=== PATIENT | male | born 1935 | race Caucasian/White ===

== ENCOUNTER 2018-03-29 21:03 | Inpatient (IN) | payer MEDICARE ==
[~2018-03-29] VITALS: Ht 175.3 cm; Wt 122.9 kg
[2018-03-29 21:28] LABS: BASO # 0.1 x10^3/uL (0.0-0.2); BASO % 0 % (0-3); EOS % 0 % (0-3); HEMATOCRIT 51.1 % (39.0-53.0); HEMOGLOBIN 16.8 g/dL (13.0-17.5); LYMPH # 0.8 x10^3/uL (1.0-4.8); LYMPH % 6 % (24-48); MEAN CORPUSCULAR HEMOGLOBIN 30 pg (25-35); MEAN CORPUSCULAR HGB CONC 33 g/dL (31-37); MEAN CORPUSCULAR VOLUME 90 fL (79-100); MONO # 0.9 x10^3/uL (0.0-1.1); MONO % 6 % (0-9); NEUT # 12.9 x10^3uL (1.8-7.7); NEUT % 88 % (31-73); PLATELET COUNT 151 x10^3/uL (140-400); RED BLOOD COUNT 5.69 x10^6/uL (4.30-5.70); RED CELL DISTRIBUTION WIDTH 13.6 % (11.5-14.5); WHITE BLOOD COUNT 14.7 x10^3/uL (4.0-11.0)
[2018-03-29 21:37] LABS: PROTHROMBIN TIME PATIENT 16.2 SEC (11.7-14.0)
--- NOTE | 2018-03-29 21:44 | PHYS DOC ---
Past Medical History Past Medical History: A-Fib, Diabetes-Type II, Hypotension Past Surgical History: Other Additional Past Surgical Histo: PACEMAKER Alcohol Use: None Drug Use: None Adult General Chief Complaint Chief Complaint: HYPERGLYCEMIA HPI HPI Patient is a 82 year old male with a history of diabetes and a-fib presents to the ED by EMS stating that he has not been taking his insulin for the past week because he does not use it. Patient's son called EMS. Patient is a poor historian and offers little history. Denies chest pain, shortness of breath, dizziness, fever, weakness, nausea/vomiting, abdominal pain, diarrhea, blood in stool or syncope. Review of Systems Review of Systems Constitutional: Denies fever or chills [] Eyes: Denies change in visual acuity, redness, or eye pain [] HENT: Denies nasal congestion or sore throat [] Respiratory: Denies cough or shortness of breath [] Cardiovascular: No additional information not addressed in HPI [] GI: Denies abdominal pain, nausea, vomiting, bloody stools or diarrhea [] : Denies dysuria or hematuria [] Musculoskeletal: Denies back pain or joint pain [] Integument: Denies rash or skin lesions [] Neurologic: Denies headache, focal weakness or sensory changes [] All other systems were reviewed and found to be within normal limits, except as documented in this note. Current Medications Current Medications Current Medications Medications (Trade) Dose Ordered Sig/Lizzette Start Time Stop Time Status Last Admin Dose Admin Azithromycin 500 mg/Sodium Chloride 250 ml @ 250 mls/hr 1X ONCE 03/29/18 23:00 03/29/18 23:59 DC 03/29/18 23:42 250 MLS/HR Ceftriaxone Sodium 50 ml @ 100 mls/hr 1X ONCE 03/29/18 23:15 03/29/18 23:44 DC 03/29/18 23:15 100 MLS/HR Insulin Human Regular (HumuLIN R VIAL) 10 unit 1X ONCE 03/29/18 22:15 03/29/18 22:16 DC 03/29/18 22:42 10 UNIT Insulin Human Regular 150 unit/ Sodium Chloride 151.5 ml @ 0 mls/hr CONT PRN 03/29/18 22:30 03/29/18 22:58 DC Sodium Chloride 1,000 ml @ 1,000 mls/hr 1X ONCE 03/29/18 22:15 8/8/18 23:14 DC 03/29/18 22:43 1,000 MLS/HR Allergies Allergies Allergies Coded Allergies Type Severity Reaction Last Updated Verified No Known Drug Allergies 03/29/18 No Physical Exam Physical Exam Constitutional: No acute distress, non-toxic appearance. [] HENT: Normocephalic, atraumatic, bilateral external ears normal, oropharynx moist, no oral exudates, nose normal. [] Eyes: PERRLA, EOMI, conjunctiva normal, no discharge. [] Neck: Normal range of motion, no tenderness, supple, no stridor. [] Cardiovascular:Heart rate regular rhythm, no murmur [] Lungs & Thorax: Bilateral breath sounds clear to auscultation. dry cough. [] Abdomen: Bowel sounds normal, soft, no tenderness, no masses, no pulsatile masses. [] Skin: Warm, dry, no erythema, no rash. [] Back: No tenderness, no CVA tenderness. [] Extremities: erythema to left lower leg. No bony tenderness, no cyanosis, no clubbing, ROM intact, no edema. [] Neurologic: Alert and oriented X 3, normal motor function, normal sensory function, no focal deficits noted. [] Psychologic: Affect normal, judgement normal, mood normal. [] Current Patient Data Vital Signs Vital Signs Date Time Temp Pulse Resp B/P (MAP) Pulse Ox O2 Delivery O2 Flow Rate FiO2 03/29/18 21:03 98.7 60 16 173/70 (104) 97 Room Air 98.7 Lab Values Laboratory Tests Test 03/29/18 21:10 03/29/18 21:49 03/29/18 21:55 White Blood Count 14.7 x10^3/uL (4.0-11.0) H Red Blood Count 5.69 x10^6/uL (4.30-5.70) Hemoglobin 16.8 g/dL (13.0-17.5) Hematocrit 51.1 % (39.0-53.0) Mean Corpuscular Volume 90 fL (79-100) Mean Corpuscular Hemoglobin 30 pg (25-35) Mean Corpuscular Hemoglobin Concent 33 g/dL (31-37) Red Cell Distribution Width 13.6 % (11.5-14.5) Platelet Count 151 x10^3/uL (140-400) Neutrophils (%) (Auto) 88 % (31-73) H Lymphocytes (%) (Auto) 6 % (24-48) L Monocytes (%) (Auto) 6 % (0-9) Eosinophils (%) (Auto) 0 % (0-3) Basophils (%) (Auto) 0 % (0-3) Neutrophils # (Auto) 12.9 x10^3uL (1.8-7.7) H Lymphocytes # (Auto) 0.8 x10^3/uL (1.0-4.8) L Monocytes # (Auto) 0.9 x10^3/uL (0.0-1.1) Eosinophils # (Auto) 0.0 x10^3/uL (0.0-0.7) Basophils # (Auto) 0.1 x10^3/uL (0.0-0.2) Segmented Neutrophils % 79 % (35-66) H Band Neutrophils % 13 % (0-9) H Lymphocytes % 4 % (24-48) L Monocytes % 3 % (0-10) Basophils % 1 % (0-3) Toxic Granulation Slight Platelet Estimate Adequate (ADEQUATE) Prothrombin Time 16.2 SEC (11.7-14.0) H Prothrombin Time INR 1.4 (0.8-1.1) H Sodium Level 137 mmol/L (136-145) Potassium Level 4.2 mmol/L (3.5-5.1) Chloride Level 101 mmol/L (98-107) Carbon Dioxide Level 23 mmol/L (21-32) Anion Gap 13 (6-14) Blood Urea Nitrogen 27 mg/dL (8-26) H Creatinine 1.9 mg/dL (0.7-1.3) H Estimated GFR (Cockcroft-Gault) 34.2 BUN/Creatinine Ratio 14 (6-20) Glucose Level 555 mg/dL (70-99) *H Glucose (Fingerstick) 458 mg/dL (70-99) H Lactic Acid Level 6.3 mmol/L (0.4-2.0) *H Calcium Level 9.4 mg/dL (8.5-10.1) Magnesium Level 1.8 mg/dL (1.8-2.4) Total Bilirubin 1.2 mg/dL (0.2-1.0) H Aspartate Amino Transferase (AST) 17 U/L (15-37) Alanine Aminotransferase (ALT) 20 U/L (16-63) Alkaline Phosphatase 103 U/L (46-116) Creatine Kinase 30 U/L (39-308) L Troponin I Quantitative < 0.017 ng/mL (0.000-0.055) UO-Fjt-N-Type Natriuretic Peptide 1807 pg/mL (0-449) H Total Protein 7.4 g/dL (6.4-8.2) Albumin 3.1 g/dL (3.4-5.0) L Albumin/Globulin Ratio 0.7 (1.0-1.7) L Lipase 172 U/L (73-393) Thyroid Stimulating Hormone (TSH) 3.599 uIU/mL (0.358-3.74) POC Troponin I 0.02 ng/ml (<0.08) Urine Collection Type Unknown Urine Color Yellow Urine Clarity Clear Urine pH 5.5 Urine Specific [place] >=1.030 Urine Protein 100 mg/dL (NEG-TRACE) Urine Glucose (UA) >=1000 mg/dL (NEG) Urine Ketones (Stick) Negative mg/dL (NEG) Urine Blood Small (NEG) Urine Nitrite Negative (NEG) Urine Bilirubin Negative (NEG) Urine Urobilinogen Dipstick 1.0 mg/dL (0.2 mg/dL) Urine Leukocyte Esterase Negative (NEG) Urine RBC Rare /HPF (0-2) Urine WBC Rare /HPF (0-4) Urine Squamous Epithelial Cells Occ /LPF Urine Bacteria 0 /HPF (0-FEW) Urine Hyaline Casts Few /HPF Urine Mucus Mod /LPF Laboratory Tests 03/29/18 21:10 Laboratory Tests 03/29/18 21:10 Microbiology 03/29/18 Blood Culture - Preliminary, Resulted NO GROWTH AFTER 1 DAY EKG EKG EKG shows a-flutter with LBBB. no obvious signs of ischemia in accordance with the sgarbossa criteria. No prior EKG for comparison.[] Radiology/Procedures Radiology/Procedures [] Course & Med Decision Making Course & Med Decision Making Pertinent Labs and Imaging studies reviewed. (See chart for details) []2 liters of fluids and insulin given in the ED. Patient is noncompliant and a poor historian. No complaints, waiting for son to come. Patient has a fever. Tylenol given. Antibiotics started. Unsure if pulmonary source or cellulitis. Discussed case with hospitalist, Dr. Perez. Agrees to admission and further management of patient. Patient stable admission. Dragon Disclaimer Dragon Disclaimer This electronic medical record was generated, in whole or in part, using a voice recognition dictation system. Departure Departure Impression: Primary Impression: Hyperglycemia Additional Impressions: Leukocytosis BRAD (acute kidney injury) Disposition: 09 ADMITTED INPATIENT Admitting Physician: Lisa Perez Condition: STABLE Referrals: UNKNOWN PCP NAME (PCP) Problem Qualifiers MJ RICARDO Mar 29, 2018 21:44
[2018-03-29 21:49] LABS: ALBUMIN 3.1 g/dL (3.4-5.0); ALBUMIN/GLOBULIN RATIO 0.7 (1.0-1.7); CALCIUM 9.4 mg/dL (8.5-10.1); CREATININE 1.9 mg/dL (0.7-1.3); GFR 34.2; MAGNESIUM 1.8 mg/dL (1.8-2.4); POTASSIUM 4.2 mmol/L (3.5-5.1); TOTAL BILIRUBIN 1.2 mg/dL (0.2-1.0); TOTAL PROTEIN 7.4 g/dL (6.4-8.2)
[2018-03-29 21:50] LABS: % BANDS 13 % (0-9); % BASOS 1 % (0-3); % LYMPHS 4 % (24-48); % MONOS 3 % (0-10); % SEGS 79 % (35-66)
[2018-03-29 21:51] LABS: PLT ESTIMATE ADEQUATE (ADEQUATE); TOXIC GRANULATION SLIGHT
[2018-03-29] MEDS ORDERED: IV NORMAL SALINE 1000ML BAG 1,000 ML IV ONE ×2 (22:00→22:15)
[2018-03-29 22:08] LABS: BILIRUBIN,URINE NEGATIVE (NEG); CLARITY,URINE CLEAR; COLOR,URINE YELLOW; NITRITE,URINE NEGATIVE (NEG); PH,URINE 5.5; PROTEIN,URINE 100 mg/dL (NEG-TRACE)
[2018-03-29] MEDS ORDERED: INSULIN REGULAR 100 UNIT/ML 3ML VIAL. IV ONE (22:15)
[2018-03-29 22:16] LABS: BACTERIA,URINE 0 /HPF (0-FEW); HYALINE CASTS, URINE FEW /HPF; RBC,URINE RARE /HPF (0-2); SQUAMOUS EPITHELIAL CELL,UR OCC /LPF; WBC,URINE RARE /HPF (0-4)
[2018-03-29] MEDS ORDERED: INSULIN REGULAR VIAL 150 UNIT in 0.9 % SODIUM CHLORIDE 150ML 150 ML IV PRN (22:30)
[2018-03-29] MEDS ORDERED: AZITHROMYCIN 500 MG in IV NORMAL SALINE 250ML 250 ML IV ONE (23:00)
--- NOTE | 2018-03-29 23:13 | RAD ---
AP portable chest radiograph 03/29/2018 Clinical History: History of hyperglycemia. History of heart disease.. An AP erect portable digital radiograph of the chest was obtained. No previous studies are available for comparison. A pacemaker overlies the left anterior chest. Leads extend to overlie the right atrium and right ventricle of the heart. The patient is post median sternotomy. The cardiac silhouette is mildly enlarged. Atherosclerotic calcification of the thoracic aorta is seen. The thoracic aorta is mildly tortuous. No acute pulmonary infiltrate is noted. No pneumothorax or pleural effusion is seen. There is diffuse osteopenia of the visualized bony structures. Degenerative changes are seen involving the thoracic spine and both shoulders. IMPRESSION: No acute abnormality is seen. Electronically signed by: Syed Gomez MD (03/29/2018 11:09 PM) [facility]
[2018-03-29] MEDS ORDERED: ACETAMINOPHEN 500 MG TABLET PO ONE (23:45)
[2018-03-29] MEDS ORDERED: fentaNYL PF VIAL 100 MCG/2 ML VIAL IV PRN (23:45)
[2018-03-29] MEDS ORDERED: ACETAMINOPHEN 325 MG TABLET. PO PRN (23:45)
[2018-03-29] MEDS ORDERED: ONDANSETRON PF 4 MG/2 ML VIAL. IV PRN (23:55)
[2018-03-30] VITALS (7 sets, daily range): BP systolic 107–139; BP diastolic 36–65
[2018-03-30] MEDS ORDERED: IV NORMAL SALINE 1000ML BAG 1,000 ML IV ONE (01:45)
[2018-03-30 06:01] LABS: BASO % 0 % (0-3); EOS % 0 % (0-3); HEMATOCRIT 47.2 % (39.0-53.0); HEMOGLOBIN 15.6 g/dL (13.0-17.5); LYMPH # 1.5 x10^3/uL (1.0-4.8); LYMPH % 13 % (24-48); MEAN CORPUSCULAR HEMOGLOBIN 30 pg (25-35); MEAN CORPUSCULAR HGB CONC 33 g/dL (31-37); MEAN CORPUSCULAR VOLUME 90 fL (79-100); MONO # 0.9 x10^3/uL (0.0-1.1); MONO % 8 % (0-9); NEUT # 9.3 x10^3uL (1.8-7.7); NEUT % 79 % (31-73); PLATELET COUNT 136 x10^3/uL (140-400); RED BLOOD COUNT 5.24 x10^6/uL (4.30-5.70); RED CELL DISTRIBUTION WIDTH 13.6 % (11.5-14.5); WHITE BLOOD COUNT 11.8 x10^3/uL (4.0-11.0)
[2018-03-30 06:21] LABS: ALBUMIN 2.5 g/dL (3.4-5.0); ALBUMIN/GLOBULIN RATIO 0.6 (1.0-1.7); CALCIUM 8.7 mg/dL (8.5-10.1); CREATININE 1.7 mg/dL (0.7-1.3); GFR 38.9; POTASSIUM 4.1 mmol/L (3.5-5.1); TOTAL BILIRUBIN 0.9 mg/dL (0.2-1.0); TOTAL PROTEIN 6.4 g/dL (6.4-8.2)
--- NOTE | 2018-03-30 07:33 | EKG ---
[facility] [address] [place] [address] Test Date: 2018-03-29 Test Time: 21:14:33 Pat Name: RICHARD OVIEDO Department: Room: Gender: M Capacity Planner: LIA : [id number] Requested By: MJ RICARDO Order Number: [id number] Reading MD: Measurements Intervals Unity Rate: 80 P: NC: QRS: 55 QRSD: 156 T: 160 QT: 430 QTc: 500 Interpretive Statements REGULAR RHYTHM, NO P WAVE FOUND LOW LIMB LEAD VOLTAGE NON SPECIFIC INTRAVENTRICULAR BLOCK QRS(T) CONTOUR ABNORMALITY CONSISTENT WITH ANTERIOR INFARCT PROBABLY OLD CONSIDER INFERIOR MYOCARDIAL DAMAGE ABNORMAL ECG RI6.01 No previous ECG available for comparison
[2018-03-30] MEDS ORDERED: DEXTROSE 50% 25 GM / 50ML DISP.SYRIN. IV PRN (07:45)
[2018-03-30] MEDS ORDERED: INSULIN GLARGINE 300 UNITS/3 ML INSULN.PEN. SQ SCH ×2 (08:00→21:00)
[2018-03-30] MEDS: INSULIN LISPRO 300 UNITS/3 ML INSULN.PEN. SQ SCH ×6 (08:25→17:00)
[2018-03-30] MEDS ORDERED: ASPI325T8 PO (09:19)
[2018-03-30] MEDS ORDERED: NYST15OI TP (09:19)
[2018-03-30] MEDS ORDERED: FURO-68 PO (09:19)
[2018-03-30] MEDS ORDERED: GLIP5TAB10 PO (09:19)
[2018-03-30] MEDS ORDERED: RIVA15TA PO (09:19)
[2018-03-30] MEDS ORDERED: TAMS0.4C97 PO (09:19)
[2018-03-30] MEDS ORDERED: TRAM50TA PO (09:19)
[2018-03-30] MEDS ORDERED: MUPI22OI2 TP (09:19)
[2018-03-30] MEDS ORDERED: MICO130A9 TP (09:19)
[2018-03-30] MEDS ORDERED: ATEN50TA PO (09:19)
[2018-03-30] MEDS ORDERED: LEVO25TA4 PO (09:19)
[2018-03-30] MEDS ORDERED: TRIA15OI TP (09:19)
[2018-03-30] MEDS ORDERED: INSU100V13 SQ (09:19)
[2018-03-30] MEDS ORDERED: traMADol 50 MG TABLET PO PRN (10:15)
--- NOTE | 2018-03-30 10:20 | PDOC1 ---
History and Physical Date of Admission Date of Admission DATE: 03/30/18 TIME: 10:13 Identification/Chief Complaint Chief Complaint foot numbness, right Source Source: Chart review, Patient History of Present Illness History of Present Illness Mr. Mathew, is a 82 year old male with a history of diabetes and a-fib presents to the ED by EMS stating that he has not been taking his insulin for the past week because he does not use it. Patient's son called EMS. Patient is a poor historian and offers little history. Denies chest pain, shortness of breath, dizziness, fever, weakness, nausea/vomiting, abdominal pain, diarrhea, blood in stool or syncope. Family History Family History: No Significant Social History Smoke: No ALCOHOL: none Drugs: Other Current Problem List Problem List Problems Medical Problems: (1) Hyperglycemia Status: Acute (2) Pneumonia Status: Acute Current Medications Current Medications Current Medications Sodium Chloride 1,000 ml @ 1,000 mls/hr 1X ONCE IV Last administered on at 22:05; Start 03/29/18 at 22:00; Stop 03/29/18 at 22:59; Status DC Sodium Chloride 1,000 ml @ 1,000 mls/hr 1X ONCE IV Last administered on at 22:43; Start 03/29/18 at 22:15; Stop 03/29/18 at 23:14; Status DC Insulin Human Regular 150 unit/ Sodium Chloride 151.5 ml @ 0 mls/hr CONT PRN IV SEE I/O RECORD; Start 03/29/18 at 22:30; Stop 03/29/18 at 22:58; Status DC Insulin Human Regular (HumuLIN R VIAL) 10 unit 1X ONCE IV Last administered on 03/29/18at 22:42; Start 03/29/18 at 22:15; Stop 03/29/18 at 22:16; Status DC Ceftriaxone Sodium 50 ml @ 100 mls/hr 1X ONCE IV Last administered on at 23:15; Start 03/29/18 at 23:15; Stop 03/29/18 at 23:44; Status DC Azithromycin 500 mg/Sodium Chloride 250 ml @ 250 mls/hr 1X ONCE IV Last administered on 03/29/18at 23:42; Start 03/29/18 at 23:00; Stop 03/29/18 at 23:59; Status DC Ondansetron HCl (Zofran) 4 mg PRN Q8HRS PRN IV NAUSEA/VOMITING; Start 03/29/18 at 23:55; Stop 03/30/18 at 23:54 Fentanyl Citrate (Fentanyl 2ml Vial) 50 mcg PRN Q1HR PRN IV PAIN; Start at 23:45; Stop 03/30/18 at 23:44 Acetaminophen (Tylenol) 650 mg PRN Q4HRS PRN PO FEVER; Start 03/29/18 at 23:45; Stop 03/30/18 at 23:44 Acetaminophen (Tylenol) 1,000 mg 1X ONCE PO Last administered on 03/29/18at 23: 58; Start 03/29/18 at 23:45; Stop 03/30/18 at 00:01; Status DC Sodium Chloride 1,000 ml @ 100 mls/hr 1X ONCE IV Last administered on at 01:45; Start 03/30/18 at 01:45; Stop 03/30/18 at 11:44 Insulin Human Lispro (HumaLOG) 0-9 UNITS TIDWMEALS SQ Last administered on at 08:26; Start 03/30/18 at 08:00 Dextrose (Dextrose 50%-Water Syringe) 12.5 gm PRN Q15MIN PRN IV SEE COMMENTS; Start 03/30/18 at 07:45 Insulin Glargine (Lantus) 14 units DAILY SQ Last administered on 03/30/18at 08:25 ; Start 03/30/18 at 08:00; Stop 03/30/18 at 10:12; Status DC Insulin Human Lispro (HumaLOG) 10 units TIDWMEALS SQ Last administered on at 08:25; Start 03/30/18 at 08:00 Aspirin (Dorothy Aspirin) 325 mg DAILY PO ; Start 03/31/18 at 09:00; Status UNV Atenolol (Tenormin) 75 mg DAILY PO ; Start 03/30/18 at 11:00 Furosemide (Lasix) 40 mg DAILY PO ; Start 03/30/18 at 11:00 Glipizide (Glucotrol) 5 mg DAILY PO ; Start 03/30/18 at 11:00 Rivaroxaban (Xarelto) 15 mg DAILY PO ; Start 03/30/18 at 11:00 Tamsulosin HCl (Flomax) 0.4 mg DAILY PO ; Start 03/30/18 at 11:00 Tramadol HCl (Ultram) 50 mg TID PRN PRN PO MILD PAIN; Start 03/30/18 at 10:15 Triamcinolone Acetonide (Kenalog) 1 maria isabel DAILY TP ; Start 03/30/18 at 11:00 Insulin Glargine (Lantus) 20 units QHS SQ ; Start 03/30/18 at 21:00 Levothyroxine Sodium (Synthroid) 25 mcg DAILY07 PO ; Start 03/30/18 at 11:00 Miconazole Nitrate (Desenex) 1 maria isabel PRN BID PRN TP YEAST; Start 03/30/18 at 21:00 Active Scripts Active Reported Aspirin 325 Mg Tablet 1 Tab PO DAILY Triamcinolone Acetonide 0.1% Oint (Triamcinolone Acetonide) 15 Gm Oint...g. 1 Maria Isabel TP PRN MIX WITH EUCERIN DIRECTED BY PHYSICIAN Tramadol Hcl 50 Mg Tablet 50 Mg PO TID PRN Flomax (Tamsulosin Hcl) 0.4 Mg Cap.er.24h 1 Cap PO DAILY Xarelto (Rivaroxaban) 15 Mg Tablet 15 Mg PO DAILY Nystatin 15 Gm Oint...g. 1 Maria Isabel TP PRN Mupirocin Ointment (Mupirocin) 22 Gm Oint...g. 1 Maria Isabel TP PRN Miconazole Nitrate 130 Gm Aero.powd 130 Gm TP PRN Levothyroxine Sodium 25 Mcg Tablet 1 Tab PO DAILY Levemir (Insulin Detemir) 100 Unit/1 Ml Vial 20 Unit SQ HS Glipizide 5 Mg Tablet 1 Tab PO DAILY Lasix (Furosemide) 40 Mg Tablet 40 Mg PO DAILY Atenolol 50 Mg Tablet 75 Mg PO DAILY Allergies Allergies: Coded Allergies: No Known Drug Allergies (Unverified , 03/29/18) ROS General: YES: Chills; No: Night Sweats, Fatigue, Malaise, Appetite, Other PSYCHOLOGICAL ROS: No: Anxiety, Behavioral Disorder, Concentration difficultie , Decreased libido, Depression, Disorientation, Hallucinations, Hostility, Irritablity, Memory difficulties, Mood Swings, Obsessive thoughts, Physical abuse, Sexual abuse, Sleep disturbances, Suicidal ideation, Other Eyes: No Blurry vision, No Decreased vision, No Double vision, No Dry eyes, No Excessive tearing, No Eye Pain, No Itchy Eyes, No Loss of vision, No Photophobia , No Scotomata, No Uses contacts, No Uses glasses, No Other HEENT: No: Heacaches, Visual Changes, Hearing change, Nasal congestion, Nasal discharge, Oral lesions, Sinus pain, Sore Throat, Epistaxis, Sneezing, Snoring, Tinnitus, Vertigo, Vocal changes, Other Respiratory: No: Cough, Hemoptysis, Orthopnea, Pleuritic Pain, Shortness of breath, SOB with excertion, Sputum Changes, Stridor, Tachypnea, Wheezing, Other Cardiovascular: No Chest Pain, No Palpitations, No Orthopnea, No Paroxysmal Noc. Dyspnea, No Edema, No Lt Headedness, No Other Gastrointestinal: Yes Nausea, Yes Vomiting; No Abdominal Pain, No Diarrhea, No Constipation, No Melena, No Hematochezia, No Other Genitourinary: No Dysuria, No Frequency, No Incontinence, No Hematuria, No Retention, No Discharge, No Urgency, No Pain, No Flank Pain, No Other, No , No , No , No , No , No , No Musculoskeletal: Yes Joint Pain, Yes Joint Stiffness Neurological: Yes Numbness/Tingling (foot); No Behavorial Changes, No Bowel/Bladder ControlChng, No Confusion, No Dizziness, No Gait Disturbance, No Headaches, No Impaired Coord/balance, No Memory Loss, No Seizures, No Speech Problems, No Tremors, No Visual Changes, No Weakness, No Other Skin: Yes Dry Skin Physical Exam General: Alert, Cooperative, mild distress, Other (not very oriented, but answered 3/3) HEENT: Atraumatic, EOMI Lungs: Clear to auscultation Heart: irregularly irregular, other Abdomen: Normal bowel sounds, Soft (very obese) Extremities: No cyanosis, Other (chronic LE edema, L>R, with some rubor over left, ) Skin: No rashes Neuro: Normal speech, Sensation intact Psych/Mental Status: Mood NL, Other (odd affect, some confusion) Vitals Vitals Vital Signs Date Time Temp Pulse Resp B/P (MAP) Pulse Ox O2 Delivery O2 Flow Rate FiO2 03/30/18 07:47 Room Air 03/30/18 07:00 97.9 80 20 116/65 (82) 98 97.9 Labs Labs Laboratory Tests Test 03/29/18 21:10 03/29/18 21:49 03/29/18 21:55 03/29/18 23:22 White Blood Count 14.7 x10^3/uL (4.0-11.0) Red Blood Count 5.69 x10^6/uL (4.30-5.70) Hemoglobin 16.8 g/dL (13.0-17.5) Hematocrit 51.1 % (39.0-53.0) Mean Corpuscular Volume 90 fL (79-100) Mean Corpuscular Hemoglobin 30 pg (25-35) Mean Corpuscular Hemoglobin Concent 33 g/dL (31-37) Red Cell Distribution Width 13.6 % (11.5-14.5) Platelet Count 151 x10^3/uL (140-400) Neutrophils (%) (Auto) 88 % (31-73) Lymphocytes (%) (Auto) 6 % (24-48) Monocytes (%) (Auto) 6 % (0-9) Eosinophils (%) (Auto) 0 % (0-3) Basophils (%) (Auto) 0 % (0-3) Neutrophils # (Auto) 12.9 x10^3uL (1.8-7.7) Lymphocytes # (Auto) 0.8 x10^3/uL (1.0-4.8) Monocytes # (Auto) 0.9 x10^3/uL (0.0-1.1) Eosinophils # (Auto) 0.0 x10^3/uL (0.0-0.7) Basophils # (Auto) 0.1 x10^3/uL (0.0-0.2) Segmented Neutrophils % 79 % (35-66) Band Neutrophils % 13 % (0-9) Lymphocytes % 4 % (24-48) Monocytes % 3 % (0-10) Basophils % 1 % (0-3) Toxic Granulation Slight Platelet Estimate Adequate (ADEQUATE) Prothrombin Time 16.2 SEC (11.7-14.0) Prothromb Time International Ratio 1.4 (0.8-1.1) Sodium Level 137 mmol/L (136-145) Potassium Level 4.2 mmol/L (3.5-5.1) Chloride Level 101 mmol/L (98-107) Carbon Dioxide Level 23 mmol/L (21-32) Anion Gap 13 (6-14) Blood Urea Nitrogen 27 mg/dL (8-26) Creatinine 1.9 mg/dL (0.7-1.3) Estimated GFR (Cockcroft-Gault) 34.2 BUN/Creatinine Ratio 14 (6-20) Glucose Level 555 mg/dL (70-99) Glucose (Fingerstick) 458 mg/dL (70-99) 432 mg/dL (70-99) Lactic Acid Level 6.3 mmol/L (0.4-2.0) Calcium Level 9.4 mg/dL (8.5-10.1) Magnesium Level 1.8 mg/dL (1.8-2.4) Total Bilirubin 1.2 mg/dL (0.2-1.0) Aspartate Amino Transf (AST/SGOT) 17 U/L (15-37) Alanine Aminotransferase (ALT/SGPT) 20 U/L (16-63) Alkaline Phosphatase 103 U/L (46-116) Creatine Kinase 30 U/L (39-308) Troponin I Quantitative < 0.017 ng/mL (0.000-0.055) QK-Cgn-X-Type Natriuretic Peptide 1807 pg/mL (0-449) Total Protein 7.4 g/dL (6.4-8.2) Albumin 3.1 g/dL (3.4-5.0) Albumin/Globulin Ratio 0.7 (1.0-1.7) Lipase 172 U/L (73-393) Thyroid Stimulating Hormone (TSH) 3.599 uIU/mL (0.358-3.74) Bedside Troponin I 0.02 ng/ml (<0.08) Urine Collection Type Unknown Urine Color Yellow Urine Clarity Clear Urine pH 5.5 Urine Specific [place] >=1.030 Urine Protein 100 mg/dL (NEG-TRACE) Urine Glucose (UA) >=1000 mg/dL (NEG) Urine Ketones (Stick) Negative mg/dL (NEG) Urine Blood Small (NEG) Urine Nitrite Negative (NEG) Urine Bilirubin Negative (NEG) Urine Urobilinogen Dipstick 1.0 mg/dL (0.2 mg/dL) Urine Leukocyte Esterase Negative (NEG) Urine RBC Rare /HPF (0-2) Urine WBC Rare /HPF (0-4) Urine Squamous Epithelial Cells Occ /LPF Urine Bacteria 0 /HPF (0-FEW) Urine Hyaline Casts Few /HPF Urine Mucus Mod /LPF Test 03/30/18 00:30 03/30/18 05:43 03/30/18 07:01 Glucose (Fingerstick) 426 mg/dL (70-99) 419 mg/dL (70-99) White Blood Count 11.8 x10^3/uL (4.0-11.0) Red Blood Count 5.24 x10^6/uL (4.30-5.70) Hemoglobin 15.6 g/dL (13.0-17.5) Hematocrit 47.2 % (39.0-53.0) Mean Corpuscular Volume 90 fL (79-100) Mean Corpuscular Hemoglobin 30 pg (25-35) Mean Corpuscular Hemoglobin Concent 33 g/dL (31-37) Red Cell Distribution Width 13.6 % (11.5-14.5) Platelet Count 136 x10^3/uL (140-400) Neutrophils (%) (Auto) 79 % (31-73) Lymphocytes (%) (Auto) 13 % (24-48) Monocytes (%) (Auto) 8 % (0-9) Eosinophils (%) (Auto) 0 % (0-3) Basophils (%) (Auto) 0 % (0-3) Neutrophils # (Auto) 9.3 x10^3uL (1.8-7.7) Lymphocytes # (Auto) 1.5 x10^3/uL (1.0-4.8) Monocytes # (Auto) 0.9 x10^3/uL (0.0-1.1) Eosinophils # (Auto) 0.0 x10^3/uL (0.0-0.7) Basophils # (Auto) 0.0 x10^3/uL (0.0-0.2) Sodium Level 138 mmol/L (136-145) Potassium Level 4.1 mmol/L (3.5-5.1) Chloride Level 104 mmol/L (98-107) Carbon Dioxide Level 28 mmol/L (21-32) Anion Gap 6 (6-14) Blood Urea Nitrogen 26 mg/dL (8-26) Creatinine 1.7 mg/dL (0.7-1.3) Estimated GFR (Cockcroft-Gault) 38.9 BUN/Creatinine Ratio 15 (6-20) Glucose Level 482 mg/dL (70-99) Lactic Acid Level 1.9 mmol/L (0.4-2.0) Calcium Level 8.7 mg/dL (8.5-10.1) Total Bilirubin 0.9 mg/dL (0.2-1.0) Aspartate Amino Transf (AST/SGOT) 16 U/L (15-37) Alanine Aminotransferase (ALT/SGPT) 18 U/L (16-63) Alkaline Phosphatase 85 U/L (46-116) Troponin I Quantitative 0.018 ng/mL (0.000-0.055) Total Protein 6.4 g/dL (6.4-8.2) Albumin 2.5 g/dL (3.4-5.0) Albumin/Globulin Ratio 0.6 (1.0-1.7) Laboratory Tests Test 03/29/18 21:10 03/29/18 21:49 03/29/18 21:55 03/29/18 23:22 White Blood Count 14.7 x10^3/uL (4.0-11.0) Red Blood Count 5.69 x10^6/uL (4.30-5.70) Hemoglobin 16.8 g/dL (13.0-17.5) Hematocrit 51.1 % (39.0-53.0) Mean Corpuscular Volume 90 fL (79-100) Mean Corpuscular Hemoglobin 30 pg (25-35) Mean Corpuscular Hemoglobin Concent 33 g/dL (31-37) Red Cell Distribution Width 13.6 % (11.5-14.5) Platelet Count 151 x10^3/uL (140-400) Neutrophils (%) (Auto) 88 % (31-73) Lymphocytes (%) (Auto) 6 % (24-48) Monocytes (%) (Auto) 6 % (0-9) Eosinophils (%) (Auto) 0 % (0-3) Basophils (%) (Auto) 0 % (0-3) Neutrophils # (Auto) 12.9 x10^3uL (1.8-7.7) Lymphocytes # (Auto) 0.8 x10^3/uL (1.0-4.8) Monocytes # (Auto) 0.9 x10^3/uL (0.0-1.1) Eosinophils # (Auto) 0.0 x10^3/uL (0.0-0.7) Basophils # (Auto) 0.1 x10^3/uL (0.0-0.2) Segmented Neutrophils % 79 % (35-66) Band Neutrophils % 13 % (0-9) Lymphocytes % 4 % (24-48) Monocytes % 3 % (0-10) Basophils % 1 % (0-3) Toxic Granulation Slight Platelet Estimate Adequate (ADEQUATE) Prothrombin Time 16.2 SEC (11.7-14.0) Prothromb Time International Ratio 1.4 (0.8-1.1) Sodium Level 137 mmol/L (136-145) Potassium Level 4.2 mmol/L (3.5-5.1) Chloride Level 101 mmol/L (98-107) Carbon Dioxide Level 23 mmol/L (21-32) Anion Gap 13 (6-14) Blood Urea Nitrogen 27 mg/dL (8-26) Creatinine 1.9 mg/dL (0.7-1.3) Estimated GFR (Cockcroft-Gault) 34.2 BUN/Creatinine Ratio 14 (6-20) Glucose Level 555 mg/dL (70-99) Glucose (Fingerstick) 458 mg/dL (70-99) 432 mg/dL (70-99) Lactic Acid Level 6.3 mmol/L (0.4-2.0) Calcium Level 9.4 mg/dL (8.5-10.1) Magnesium Level 1.8 mg/dL (1.8-2.4) Total Bilirubin 1.2 mg/dL (0.2-1.0) Aspartate Amino Transf (AST/SGOT) 17 U/L (15-37) Alanine Aminotransferase (ALT/SGPT) 20 U/L (16-63) Alkaline Phosphatase 103 U/L (46-116) Creatine Kinase 30 U/L (39-308) Troponin I Quantitative < 0.017 ng/mL (0.000-0.055) YD-Iod-G-Type Natriuretic Peptide 1807 pg/mL (0-449) Total Protein 7.4 g/dL (6.4-8.2) Albumin 3.1 g/dL (3.4-5.0) Albumin/Globulin Ratio 0.7 (1.0-1.7) Lipase 172 U/L (73-393) Thyroid Stimulating Hormone (TSH) 3.599 uIU/mL (0.358-3.74) Bedside Troponin I 0.02 ng/ml (<0.08) Urine Collection Type Unknown Urine Color Yellow Urine Clarity Clear Urine pH 5.5 Urine Specific [place] >=1.030 Urine Protein 100 mg/dL (NEG-TRACE) Urine Glucose (UA) >=1000 mg/dL (NEG) Urine Ketones (Stick) Negative mg/dL (NEG) Urine Blood Small (NEG) Urine Nitrite Negative (NEG) Urine Bilirubin Negative (NEG) Urine Urobilinogen Dipstick 1.0 mg/dL (0.2 mg/dL) Urine Leukocyte Esterase Negative (NEG) Urine RBC Rare /HPF (0-2) Urine WBC Rare /HPF (0-4) Urine Squamous Epithelial Cells Occ /LPF Urine Bacteria 0 /HPF (0-FEW) Urine Hyaline Casts Few /HPF Urine Mucus Mod /LPF Test 03/30/18 00:30 03/30/18 05:43 03/30/18 07:01 Glucose (Fingerstick) 426 mg/dL (70-99) 419 mg/dL (70-99) White Blood Count 11.8 x10^3/uL (4.0-11.0) Red Blood Count 5.24 x10^6/uL (4.30-5.70) Hemoglobin 15.6 g/dL (13.0-17.5) Hematocrit 47.2 % (39.0-53.0) Mean Corpuscular Volume 90 fL (79-100) Mean Corpuscular Hemoglobin 30 pg (25-35) Mean Corpuscular Hemoglobin Concent 33 g/dL (31-37) Red Cell Distribution Width 13.6 % (11.5-14.5) Platelet Count 136 x10^3/uL (140-400) Neutrophils (%) (Auto) 79 % (31-73) Lymphocytes (%) (Auto) 13 % (24-48) Monocytes (%) (Auto) 8 % (0-9) Eosinophils (%) (Auto) 0 % (0-3) Basophils (%) (Auto) 0 % (0-3) Neutrophils # (Auto) 9.3 x10^3uL (1.8-7.7) Lymphocytes # (Auto) 1.5 x10^3/uL (1.0-4.8) Monocytes # (Auto) 0.9 x10^3/uL (0.0-1.1) Eosinophils # (Auto) 0.0 x10^3/uL (0.0-0.7) Basophils # (Auto) 0.0 x10^3/uL (0.0-0.2) Sodium Level 138 mmol/L (136-145) Potassium Level 4.1 mmol/L (3.5-5.1) Chloride Level 104 mmol/L (98-107) Carbon Dioxide Level 28 mmol/L (21-32) Anion Gap 6 (6-14) Blood Urea Nitrogen 26 mg/dL (8-26) Creatinine 1.7 mg/dL (0.7-1.3) Estimated GFR (Cockcroft-Gault) 38.9 BUN/Creatinine Ratio 15 (6-20) Glucose Level 482 mg/dL (70-99) Lactic Acid Level 1.9 mmol/L (0.4-2.0) Calcium Level 8.7 mg/dL (8.5-10.1) Total Bilirubin 0.9 mg/dL (0.2-1.0) Aspartate Amino Transf (AST/SGOT) 16 U/L (15-37) Alanine Aminotransferase (ALT/SGPT) 18 U/L (16-63) Alkaline Phosphatase 85 U/L (46-116) Troponin I Quantitative 0.018 ng/mL (0.000-0.055) Total Protein 6.4 g/dL (6.4-8.2) Albumin 2.5 g/dL (3.4-5.0) Albumin/Globulin Ratio 0.6 (1.0-1.7) VTE Prophylaxis Ordered VTE Prophylaxis Devices: No VTE Pharmacological Prophylaxi: Yes Assessment/Plan Assessment/Plan Left foot weakenss and numbness, sensation intact, consutl physiatry, may need MRI spine Dm2, poor control, noncompliance past 3 months "I dont know how to use it" nausea and vomiting, possible gastroparesis Morbid obesity, BMI 40 chronic sacral ulcer, stage 2, discussed with wound care team, appears to be old and healing weakness and debility FRAN HERNANDEZ MD Mar 30, 2018 10:20
[2018-03-30] MEDS: TAMSULOSIN 0.4 MG CAP.ER.24H. PO SCH (10:27)
[2018-03-30] MEDS: glipiZIDE 5 MG TABLET PO SCH (10:27)
[2018-03-30] MEDS: LEVOTHYROXINE 25 MCG TABLET. PO SCH (10:27)
[2018-03-30] MEDS: ASPIRIN 325 MG TABLET PO SCH (10:27)
[2018-03-30] MEDS: FUROSEMIDE 40 MG TABLET. PO SCH (10:27)
[2018-03-30] MEDS: RIVAROXABAN 15 MG TABLET. PO SCH (10:27)
[2018-03-30] MEDS: ATENOLOL 50 MG TABLET. PO SCH (10:29)
[2018-03-30] MEDS: TRIAMCINOLONE ACETONIDE 0.1% TOPICAL OINTMENT 15GM TUBE. TP SCH (10:30)
--- NOTE | 2018-03-30 11:52 | PDOC2 ---
GI CONSULT Reason For Consult: N/v, poor DM control HPI: HPI: Pleasant 82 y/o male, poor historian. Says son brought him to the ER and will be here later. Tells me started feeling badly this morning and vomited. Also has some mild upper abdominal discomfort. Denies precipitating events. Denies reflux/heartburn, dysphagia, diarrhea, constipation, hematemesis, hematochezia, melena, change in appetite or weight. Typically no issues w/ abd pain, nausea, or vomiting. No previous EGD or colonoscopy. No GB, liver, or pancreas history. No NSAIDs. On ASA and Xarelto, but hasn't been to the drug store in [place]. H/o DM, non- compliant w/ insulin. Glucose 555 in ER, now in 400s w/ pending A1c. D/w Dr. Chris GILBERT ordered for tomorrow. His is in a facility after having a stroke and he and his son aren't very good cooks. They eat a lot of fried chicken, mac 'n cheese, hot dogs, and chili. PMH: PMH: A Fib, DM, hypothyroidism, BPH, pacemaker, appendectomy FH: Family History: No pertinent hx (denies GI cancers) Social History: Smoke: Quit ALCOHOL: none Drugs: Other ROS: GEN: Denies fevers, chills, sweats HEENT: Denies blurred vision, sore throat CV: Denies chest pain RESP: Denies shortness of air, cough GI: Per HPI : Denies hematuria, dysuria ENDO: Denies weight changes NEURO: +left foot numbness MSK: Denies weakness, joint pain/swelling SKIN: +sacral wound Vitals: Vitals: Vital Signs Date Time Temp Pulse Resp B/P (MAP) Pulse Ox O2 Delivery O2 Flow Rate FiO2 03/30/18 11:00 98.0 81 20 113/57 (75) 96 Room Air 98.0 Labs: Labs: Laboratory Tests Test 03/29/18 21:10 03/29/18 21:49 03/29/18 21:55 03/29/18 23:22 White Blood Count 14.7 x10^3/uL (4.0-11.0) Red Blood Count 5.69 x10^6/uL (4.30-5.70) Hemoglobin 16.8 g/dL (13.0-17.5) Hematocrit 51.1 % (39.0-53.0) Mean Corpuscular Volume 90 fL (79-100) Mean Corpuscular Hemoglobin 30 pg (25-35) Mean Corpuscular Hemoglobin Concent 33 g/dL (31-37) Red Cell Distribution Width 13.6 % (11.5-14.5) Platelet Count 151 x10^3/uL (140-400) Neutrophils (%) (Auto) 88 % (31-73) Lymphocytes (%) (Auto) 6 % (24-48) Monocytes (%) (Auto) 6 % (0-9) Eosinophils (%) (Auto) 0 % (0-3) Basophils (%) (Auto) 0 % (0-3) Neutrophils # (Auto) 12.9 x10^3uL (1.8-7.7) Lymphocytes # (Auto) 0.8 x10^3/uL (1.0-4.8) Monocytes # (Auto) 0.9 x10^3/uL (0.0-1.1) Eosinophils # (Auto) 0.0 x10^3/uL (0.0-0.7) Basophils # (Auto) 0.1 x10^3/uL (0.0-0.2) Segmented Neutrophils % 79 % (35-66) Band Neutrophils % 13 % (0-9) Lymphocytes % 4 % (24-48) Monocytes % 3 % (0-10) Basophils % 1 % (0-3) Toxic Granulation Slight Platelet Estimate Adequate (ADEQUATE) Prothrombin Time 16.2 SEC (11.7-14.0) Prothromb Time International Ratio 1.4 (0.8-1.1) Sodium Level 137 mmol/L (136-145) Potassium Level 4.2 mmol/L (3.5-5.1) Chloride Level 101 mmol/L (98-107) Carbon Dioxide Level 23 mmol/L (21-32) Anion Gap 13 (6-14) Blood Urea Nitrogen 27 mg/dL (8-26) Creatinine 1.9 mg/dL (0.7-1.3) Estimated GFR (Cockcroft-Gault) 34.2 BUN/Creatinine Ratio 14 (6-20) Glucose Level 555 mg/dL (70-99) Glucose (Fingerstick) 458 mg/dL (70-99) 432 mg/dL (70-99) Lactic Acid Level 6.3 mmol/L (0.4-2.0) Calcium Level 9.4 mg/dL (8.5-10.1) Magnesium Level 1.8 mg/dL (1.8-2.4) Total Bilirubin 1.2 mg/dL (0.2-1.0) Aspartate Amino Transf (AST/SGOT) 17 U/L (15-37) Alanine Aminotransferase (ALT/SGPT) 20 U/L (16-63) Alkaline Phosphatase 103 U/L (46-116) Creatine Kinase 30 U/L (39-308) Troponin I Quantitative < 0.017 ng/mL (0.000-0.055) MM-[id number]-[id number]-Type Natriuretic Peptide 1807 pg/mL (0-449) Total Protein 7.4 g/dL (6.4-8.2) Albumin 3.1 g/dL (3.4-5.0) Albumin/Globulin Ratio 0.7 (1.0-1.7) Lipase 172 U/L (73-393) Thyroid Stimulating Hormone (TSH) 3.599 uIU/mL (0.358-3.74) Bedside Troponin I 0.02 ng/ml (<0.08) Urine Collection Type Unknown Urine Color Yellow Urine Clarity Clear Urine pH 5.5 Urine Specific [place] >=1.030 Urine Protein 100 mg/dL (NEG-TRACE) Urine Glucose (UA) >=1000 mg/dL (NEG) Urine Ketones (Stick) Negative mg/dL (NEG) Urine Blood Small (NEG) Urine Nitrite Negative (NEG) Urine Bilirubin Negative (NEG) Urine Urobilinogen Dipstick 1.0 mg/dL (0.2 mg/dL) Urine Leukocyte Esterase Negative (NEG) Urine RBC Rare /HPF (0-2) Urine WBC Rare /HPF (0-4) Urine Squamous Epithelial Cells Occ /LPF Urine Bacteria 0 /HPF (0-FEW) Urine Hyaline Casts Few /HPF Urine Mucus Mod /LPF Test 03/30/18 00:30 03/30/18 05:43 03/30/18 07:01 Glucose (Fingerstick) 426 mg/dL (70-99) 419 mg/dL (70-99) White Blood Count 11.8 x10^3/uL (4.0-11.0) Red Blood Count 5.24 x10^6/uL (4.30-5.70) Hemoglobin 15.6 g/dL (13.0-17.5) Hematocrit 47.2 % (39.0-53.0) Mean Corpuscular Volume 90 fL (79-100) Mean Corpuscular Hemoglobin 30 pg (25-35) Mean Corpuscular Hemoglobin Concent 33 g/dL (31-37) Red Cell Distribution Width 13.6 % (11.5-14.5) Platelet Count 136 x10^3/uL (140-400) Neutrophils (%) (Auto) 79 % (31-73) Lymphocytes (%) (Auto) 13 % (24-48) Monocytes (%) (Auto) 8 % (0-9) Eosinophils (%) (Auto) 0 % (0-3) Basophils (%) (Auto) 0 % (0-3) Neutrophils # (Auto) 9.3 x10^3uL (1.8-7.7) Lymphocytes # (Auto) 1.5 x10^3/uL (1.0-4.8) Monocytes # (Auto) 0.9 x10^3/uL (0.0-1.1) Eosinophils # (Auto) 0.0 x10^3/uL (0.0-0.7) Basophils # (Auto) 0.0 x10^3/uL (0.0-0.2) Sodium Level 138 mmol/L (136-145) Potassium Level 4.1 mmol/L (3.5-5.1) Chloride Level 104 mmol/L (98-107) Carbon Dioxide Level 28 mmol/L (21-32) Anion Gap 6 (6-14) Blood Urea Nitrogen 26 mg/dL (8-26) Creatinine 1.7 mg/dL (0.7-1.3) Estimated GFR (Cockcroft-Gault) 38.9 BUN/Creatinine Ratio 15 (6-20) Glucose Level 482 mg/dL (70-99) Lactic Acid Level 1.9 mmol/L (0.4-2.0) Calcium Level 8.7 mg/dL (8.5-10.1) Total Bilirubin 0.9 mg/dL (0.2-1.0) Aspartate Amino Transf (AST/SGOT) 16 U/L (15-37) Alanine Aminotransferase (ALT/SGPT) 18 U/L (16-63) Alkaline Phosphatase 85 U/L (46-116) Troponin I Quantitative 0.018 ng/mL (0.000-0.055) Total Protein 6.4 g/dL (6.4-8.2) Albumin 2.5 g/dL (3.4-5.0) Albumin/Globulin Ratio 0.6 (1.0-1.7) Allergies: Coded Allergies: No Known Drug Allergies (Unverified , 03/29/18) Medications: Current Medications Medications (Trade) Dose Ordered Sig/Lizzette Route PRN Reason Start Time Stop Time Status Last Admin Dose Admin Sodium Chloride 1,000 ml @ 1,000 mls/hr 1X ONCE IV 03/29/18 22:00 03/29/18 22:59 DC 03/29/18 22:05 Sodium Chloride 1,000 ml @ 1,000 mls/hr 1X ONCE IV 03/29/18 22:15 03/29/18 23:14 DC 03/29/18 22:43 Insulin Human Regular (HumuLIN R VIAL) 10 unit 1X ONCE IV 03/29/18 22:15 03/29/18 22:16 DC 03/29/18 22:42 Ceftriaxone Sodium 50 ml @ 100 mls/hr 1X ONCE IV 03/29/18 23:15 03/29/18 23:44 DC 03/29/18 23:15 Azithromycin 500 mg/Sodium Chloride 250 ml @ 250 mls/hr 1X ONCE IV 03/29/18 23:00 03/29/18 23:59 DC 03/29/18 23:42 Acetaminophen (Tylenol) 1,000 mg 1X ONCE PO 03/29/18 23:45 03/30/18 00:01 DC 03/29/18 23:58 Sodium Chloride 1,000 ml @ 100 mls/hr 1X ONCE IV 03/30/18 01:45 03/30/18 11:44 03/30/18 01:45 Insulin Human Lispro (HumaLOG) 0-9 UNITS TIDWMEALS SQ 03/30/18 08:00 03/30/18 08:26 Insulin Glargine (Lantus) 14 units DAILY SQ 03/30/18 08:00 03/30/18 10:12 DC 03/30/18 08:25 Insulin Human Lispro (HumaLOG) 10 units TIDWMEALS SQ 03/30/18 08:00 03/30/18 08:25 Aspirin (Dorothy Aspirin) 325 mg DAILY PO 03/30/18 11:00 03/30/18 10:27 Atenolol (Tenormin) 75 mg DAILY PO 03/30/18 11:00 03/30/18 10:29 Furosemide (Lasix) 40 mg DAILY PO 03/30/18 11:00 03/30/18 10:27 Glipizide (Glucotrol) 5 mg DAILY PO 03/30/18 11:00 03/30/18 10:27 Rivaroxaban (Xarelto) 15 mg DAILY PO 03/30/18 11:00 03/30/18 10:27 Tamsulosin HCl (Flomax) 0.4 mg DAILY PO 03/30/18 11:00 03/30/18 10:27 Levothyroxine Sodium (Synthroid) 25 mcg DAILY07 PO 03/30/18 11:00 03/30/18 10:27 Imaging: Imaging: CXR IMPRESSION: No acute abnormality is seen. PE: GEN: NAD HEENT: Atraumatic, PERRL LUNGS: clear anteriorly HEART: RR - distant ABD: round, perhaps mild epigastric/LUQ discomfort EXTREMITY: trace BLE edema SKIN: No jaundice NEURO/PSYCH: A & O 3 - poor historian A/P: A/P: N/v, upper abd discomfort - acute onset DM and ?A Fib - non-compliant BRAD (?CKD), left foot numbness, sacral wound CRC screen - none -- Encouraged compliance w/ meds. Would benefit from diabetic education. Await GES. Empiric PPI. Consider outpt screening colonoscopy though increased risk w/ advanced age. MICHAEL BERKOWITZ Mar 30, 2018 11:52
[2018-03-30] MEDS ORDERED: LIDO:MAALOX 1:1 20 ML SINGLE DOSE. PO PRN (12:00)
[2018-03-30] MEDS ORDERED: INSULIN LISPRO 300 UNITS/3 ML INSULN.PEN. SQ ONE ×2 (12:15→14:30)
[2018-03-30] MEDS: PANTOPRAZOLE 40 MG TABLET.DR. PO SCH (12:24)
--- NOTE | 2018-03-30 12:59 | PDOC ---
Infectious Disease Note Vital Sign Vital Signs Vital Signs Date Time Temp Pulse Resp B/P (MAP) Pulse Ox O2 Delivery O2 Flow Rate FiO2 03/30/18 11:00 98.0 81 20 113/57 (75) 96 Room Air 98.0 Labs Lab Laboratory Tests Test 03/29/18 21:10 03/29/18 21:49 03/29/18 21:55 03/29/18 23:22 White Blood Count 14.7 x10^3/uL (4.0-11.0) Red Blood Count 5.69 x10^6/uL (4.30-5.70) Hemoglobin 16.8 g/dL (13.0-17.5) Hematocrit 51.1 % (39.0-53.0) Mean Corpuscular Volume 90 fL (79-100) Mean Corpuscular Hemoglobin 30 pg (25-35) Mean Corpuscular Hemoglobin Concent 33 g/dL (31-37) Red Cell Distribution Width 13.6 % (11.5-14.5) Platelet Count 151 x10^3/uL (140-400) Neutrophils (%) (Auto) 88 % (31-73) Lymphocytes (%) (Auto) 6 % (24-48) Monocytes (%) (Auto) 6 % (0-9) Eosinophils (%) (Auto) 0 % (0-3) Basophils (%) (Auto) 0 % (0-3) Neutrophils # (Auto) 12.9 x10^3uL (1.8-7.7) Lymphocytes # (Auto) 0.8 x10^3/uL (1.0-4.8) Monocytes # (Auto) 0.9 x10^3/uL (0.0-1.1) Eosinophils # (Auto) 0.0 x10^3/uL (0.0-0.7) Basophils # (Auto) 0.1 x10^3/uL (0.0-0.2) Segmented Neutrophils % 79 % (35-66) Band Neutrophils % 13 % (0-9) Lymphocytes % 4 % (24-48) Monocytes % 3 % (0-10) Basophils % 1 % (0-3) Toxic Granulation Slight Platelet Estimate Adequate (ADEQUATE) Prothrombin Time 16.2 SEC (11.7-14.0) Prothromb Time International Ratio 1.4 (0.8-1.1) Sodium Level 137 mmol/L (136-145) Potassium Level 4.2 mmol/L (3.5-5.1) Chloride Level 101 mmol/L (98-107) Carbon Dioxide Level 23 mmol/L (21-32) Anion Gap 13 (6-14) Blood Urea Nitrogen 27 mg/dL (8-26) Creatinine 1.9 mg/dL (0.7-1.3) Estimated GFR (Cockcroft-Gault) 34.2 BUN/Creatinine Ratio 14 (6-20) Glucose Level 555 mg/dL (70-99) Glucose (Fingerstick) 458 mg/dL (70-99) 432 mg/dL (70-99) Lactic Acid Level 6.3 mmol/L (0.4-2.0) Calcium Level 9.4 mg/dL (8.5-10.1) Magnesium Level 1.8 mg/dL (1.8-2.4) Total Bilirubin 1.2 mg/dL (0.2-1.0) Aspartate Amino Transf (AST/SGOT) 17 U/L (15-37) Alanine Aminotransferase (ALT/SGPT) 20 U/L (16-63) Alkaline Phosphatase 103 U/L (46-116) Creatine Kinase 30 U/L (39-308) Troponin I Quantitative < 0.017 ng/mL (0.000-0.055) FP-Rfv-[id number]-Type Natriuretic Peptide 1807 pg/mL (0-449) Total Protein 7.4 g/dL (6.4-8.2) Albumin 3.1 g/dL (3.4-5.0) Albumin/Globulin Ratio 0.7 (1.0-1.7) Lipase 172 U/L (73-393) Thyroid Stimulating Hormone (TSH) 3.599 uIU/mL (0.358-3.74) Bedside Troponin I 0.02 ng/ml (<0.08) Urine Collection Type Unknown Urine Color Yellow Urine Clarity Clear Urine pH 5.5 Urine Specific [place] >=1.030 Urine Protein 100 mg/dL (NEG-TRACE) Urine Glucose (UA) >=1000 mg/dL (NEG) Urine Ketones (Stick) Negative mg/dL (NEG) Urine Blood Small (NEG) Urine Nitrite Negative (NEG) Urine Bilirubin Negative (NEG) Urine Urobilinogen Dipstick 1.0 mg/dL (0.2 mg/dL) Urine Leukocyte Esterase Negative (NEG) Urine RBC Rare /HPF (0-2) Urine WBC Rare /HPF (0-4) Urine Squamous Epithelial Cells Occ /LPF Urine Bacteria 0 /HPF (0-FEW) Urine Hyaline Casts Few /HPF Urine Mucus Mod /LPF Test 03/30/18 00:30 03/30/18 05:43 03/30/18 07:01 03/30/18 11:59 Glucose (Fingerstick) 426 mg/dL (70-99) 419 mg/dL (70-99) 422 mg/dL (70-99) White Blood Count 11.8 x10^3/uL (4.0-11.0) Red Blood Count 5.24 x10^6/uL (4.30-5.70) Hemoglobin 15.6 g/dL (13.0-17.5) Hematocrit 47.2 % (39.0-53.0) Mean Corpuscular Volume 90 fL (79-100) Mean Corpuscular Hemoglobin 30 pg (25-35) Mean Corpuscular Hemoglobin Concent 33 g/dL (31-37) Red Cell Distribution Width 13.6 % (11.5-14.5) Platelet Count 136 x10^3/uL (140-400) Neutrophils (%) (Auto) 79 % (31-73) Lymphocytes (%) (Auto) 13 % (24-48) Monocytes (%) (Auto) 8 % (0-9) Eosinophils (%) (Auto) 0 % (0-3) Basophils (%) (Auto) 0 % (0-3) Neutrophils # (Auto) 9.3 x10^3uL (1.8-7.7) Lymphocytes # (Auto) 1.5 x10^3/uL (1.0-4.8) Monocytes # (Auto) 0.9 x10^3/uL (0.0-1.1) Eosinophils # (Auto) 0.0 x10^3/uL (0.0-0.7) Basophils # (Auto) 0.0 x10^3/uL (0.0-0.2) Sodium Level 138 mmol/L (136-145) Potassium Level 4.1 mmol/L (3.5-5.1) Chloride Level 104 mmol/L (98-107) Carbon Dioxide Level 28 mmol/L (21-32) Anion Gap 6 (6-14) Blood Urea Nitrogen 26 mg/dL (8-26) Creatinine 1.7 mg/dL (0.7-1.3) Estimated GFR (Cockcroft-Gault) 38.9 BUN/Creatinine Ratio 15 (6-20) Glucose Level 482 mg/dL (70-99) Lactic Acid Level 1.9 mmol/L (0.4-2.0) Calcium Level 8.7 mg/dL (8.5-10.1) Total Bilirubin 0.9 mg/dL (0.2-1.0) Aspartate Amino Transf (AST/SGOT) 16 U/L (15-37) Alanine Aminotransferase (ALT/SGPT) 18 U/L (16-63) Alkaline Phosphatase 85 U/L (46-116) Troponin I Quantitative 0.018 ng/mL (0.000-0.055) Total Protein 6.4 g/dL (6.4-8.2) Albumin 2.5 g/dL (3.4-5.0) Albumin/Globulin Ratio 0.6 (1.0-1.7) Objective Assessment Fever Bandemia ? LLE cellulitis Tinea lactic acidosis BRAD DM N/V Plan Plan of Care Dose Zosyn Add micafungin - has pacemaker F/u labs and cults D/w Dr. Perez and Dr. Bryant Thank you # [phone] KVNG MERRILL MD Mar 30, 2018 12:59
[2018-03-30] MEDS: PIPERACILLIN/TAZOBACTAM 3.375 GM in IV NORMAL SALINE 50ML 50 ML IV SCH ×2 (13:00→17:02)
[2018-03-30] MEDS: GABAPENTIN 100 MG CAPSULE. PO SCH ×2 (14:24→21:18)
[2018-03-30] MEDS: MICAFUNGIN 100 MG in IV DEXTROSE 5% 100ML 100 ML IV SCH (16:08)
--- NOTE | 2018-03-30 17:09 | CONS ---
DATE OF CONSULTATION: ATTENDING PHYSICIAN: Dr. Perez. HISTORY OF PRESENT ILLNESS: The patient is an 82-year-old obese male with a BMI of 40. He smoked for 40 years before quitting. He is not on home oxygen. He has mild occasional exertional dyspnea. He said he was brought in the hospital as he was feeling dizziness. He denies any fever, denies any chills. No chest pain, no headaches, no nausea or vomiting or diarrhea. He has mild lower extremity edema. His chest x-ray was reviewed by me. There is no definite consolidation seen. He had a fever of 101 on admission. PAST MEDICAL HISTORY: Significant for history of COPD, but clinically compensated. History of atrial fibrillation, history of pacemaker, history of chronic anticoagulation with Xarelto. No history of deep vein thrombosis or pulmonary embolism. PAST SURGICAL HISTORY: No recent surgery. ALLERGIES: None. MEDICATIONS: All reviewed as listed in the MRAD including antibiotics per ID and Xarelto. REVIEW OF SYSTEMS: Twelve-point system obtained. Pertinent positives discussed in my history of present illness, otherwise noncontributory. All systems that were negative were reviewed as well. PHYSICAL EXAMINATION: GENERAL: He is awake, following commands, in no obvious respiratory distress. VITAL SIGNS: Room air pulse ox 95%. NECK: Supple. LUNGS: Clear. CARDIOVASCULAR: Regular rate and rhythm. ABDOMEN: Soft. EXTREMITIES: With some nonpitting edema. LABORATORY DATA: Reviewed. White cell count was 14.7, now down to 11.8; hemoglobin 15.6 and platelets are 136. Chest x-ray revealed no acute infiltrates. IMPRESSION: 1. Fever, unlikely pulmonary source. Infectious Disease has been following. 2. 40 years of tobacco use, suspect underlying chronic obstructive pulmonary disease, clinically compensated. 3. Possible lower extremity cellulitis. RECOMMENDATIONS: From a pulmonary standpoint, he is stable. I do not see a need for any further pulmonary workup. The source of fever unlikely related to lungs. Fever is, however, resolved. I will follow infectious disease recommendations and please call us for any further recommendations. We will sign off for now. TRINIDAD SHAH MD DR: JIN/don JOB#: [id number] / [id number]
--- NOTE | 2018-03-30 18:26 | PDOC2 ---
CONSULT Date of Consult Date of Consult DATE: 03/30/18 TIME: 18:22 Reason for Consult Reason for Consult: dystrophic nails Referring Physician Referring Physician: Chris Identification/Chief Complaint Chief Complaint Symptomatic nails Source Source: Patient History of Present Illness Reason for Visit: 82 year old male admitted to [facility] for hyperglycemia also complains of long thick symptomatic nails. he [facility] however he has not been in several months. He relates to calf claudication but states always has cramping in his calf. Patient also relates to numbness/tingling in his feet. Past Medical History Cardiovascular: AFIB, CAD, HTN Endocrine: Diabetes Dermatology: Other (sacral decubitus ulceration) Past Surgical History Past Surgical History: CABG, Total knee replacement Family History Family History: No Significant Social History Quit ALCOHOL: none Drugs: Other Current Problem List Problem List Problems Medical Problems: (1) Hyperglycemia Status: Acute (2) Pneumonia Status: Acute Current Medications Current Medications Current Medications Sodium Chloride 1,000 ml @ 1,000 mls/hr 1X ONCE IV Last administered on at 22:05; Start 03/29/18 at 22:00; Stop 03/29/18 at 22:59; Status DC Sodium Chloride 1,000 ml @ 1,000 mls/hr 1X ONCE IV Last administered on at 22:43; Start 03/29/18 at 22:15; Stop 03/29/18 at 23:14; Status DC Insulin Human Regular 150 unit/ Sodium Chloride 151.5 ml @ 0 mls/hr CONT PRN IV SEE I/O RECORD; Start 03/29/18 at 22:30; Stop 03/29/18 at 22:58; Status DC Insulin Human Regular (HumuLIN R VIAL) 10 unit 1X ONCE IV Last administered on 03/29/18at 22:42; Start 03/29/18 at 22:15; Stop 03/29/18 at 22:16; Status DC Ceftriaxone Sodium 50 ml @ 100 mls/hr 1X ONCE IV Last administered on at 23:15; Start 03/29/18 at 23:15; Stop 03/29/18 at 23:44; Status DC Azithromycin 500 mg/Sodium Chloride 250 ml @ 250 mls/hr 1X ONCE IV Last administered on 03/29/18at 23:42; Start 03/29/18 at 23:00; Stop 03/29/18 at 23:59; Status DC Ondansetron HCl (Zofran) 4 mg PRN Q8HRS PRN IV NAUSEA/VOMITING; Start 03/29/18 at 23:55; Stop 03/30/18 at 23:54 Fentanyl Citrate (Fentanyl 2ml Vial) 50 mcg PRN Q1HR PRN IV PAIN; Start at 23:45; Stop 03/30/18 at 23:44 Acetaminophen (Tylenol) 650 mg PRN Q4HRS PRN PO FEVER; Start 03/29/18 at 23:45; Stop 03/30/18 at 23:44 Acetaminophen (Tylenol) 1,000 mg 1X ONCE PO Last administered on 03/29/18at 23: 58; Start 03/29/18 at 23:45; Stop 03/30/18 at 00:01; Status DC Sodium Chloride 1,000 ml @ 100 mls/hr 1X ONCE IV Last administered on at 01:45; Start 03/30/18 at 01:45; Stop 03/30/18 at 11:44; Status DC Insulin Human Lispro (HumaLOG) 0-9 UNITS TIDWMEALS SQ Last administered on at 08:26; Start 03/30/18 at 08:00 Dextrose (Dextrose 50%-Water Syringe) 12.5 gm PRN Q15MIN PRN IV SEE COMMENTS; Start 03/30/18 at 07:45 Insulin Glargine (Lantus) 14 units DAILY SQ Last administered on 03/30/18at 08:25 ; Start 03/30/18 at 08:00; Stop 03/30/18 at 10:12; Status DC Insulin Human Lispro (HumaLOG) 10 units TIDWMEALS SQ Last administered on at 08:25; Start 03/30/18 at 08:00; Stop 03/30/18 at 12:04; Status DC Aspirin (Dorothy Aspirin) 325 mg DAILY PO Last administered on 03/30/18at 10:27; Start 03/30/18 at 11:00 Atenolol (Tenormin) 75 mg DAILY PO Last administered on 03/30/18at 10:29; Start 03/30/18 at 11:00 Furosemide (Lasix) 40 mg DAILY PO Last administered on 03/30/18 10:27; Start at 11:00 Glipizide (Glucotrol) 5 mg DAILY PO Last administered on 03/30/18 10:27; Start 03/30/18 at 11:00 Rivaroxaban (Xarelto) 15 mg DAILY PO Last administered on 03/30/18 10:27; Start 03/30/18 at 11:00 Tamsulosin HCl (Flomax) 0.4 mg DAILY PO Last administered on 03/30/18 10:27; Start 03/30/18 at 11:00 Tramadol HCl (Ultram) 50 mg TID PRN PRN PO MILD PAIN; Start 03/30/18 at 10:15 Triamcinolone Acetonide (Kenalog) 1 maria isabel DAILY TP ; Start 03/30/18 at 11:00 Insulin Glargine (Lantus) 20 units QHS SQ ; Start 03/30/18 at 21:00 Levothyroxine Sodium (Synthroid) 25 mcg DAILY07 PO Last administered on 10:27; Start 03/30/18 at 11:00 Miconazole Nitrate (Desenex) 1 maria isabel PRN BID PRN TP YEAST; Start 03/30/18 at 21:00 Pantoprazole Sodium (Protonix) 40 mg DAILYAC PO Last administered on 03/30/18 12:24; Start 03/30/18 at 12:00 Multi-Ingredient Mouthwash/Gargle (Gi Cocktail) 20 ml PRN QID PRN PO abd pain Last administered on 03/30/18at 14:24; Start 03/30/18 at 12:00 Insulin Human Lispro (HumaLOG) 14 units TIDWMEALS SQ ; Start 03/30/18 at 17:00 Insulin Human Lispro (HumaLOG) 26 units 1X ONCE SQ Last administered on at 12:26; Start 03/30/18 at 12:15; Stop 03/30/18 at 12:16; Status DC Micafungin Sodium 100 mg/Dextrose 100 ml @ 100 mls/hr Q24H IV Last administered on 03/30/18at 16:08; Start 03/30/18 at 13:00 Piperacillin Sod/ Tazobactam Sod 3.375 gm/Sodium Chloride 50 ml @ 100 mls/hr Q6HRS IV Last administered on 03/30/18at 17:02; Start 03/30/18 at 13:00 Gabapentin (Neurontin) 100 mg TID PO Last administered on 03/30/18at 14:24; Start 03/30/18 at 14:00 Insulin Human Lispro (HumaLOG) 26 units 1X ONCE SQ Last administered on at 14:27; Start 03/30/18 at 14:30; Stop 03/30/18 at 14:31; Status DC Lactobacillus Rhamnosus (Culturelle) 1 cap BID PO ; Start 03/30/18 at 21:00 Active Scripts Active Reported Aspirin 325 Mg Tablet 1 Tab PO DAILY Triamcinolone Acetonide 0.1% Oint (Triamcinolone Acetonide) 15 Gm Oint...g. 1 Maria Isabel TP PRN MIX WITH EUCERIN DIRECTED BY PHYSICIAN Tramadol Hcl 50 Mg Tablet 50 Mg PO TID PRN Flomax (Tamsulosin Hcl) 0.4 Mg Cap.er.24h 1 Cap PO DAILY Xarelto (Rivaroxaban) 15 Mg Tablet 15 Mg PO DAILY Nystatin 15 Gm Oint...g. 1 Maria Isabel TP PRN Mupirocin Ointment (Mupirocin) 22 Gm Oint...g. 1 Maria Isabel TP PRN Miconazole Nitrate 130 Gm Aero.powd 130 Gm TP PRN Levothyroxine Sodium 25 Mcg Tablet 1 Tab PO DAILY Levemir (Insulin Detemir) 100 Unit/1 Ml Vial 20 Unit SQ HS Glipizide 5 Mg Tablet 1 Tab PO DAILY Lasix (Furosemide) 40 Mg Tablet 40 Mg PO DAILY Atenolol 50 Mg Tablet 75 Mg PO DAILY Allergies Allergies: Coded Allergies: No Known Drug Allergies (Unverified , 03/29/18) ROS General: YES: Fatigue Cardiovascular: yes Edema; No Chest Pain, No Palpitations, No Orthopnea, No Paroxysmal Noc. Dyspnea, No Lt Headedness, No Other Gastrointestinal: No Nausea, No Vomiting, No Abdominal Pain, No Diarrhea, No Constipation, No Melena, No Hematochezia, No Other Musculoskeletal: No Gait Disturbance, No Joint Pain, No Joint Stiffness, No Joint Swelling, No Muscle Pain, No Muscular Weakness, No Pain In:, No Swelling In:, No Other Skin: Yes Nail Changes; No Dry Skin, No Eczema, No Hair Changes, No Lumps, No Mole Changes, No Mottling, No Pruritus, No Rash, No Skin Lesion Changes, No Other, No Acne Physical Exam Physical Exam Lower extremity: Skin is warm, xerotic, atrophic. decreased turgor. hair is absent to feet. nails are long with thickening 4mm and yellow discoloration and subungal debris x 10. no discontiuity of skin to lower extremity. no maceration. no cellulitis. no fluctuance. DP 1/4. PT 0/4. +2 pitting edema to bilateral lower extremity. +varicosities. +hemosiderin deposits. Sensation diminished to sharp dull and light touch. dorsally contracted 5th digits bilateral. muscle strength is 4/5. General: Alert, Oriented X3, No acute distress Vitals VITALS Vital Signs Date Time Temp Pulse Resp B/P (MAP) Pulse Ox O2 Delivery O2 Flow Rate FiO2 03/30/18 15:00 98.3 80 20 107/48 (67) 96 Room Air 98.3 Labs Labs Laboratory Tests Test 03/29/18 21:10 03/29/18 21:49 03/29/18 21:55 03/29/18 23:22 White Blood Count 14.7 x10^3/uL (4.0-11.0) Red Blood Count 5.69 x10^6/uL (4.30-5.70) Hemoglobin 16.8 g/dL (13.0-17.5) Hematocrit 51.1 % (39.0-53.0) Mean Corpuscular Volume 90 fL (79-100) Mean Corpuscular Hemoglobin 30 pg (25-35) Mean Corpuscular Hemoglobin Concent 33 g/dL (31-37) Red Cell Distribution Width 13.6 % (11.5-14.5) Platelet Count 151 x10^3/uL (140-400) Neutrophils (%) (Auto) 88 % (31-73) Lymphocytes (%) (Auto) 6 % (24-48) Monocytes (%) (Auto) 6 % (0-9) Eosinophils (%) (Auto) 0 % (0-3) Basophils (%) (Auto) 0 % (0-3) Neutrophils # (Auto) 12.9 x10^3uL (1.8-7.7) Lymphocytes # (Auto) 0.8 x10^3/uL (1.0-4.8) Monocytes # (Auto) 0.9 x10^3/uL (0.0-1.1) Eosinophils # (Auto) 0.0 x10^3/uL (0.0-0.7) Basophils # (Auto) 0.1 x10^3/uL (0.0-0.2) Segmented Neutrophils % 79 % (35-66) Band Neutrophils % 13 % (0-9) Lymphocytes % 4 % (24-48) Monocytes % 3 % (0-10) Basophils % 1 % (0-3) Toxic Granulation Slight Platelet Estimate Adequate (ADEQUATE) Prothrombin Time 16.2 SEC (11.7-14.0) Prothromb Time International Ratio 1.4 (0.8-1.1) Sodium Level 137 mmol/L (136-145) Potassium Level 4.2 mmol/L (3.5-5.1) Chloride Level 101 mmol/L (98-107) Carbon Dioxide Level 23 mmol/L (21-32) Anion Gap 13 (6-14) Blood Urea Nitrogen 27 mg/dL (8-26) Creatinine 1.9 mg/dL (0.7-1.3) Estimated GFR (Cockcroft-Gault) 34.2 BUN/Creatinine Ratio 14 (6-20) Glucose Level 555 mg/dL (70-99) Glucose (Fingerstick) 458 mg/dL (70-99) 432 mg/dL (70-99) Lactic Acid Level 6.3 mmol/L (0.4-2.0) Calcium Level 9.4 mg/dL (8.5-10.1) Magnesium Level 1.8 mg/dL (1.8-2.4) Total Bilirubin 1.2 mg/dL (0.2-1.0) Aspartate Amino Transf (AST/SGOT) 17 U/L (15-37) Alanine Aminotransferase (ALT/SGPT) 20 U/L (16-63) Alkaline Phosphatase 103 U/L (46-116) Creatine Kinase 30 U/L (39-308) Troponin I Quantitative < 0.017 ng/mL (0.000-0.055) SR-Chq-H-Type Natriuretic Peptide 1807 pg/mL (0-449) Total Protein 7.4 g/dL (6.4-8.2) Albumin 3.1 g/dL (3.4-5.0) Albumin/Globulin Ratio 0.7 (1.0-1.7) Lipase 172 U/L (73-393) Thyroid Stimulating Hormone (TSH) 3.599 uIU/mL (0.358-3.74) Bedside Troponin I 0.02 ng/ml (<0.08) Urine Collection Type Unknown Urine Color Yellow Urine Clarity Clear Urine pH 5.5 Urine Specific [place] >=1.030 Urine Protein 100 mg/dL (NEG-TRACE) Urine Glucose (UA) >=1000 mg/dL (NEG) Urine Ketones (Stick) Negative mg/dL (NEG) Urine Blood Small (NEG) Urine Nitrite Negative (NEG) Urine Bilirubin Negative (NEG) Urine Urobilinogen Dipstick 1.0 mg/dL (0.2 mg/dL) Urine Leukocyte Esterase Negative (NEG) Urine RBC Rare /HPF (0-2) Urine WBC Rare /HPF (0-4) Urine Squamous Epithelial Cells Occ /LPF Urine Bacteria 0 /HPF (0-FEW) Urine Hyaline Casts Few /HPF Urine Mucus Mod /LPF Test 03/30/18 00:30 03/30/18 05:43 03/30/18 07:01 03/30/18 11:59 Glucose (Fingerstick) 426 mg/dL (70-99) 419 mg/dL (70-99) 422 mg/dL (70-99) White Blood Count 11.8 x10^3/uL (4.0-11.0) Red Blood Count 5.24 x10^6/uL (4.30-5.70) Hemoglobin 15.6 g/dL (13.0-17.5) Hematocrit 47.2 % (39.0-53.0) Mean Corpuscular Volume 90 fL (79-100) Mean Corpuscular Hemoglobin 30 pg (25-35) Mean Corpuscular Hemoglobin Concent 33 g/dL (31-37) Red Cell Distribution Width 13.6 % (11.5-14.5) Platelet Count 136 x10^3/uL (140-400) Neutrophils (%) (Auto) 79 % (31-73) Lymphocytes (%) (Auto) 13 % (24-48) Monocytes (%) (Auto) 8 % (0-9) Eosinophils (%) (Auto) 0 % (0-3) Basophils (%) (Auto) 0 % (0-3) Neutrophils # (Auto) 9.3 x10^3uL (1.8-7.7) Lymphocytes # (Auto) 1.5 x10^3/uL (1.0-4.8) Monocytes # (Auto) 0.9 x10^3/uL (0.0-1.1) Eosinophils # (Auto) 0.0 x10^3/uL (0.0-0.7) Basophils # (Auto) 0.0 x10^3/uL (0.0-0.2) Sodium Level 138 mmol/L (136-145) Potassium Level 4.1 mmol/L (3.5-5.1) Chloride Level 104 mmol/L (98-107) Carbon Dioxide Level 28 mmol/L (21-32) Anion Gap 6 (6-14) Blood Urea Nitrogen 26 mg/dL (8-26) Creatinine 1.7 mg/dL (0.7-1.3) Estimated GFR (Cockcroft-Gault) 38.9 BUN/Creatinine Ratio 15 (6-20) Glucose Level 482 mg/dL (70-99) Lactic Acid Level 1.9 mmol/L (0.4-2.0) Calcium Level 8.7 mg/dL (8.5-10.1) Total Bilirubin 0.9 mg/dL (0.2-1.0) Aspartate Amino Transf (AST/SGOT) 16 U/L (15-37) Alanine Aminotransferase (ALT/SGPT) 18 U/L (16-63) Alkaline Phosphatase 85 U/L (46-116) Troponin I Quantitative 0.018 ng/mL (0.000-0.055) Total Protein 6.4 g/dL (6.4-8.2) Albumin 2.5 g/dL (3.4-5.0) Albumin/Globulin Ratio 0.6 (1.0-1.7) Test 03/30/18 14:16 03/30/18 16:59 Glucose (Fingerstick) 417 mg/dL (70-99) 89 mg/dL (70-99) Laboratory Tests Test 03/29/18 21:10 03/29/18 21:49 8/8/18 21:55 03/29/18 23:22 White Blood Count 14.7 x10^3/uL (4.0-11.0) Red Blood Count 5.69 x10^6/uL (4.30-5.70) Hemoglobin 16.8 g/dL (13.0-17.5) Hematocrit 51.1 % (39.0-53.0) Mean Corpuscular Volume 90 fL (79-100) Mean Corpuscular Hemoglobin 30 pg (25-35) Mean Corpuscular Hemoglobin Concent 33 g/dL (31-37) Red Cell Distribution Width 13.6 % (11.5-14.5) Platelet Count 151 x10^3/uL (140-400) Neutrophils (%) (Auto) 88 % (31-73) Lymphocytes (%) (Auto) 6 % (24-48) Monocytes (%) (Auto) 6 % (0-9) Eosinophils (%) (Auto) 0 % (0-3) Basophils (%) (Auto) 0 % (0-3) Neutrophils # (Auto) 12.9 x10^3uL (1.8-7.7) Lymphocytes # (Auto) 0.8 x10^3/uL (1.0-4.8) Monocytes # (Auto) 0.9 x10^3/uL (0.0-1.1) Eosinophils # (Auto) 0.0 x10^3/uL (0.0-0.7) Basophils # (Auto) 0.1 x10^3/uL (0.0-0.2) Segmented Neutrophils % 79 % (35-66) Band Neutrophils % 13 % (0-9) Lymphocytes % 4 % (24-48) Monocytes % 3 % (0-10) Basophils % 1 % (0-3) Toxic Granulation Slight Platelet Estimate Adequate (ADEQUATE) Prothrombin Time 16.2 SEC (11.7-14.0) Prothromb Time International Ratio 1.4 (0.8-1.1) Sodium Level 137 mmol/L (136-145) Potassium Level 4.2 mmol/L (3.5-5.1) Chloride Level 101 mmol/L (98-107) Carbon Dioxide Level 23 mmol/L (21-32) Anion Gap 13 (6-14) Blood Urea Nitrogen 27 mg/dL (8-26) Creatinine 1.9 mg/dL (0.7-1.3) Estimated GFR (Cockcroft-Gault) 34.2 BUN/Creatinine Ratio 14 (6-20) Glucose Level 555 mg/dL (70-99) Glucose (Fingerstick) 458 mg/dL (70-99) 432 mg/dL (70-99) Lactic Acid Level 6.3 mmol/L (0.4-2.0) Calcium Level 9.4 mg/dL (8.5-10.1) Magnesium Level 1.8 mg/dL (1.8-2.4) Total Bilirubin 1.2 mg/dL (0.2-1.0) Aspartate Amino Transf (AST/SGOT) 17 U/L (15-37) Alanine Aminotransferase (ALT/SGPT) 20 U/L (16-63) Alkaline Phosphatase 103 U/L (46-116) Creatine Kinase 30 U/L (39-308) Troponin I Quantitative < 0.017 ng/mL (0.000-0.055) MR-Ezg-E-Type Natriuretic Peptide 1807 pg/mL (0-449) Total Protein 7.4 g/dL (6.4-8.2) Albumin 3.1 g/dL (3.4-5.0) Albumin/Globulin Ratio 0.7 (1.0-1.7) Lipase 172 U/L (73-393) Thyroid Stimulating Hormone (TSH) 3.599 uIU/mL (0.358-3.74) Bedside Troponin I 0.02 ng/ml (<0.08) Urine Collection Type Unknown Urine Color Yellow Urine Clarity Clear Urine pH 5.5 Urine Specific [place] >=1.030 Urine Protein 100 mg/dL (NEG-TRACE) Urine Glucose (UA) >=1000 mg/dL (NEG) Urine Ketones (Stick) Negative mg/dL (NEG) Urine Blood Small (NEG) Urine Nitrite Negative (NEG) Urine Bilirubin Negative (NEG) Urine Urobilinogen Dipstick 1.0 mg/dL (0.2 mg/dL) Urine Leukocyte Esterase Negative (NEG) Urine RBC Rare /HPF (0-2) Urine WBC Rare /HPF (0-4) Urine Squamous Epithelial Cells Occ /LPF Urine Bacteria 0 /HPF (0-FEW) Urine Hyaline Casts Few /HPF Urine Mucus Mod /LPF Test 03/30/18 00:30 03/30/18 05:43 03/30/18 07:01 03/30/18 11:59 Glucose (Fingerstick) 426 mg/dL (70-99) 419 mg/dL (70-99) 422 mg/dL (70-99) White Blood Count 11.8 x10^3/uL (4.0-11.0) Red Blood Count 5.24 x10^6/uL (4.30-5.70) Hemoglobin 15.6 g/dL (13.0-17.5) Hematocrit 47.2 % (39.0-53.0) Mean Corpuscular Volume 90 fL (79-100) Mean Corpuscular Hemoglobin 30 pg (25-35) Mean Corpuscular Hemoglobin Concent 33 g/dL (31-37) Red Cell Distribution Width 13.6 % (11.5-14.5) Platelet Count 136 x10^3/uL (140-400) Neutrophils (%) (Auto) 79 % (31-73) Lymphocytes (%) (Auto) 13 % (24-48) Monocytes (%) (Auto) 8 % (0-9) Eosinophils (%) (Auto) 0 % (0-3) Basophils (%) (Auto) 0 % (0-3) Neutrophils # (Auto) 9.3 x10^3uL (1.8-7.7) Lymphocytes # (Auto) 1.5 x10^3/uL (1.0-4.8) Monocytes # (Auto) 0.9 x10^3/uL (0.0-1.1) Eosinophils # (Auto) 0.0 x10^3/uL (0.0-0.7) Basophils # (Auto) 0.0 x10^3/uL (0.0-0.2) Sodium Level 138 mmol/L (136-145) Potassium Level 4.1 mmol/L (3.5-5.1) Chloride Level 104 mmol/L (98-107) Carbon Dioxide Level 28 mmol/L (21-32) Anion Gap 6 (6-14) Blood Urea Nitrogen 26 mg/dL (8-26) Creatinine 1.7 mg/dL (0.7-1.3) Estimated GFR (Cockcroft-Gault) 38.9 BUN/Creatinine Ratio 15 (6-20) Glucose Level 482 mg/dL (70-99) Lactic Acid Level 1.9 mmol/L (0.4-2.0) Calcium Level 8.7 mg/dL (8.5-10.1) Total Bilirubin 0.9 mg/dL (0.2-1.0) Aspartate Amino Transf (AST/SGOT) 16 U/L (15-37) Alanine Aminotransferase (ALT/SGPT) 18 U/L (16-63) Alkaline Phosphatase 85 U/L (46-116) Troponin I Quantitative 0.018 ng/mL (0.000-0.055) Total Protein 6.4 g/dL (6.4-8.2) Albumin 2.5 g/dL (3.4-5.0) Albumin/Globulin Ratio 0.6 (1.0-1.7) Test 03/30/18 14:16 03/30/18 16:59 Glucose (Fingerstick) 417 mg/dL (70-99) 89 mg/dL (70-99) Assessment/Plan Assessment/Plan 82 year old male with DM, peripheral neuropathy, diffuse peripheral vascular disease, lymphedema, clinical onychomycosis, onychauxis. -Nails debrided x 10 without incident. -Discussed proper DM foot care. -Elevate bilateral lower extremity. Recommend knee high compression socks 20- 30mmHg for lymphedema -He is an excellent candidate for RX Inlay depth shoegear with accomodative insoles -Follow up in 3 months for reevaluation. URMILA SÁNCHEZ DPM Mar 30, 2018 18:26
[2018-03-30] MEDS ORDERED: MICONAZOLE NITRATE 2% TOPICAL POWDER 85GM JAR. TP PRN (21:00)
[2018-03-30] MEDS: LACTOBACILLUS RHAMNOSUS GG 1 CAPSULE. PO SCH (21:18)
[2018-03-31] MEDS: PIPERACILLIN/TAZOBACTAM 3.375 GM in IV NORMAL SALINE 50ML 50 ML IV SCH ×4 (00:31→17:26)
--- NOTE | 2018-03-31 01:52 | CONS ---
DATE OF CONSULTATION: 03/30/2018 LOCATION: The patient is in room 675. REQUESTING PHYSICIAN: Dr. Perez. REASON FOR CONSULTATION: Antibiotic management. HISTORY OF PRESENT ILLNESS: The patient is a pleasant 82-year-old gentleman, somewhat of a poor historian. He states he has had diabetes for approximately 5 years, but has not been taking his medications recently. Of note, his recently had a stroke and is in the facility and he and his son eat together. He states he went to bed and was feeling fine, but awakened on the floor. He has significant weakness, also has some nausea and vomiting. His son has not been sick. He was brought to [facility] Emergency Room on the evening of 03/29/2018. On arrival, he had a white count 14.7 with 13% bands. Additionally, he had a temperature of 101.1 rectally. Urinalysis was not consistent with urinary tract infection. Chest x-ray was obtained. No acute abnormality was seen. He was dosed with Rocephin and azithromycin and admitted to the hospital. Currently, he states he is feeling somewhat better, although he is not particularly hungry. He denies any headaches. No sore throat. No cough, but he continued to have some low-grade nausea at times. He had not had any constipation or diarrhea. Denies any dysuria, frequency or urgency. No incontinence. He does have some neuropathy in his feet. PAST MEDICAL HISTORY: Positive for atrial fibrillation, diabetes, hypothyroidism, obesity, chronic venous stasis and BPH. PAST SURGICAL HISTORY: Positive for pacemaker placement as well as appendectomy. REVIEW OF SYSTEMS: Otherwise negative, except for mentioned above. ALLERGIES: No known drug allergies. SOCIAL HISTORY: He quit smoking 40 years ago. He has dogs at home. No alcohol. FAMILY HISTORY: Noncontributory. CURRENT MEDICATIONS: Azithromycin, Rocephin x 1, Tylenol, aspirin, Tenormin, glipizide, insulin, levothyroxine, Protonix and Flomax. Other meds are available and have been reviewed in the chart. PHYSICAL EXAMINATION: VITAL SIGNS: T-max was 101.1 rectally approximately at the time of admission, currently 98; pulse 81; respirations 20; blood pressure 113/57 and satting 96% on room air. CONSTITUTIONAL: He is alert, cooperative. He is in no acute distress. He is obese. HEENT: Pupils equal and reactive. Normal conjunctivae. Oral cavity, pharynx is clear. He has some chronic lip changes. NECK: Supple. No JVD. LUNGS: Clear to auscultation. HEART: S1, S2. 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 ABDOMEN: Obese, soft and nontender. No guarding. No rebound. EXTREMITIES: Without clubbing or cyanosis. He has bilateral lower extremity non-pitting edema, left greater than right, approximately 1-2+. He also has severe tenia, both feet. Both lower legs have some chronic venous stasis changes, but his left lower extremity has some erythema, some warmth and some tracking up the medial thigh. NEUROLOGIC: He is nonfocal, moves all extremities. PSYCHIATRIC: Affect is pleasant. LABORATORY DATA: White count 11.8, hemoglobin 15.6, platelets of 136,000, segs are 79 and lymphs are 13. Creatinine today of 1.7 and glucose 42. Normal liver function study tests. Urine and radiology reviewed in the history of present illness. IMPRESSION: 1. Fever. 2. Bandemia. 3. Questionable left lower extremity cellulitis. 4. Tinea. 5. Lactic acidosis with lactate of 6.3, but then corrected to 1.9. 6. Acute kidney injury. 7. Diabetes. 8. Nausea and vomiting. RECOMMENDATIONS: For now, we will dose Zosyn. We will add micafungin. He has severe tenia and with his pacemaker, we will avoid Azopt. We will follow up labs and cultures. This was discussed with Dr. Perez and Dr. Bryant. Thank you for allowing me to participate in the patient's care. If you have any questions, please do not hesitate to contact me. KVNG MERRILL MD DR: MACIE/don JOB#: [id number] / [id number]
--- NOTE | 2018-03-31 01:54 | CONS ---
DATE OF CONSULTATION: 03/30/2018 ATTENDING PHYSICIAN: Dr. Perez. The patient was seen at the request of Dr. Perez for rehab evaluation. HISTORY OF PRESENT ILLNESS: This is an 82-year-old right-handed male with a known diabetes mellitus and atrial fibrillation admitted through the Emergency Room after he fell out of the bed. The patient apparently is not taking his insulin for the past week. He was noted with blood sugar in the 600 range. The patient admits numbness in his right foot, which is not present before the fall. The patient also is being treated for pneumonia and possible cellulitis of the left leg. The patient had chest x-ray done last evening, which was negative for any pneumonia. White cell count is still elevated last night is 14,700 and this morning is 11,800. Blood sugars this afternoon 422, creatinine 1.7 and albumin 2.5. The patient usually gets up and walks without any assistive devices and sometimes he takes a cane with him. He usually does not do that much physical activity, but gets up and goes to see his who is in a shelter after she had a stroke at least 3 times a week. His son who is in his 50s with some disability from back surgeries stays with him. He has a flight of stairs with railing to enter the house +2 from the back, railing in place. The patient had a walker and cane at home, but does not use them regularly. The patient denies any significant lower back pain. He denies any numbness in his left leg. The patient is status post left total knee arthroplasty in the past. He admits some pain in his right knee. PHYSICAL EXAMINATION: Today revealed an elderly male. He is alert, oriented to time, place, person and circumstance and follows commands appropriately, moves all 4 extremities voluntarily where he had 4+/5 grade muscle strength and deep tendon reflexes are absent at both knees and ankles and he had decreased touch and pinprick sensation over the dorsal aspect of right foot when compared to left side. He had negative Tinel sign over right peroneal nerve at fibular neck area. No significant tenderness to palpation over lumbar spine area. Straight leg raising test is negative bilaterally. He had a crepitus on range of motion of right knee joint with mild knee joint effusion and he had pain free range of motion of both hip joints. He had tenderness to palpation over the plantar aspect of right heel. He had clinical evidence of chronic venous insufficiency with edema and discoloration of distal parts of both lower extremities with questionable cellulitis of left leg. No significant pain on range of motion of his ankle joints. He is independent rolling from side to side. I have not tested his transfers or ambulation skills at this time. ASSESSMENT: An elderly male with diabetes mellitus, under poor control with peripheral neuropathy, rule out associated right peroneal nerve compression at fibular neck area as he had new onset right foot numbness mainly over peroneal nerve distribution, also degenerative joint disease of right knee with some pain, obesity, chronic venous insufficiency and probable associated cellulitis, left leg. RECOMMENDATIONS: To get him up as tolerated, to try gabapentin to see that might help ease some of the numbness in his right foot. Dr. Perez, I appreciate asking me to participate in the care of this interesting patient. I will be glad to follow him with you as needed for the rehabilitation. YONAS BONDS MD DR: ZION/don JOB#: [id number] / [id number]
[2018-03-31] MEDS: LEVOTHYROXINE 25 MCG TABLET. PO SCH (01:58)
[2018-03-31 02:18] LABS: HEMOGLOBIN A1C 12.7 % (4.8-5.6)
[2018-03-31 03:00] VITALS: BP 113/70
[2018-03-31 07:00] VITALS: BP 123/62
[2018-03-31 07:26] LABS: BASO # 0.1 x10^3/uL (0.0-0.2); BASO % 1 % (0-3); EOS # 0.1 x10^3/uL (0.0-0.7); EOS % 1 % (0-3); HEMATOCRIT 47.3 % (39.0-53.0); HEMOGLOBIN 15.8 g/dL (13.0-17.5); LYMPH % 25 % (24-48); MEAN CORPUSCULAR HEMOGLOBIN 30 pg (25-35); MEAN CORPUSCULAR HGB CONC 33 g/dL (31-37); MEAN CORPUSCULAR VOLUME 90 fL (79-100); MONO # 0.8 x10^3/uL (0.0-1.1); MONO % 10 % (0-9); NEUT # 5.2 x10^3uL (1.8-7.7); NEUT % 63 % (31-73); PLATELET COUNT 134 x10^3/uL (140-400); RED BLOOD COUNT 5.24 x10^6/uL (4.30-5.70); WHITE BLOOD COUNT 8.2 x10^3/uL (4.0-11.0)
[2018-03-31] MEDS: PANTOPRAZOLE 40 MG TABLET.DR. PO SCH (07:30)
[2018-03-31 07:46] LABS: ALBUMIN 2.5 g/dL (3.4-5.0); ALBUMIN/GLOBULIN RATIO 0.6 (1.0-1.7); CALCIUM 8.9 mg/dL (8.5-10.1); CREATININE 1.6 mg/dL (0.7-1.3); GFR 41.7; POTASSIUM 3.9 mmol/L (3.5-5.1); TOTAL BILIRUBIN 0.6 mg/dL (0.2-1.0); TOTAL PROTEIN 6.6 g/dL (6.4-8.2)
[2018-03-31] MEDS: INSULIN LISPRO 300 UNITS/3 ML INSULN.PEN. SQ SCH ×6 (08:00→17:32)
[2018-03-31] MEDS: LACTOBACILLUS RHAMNOSUS GG 1 CAPSULE. PO SCH ×2 (08:02→21:21)
[2018-03-31] MEDS: FUROSEMIDE 40 MG TABLET. PO SCH (08:02)
[2018-03-31] MEDS: ASPIRIN 325 MG TABLET PO SCH (08:02)
[2018-03-31] MEDS: ATENOLOL 50 MG TABLET. PO SCH (08:02)
[2018-03-31] MEDS: glipiZIDE 5 MG TABLET PO SCH (08:02)
[2018-03-31] MEDS: TAMSULOSIN 0.4 MG CAP.ER.24H. PO SCH (08:02)
[2018-03-31] MEDS: GABAPENTIN 100 MG CAPSULE. PO SCH ×3 (08:02→21:21)
[2018-03-31] MEDS: RIVAROXABAN 15 MG TABLET. PO SCH (08:03)
[2018-03-31] MEDS: TRIAMCINOLONE ACETONIDE 0.1% TOPICAL OINTMENT 15GM TUBE. TP SCH (08:03)
--- NOTE | 2018-03-31 09:14 | PDOC ---
Objective: Objective: Out of room. Vital Signs: Vital Signs Date Time Temp Pulse Resp B/P (MAP) Pulse Ox O2 Delivery O2 Flow Rate FiO2 03/31/18 07:19 Room Air 03/31/18 07:00 98.3 79 20 123/62 (82) 96 98.3 Labs: Laboratory Tests Test 03/30/18 11:59 03/30/18 14:16 03/30/18 16:59 03/30/18 21:20 Glucose (Fingerstick) 422 mg/dL 417 mg/dL 89 mg/dL 76 mg/dL Test 03/31/18 06:40 03/31/18 07:26 White Blood Count 8.2 x10^3/uL Red Blood Count 5.24 x10^6/uL Hemoglobin 15.8 g/dL Hematocrit 47.3 % Mean Corpuscular Volume 90 fL Mean Corpuscular Hemoglobin 30 pg Mean Corpuscular Hemoglobin Concent 33 g/dL Red Cell Distribution Width 14.0 % Platelet Count 134 x10^3/uL Neutrophils (%) (Auto) 63 % Lymphocytes (%) (Auto) 25 % Monocytes (%) (Auto) 10 % Eosinophils (%) (Auto) 1 % Basophils (%) (Auto) 1 % Neutrophils # (Auto) 5.2 x10^3uL Lymphocytes # (Auto) 2.0 x10^3/uL Monocytes # (Auto) 0.8 x10^3/uL Eosinophils # (Auto) 0.1 x10^3/uL Basophils # (Auto) 0.1 x10^3/uL Sodium Level 143 mmol/L Potassium Level 3.9 mmol/L Chloride Level 107 mmol/L Carbon Dioxide Level 29 mmol/L Anion Gap 7 Blood Urea Nitrogen 25 mg/dL Creatinine 1.6 mg/dL Estimated GFR (Cockcroft-Gault) 41.7 BUN/Creatinine Ratio 16 Glucose Level 203 mg/dL Calcium Level 8.9 mg/dL Total Bilirubin 0.6 mg/dL Aspartate Amino Transf (AST/SGOT) 26 U/L Alanine Aminotransferase (ALT/SGPT) 12 U/L Alkaline Phosphatase 79 U/L Total Protein 6.6 g/dL Albumin 2.5 g/dL Albumin/Globulin Ratio 0.6 Glucose (Fingerstick) 210 mg/dL PE: no exam A/P: N/v, upper abd discomfort Uncontrolled DM - A1C 12 -- Will follow-up re: GES results. MICHAEL BERKOWITZ Mar 31, 2018 09:14
--- NOTE | 2018-03-31 09:18 | PDOC ---
Infectious Disease Note Subjective Subjective Better today. No F/C/S/weakness/SOA/N/V/D/Rash Legs feel better. Didn't realize were bothering him as much until they began to feel better Annoyed by wound on buttock ROS ROS o/w neg Vital Sign Vital Signs Vital Signs Date Time Temp Pulse Resp B/P (MAP) Pulse Ox O2 Delivery O2 Flow Rate FiO2 03/31/18 07:19 Room Air 03/31/18 07:00 98.3 79 20 123/62 (82) 96 98.3 Physical Exam PHYSICAL EXAM CONSTITUTIONAL: He is alert, cooperative. He is in no acute distress. He is obese. slightly lying on right sied HEENT: Pupils equal and reactive. Normal conjunctivae. Oral cavity, pharynx is clear. He has some chronic lip changes. dentures NECK: Supple. No JVD. LUNGS: Clear to auscultation. HEART: S1, S2. 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 ABDOMEN: Obese, soft and nontender. No guarding. No rebound. EXTREMITIES: Without clubbing or cyanosis. He has bilateral lower extremity non-pitting edema, left greater than right, approximately 1-2+ better today. He also has severe tenia, both feet. Both lower legs have some chronic venous stasis changes, but his left lower extremity has improved erythema, Still some warmth but better and some tracking up the medial thigh that has improved NEUROLOGIC: He is nonfocal, moves all extremities. PSYCHIATRIC: Affect is pleasant. SKIN: no Rash. Buttock wound stage 1 Labs Lab Laboratory Tests Test 03/30/18 11:59 03/30/18 14:16 03/30/18 16:59 03/30/18 21:20 Glucose (Fingerstick) 422 mg/dL (70-99) 417 mg/dL (70-99) 89 mg/dL (70-99) 76 mg/dL (70-99) Test 03/31/18 06:40 03/31/18 07:26 White Blood Count 8.2 x10^3/uL (4.0-11.0) Red Blood Count 5.24 x10^6/uL (4.30-5.70) Hemoglobin 15.8 g/dL (13.0-17.5) Hematocrit 47.3 % (39.0-53.0) Mean Corpuscular Volume 90 fL (79-100) Mean Corpuscular Hemoglobin 30 pg (25-35) Mean Corpuscular Hemoglobin Concent 33 g/dL (31-37) Red Cell Distribution Width 14.0 % (11.5-14.5) Platelet Count 134 x10^3/uL (140-400) Neutrophils (%) (Auto) 63 % (31-73) Lymphocytes (%) (Auto) 25 % (24-48) Monocytes (%) (Auto) 10 % (0-9) Eosinophils (%) (Auto) 1 % (0-3) Basophils (%) (Auto) 1 % (0-3) Neutrophils # (Auto) 5.2 x10^3uL (1.8-7.7) Lymphocytes # (Auto) 2.0 x10^3/uL (1.0-4.8) Monocytes # (Auto) 0.8 x10^3/uL (0.0-1.1) Eosinophils # (Auto) 0.1 x10^3/uL (0.0-0.7) Basophils # (Auto) 0.1 x10^3/uL (0.0-0.2) Sodium Level 143 mmol/L (136-145) Potassium Level 3.9 mmol/L (3.5-5.1) Chloride Level 107 mmol/L (98-107) Carbon Dioxide Level 29 mmol/L (21-32) Anion Gap 7 (6-14) Blood Urea Nitrogen 25 mg/dL (8-26) Creatinine 1.6 mg/dL (0.7-1.3) Estimated GFR (Cockcroft-Gault) 41.7 BUN/Creatinine Ratio 16 (6-20) Glucose Level 203 mg/dL (70-99) Calcium Level 8.9 mg/dL (8.5-10.1) Total Bilirubin 0.6 mg/dL (0.2-1.0) Aspartate Amino Transf (AST/SGOT) 26 U/L (15-37) Alanine Aminotransferase (ALT/SGPT) 12 U/L (16-63) Alkaline Phosphatase 79 U/L (46-116) Total Protein 6.6 g/dL (6.4-8.2) Albumin 2.5 g/dL (3.4-5.0) Albumin/Globulin Ratio 0.6 (1.0-1.7) Glucose (Fingerstick) 210 mg/dL (70-99) Micro Microbiology 03/29/18 Blood Culture - Preliminary, Resulted NO GROWTH AFTER 1 DAY Objective Assessment Fever - better Bandemia LLE cellulitis - better Tinea lactic acidosis - resolved BRAD - stable DM N/V - better Stage 1 Plan Plan of Care Cont Zosyn/micafungin - has pacemaker F/u labs and cults Encouraged off loading KVNG MERRILL MD Mar 31, 2018 09:18
[2018-03-31 11:00] VITALS: BP 123/54
--- NOTE | 2018-03-31 11:30 | PDOC2 ---
CARDIAC CONSULT DATE OF CONSULT Date of Consult DATE: 03/31/18 TIME: 11:19 REASON FOR CONSULT Reason for Consult: hx of atrial flutter, pacemaker, SB REFERRING PHYSICIAN Referring Physician: Chris SOURCE Source: Chart review, Patient HISTORY OF PRESENT ILLNESS HISTORY OF PRESENT ILLNESS This is a pleasant 82 yo male admitted for complains of confusion and high blood glucose. Reports that prior to coming to the hospital, he has been urinating more, his son told him that he has been having confused episodes particularly 2 days prior to admission. Reports of nausea, vomiting and abdominal pain. He has noticed that his legs have been getting more swollen but no reported fever or chills. 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 He is positive for CAD with CABG in the past and atrial fib with xarelto use. Reports PPM was placed about 4-5 yrs ago due to symptomatic bradycardia with syncope HR in the 30s. denies any dizziness or passing out PAST MEDICAL HISTORY Cardiovascular: AFIB (atrial flutter), CAD, HTN, Hyperlipidemia, Other ( Symptomatic SB. ) Pulmonary: No pertinent hx CENTRAL NERVOUS SYSTEM: Other (No pertinent history) GI: GERD Heme/Onc: No pertinent hx Hepatobiliary: No pertinent hx Psych: Anxiety Musculoskeletal: Osteoarthritis Rheumatologic: No pertinent hx Infectious disease: No pertinent hx ENT: No pertinent hx Renal/: Benign prostatic enlarg. Endocrine: Diabetes, Hypothyroidism PAST SURGICAL HISTORY Past Surgical History: Pacemaker ([facility]), Appendectomy, CABG (remote), Other (Last [facility] about 5 yrs ago) FAMILY HISTORY Family History: Coronary Artery Disease (father), Diabetes (brother) SOCIAL HISTORY Smoke: Quit (remotely) ALCOHOL: none Drugs: None Lives: with Family (son) CURRENT MEDICATIONS CURRENT MEDICATIONS Current Medications Medications (Trade) Dose Ordered Sig/Lizzette Route PRN Reason Start Time Stop Time Status Last Admin Dose Admin Pantoprazole Sodium (Protonix) 40 mg DAILYAC PO 03/30/18 12:00 03/30/18 12:24 Multi-Ingredient Mouthwash/Gargle (Gi Cocktail) 20 ml PRN QID PRN PO abd pain 03/30/18 12:00 03/30/18 14:24 Insulin Human Lispro (HumaLOG) 26 units 1X ONCE SQ 03/30/18 12:15 03/30/18 12:16 DC 03/30/18 12:26 Micafungin Sodium 100 mg/Dextrose 100 ml @ 100 mls/hr Q24H IV 03/30/18 13:00 03/30/18 16:08 Piperacillin Sod/ Tazobactam Sod 3.375 gm/Sodium Chloride 50 ml @ 100 mls/hr Q6HRS IV 03/30/18 13:00 03/31/18 05:18 Gabapentin (Neurontin) 100 mg TID PO 03/30/18 14:00 03/30/18 21:18 Insulin Human Lispro (HumaLOG) 26 units 1X ONCE SQ 03/30/18 14:30 03/30/18 14:31 DC 03/30/18 14:27 Lactobacillus Rhamnosus (Culturelle) 1 cap BID PO 03/30/18 21:00 03/30/18 21:18 ALLERGIES ALLERGIES: Coded Allergies: No Known Drug Allergies (Unverified , 03/29/18) ROS Review of System 14 point ROS evaluated with pertinent positives noted per HPI PHYSICAL EXAM General: Alert, Oriented X3, Cooperative, No acute distress HEENT: Atraumatic, Mucous membr. moist/pink Lungs: Clear to auscultation, Normal air movement Heart: Regular rate (atrial flutter V paced), Other (3/6 systolic murmur MIRNA border) Abdomen: Soft, No tenderness, Other (obese) Extremities: No cyanosis, Other (2-3+ bilateral LE pitting edema; LLE cellulitis) Skin: No breakdown Neuro: Normal speech, Sensation intact Psych/Mental Status: Mental status NL, Mood NL MUSCULOSKELETAL: Osteoarthritic changes both hands VITALS VITALS Vital Signs Date Time Temp Pulse Resp B/P (MAP) Pulse Ox O2 Delivery O2 Flow Rate FiO2 03/31/18 07:19 Room Air 03/31/18 07:00 98.3 79 20 123/62 (82) 96 98.3 LABS Lab: Laboratory Tests Test 03/30/18 11:59 03/30/18 14:16 03/30/18 16:59 03/30/18 21:20 Glucose (Fingerstick) 422 mg/dL (70-99) 417 mg/dL (70-99) 89 mg/dL (70-99) 76 mg/dL (70-99) Test 03/31/18 06:40 03/31/18 07:26 White Blood Count 8.2 x10^3/uL (4.0-11.0) Red Blood Count 5.24 x10^6/uL (4.30-5.70) Hemoglobin 15.8 g/dL (13.0-17.5) Hematocrit 47.3 % (39.0-53.0) Mean Corpuscular Volume 90 fL (79-100) Mean Corpuscular Hemoglobin 30 pg (25-35) Mean Corpuscular Hemoglobin Concent 33 g/dL (31-37) Red Cell Distribution Width 14.0 % (11.5-14.5) Platelet Count 134 x10^3/uL (140-400) Neutrophils (%) (Auto) 63 % (31-73) Lymphocytes (%) (Auto) 25 % (24-48) Monocytes (%) (Auto) 10 % (0-9) Eosinophils (%) (Auto) 1 % (0-3) Basophils (%) (Auto) 1 % (0-3) Neutrophils # (Auto) 5.2 x10^3uL (1.8-7.7) Lymphocytes # (Auto) 2.0 x10^3/uL (1.0-4.8) Monocytes # (Auto) 0.8 x10^3/uL (0.0-1.1) Eosinophils # (Auto) 0.1 x10^3/uL (0.0-0.7) Basophils # (Auto) 0.1 x10^3/uL (0.0-0.2) Sodium Level 143 mmol/L (136-145) Potassium Level 3.9 mmol/L (3.5-5.1) Chloride Level 107 mmol/L (98-107) Carbon Dioxide Level 29 mmol/L (21-32) Anion Gap 7 (6-14) Blood Urea Nitrogen 25 mg/dL (8-26) Creatinine 1.6 mg/dL (0.7-1.3) Estimated GFR (Cockcroft-Gault) 41.7 BUN/Creatinine Ratio 16 (6-20) Glucose Level 203 mg/dL (70-99) Calcium Level 8.9 mg/dL (8.5-10.1) Total Bilirubin 0.6 mg/dL (0.2-1.0) Aspartate Amino Transf (AST/SGOT) 26 U/L (15-37) Alanine Aminotransferase (ALT/SGPT) 12 U/L (16-63) Alkaline Phosphatase 79 U/L (46-116) Total Protein 6.6 g/dL (6.4-8.2) Albumin 2.5 g/dL (3.4-5.0) Albumin/Globulin Ratio 0.6 (1.0-1.7) Glucose (Fingerstick) 210 mg/dL (70-99) ASSESSMENT/PLAN ASSESSMENT/PLAN 1. CAD: past remote CABG. last LHC about 5 yrs ago 2. Chronic diastolic CHF: compensated 3. 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 SOLE 1 yr. Atrial flutter since 10/2017, V paced 95% per interrogation 4. Chronic Aflutter: on home xarelto and atenolol. Rate controlled 5. Hypothyroidism 6. HTN: controlled 7. Abd pain/n/v: GI following 8. Uncontrolled DM2: A1C at 12. Has not been taking his insulin 9. Fever/LLE cellulitis: ID following 10. Metabolic encephalopathy 11. BRAD: better. Recommendations 1. Continue xarelto and ASA. May decrease ASA to 81 mg. 2. Continue with secondary prevention and home lasix. 3. TTE today and obtain baseline readings. Lipid baseline 4. [facility]. AISHA GAMBLE APRN Mar 31, 2018 11:30
[2018-03-31 11:52] LABS: CHOLESTEROL/HDL RATIO 4.9
[2018-03-31] MEDS: MICAFUNGIN 100 MG in IV DEXTROSE 5% 100ML 100 ML IV SCH (12:43)
--- NOTE | 2018-03-31 12:59 | PDOC ---
PROGRESS NOTES Subjective Subjective He denies any low back or knee pain. Objective Objective Vital Signs Date Time Temp Pulse Resp B/P (MAP) Pulse Ox O2 Delivery O2 Flow Rate FiO2 03/31/18 11:00 98.2 80 20 123/54 (77) 95 Room Air 98.2 Intake and Output 03/31/18 07:00 Intake Total 1000 ml Output Total 450 ml Balance 550 ml Intake Oral 1000 ml Output Urine Total 450 ml # Voids 1 Physical Exam Physical Exam He is alert,sitting at edge of bed and eating lunch and he likes [employer] boots. Assessment Assessment Problems Medical Problems: (1) BRAD (acute kidney injury) Status: Acute (2) Hyperglycemia Status: Acute (3) Leukocytosis Status: Acute (4) Pneumonia Status: Acute Plan Plan of Care To get him up as tolerated. Comment Review of Relevant I have reviewed the following items do (where applicable) has been applied. Labs Laboratory Tests Test 03/29/18 21:10 03/29/18 21:49 03/29/18 21:55 03/29/18 23:22 White Blood Count 14.7 x10^3/uL (4.0-11.0) Red Blood Count 5.69 x10^6/uL (4.30-5.70) Hemoglobin 16.8 g/dL (13.0-17.5) Hematocrit 51.1 % (39.0-53.0) Mean Corpuscular Volume 90 fL (79-100) Mean Corpuscular Hemoglobin 30 pg (25-35) Mean Corpuscular Hemoglobin Concent 33 g/dL (31-37) Red Cell Distribution Width 13.6 % (11.5-14.5) Platelet Count 151 x10^3/uL (140-400) Neutrophils (%) (Auto) 88 % (31-73) Lymphocytes (%) (Auto) 6 % (24-48) Monocytes (%) (Auto) 6 % (0-9) Eosinophils (%) (Auto) 0 % (0-3) Basophils (%) (Auto) 0 % (0-3) Neutrophils # (Auto) 12.9 x10^3uL (1.8-7.7) Lymphocytes # (Auto) 0.8 x10^3/uL (1.0-4.8) Monocytes # (Auto) 0.9 x10^3/uL (0.0-1.1) Eosinophils # (Auto) 0.0 x10^3/uL (0.0-0.7) Basophils # (Auto) 0.1 x10^3/uL (0.0-0.2) Segmented Neutrophils % 79 % (35-66) Band Neutrophils % 13 % (0-9) Lymphocytes % 4 % (24-48) Monocytes % 3 % (0-10) Basophils % 1 % (0-3) Toxic Granulation Slight Platelet Estimate Adequate (ADEQUATE) Prothrombin Time 16.2 SEC (11.7-14.0) Prothromb Time International Ratio 1.4 (0.8-1.1) Sodium Level 137 mmol/L (136-145) Potassium Level 4.2 mmol/L (3.5-5.1) Chloride Level 101 mmol/L (98-107) Carbon Dioxide Level 23 mmol/L (21-32) Anion Gap 13 (6-14) Blood Urea Nitrogen 27 mg/dL (8-26) Creatinine 1.9 mg/dL (0.7-1.3) Estimated GFR (Cockcroft-Gault) 34.2 BUN/Creatinine Ratio 14 (6-20) Glucose Level 555 mg/dL (70-99) Glucose (Fingerstick) 458 mg/dL (70-99) 432 mg/dL (70-99) Lactic Acid Level 6.3 mmol/L (0.4-2.0) Calcium Level 9.4 mg/dL (8.5-10.1) Magnesium Level 1.8 mg/dL (1.8-2.4) Total Bilirubin 1.2 mg/dL (0.2-1.0) Aspartate Amino Transf (AST/SGOT) 17 U/L (15-37) Alanine Aminotransferase (ALT/SGPT) 20 U/L (16-63) Alkaline Phosphatase 103 U/L (46-116) Creatine Kinase 30 U/L (39-308) Troponin I Quantitative < 0.017 ng/mL (0.000-0.055) JU-Tqp-J-Type Natriuretic Peptide 1807 pg/mL (0-449) Total Protein 7.4 g/dL (6.4-8.2) Albumin 3.1 g/dL (3.4-5.0) Albumin/Globulin Ratio 0.7 (1.0-1.7) Lipase 172 U/L (73-393) Thyroid Stimulating Hormone (TSH) 3.599 uIU/mL (0.358-3.74) Bedside Troponin I 0.02 ng/ml (<0.08) Urine Collection Type Unknown Urine Color Yellow Urine Clarity Clear Urine pH 5.5 Urine Specific Grubbs >=1.030 Urine Protein 100 mg/dL (NEG-TRACE) Urine Glucose (UA) >=1000 mg/dL (NEG) Urine Ketones (Stick) Negative mg/dL (NEG) Urine Blood Small (NEG) Urine Nitrite Negative (NEG) Urine Bilirubin Negative (NEG) Urine Urobilinogen Dipstick 1.0 mg/dL (0.2 mg/dL) Urine Leukocyte Esterase Negative (NEG) Urine RBC Rare /HPF (0-2) Urine WBC Rare /HPF (0-4) Urine Squamous Epithelial Cells Occ /LPF Urine Bacteria 0 /HPF (0-FEW) Urine Hyaline Casts Few /HPF Urine Mucus Mod /LPF Test 03/30/18 00:30 03/30/18 05:43 03/30/18 07:01 03/30/18 11:59 Glucose (Fingerstick) 426 mg/dL (70-99) 419 mg/dL (70-99) 422 mg/dL (70-99) White Blood Count 11.8 x10^3/uL (4.0-11.0) Red Blood Count 5.24 x10^6/uL (4.30-5.70) Hemoglobin 15.6 g/dL (13.0-17.5) Hematocrit 47.2 % (39.0-53.0) Mean Corpuscular Volume 90 fL (79-100) Mean Corpuscular Hemoglobin 30 pg (25-35) Mean Corpuscular Hemoglobin Concent 33 g/dL (31-37) Red Cell Distribution Width 13.6 % (11.5-14.5) Platelet Count 136 x10^3/uL (140-400) Neutrophils (%) (Auto) 79 % (31-73) Lymphocytes (%) (Auto) 13 % (24-48) Monocytes (%) (Auto) 8 % (0-9) Eosinophils (%) (Auto) 0 % (0-3) Basophils (%) (Auto) 0 % (0-3) Neutrophils # (Auto) 9.3 x10^3uL (1.8-7.7) Lymphocytes # (Auto) 1.5 x10^3/uL (1.0-4.8) Monocytes # (Auto) 0.9 x10^3/uL (0.0-1.1) Eosinophils # (Auto) 0.0 x10^3/uL (0.0-0.7) Basophils # (Auto) 0.0 x10^3/uL (0.0-0.2) Sodium Level 138 mmol/L (136-145) Potassium Level 4.1 mmol/L (3.5-5.1) Chloride Level 104 mmol/L (98-107) Carbon Dioxide Level 28 mmol/L (21-32) Anion Gap 6 (6-14) Blood Urea Nitrogen 26 mg/dL (8-26) Creatinine 1.7 mg/dL (0.7-1.3) Estimated GFR (Cockcroft-Gault) 38.9 BUN/Creatinine Ratio 15 (6-20) Glucose Level 482 mg/dL (70-99) Hemoglobin A1c 12.7 % (4.8-5.6) Lactic Acid Level 1.9 mmol/L (0.4-2.0) Calcium Level 8.7 mg/dL (8.5-10.1) Total Bilirubin 0.9 mg/dL (0.2-1.0) Aspartate Amino Transf (AST/SGOT) 16 U/L (15-37) Alanine Aminotransferase (ALT/SGPT) 18 U/L (16-63) Alkaline Phosphatase 85 U/L (46-116) Troponin I Quantitative 0.018 ng/mL (0.000-0.055) Total Protein 6.4 g/dL (6.4-8.2) Albumin 2.5 g/dL (3.4-5.0) Albumin/Globulin Ratio 0.6 (1.0-1.7) Test 03/30/18 14:16 03/30/18 16:59 03/30/18 21:20 03/31/18 06:40 Glucose (Fingerstick) 417 mg/dL (70-99) 89 mg/dL (70-99) 76 mg/dL (70-99) White Blood Count 8.2 x10^3/uL (4.0-11.0) Red Blood Count 5.24 x10^6/uL (4.30-5.70) Hemoglobin 15.8 g/dL (13.0-17.5) Hematocrit 47.3 % (39.0-53.0) Mean Corpuscular Volume 90 fL (79-100) Mean Corpuscular Hemoglobin 30 pg (25-35) Mean Corpuscular Hemoglobin Concent 33 g/dL (31-37) Red Cell Distribution Width 14.0 % (11.5-14.5) Platelet Count 134 x10^3/uL (140-400) Neutrophils (%) (Auto) 63 % (31-73) Lymphocytes (%) (Auto) 25 % (24-48) Monocytes (%) (Auto) 10 % (0-9) Eosinophils (%) (Auto) 1 % (0-3) Basophils (%) (Auto) 1 % (0-3) Neutrophils # (Auto) 5.2 x10^3uL (1.8-7.7) Lymphocytes # (Auto) 2.0 x10^3/uL (1.0-4.8) Monocytes # (Auto) 0.8 x10^3/uL (0.0-1.1) Eosinophils # (Auto) 0.1 x10^3/uL (0.0-0.7) Basophils # (Auto) 0.1 x10^3/uL (0.0-0.2) Sodium Level 143 mmol/L (136-145) Potassium Level 3.9 mmol/L (3.5-5.1) Chloride Level 107 mmol/L (98-107) Carbon Dioxide Level 29 mmol/L (21-32) Anion Gap 7 (6-14) Blood Urea Nitrogen 25 mg/dL (8-26) Creatinine 1.6 mg/dL (0.7-1.3) Estimated GFR (Cockcroft-Gault) 41.7 BUN/Creatinine Ratio 16 (6-20) Glucose Level 203 mg/dL (70-99) Calcium Level 8.9 mg/dL (8.5-10.1) Total Bilirubin 0.6 mg/dL (0.2-1.0) Aspartate Amino Transf (AST/SGOT) 26 U/L (15-37) Alanine Aminotransferase (ALT/SGPT) 12 U/L (16-63) Alkaline Phosphatase 79 U/L (46-116) Total Protein 6.6 g/dL (6.4-8.2) Albumin 2.5 g/dL (3.4-5.0) Albumin/Globulin Ratio 0.6 (1.0-1.7) Triglycerides Level 156 mg/dL (0-150) Cholesterol Level 170 mg/dL (0-200) LDL Cholesterol, Calculated 104 mg/dL (0-100) VLDL Cholesterol, Calculated 31 mg/dL (0-40) Non-HDL Cholesterol Calculated 135 mg/dL (0-129) HDL Cholesterol 35 mg/dL (40-60) Cholesterol/HDL Ratio 4.9 Test 03/31/18 07:26 03/31/18 12:01 Glucose (Fingerstick) 210 mg/dL (70-99) 333 mg/dL (70-99) Laboratory Tests Test 03/30/18 14:16 03/30/18 16:59 03/30/18 21:20 03/31/18 06:40 Glucose (Fingerstick) 417 mg/dL (70-99) 89 mg/dL (70-99) 76 mg/dL (70-99) White Blood Count 8.2 x10^3/uL (4.0-11.0) Red Blood Count 5.24 x10^6/uL (4.30-5.70) Hemoglobin 15.8 g/dL (13.0-17.5) Hematocrit 47.3 % (39.0-53.0) Mean Corpuscular Volume 90 fL (79-100) Mean Corpuscular Hemoglobin 30 pg (25-35) Mean Corpuscular Hemoglobin Concent 33 g/dL (31-37) Red Cell Distribution Width 14.0 % (11.5-14.5) Platelet Count 134 x10^3/uL (140-400) Neutrophils (%) (Auto) 63 % (31-73) Lymphocytes (%) (Auto) 25 % (24-48) Monocytes (%) (Auto) 10 % (0-9) Eosinophils (%) (Auto) 1 % (0-3) Basophils (%) (Auto) 1 % (0-3) Neutrophils # (Auto) 5.2 x10^3uL (1.8-7.7) Lymphocytes # (Auto) 2.0 x10^3/uL (1.0-4.8) Monocytes # (Auto) 0.8 x10^3/uL (0.0-1.1) Eosinophils # (Auto) 0.1 x10^3/uL (0.0-0.7) Basophils # (Auto) 0.1 x10^3/uL (0.0-0.2) Sodium Level 143 mmol/L (136-145) Potassium Level 3.9 mmol/L (3.5-5.1) Chloride Level 107 mmol/L (98-107) Carbon Dioxide Level 29 mmol/L (21-32) Anion Gap 7 (6-14) Blood Urea Nitrogen 25 mg/dL (8-26) Creatinine 1.6 mg/dL (0.7-1.3) Estimated GFR (Cockcroft-Gault) 41.7 BUN/Creatinine Ratio 16 (6-20) Glucose Level 203 mg/dL (70-99) Calcium Level 8.9 mg/dL (8.5-10.1) Total Bilirubin 0.6 mg/dL (0.2-1.0) Aspartate Amino Transf (AST/SGOT) 26 U/L (15-37) Alanine Aminotransferase (ALT/SGPT) 12 U/L (16-63) Alkaline Phosphatase 79 U/L (46-116) Total Protein 6.6 g/dL (6.4-8.2) Albumin 2.5 g/dL (3.4-5.0) Albumin/Globulin Ratio 0.6 (1.0-1.7) Triglycerides Level 156 mg/dL (0-150) Cholesterol Level 170 mg/dL (0-200) LDL Cholesterol, Calculated 104 mg/dL (0-100) VLDL Cholesterol, Calculated 31 mg/dL (0-40) Non-HDL Cholesterol Calculated 135 mg/dL (0-129) HDL Cholesterol 35 mg/dL (40-60) Cholesterol/HDL Ratio 4.9 Test 03/31/18 07:26 03/31/18 12:01 Glucose (Fingerstick) 210 mg/dL (70-99) 333 mg/dL (70-99) Microbiology 03/29/18 Blood Culture - Preliminary, Resulted NO GROWTH AFTER 1 DAY Medications Current Medications Sodium Chloride 1,000 ml @ 1,000 mls/hr 1X ONCE IV Last administered on at 22:05; Start 03/29/18 at 22:00; Stop 03/29/18 at 22:59; Status DC Sodium Chloride 1,000 ml @ 1,000 mls/hr 1X ONCE IV Last administered on at 22:43; Start 03/29/18 at 22:15; Stop 03/29/18 at 23:14; Status DC Insulin Human Regular 150 unit/ Sodium Chloride 151.5 ml @ 0 mls/hr CONT PRN IV SEE I/O RECORD; Start 03/29/18 at 22:30; Stop 03/29/18 at 22:58; Status DC Insulin Human Regular (HumuLIN R VIAL) 10 unit 1X ONCE IV Last administered on 03/29/18at 22:42; Start 03/29/18 at 22:15; Stop 03/29/18 at 22:16; Status DC Ceftriaxone Sodium 50 ml @ 100 mls/hr 1X ONCE IV Last administered on at 23:15; Start 03/29/18 at 23:15; Stop 03/29/18 at 23:44; Status DC Azithromycin 500 mg/Sodium Chloride 250 ml @ 250 mls/hr 1X ONCE IV Last administered on 03/29/18at 23:42; Start 03/29/18 at 23:00; Stop 03/29/18 at 23:59; Status DC Ondansetron HCl (Zofran) 4 mg PRN Q8HRS PRN IV NAUSEA/VOMITING; Start 03/29/18 at 23:55; Stop 03/30/18 at 23:54; Status DC Fentanyl Citrate (Fentanyl 2ml Vial) 50 mcg PRN Q1HR PRN IV PAIN; Start at 23:45; Stop 03/30/18 at 23:44; Status DC Acetaminophen (Tylenol) 650 mg PRN Q4HRS PRN PO FEVER; Start 03/29/18 at 23:45; Stop 03/30/18 at 23:44; Status DC Acetaminophen (Tylenol) 1,000 mg 1X ONCE PO Last administered on 03/29/18at 23: 58; Start 03/29/18 at 23:45; Stop 03/30/18 at 00:01; Status DC Sodium Chloride 1,000 ml @ 100 mls/hr 1X ONCE IV Last administered on at 01:45; Start 03/30/18 at 01:45; Stop 03/30/18 at 11:44; Status DC Insulin Human Lispro (HumaLOG) 0-9 UNITS TIDWMEALS SQ Last administered on 03/31at 12:24; Start 03/30/18 at 08:00 Dextrose (Dextrose 50%-Water Syringe) 12.5 gm PRN Q15MIN PRN IV SEE COMMENTS; Start 03/30/18 at 07:45 Insulin Glargine (Lantus) 14 units DAILY SQ Last administered on 03/30/18at 08:25 ; Start 03/30/18 at 08:00; Stop 03/30/18 at 10:12; Status DC Insulin Human Lispro (HumaLOG) 10 units TIDWMEALS SQ Last administered on at 08:25; Start 03/30/18 at 08:00; Stop 03/30/18 at 12:04; Status DC Aspirin (Dorothy Aspirin) 325 mg DAILY PO Last administered on 03/30/18at 10:27; Start 03/30/18 at 11:00; Stop 03/31/18 at 12:42; Status DC Atenolol (Tenormin) 75 mg DAILY PO Last administered on 03/30/18at 10:29; Start 03/30/18 at 11:00 Furosemide (Lasix) 40 mg DAILY PO Last administered on 03/30/18at 10:27; Start at 11:00 Glipizide (Glucotrol) 5 mg DAILY PO Last administered on 03/30/18at 10:27; Start 03/30/18 at 11:00 Rivaroxaban (Xarelto) 15 mg DAILY PO Last administered on 03/30/18at 10:27; Start 03/30/18 at 11:00 Tamsulosin HCl (Flomax) 0.4 mg DAILY PO Last administered on 03/30/18at 10:27; Start 03/30/18 at 11:00 Tramadol HCl (Ultram) 50 mg TID PRN PRN PO MILD PAIN; Start 03/30/18 at 10:15 Triamcinolone Acetonide (Kenalog) 1 maria isabel DAILY TP ; Start 03/30/18 at 11:00 Insulin Glargine (Lantus) 20 units QHS SQ ; Start 03/30/18 at 21:00 Levothyroxine Sodium (Synthroid) 25 mcg DAILY07 PO Last administered on at 10:27; Start 03/30/18 at 11:00 Miconazole Nitrate (Desenex) 1 maria isabel PRN BID PRN TP YEAST; Start 03/30/18 at 21:00 Pantoprazole Sodium (Protonix) 40 mg DAILYAC PO Last administered on 03/30/18at 12:24; Start 03/30/18 at 12:00 Multi-Ingredient Mouthwash/Gargle (Gi Cocktail) 20 ml PRN QID PRN PO abd pain Last administered on 03/30/18 14:24; Start 03/30/18 at 12:00 Insulin Human Lispro (HumaLOG) 14 units TIDWMEALS SQ Last administered on 12:24; Start 03/30/18 at 17:00 Insulin Human Lispro (HumaLOG) 26 units 1X ONCE SQ Last administered on at 12:26; Start 03/30/18 at 12:15; Stop 03/30/18 at 12:16; Status DC Micafungin Sodium 100 mg/Dextrose 100 ml @ 100 mls/hr Q24H IV Last administered on 03/31/18at 12:43; Start 03/30/18 at 13:00 Piperacillin Sod/ Tazobactam Sod 3.375 gm/Sodium Chloride 50 ml @ 100 mls/hr Q6HRS IV Last administered on 03/31/18at 12:20; Start 03/30/18 at 13:00 Gabapentin (Neurontin) 100 mg TID PO Last administered on 03/31/18at 12:42; Start 03/30/18 at 14:00 Insulin Human Lispro (HumaLOG) 26 units 1X ONCE SQ Last administered on at 14:27; Start 03/30/18 at 14:30; Stop 03/30/18 at 14:31; Status DC Lactobacillus Rhamnosus (Culturelle) 1 cap BID PO Last administered on at 21:18; Start 03/30/18 at 21:00 Atorvastatin Calcium (Lipitor) 20 mg QHS PO ; Start 03/31/18 at 21:00 Aspirin (Ecotrin) 81 mg DAILYWBKFT PO ; Start 04/01/18 at 08:00 Info (Anti-Coagulation Monitoring By Pharmacy) 1 each PRN DAILY PRN MC SEE COMMENTS; Start 03/31/18 at 13:00 Active Scripts Active Reported Aspirin 325 Mg Tablet 1 Tab PO DAILY Triamcinolone Acetonide 0.1% Oint (Triamcinolone Acetonide) 15 Gm Oint...g. 1 Maria Isabel TP PRN MIX WITH EUCERIN DIRECTED BY PHYSICIAN Tramadol Hcl 50 Mg Tablet 50 Mg PO TID PRN Flomax (Tamsulosin Hcl) 0.4 Mg Cap.er.24h 1 Cap PO DAILY Xarelto (Rivaroxaban) 15 Mg Tablet 15 Mg PO DAILY Nystatin 15 Gm Oint...g. 1 Maria Isabel TP PRN Mupirocin Ointment (Mupirocin) 22 Gm Oint...g. 1 Maria Isabel TP PRN Miconazole Nitrate 130 Gm Aero.powd 130 Gm TP PRN Levothyroxine Sodium 25 Mcg Tablet 1 Tab PO DAILY Levemir (Insulin Detemir) 100 Unit/1 Ml Vial 20 Unit SQ HS Glipizide 5 Mg Tablet 1 Tab PO DAILY Lasix (Furosemide) 40 Mg Tablet 40 Mg PO DAILY Atenolol 50 Mg Tablet 75 Mg PO DAILY Vitals/I & O Vital Sign - Last 24 Hours 03/30/18 03/30/18 03/30/18 03/30/18 15:00 19:00 20:00 23:00 Temp 98.3 99.1 97.7 98.3 99.1 97.7 Pulse 80 80 79 Resp 20 20 20 B/P (MAP) 107/48 (67) 131/62 (85) 139/58 (85) Pulse Ox 96 96 97 O2 Delivery Room Air Room Air Room Air Room Air 03/31/18 03/31/18 03/31/18 03/31/18 03:00 07:00 07:19 11:00 Temp 98.0 98.3 98.2 98.0 98.3 98.2 Pulse 78 79 80 Resp 20 20 20 B/P (MAP) 113/70 (84) 123/62 (82) 123/54 (77) Pulse Ox 96 96 95 O2 Delivery Room Air Room Air Room Air Room Air Intake and Output 03/30/18 03/30/18 03/31/18 15:00 23:00 07:00 Intake Total 600 ml 400 ml Output Total 350 ml 100 ml Balance -350 ml 500 ml 400 ml YONAS BONDS MD Mar 31, 2018 12:59
[2018-03-31] MEDS: ANTI-COAG MONITOR BY PHARMACY. MC PRN (13:00)
--- NOTE | 2018-03-31 13:21 | RAD ---
Radionuclide gastric emptying study, 03/31/2018: HISTORY: Nausea The study was performed utilizing a solid test meal radiolabeled with 2.1 mCi of technetium 99m sulfur colloid. The following gastric retention values were obtained: 1 hour-51 percent 2 hours-46 percent 3 hours-32 percent 4 hours-6 percent. These values are considered to be within normal limits. A T1/2 of 67 minutes was also calculated which is within normal limits. IMPRESSION: Normal radionuclide gastric emptying study. Electronically signed by: Manoj Davis MD (03/31/2018 1:17 PM) [facility]
--- NOTE | 2018-03-31 16:13 | PDOC ---
PROGRESS NOTES Chief Complaint Chief Complaint nausea and vomiting, possible gastroparesis Left foot weakenss and numbness, sensation intact, consutl physiatry, may need MRI spine Dm2, poor control, noncompliance past 3 months "I dont know how to use it" Morbid obesity, BMI 40 chronic sacral ulcer, stage 2, weakness and debility History of Present Illness History of Present Illness GES this AM woudn care following he looks imrprovd str imrproved Vitals Vitals Vital Signs Date Time Temp Pulse Resp B/P (MAP) Pulse Ox O2 Delivery O2 Flow Rate FiO2 03/31/18 11:00 98.2 80 20 123/54 (77) 95 Room Air 98.2 Physical Exam Physical Exam CONSTITUTIONAL: He is alert, cooperative. He is in no acute distress. He is obese. slightly lying on right sied HEENT: Pupils equal and reactive. Normal conjunctivae. Oral cavity, pharynx is clear. He has some chronic lip changes. dentures NECK: Supple. No JVD. LUNGS: Clear to auscultation. HEART: S1, S2. 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 ABDOMEN: Obese, soft and nontender. No guarding. No rebound. EXTREMITIES: Without clubbing or cyanosis. He has bilateral lower extremity non-pitting edema, left greater than right, approximately 1-2+ better today. He also has severe tenia, both feet. Both lower legs have some chronic venous stasis changes, but his left lower extremity has improved erythema, Still some warmth but better and some tracking up the medial thigh that has improved NEUROLOGIC: He is nonfocal, moves all extremities. PSYCHIATRIC: Affect is pleasant. SKIN: no Rash. Buttock wound stage 1 General: Alert, Oriented X3, Cooperative, No acute distress Heart: Regular rate (atrial flutter V paced), Other (3/6 systolic murmur MIRNA border) Abdomen: Soft, No tenderness, Other (obese) Extremities: No cyanosis, Other (2-3+ bilateral LE pitting edema; LLE cellulitis) Skin: No breakdown Labs LABS Laboratory Tests Test 03/30/18 16:59 03/30/18 21:20 03/31/18 06:40 03/31/18 07:26 Glucose (Fingerstick) 89 mg/dL (70-99) 76 mg/dL (70-99) 210 mg/dL (70-99) White Blood Count 8.2 x10^3/uL (4.0-11.0) Red Blood Count 5.24 x10^6/uL (4.30-5.70) Hemoglobin 15.8 g/dL (13.0-17.5) Hematocrit 47.3 % (39.0-53.0) Mean Corpuscular Volume 90 fL (79-100) Mean Corpuscular Hemoglobin 30 pg (25-35) Mean Corpuscular Hemoglobin Concent 33 g/dL (31-37) Red Cell Distribution Width 14.0 % (11.5-14.5) Platelet Count 134 x10^3/uL (140-400) Neutrophils (%) (Auto) 63 % (31-73) Lymphocytes (%) (Auto) 25 % (24-48) Monocytes (%) (Auto) 10 % (0-9) Eosinophils (%) (Auto) 1 % (0-3) Basophils (%) (Auto) 1 % (0-3) Neutrophils # (Auto) 5.2 x10^3uL (1.8-7.7) Lymphocytes # (Auto) 2.0 x10^3/uL (1.0-4.8) Monocytes # (Auto) 0.8 x10^3/uL (0.0-1.1) Eosinophils # (Auto) 0.1 x10^3/uL (0.0-0.7) Basophils # (Auto) 0.1 x10^3/uL (0.0-0.2) Sodium Level 143 mmol/L (136-145) Potassium Level 3.9 mmol/L (3.5-5.1) Chloride Level 107 mmol/L (98-107) Carbon Dioxide Level 29 mmol/L (21-32) Anion Gap 7 (6-14) Blood Urea Nitrogen 25 mg/dL (8-26) Creatinine 1.6 mg/dL (0.7-1.3) Estimated GFR (Cockcroft-Gault) 41.7 BUN/Creatinine Ratio 16 (6-20) Glucose Level 203 mg/dL (70-99) Calcium Level 8.9 mg/dL (8.5-10.1) Total Bilirubin 0.6 mg/dL (0.2-1.0) Aspartate Amino Transf (AST/SGOT) 26 U/L (15-37) Alanine Aminotransferase (ALT/SGPT) 12 U/L (16-63) Alkaline Phosphatase 79 U/L (46-116) Total Protein 6.6 g/dL (6.4-8.2) Albumin 2.5 g/dL (3.4-5.0) Albumin/Globulin Ratio 0.6 (1.0-1.7) Triglycerides Level 156 mg/dL (0-150) Cholesterol Level 170 mg/dL (0-200) LDL Cholesterol, Calculated 104 mg/dL (0-100) VLDL Cholesterol, Calculated 31 mg/dL (0-40) Non-HDL Cholesterol Calculated 135 mg/dL (0-129) HDL Cholesterol 35 mg/dL (40-60) Cholesterol/HDL Ratio 4.9 Test 03/31/18 12:01 Glucose (Fingerstick) 333 mg/dL (70-99) Assessment and Plan Assessmemt and Plan Problems Medical Problems: (1) BRAD (acute kidney injury) Status: Acute (2) Hyperglycemia Status: Acute (3) Leukocytosis Status: Acute (4) Pneumonia Status: Acute Comment Review of Relevant I have reviewed the following items do (where applicable) has been applied. Labs Laboratory Tests Test 03/29/18 21:10 03/29/18 21:49 03/29/18 21:55 03/29/18 23:22 White Blood Count 14.7 x10^3/uL (4.0-11.0) Red Blood Count 5.69 x10^6/uL (4.30-5.70) Hemoglobin 16.8 g/dL (13.0-17.5) Hematocrit 51.1 % (39.0-53.0) Mean Corpuscular Volume 90 fL (79-100) Mean Corpuscular Hemoglobin 30 pg (25-35) Mean Corpuscular Hemoglobin Concent 33 g/dL (31-37) Red Cell Distribution Width 13.6 % (11.5-14.5) Platelet Count 151 x10^3/uL (140-400) Neutrophils (%) (Auto) 88 % (31-73) Lymphocytes (%) (Auto) 6 % (24-48) Monocytes (%) (Auto) 6 % (0-9) Eosinophils (%) (Auto) 0 % (0-3) Basophils (%) (Auto) 0 % (0-3) Neutrophils # (Auto) 12.9 x10^3uL (1.8-7.7) Lymphocytes # (Auto) 0.8 x10^3/uL (1.0-4.8) Monocytes # (Auto) 0.9 x10^3/uL (0.0-1.1) Eosinophils # (Auto) 0.0 x10^3/uL (0.0-0.7) Basophils # (Auto) 0.1 x10^3/uL (0.0-0.2) Segmented Neutrophils % 79 % (35-66) Band Neutrophils % 13 % (0-9) Lymphocytes % 4 % (24-48) Monocytes % 3 % (0-10) Basophils % 1 % (0-3) Toxic Granulation Slight Platelet Estimate Adequate (ADEQUATE) Prothrombin Time 16.2 SEC (11.7-14.0) Prothromb Time International Ratio 1.4 (0.8-1.1) Sodium Level 137 mmol/L (136-145) Potassium Level 4.2 mmol/L (3.5-5.1) Chloride Level 101 mmol/L (98-107) Carbon Dioxide Level 23 mmol/L (21-32) Anion Gap 13 (6-14) Blood Urea Nitrogen 27 mg/dL (8-26) Creatinine 1.9 mg/dL (0.7-1.3) Estimated GFR (Cockcroft-Gault) 34.2 BUN/Creatinine Ratio 14 (6-20) Glucose Level 555 mg/dL (70-99) Glucose (Fingerstick) 458 mg/dL (70-99) 432 mg/dL (70-99) Lactic Acid Level 6.3 mmol/L (0.4-2.0) Calcium Level 9.4 mg/dL (8.5-10.1) Magnesium Level 1.8 mg/dL (1.8-2.4) Total Bilirubin 1.2 mg/dL (0.2-1.0) Aspartate Amino Transf (AST/SGOT) 17 U/L (15-37) Alanine Aminotransferase (ALT/SGPT) 20 U/L (16-63) Alkaline Phosphatase 103 U/L (46-116) Creatine Kinase 30 U/L (39-308) Troponin I Quantitative < 0.017 ng/mL (0.000-0.055) NE-Tqu-G-Type Natriuretic Peptide 1807 pg/mL (0-449) Total Protein 7.4 g/dL (6.4-8.2) Albumin 3.1 g/dL (3.4-5.0) Albumin/Globulin Ratio 0.7 (1.0-1.7) Lipase 172 U/L (73-393) Thyroid Stimulating Hormone (TSH) 3.599 uIU/mL (0.358-3.74) Bedside Troponin I 0.02 ng/ml (<0.08) Urine Collection Type Unknown Urine Color Yellow Urine Clarity Clear Urine pH 5.5 Urine Specific [place] >=1.030 Urine Protein 100 mg/dL (NEG-TRACE) Urine Glucose (UA) >=1000 mg/dL (NEG) Urine Ketones (Stick) Negative mg/dL (NEG) Urine Blood Small (NEG) Urine Nitrite Negative (NEG) Urine Bilirubin Negative (NEG) Urine Urobilinogen Dipstick 1.0 mg/dL (0.2 mg/dL) Urine Leukocyte Esterase Negative (NEG) Urine RBC Rare /HPF (0-2) Urine WBC Rare /HPF (0-4) Urine Squamous Epithelial Cells Occ /LPF Urine Bacteria 0 /HPF (0-FEW) Urine Hyaline Casts Few /HPF Urine Mucus Mod /LPF Test 03/30/18 00:30 03/30/18 05:43 03/30/18 07:01 03/30/18 11:59 Glucose (Fingerstick) 426 mg/dL (70-99) 419 mg/dL (70-99) 422 mg/dL (70-99) White Blood Count 11.8 x10^3/uL (4.0-11.0) Red Blood Count 5.24 x10^6/uL (4.30-5.70) Hemoglobin 15.6 g/dL (13.0-17.5) Hematocrit 47.2 % (39.0-53.0) Mean Corpuscular Volume 90 fL (79-100) Mean Corpuscular Hemoglobin 30 pg (25-35) Mean Corpuscular Hemoglobin Concent 33 g/dL (31-37) Red Cell Distribution Width 13.6 % (11.5-14.5) Platelet Count 136 x10^3/uL (140-400) Neutrophils (%) (Auto) 79 % (31-73) Lymphocytes (%) (Auto) 13 % (24-48) Monocytes (%) (Auto) 8 % (0-9) Eosinophils (%) (Auto) 0 % (0-3) Basophils (%) (Auto) 0 % (0-3) Neutrophils # (Auto) 9.3 x10^3uL (1.8-7.7) Lymphocytes # (Auto) 1.5 x10^3/uL (1.0-4.8) Monocytes # (Auto) 0.9 x10^3/uL (0.0-1.1) Eosinophils # (Auto) 0.0 x10^3/uL (0.0-0.7) Basophils # (Auto) 0.0 x10^3/uL (0.0-0.2) Sodium Level 138 mmol/L (136-145) Potassium Level 4.1 mmol/L (3.5-5.1) Chloride Level 104 mmol/L (98-107) Carbon Dioxide Level 28 mmol/L (21-32) Anion Gap 6 (6-14) Blood Urea Nitrogen 26 mg/dL (8-26) Creatinine 1.7 mg/dL (0.7-1.3) Estimated GFR (Cockcroft-Gault) 38.9 BUN/Creatinine Ratio 15 (6-20) Glucose Level 482 mg/dL (70-99) Hemoglobin A1c 12.7 % (4.8-5.6) Lactic Acid Level 1.9 mmol/L (0.4-2.0) Calcium Level 8.7 mg/dL (8.5-10.1) Total Bilirubin 0.9 mg/dL (0.2-1.0) Aspartate Amino Transf (AST/SGOT) 16 U/L (15-37) Alanine Aminotransferase (ALT/SGPT) 18 U/L (16-63) Alkaline Phosphatase 85 U/L (46-116) Troponin I Quantitative 0.018 ng/mL (0.000-0.055) Total Protein 6.4 g/dL (6.4-8.2) Albumin 2.5 g/dL (3.4-5.0) Albumin/Globulin Ratio 0.6 (1.0-1.7) Test 03/30/18 14:16 8/9/18 16:59 03/30/18 21:20 03/31/18 06:40 Glucose (Fingerstick) 417 mg/dL (70-99) 89 mg/dL (70-99) 76 mg/dL (70-99) White Blood Count 8.2 x10^3/uL (4.0-11.0) Red Blood Count 5.24 x10^6/uL (4.30-5.70) Hemoglobin 15.8 g/dL (13.0-17.5) Hematocrit 47.3 % (39.0-53.0) Mean Corpuscular Volume 90 fL (79-100) Mean Corpuscular Hemoglobin 30 pg (25-35) Mean Corpuscular Hemoglobin Concent 33 g/dL (31-37) Red Cell Distribution Width 14.0 % (11.5-14.5) Platelet Count 134 x10^3/uL (140-400) Neutrophils (%) (Auto) 63 % (31-73) Lymphocytes (%) (Auto) 25 % (24-48) Monocytes (%) (Auto) 10 % (0-9) Eosinophils (%) (Auto) 1 % (0-3) Basophils (%) (Auto) 1 % (0-3) Neutrophils # (Auto) 5.2 x10^3uL (1.8-7.7) Lymphocytes # (Auto) 2.0 x10^3/uL (1.0-4.8) Monocytes # (Auto) 0.8 x10^3/uL (0.0-1.1) Eosinophils # (Auto) 0.1 x10^3/uL (0.0-0.7) Basophils # (Auto) 0.1 x10^3/uL (0.0-0.2) Sodium Level 143 mmol/L (136-145) Potassium Level 3.9 mmol/L (3.5-5.1) Chloride Level 107 mmol/L (98-107) Carbon Dioxide Level 29 mmol/L (21-32) Anion Gap 7 (6-14) Blood Urea Nitrogen 25 mg/dL (8-26) Creatinine 1.6 mg/dL (0.7-1.3) Estimated GFR (Cockcroft-Gault) 41.7 BUN/Creatinine Ratio 16 (6-20) Glucose Level 203 mg/dL (70-99) Calcium Level 8.9 mg/dL (8.5-10.1) Total Bilirubin 0.6 mg/dL (0.2-1.0) Aspartate Amino Transf (AST/SGOT) 26 U/L (15-37) Alanine Aminotransferase (ALT/SGPT) 12 U/L (16-63) Alkaline Phosphatase 79 U/L (46-116) Total Protein 6.6 g/dL (6.4-8.2) Albumin 2.5 g/dL (3.4-5.0) Albumin/Globulin Ratio 0.6 (1.0-1.7) Triglycerides Level 156 mg/dL (0-150) Cholesterol Level 170 mg/dL (0-200) LDL Cholesterol, Calculated 104 mg/dL (0-100) VLDL Cholesterol, Calculated 31 mg/dL (0-40) Non-HDL Cholesterol Calculated 135 mg/dL (0-129) HDL Cholesterol 35 mg/dL (40-60) Cholesterol/HDL Ratio 4.9 Test 03/31/18 07:26 03/31/18 12:01 Glucose (Fingerstick) 210 mg/dL (70-99) 333 mg/dL (70-99) Laboratory Tests Test 03/30/18 16:59 03/30/18 21:20 03/31/18 06:40 03/31/18 07:26 Glucose (Fingerstick) 89 mg/dL (70-99) 76 mg/dL (70-99) 210 mg/dL (70-99) White Blood Count 8.2 x10^3/uL (4.0-11.0) Red Blood Count 5.24 x10^6/uL (4.30-5.70) Hemoglobin 15.8 g/dL (13.0-17.5) Hematocrit 47.3 % (39.0-53.0) Mean Corpuscular Volume 90 fL (79-100) Mean Corpuscular Hemoglobin 30 pg (25-35) Mean Corpuscular Hemoglobin Concent 33 g/dL (31-37) Red Cell Distribution Width 14.0 % (11.5-14.5) Platelet Count 134 x10^3/uL (140-400) Neutrophils (%) (Auto) 63 % (31-73) Lymphocytes (%) (Auto) 25 % (24-48) Monocytes (%) (Auto) 10 % (0-9) Eosinophils (%) (Auto) 1 % (0-3) Basophils (%) (Auto) 1 % (0-3) Neutrophils # (Auto) 5.2 x10^3uL (1.8-7.7) Lymphocytes # (Auto) 2.0 x10^3/uL (1.0-4.8) Monocytes # (Auto) 0.8 x10^3/uL (0.0-1.1) Eosinophils # (Auto) 0.1 x10^3/uL (0.0-0.7) Basophils # (Auto) 0.1 x10^3/uL (0.0-0.2) Sodium Level 143 mmol/L (136-145) Potassium Level 3.9 mmol/L (3.5-5.1) Chloride Level 107 mmol/L (98-107) Carbon Dioxide Level 29 mmol/L (21-32) Anion Gap 7 (6-14) Blood Urea Nitrogen 25 mg/dL (8-26) Creatinine 1.6 mg/dL (0.7-1.3) Estimated GFR (Cockcroft-Gault) 41.7 BUN/Creatinine Ratio 16 (6-20) Glucose Level 203 mg/dL (70-99) Calcium Level 8.9 mg/dL (8.5-10.1) Total Bilirubin 0.6 mg/dL (0.2-1.0) Aspartate Amino Transf (AST/SGOT) 26 U/L (15-37) Alanine Aminotransferase (ALT/SGPT) 12 U/L (16-63) Alkaline Phosphatase 79 U/L (46-116) Total Protein 6.6 g/dL (6.4-8.2) Albumin 2.5 g/dL (3.4-5.0) Albumin/Globulin Ratio 0.6 (1.0-1.7) Triglycerides Level 156 mg/dL (0-150) Cholesterol Level 170 mg/dL (0-200) LDL Cholesterol, Calculated 104 mg/dL (0-100) VLDL Cholesterol, Calculated 31 mg/dL (0-40) Non-HDL Cholesterol Calculated 135 mg/dL (0-129) HDL Cholesterol 35 mg/dL (40-60) Cholesterol/HDL Ratio 4.9 Test 03/31/18 12:01 Glucose (Fingerstick) 333 mg/dL (70-99) Microbiology 8/8/18 Blood Culture - Preliminary, Resulted NO GROWTH AFTER 1 DAY Medications Current Medications Sodium Chloride 1,000 ml @ 1,000 mls/hr 1X ONCE IV Last administered on at 22:05; Start 03/29/18 at 22:00; Stop 03/29/18 at 22:59; Status DC Sodium Chloride 1,000 ml @ 1,000 mls/hr 1X ONCE IV Last administered on at 22:43; Start 03/29/18 at 22:15; Stop 03/29/18 at 23:14; Status DC Insulin Human Regular 150 unit/ Sodium Chloride 151.5 ml @ 0 mls/hr CONT PRN IV SEE I/O RECORD; Start 03/29/18 at 22:30; Stop 03/29/18 at 22:58; Status DC Insulin Human Regular (HumuLIN R VIAL) 10 unit 1X ONCE IV Last administered on 03/29/18at 22:42; Start 03/29/18 at 22:15; Stop 03/29/18 at 22:16; Status DC Ceftriaxone Sodium 50 ml @ 100 mls/hr 1X ONCE IV Last administered on at 23:15; Start 03/29/18 at 23:15; Stop 03/29/18 at 23:44; Status DC Azithromycin 500 mg/Sodium Chloride 250 ml @ 250 mls/hr 1X ONCE IV Last administered on 03/29/18at 23:42; Start 03/29/18 at 23:00; Stop 03/29/18 at 23:59; Status DC Ondansetron HCl (Zofran) 4 mg PRN Q8HRS PRN IV NAUSEA/VOMITING; Start 03/29/18 at 23:55; Stop 03/30/18 at 23:54; Status DC Fentanyl Citrate (Fentanyl 2ml Vial) 50 mcg PRN Q1HR PRN IV PAIN; Start at 23:45; Stop 03/30/18 at 23:44; Status DC Acetaminophen (Tylenol) 650 mg PRN Q4HRS PRN PO FEVER; Start 03/29/18 at 23:45; Stop 03/30/18 at 23:44; Status DC Acetaminophen (Tylenol) 1,000 mg 1X ONCE PO Last administered on 03/29/18at 23: 58; Start 03/29/18 at 23:45; Stop 03/30/18 at 00:01; Status DC Sodium Chloride 1,000 ml @ 100 mls/hr 1X ONCE IV Last administered on at 01:45; Start 03/30/18 at 01:45; Stop 03/30/18 at 11:44; Status DC Insulin Human Lispro (HumaLOG) 0-9 UNITS TIDWMEALS SQ Last administered on 03/31at 12:24; Start 03/30/18 at 08:00 Dextrose (Dextrose 50%-Water Syringe) 12.5 gm PRN Q15MIN PRN IV SEE COMMENTS; Start 03/30/18 at 07:45 Insulin Glargine (Lantus) 14 units DAILY SQ Last administered on 03/30/18at 08:25 ; Start 03/30/18 at 08:00; Stop 03/30/18 at 10:12; Status DC Insulin Human Lispro (HumaLOG) 10 units TIDWMEALS SQ Last administered on at 08:25; Start 03/30/18 at 08:00; Stop 03/30/18 at 12:04; Status DC Aspirin (Dorothy Aspirin) 325 mg DAILY PO Last administered on 03/30/18at 10:27; Start 03/30/18 at 11:00; Stop 03/31/18 at 12:42; Status DC Atenolol (Tenormin) 75 mg DAILY PO Last administered on 03/30/18at 10:29; Start 03/30/18 at 11:00 Furosemide (Lasix) 40 mg DAILY PO Last administered on 03/30/18at 10:27; Start at 11:00 Glipizide (Glucotrol) 5 mg DAILY PO Last administered on 03/30/18at 10:27; Start 03/30/18 at 11:00 Rivaroxaban (Xarelto) 15 mg DAILY PO Last administered on 03/30/18at 10:27; Start 03/30/18 at 11:00 Tamsulosin HCl (Flomax) 0.4 mg DAILY PO Last administered on 03/30/18at 10:27; Start 03/30/18 at 11:00 Tramadol HCl (Ultram) 50 mg TID PRN PRN PO MILD PAIN; Start 03/30/18 at 10:15 Triamcinolone Acetonide (Kenalog) 1 maria isabel DAILY TP ; Start 03/30/18 at 11:00 Insulin Glargine (Lantus) 20 units QHS SQ ; Start 03/30/18 at 21:00 Levothyroxine Sodium (Synthroid) 25 mcg DAILY07 PO Last administered on at 10:27; Start 03/30/18 at 11:00 Miconazole Nitrate (Desenex) 1 maria isabel PRN BID PRN TP YEAST; Start 03/30/18 at 21:00 Pantoprazole Sodium (Protonix) 40 mg DAILYAC PO Last administered on 03/30/18at 12:24; Start 03/30/18 at 12:00 Multi-Ingredient Mouthwash/Gargle (Gi Cocktail) 20 ml PRN QID PRN PO abd pain Last administered on 03/30/18 14:24; Start 03/30/18 at 12:00 Insulin Human Lispro (HumaLOG) 14 units TIDWMEALS SQ Last administered on at 12:24; Start 03/30/18 at 17:00 Insulin Human Lispro (HumaLOG) 26 units 1X ONCE SQ Last administered on at 12:26; Start 03/30/18 at 12:15; Stop 03/30/18 at 12:16; Status DC Micafungin Sodium 100 mg/Dextrose 100 ml @ 100 mls/hr Q24H IV Last administered on 03/31/18at 12:43; Start 03/30/18 at 13:00 Piperacillin Sod/ Tazobactam Sod 3.375 gm/Sodium Chloride 50 ml @ 100 mls/hr Q6HRS IV Last administered on 03/31/18at 12:20; Start 03/30/18 at 13:00 Gabapentin (Neurontin) 100 mg TID PO Last administered on 03/31/18 12:42; Start 03/30/18 at 14:00 Insulin Human Lispro (HumaLOG) 26 units 1X ONCE SQ Last administered on at 14:27; Start 03/30/18 at 14:30; Stop 03/30/18 at 14:31; Status DC Lactobacillus Rhamnosus (Culturelle) 1 cap BID PO Last administered on at 21:18; Start 03/30/18 at 21:00 Atorvastatin Calcium (Lipitor) 20 mg QHS PO ; Start 03/31/18 at 21:00 Aspirin (Ecotrin) 81 mg DAILYWBKFT PO ; Start 04/01/18 at 08:00 Info (Anti-Coagulation Monitoring By Pharmacy) 1 each PRN DAILY PRN MC SEE COMMENTS Last administered on 03/31/18at 13:00; Start 03/31/18 at 13:00 Active Scripts Active Reported Aspirin 325 Mg Tablet 1 Tab PO DAILY Triamcinolone Acetonide 0.1% Oint (Triamcinolone Acetonide) 15 Gm Oint...g. 1 Maria Isabel TP PRN MIX WITH EUCERIN DIRECTED BY PHYSICIAN Tramadol Hcl 50 Mg Tablet 50 Mg PO TID PRN Flomax (Tamsulosin Hcl) 0.4 Mg Cap.er.24h 1 Cap PO DAILY Xarelto (Rivaroxaban) 15 Mg Tablet 15 Mg PO DAILY Nystatin 15 Gm Oint...g. 1 Maria Isabel TP PRN Mupirocin Ointment (Mupirocin) 22 Gm Oint...g. 1 Maria Isabel TP PRN Miconazole Nitrate 130 Gm Aero.powd 130 Gm TP PRN Levothyroxine Sodium 25 Mcg Tablet 1 Tab PO DAILY Levemir (Insulin Detemir) 100 Unit/1 Ml Vial 20 Unit SQ HS Glipizide 5 Mg Tablet 1 Tab PO DAILY Lasix (Furosemide) 40 Mg Tablet 40 Mg PO DAILY Atenolol 50 Mg Tablet 75 Mg PO DAILY Vitals/I & O Vital Sign - Last 24 Hours 03/30/18 03/30/18 03/30/18 03/31/18 19:00 20:00 23:00 03:00 Temp 99.1 97.7 98.0 99.1 97.7 98.0 Pulse 80 79 78 Resp 20 20 20 B/P (MAP) 131/62 (85) 139/58 (85) 113/70 (84) Pulse Ox 96 97 96 O2 Delivery Room Air Room Air Room Air Room Air 03/31/18 03/31/18 03/31/18 07:00 07:19 11:00 Temp 98.3 98.2 98.3 98.2 Pulse 79 80 Resp 20 20 B/P (MAP) 123/62 (82) 123/54 (77) Pulse Ox 96 95 O2 Delivery Room Air Room Air Room Air Intake and Output 03/30/18 03/30/18 03/31/18 15:00 23:00 07:00 Intake Total 600 ml 400 ml Output Total 350 ml 100 ml Balance -350 ml 500 ml 400 ml FRAN HERNANDEZ MD Mar 31, 2018 16:13
--- NOTE | 2018-03-31 18:11 | CARD ---
MR#: [id number] Date of Study: 03/31/2018 Ordering Physician: AISHA GAMBLE, Referring Physician: FRAN HERNANDEZ, Tech: Anjali Sales APPROVED REPORT EXAM: Two-dimensional and M-mode echocardiogram with Doppler and color Doppler. Other Information Quality : AverageHR: 68bpm INDICATION Atrial Fibrillation Syncope Surgery/Intervention CABD DIMENSIONS Left Atrium(2D)5.2 (1.6-4.0cm)IVSd1.3 (0.7-1.1cm) Aortic Root(2D)3.2 (2.0-3.7cm)LVDd6.4 (3.9-5.9cm) LVOT Diameter2.2 (1.8-2.4cm)PWd1.2 (0.7-1.1cm) LA Hattyi57 (18-58mL)LVDs5.3 (2.5-4.0cm) FS (%) 18.5 %SV79.3 ml Aortic Valve AoV Peak Magno.321.0cm/sAoV VTI72.1cm AO Peak GR.41.2mmHgLVOT Peak Magno.97.8cm/s AO Mean GR.28mmHgAVA (VMAX)1.20cm2 AI P 1/2 [id number] Mitral Valve MV E Kiotioes307.0cm/sMV DECEL [id number] MV A Qkqmdqqq16.7cm/sE/A Ratio1.7 Tricuspid Valve TR P. [id number] [id number] TR Peak Gr.[id number] LEFT VENTRICLE Technically difficult study. The Left Ventricle is mildly dilated. There is borderline concentric lef t ventricular hypertrophy. The systolic function is moderately impaired. The Ejection Fraction is 35- 40%. There is global hypokinesis of the left ventricle. Transmitral Doppler flow pattern is restricti ve diastolic dysfunction. RIGHT VENTRICLE The right ventricle is normal size. There is normal right ventricular wall thickness. The right ventr icular systolic function is normal. ATRIA The left atrium size is normal. The right atrium is dilated. The interatrial septum is intact with no evidence for an atrial septal defect or patent foramen ovale as noted on 2-D or Doppler imaging. AORTIC VALVE The aortic valve is calcified but opens well. Doppler and Color Flow revealed mild aortic regurgitati on. Calculated aortic valve area is 1.0 cm2 with maximum pressure gradient of 41 mmHg and mean pressu re gradient of 28 mmHg. Doppler and color-flow analysis revealed moderate aortic stenosis. MITRAL VALVE The mitral valve is thickened but opens well. There is no evidence of mitral valve prolapse. There is no mitral valve stenosis. Doppler and Color-flow revealed mild mitral regurgitation. TRICUSPID VALVE The tricuspid valve is normal in structure and function. Doppler and Color Flow revealed mild tricusp id regurgitation. The PA pressure was estimated at 38 mmHg. There is mild pulmonary hypertension. PULMONIC VALVE The pulmonary valve is normal in structure and function. Doppler and Color Flow revealed no pulmonic valvular regurgitation. There is no pulmonic valvular stenosis. GREAT VESSELS The aortic root is normal in size. The ascending aorta is normal in size. The IVC is dilated and samm apses >50% with inspiration. PERICARDIAL EFFUSION There is no evidence of significant pericardial effusion. Critical Notification Critical Value: No <Conclusion> Technically difficult study. The Left Ventricle is mildly dilated. The systolic function is moderately impaired. The Ejection Fraction is 35-40%. There is global hypokinesis of the left ventricle. There is borderline concentric left ventricular hypertrophy. Calculated aortic valve area is 1.0 cm2 with maximum pressure gradient of 41 mmHg and mean pressure g radient of 28 mmHg. Doppler and color-flow analysis revealed moderate aortic stenosis. Doppler and Color Flow revealed mild aortic regurgitation. Doppler and Color-flow revealed mild mitral regurgitation. Doppler and Color Flow revealed mild tricuspid regurgitation. The PA pressure was estimated at 38 mmHg. There is mild pulmonary hypertension. Signed by : Albin Aguayo MD Electronically Approved : 03/31/2018 18:10:33
[2018-03-31 19:35] VITALS: BP 141/74
[2018-03-31] MEDS ORDERED: INSULIN GLARGINE 300 UNITS/3 ML INSULN.PEN. SQ SCH (21:00)
[2018-03-31] MEDS: ATORVASTATIN CALCIUM 20 MG TABLET PO SCH (21:21)
[2018-03-31 23:20] VITALS: BP 140/62
[2018-04-01] MEDS: PIPERACILLIN/TAZOBACTAM 3.375 GM in IV NORMAL SALINE 50ML 50 ML IV SCH ×4 (00:45→17:51)
[2018-04-01 02:57] VITALS: BP 143/51
[2018-04-01] MEDS: LEVOTHYROXINE 25 MCG TABLET. PO SCH (06:22)
[2018-04-01 07:00] VITALS: BP 135/64
--- NOTE | 2018-04-01 07:01 | PDOC ---
Infectious Disease Note Subjective Subjective Doing ok but not sleeping. Has pain with buttock wound. occ loose stool but no bloating or cramps No F/C/S/weakness/SOA/N/V/D/Rash Legs feel better. Like the rooke boots ROS ROS o/w neg Vital Sign Vital Signs Vital Signs Date Time Temp Pulse Resp B/P (MAP) Pulse Ox O2 Delivery O2 Flow Rate FiO2 04/01/18 02:57 97.5 80 16 143/51 (81) 96 Room Air 97.5 Physical Exam PHYSICAL EXAM CONSTITUTIONAL: He is alert, cooperative. He is in no acute distress. He is obese. in chair HEENT: Pupils equal and reactive. Normal conjunctivae. Oral cavity, pharynx is clear. He has some chronic lip changes. dentures NECK: Supple. No JVD. LUNGS: Clear to auscultation. HEART: S1, S2. 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 ABDOMEN: Obese, soft and nontender. No guarding. No rebound. EXTREMITIES: Without clubbing or cyanosis. He has bilateral lower extremity non-pitting edema, still 2 plus. He also has severe tenia, both feet. Both lower legs have some chronic venous stasis changes, but his left lower extremity has improved erythema, Still some warmth but better and some tracking up the medial thigh that has improved. Rooke boots NEUROLOGIC: He is nonfocal, moves all extremities. PSYCHIATRIC: Affect is pleasant. SKIN: no Rash. Buttock wound stage 1 Labs Lab Laboratory Tests Test 03/31/18 07:26 03/31/18 12:01 03/31/18 17:26 03/31/18 20:12 Glucose (Fingerstick) 210 mg/dL (70-99) 333 mg/dL (70-99) 353 mg/dL (70-99) 135 mg/dL (70-99) Micro Microbiology 03/29/18 Blood Culture - Preliminary, Resulted NO GROWTH AFTER 1 DAY Objective Assessment Fever - better Bandemia LLE cellulitis - better Tinea lactic acidosis - resolved BRAD - stable DM N/V - better Stage 1 CHF - EF 35 - 40 % Plan Plan of Care Needs diuresis Cont Zosyn/micafungin - has pacemaker -to po soon F/u labs and cults Encouraged off loading KVNG MERRILL MD Apr 01, 2018 07:01
[2018-04-01] MEDS: ASPIRIN ENTERIC COATED 81 MG TABLET.DR. PO SCH (08:44)
[2018-04-01] MEDS: LACTOBACILLUS RHAMNOSUS GG 1 CAPSULE. PO SCH ×2 (08:44→20:37)
[2018-04-01] MEDS: PANTOPRAZOLE 40 MG TABLET.DR. PO SCH (08:44)
[2018-04-01] MEDS: RIVAROXABAN 15 MG TABLET. PO SCH (08:44)
[2018-04-01] MEDS: GABAPENTIN 100 MG CAPSULE. PO SCH ×3 (08:45→20:37)
[2018-04-01] MEDS: TAMSULOSIN 0.4 MG CAP.ER.24H. PO SCH (08:45)
[2018-04-01] MEDS: FUROSEMIDE 40 MG TABLET. PO SCH (08:45)
[2018-04-01] MEDS: ATENOLOL 50 MG TABLET. PO SCH (08:45)
[2018-04-01] MEDS: glipiZIDE 5 MG TABLET PO SCH (08:45)
[2018-04-01] MEDS: INSULIN LISPRO 300 UNITS/3 ML INSULN.PEN. SQ SCH ×6 (08:50→17:00)
[2018-04-01] MEDS: TRIAMCINOLONE ACETONIDE 0.1% TOPICAL OINTMENT 15GM TUBE. TP SCH (08:53)
--- NOTE | 2018-04-01 10:36 | PDOC ---
PROGRESS NOTES Subjective Subjective He c/o soreness from his buttock skin lesion. Objective Objective Vital Signs Date Time Temp Pulse Resp B/P (MAP) Pulse Ox O2 Delivery O2 Flow Rate FiO2 04/01/18 08:45 78 135/64 04/01/18 07:00 97.7 20 95 Room Air 97.7 Intake and Output 04/01/18 07:00 Intake Total 1800 ml Output Total 900 ml Balance 900 ml Intake Oral 1800 ml Output Urine Total 900 ml # Voids 1 # Bowel Movements 3 Physical Exam Physical Exam He is alert and walking with roller walker and he had dressing to perianal area skin over left buttock. Assessment Assessment Problems Medical Problems: (1) BRAD (acute kidney injury) Status: Acute (2) Hyperglycemia Status: Acute (3) Leukocytosis Status: Acute (4) Pneumonia Status: Acute [facility] when medically stable with home health follow up. Comment Review of Relevant I have reviewed the following items do (where applicable) has been applied. Labs Laboratory Tests Test 03/30/18 11:59 03/30/18 14:16 03/30/18 16:59 03/30/18 21:20 Glucose (Fingerstick) 422 mg/dL (70-99) 417 mg/dL (70-99) 89 mg/dL (70-99) 76 mg/dL (70-99) Test 03/31/18 06:40 03/31/18 07:26 03/31/18 12:01 03/31/18 17:26 White Blood Count 8.2 x10^3/uL (4.0-11.0) Red Blood Count 5.24 x10^6/uL (4.30-5.70) Hemoglobin 15.8 g/dL (13.0-17.5) Hematocrit 47.3 % (39.0-53.0) Mean Corpuscular Volume 90 fL (79-100) Mean Corpuscular Hemoglobin 30 pg (25-35) Mean Corpuscular Hemoglobin Concent 33 g/dL (31-37) Red Cell Distribution Width 14.0 % (11.5-14.5) Platelet Count 134 x10^3/uL (140-400) Neutrophils (%) (Auto) 63 % (31-73) Lymphocytes (%) (Auto) 25 % (24-48) Monocytes (%) (Auto) 10 % (0-9) Eosinophils (%) (Auto) 1 % (0-3) Basophils (%) (Auto) 1 % (0-3) Neutrophils # (Auto) 5.2 x10^3uL (1.8-7.7) Lymphocytes # (Auto) 2.0 x10^3/uL (1.0-4.8) Monocytes # (Auto) 0.8 x10^3/uL (0.0-1.1) Eosinophils # (Auto) 0.1 x10^3/uL (0.0-0.7) Basophils # (Auto) 0.1 x10^3/uL (0.0-0.2) Sodium Level 143 mmol/L (136-145) Potassium Level 3.9 mmol/L (3.5-5.1) Chloride Level 107 mmol/L (98-107) Carbon Dioxide Level 29 mmol/L (21-32) Anion Gap 7 (6-14) Blood Urea Nitrogen 25 mg/dL (8-26) Creatinine 1.6 mg/dL (0.7-1.3) Estimated GFR (Cockcroft-Gault) 41.7 BUN/Creatinine Ratio 16 (6-20) Glucose Level 203 mg/dL (70-99) Calcium Level 8.9 mg/dL (8.5-10.1) Total Bilirubin 0.6 mg/dL (0.2-1.0) Aspartate Amino Transf (AST/SGOT) 26 U/L (15-37) Alanine Aminotransferase (ALT/SGPT) 12 U/L (16-63) Alkaline Phosphatase 79 U/L (46-116) Total Protein 6.6 g/dL (6.4-8.2) Albumin 2.5 g/dL (3.4-5.0) Albumin/Globulin Ratio 0.6 (1.0-1.7) Triglycerides Level 156 mg/dL (0-150) Cholesterol Level 170 mg/dL (0-200) LDL Cholesterol, Calculated 104 mg/dL (0-100) VLDL Cholesterol, Calculated 31 mg/dL (0-40) Non-HDL Cholesterol Calculated 135 mg/dL (0-129) HDL Cholesterol 35 mg/dL (40-60) Cholesterol/HDL Ratio 4.9 Glucose (Fingerstick) 210 mg/dL (70-99) 333 mg/dL (70-99) 353 mg/dL (70-99) Test 03/31/18 20:12 04/01/18 07:30 Glucose (Fingerstick) 135 mg/dL (70-99) 189 mg/dL (70-99) Laboratory Tests Test 03/31/18 12:01 03/31/18 17:26 03/31/18 20:12 04/01/18 07:30 Glucose (Fingerstick) 333 mg/dL (70-99) 353 mg/dL (70-99) 135 mg/dL (70-99) 189 mg/dL (70-99) Microbiology 03/29/18 Blood Culture - Preliminary, Resulted NO GROWTH AFTER 2 DAYS Medications Current Medications Sodium Chloride 1,000 ml @ 1,000 mls/hr 1X ONCE IV Last administered on at 22:05; Start 03/29/18 at 22:00; Stop 03/29/18 at 22:59; Status DC Sodium Chloride 1,000 ml @ 1,000 mls/hr 1X ONCE IV Last administered on at 22:43; Start 03/29/18 at 22:15; Stop 03/29/18 at 23:14; Status DC Insulin Human Regular 150 unit/ Sodium Chloride 151.5 ml @ 0 mls/hr CONT PRN IV SEE I/O RECORD; Start 03/29/18 at 22:30; Stop 03/29/18 at 22:58; Status DC Insulin Human Regular (HumuLIN R VIAL) 10 unit 1X ONCE IV Last administered on 03/29/18at 22:42; Start 03/29/18 at 22:15; Stop 03/29/18 at 22:16; Status DC Ceftriaxone Sodium 50 ml @ 100 mls/hr 1X ONCE IV Last administered on at 23:15; Start 03/29/18 at 23:15; Stop 03/29/18 at 23:44; Status DC Azithromycin 500 mg/Sodium Chloride 250 ml @ 250 mls/hr 1X ONCE IV Last administered on 03/29/18at 23:42; Start 03/29/18 at 23:00; Stop 03/29/18 at 23:59; Status DC Ondansetron HCl (Zofran) 4 mg PRN Q8HRS PRN IV NAUSEA/VOMITING; Start 03/29/18 at 23:55; Stop 03/30/18 at 23:54; Status DC Fentanyl Citrate (Fentanyl 2ml Vial) 50 mcg PRN Q1HR PRN IV PAIN; Start at 23:45; Stop 03/30/18 at 23:44; Status DC Acetaminophen (Tylenol) 650 mg PRN Q4HRS PRN PO FEVER; Start 03/29/18 at 23:45; Stop 03/30/18 at 23:44; Status DC Acetaminophen (Tylenol) 1,000 mg 1X ONCE PO Last administered on 03/29/18at 23: 58; Start 03/29/18 at 23:45; Stop 03/30/18 at 00:01; Status DC Sodium Chloride 1,000 ml @ 100 mls/hr 1X ONCE IV Last administered on at 01:45; Start 03/30/18 at 01:45; Stop 03/30/18 at 11:44; Status DC Insulin Human Lispro (HumaLOG) 0-9 UNITS TIDWMEALS SQ Last administered on 04/01at 08:50; Start 03/30/18 at 08:00 Dextrose (Dextrose 50%-Water Syringe) 12.5 gm PRN Q15MIN PRN IV SEE COMMENTS; Start 03/30/18 at 07:45 Insulin Glargine (Lantus) 14 units DAILY SQ Last administered on 03/30/18at 08:25 ; Start 03/30/18 at 08:00; Stop 03/30/18 at 10:12; Status DC Insulin Human Lispro (HumaLOG) 10 units TIDWMEALS SQ Last administered on at 08:25; Start 03/30/18 at 08:00; Stop 03/30/18 at 12:04; Status DC Aspirin (Dorothy Aspirin) 325 mg DAILY PO Last administered on 03/30/18at 10:27; Start 03/30/18 at 11:00; Stop 03/31/18 at 12:42; Status DC Atenolol (Tenormin) 75 mg DAILY PO Last administered on 04/01/18at 08:45; Start 03/30/18 at 11:00 Furosemide (Lasix) 40 mg DAILY PO Last administered on 04/01/18at 08:45; Start 03/30/18 at 11:00 Glipizide (Glucotrol) 5 mg DAILY PO Last administered on 04/01/18 08:45; Start 03/30/18 at 11:00 Rivaroxaban (Xarelto) 15 mg DAILY PO Last administered on 04/01/18 08:44; Start 03/30/18 at 11:00 Tamsulosin HCl (Flomax) 0.4 mg DAILY PO Last administered on 04/01/18 08:45; Start 03/30/18 at 11:00 Tramadol HCl (Ultram) 50 mg TID PRN PRN PO MILD PAIN; Start 03/30/18 at 10:15 Triamcinolone Acetonide (Kenalog) 1 maria isabel DAILY TP Last administered on 08:53; Start 03/30/18 at 11:00 Insulin Glargine (Lantus) 20 units QHS SQ ; Start 03/30/18 at 21:00; Stop at 16:15; Status DC Levothyroxine Sodium (Synthroid) 25 mcg DAILY07 PO Last administered on at 06:22; Start 03/30/18 at 11:00 Miconazole Nitrate (Desenex) 1 maria isabel PRN BID PRN TP YEAST; Start 03/30/18 at 21:00 Pantoprazole Sodium (Protonix) 40 mg DAILYAC PO Last administered on 04/01/18 08:44; Start 03/30/18 at 12:00 Multi-Ingredient Mouthwash/Gargle (Gi Cocktail) 20 ml PRN QID PRN PO abd pain Last administered on 03/30/18 14:24; Start 03/30/18 at 12:00 Insulin Human Lispro (HumaLOG) 14 units TIDWMEALS SQ Last administered on 12:24; Start 03/30/18 at 17:00; Stop 03/31/18 at 16:15; Status DC Insulin Human Lispro (HumaLOG) 26 units 1X ONCE SQ Last administered on at 12:26; Start 03/30/18 at 12:15; Stop 03/30/18 at 12:16; Status DC Micafungin Sodium 100 mg/Dextrose 100 ml @ 100 mls/hr Q24H IV Last administered on 03/31/18at 12:43; Start 03/30/18 at 13:00 Piperacillin Sod/ Tazobactam Sod 3.375 gm/Sodium Chloride 50 ml @ 100 mls/hr Q6HRS IV Last administered on 04/01/18 06:22; Start 03/30/18 at 13:00 Gabapentin (Neurontin) 100 mg TID PO Last administered on 04/01/18 08:45; Start 03/30/18 at 14:00 Insulin Human Lispro (HumaLOG) 26 units 1X ONCE SQ Last administered on at 14:27; Start 03/30/18 at 14:30; Stop 03/30/18 at 14:31; Status DC Lactobacillus Rhamnosus (Culturelle) 1 cap BID PO Last administered on at 08:44; Start 03/30/18 at 21:00 Atorvastatin Calcium (Lipitor) 20 mg QHS PO Last administered on 03/31/18 21: 21; Start 03/31/18 at 21:00 Aspirin (Ecotrin) 81 mg DAILYWBKFT PO Last administered on 04/01/18at 08:44; Start 04/01/18 at 08:00 Info (Anti-Coagulation Monitoring By Pharmacy) 1 each PRN DAILY PRN MC SEE COMMENTS Last administered on 03/31/18 13:00; Start 03/31/18 at 13:00 Insulin Glargine (Lantus) 25 units QHS SQ Last administered on 03/31/18at 21:33 ; Start 03/31/18 at 21:00 Insulin Human Lispro (HumaLOG) 18 units TIDWMEALS SQ Last administered on at 08:52; Start 03/31/18 at 17:00 Active Scripts Active Reported Aspirin 325 Mg Tablet 1 Tab PO DAILY Triamcinolone Acetonide 0.1% Oint (Triamcinolone Acetonide) 15 Gm Oint...g. 1 Maria Isabel TP PRN MIX WITH EUCERIN DIRECTED BY PHYSICIAN Tramadol Hcl 50 Mg Tablet 50 Mg PO TID PRN Flomax (Tamsulosin Hcl) 0.4 Mg Cap.er.24h 1 Cap PO DAILY Xarelto (Rivaroxaban) 15 Mg Tablet 15 Mg PO DAILY Nystatin 15 Gm Oint...g. 1 Maria Isabel TP PRN Mupirocin Ointment (Mupirocin) 22 Gm Oint...g. 1 Maria Isabel TP PRN Miconazole Nitrate 130 Gm Aero.powd 130 Gm TP PRN Levothyroxine Sodium 25 Mcg Tablet 1 Tab PO DAILY Levemir (Insulin Detemir) 100 Unit/1 Ml Vial 20 Unit SQ HS Glipizide 5 Mg Tablet 1 Tab PO DAILY Lasix (Furosemide) 40 Mg Tablet 40 Mg PO DAILY Atenolol 50 Mg Tablet 75 Mg PO DAILY Vitals/I & O Vital Sign - Last 24 Hours 03/31/18 03/31/18 03/31/18 03/31/18 11:00 19:35 20:00 23:20 Temp 98.2 97.4 97.8 98.2 97.4 97.8 Pulse 80 81 80 Resp 20 16 16 B/P (MAP) 123/54 (77) 141/74 (96) 140/62 (88) Pulse Ox 95 97 95 O2 Delivery Room Air Room Air Room Air Room Air 04/01/18 04/01/18 04/01/18 02:57 07:00 08:45 Temp 97.5 97.7 97.5 97.7 Pulse 80 78 78 Resp 16 20 B/P (MAP) 143/51 (81) 135/64 (87) 135/64 Pulse Ox 96 95 O2 Delivery Room Air Room Air Intake and Output 03/31/18 03/31/18 04/01/18 15:00 23:00 07:00 Intake Total 1200 ml 600 ml Output Total 400 ml 500 ml Balance 800 ml 100 ml YONAS BONDS MD Apr 01, 2018 10:36
[2018-04-01 11:00] VITALS: BP 145/69
[2018-04-01] MEDS: ANTI-COAG MONITOR BY PHARMACY. MC PRN (13:38)
[2018-04-01] MEDS: MICAFUNGIN 100 MG in IV DEXTROSE 5% 100ML 100 ML IV SCH (14:05)
--- NOTE | 2018-04-01 14:49 | PDOC ---
PROGRESS NOTES Subjective Subjective Patient seen and examined He reports feeling better today. Objective Objective Vital Signs Date Time Temp Pulse Resp B/P (MAP) Pulse Ox O2 Delivery O2 Flow Rate FiO2 04/01/18 11:00 98.3 80 20 145/69 (94) 94 Room Air 98.3 Intake and Output 04/01/18 07:00 Intake Total 1800 ml Output Total 900 ml Balance 900 ml Intake Oral 1800 ml Output Urine Total 900 ml # Voids 1 # Bowel Movements 3 Physical Exam Abdomen: Normal bowel sounds Heart: Regular rate General: mild distress Lungs: Other (mildly decreased breath sounds) Assessment Assessment Problems Medical Problems: (1) BRAD (acute kidney injury) Status: Acute (2) Hyperglycemia Status: Acute (3) Leukocytosis Status: Acute (4) Pneumonia Status: Acute History of previous bypass surgery. No chest pain. Last heart catheter approximately 5 years ago. Continuing present treatment. Compensated diastolic heart failure. 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 SOLE one year. Underlying atrial flutter. Paced 95% on interrogation. Continuing anticoagulation and rate control. Hypothyroidism. Continue present treatments. Controlled hypertension. Diabetes mellitus. Noncompliance. As per the primary service. Cellulitis. Antibiotics as per ID. Chronic renal disease. Renal function improving. Followed by the renal service. Comment Review of Relevant I have reviewed the following items do (where applicable) has been applied. Labs Laboratory Tests Test 03/30/18 16:59 03/30/18 21:20 03/31/18 06:40 03/31/18 07:26 Glucose (Fingerstick) 89 mg/dL (70-99) 76 mg/dL (70-99) 210 mg/dL (70-99) White Blood Count 8.2 x10^3/uL (4.0-11.0) Red Blood Count 5.24 x10^6/uL (4.30-5.70) Hemoglobin 15.8 g/dL (13.0-17.5) Hematocrit 47.3 % (39.0-53.0) Mean Corpuscular Volume 90 fL (79-100) Mean Corpuscular Hemoglobin 30 pg (25-35) Mean Corpuscular Hemoglobin Concent 33 g/dL (31-37) Red Cell Distribution Width 14.0 % (11.5-14.5) Platelet Count 134 x10^3/uL (140-400) Neutrophils (%) (Auto) 63 % (31-73) Lymphocytes (%) (Auto) 25 % (24-48) Monocytes (%) (Auto) 10 % (0-9) Eosinophils (%) (Auto) 1 % (0-3) Basophils (%) (Auto) 1 % (0-3) Neutrophils # (Auto) 5.2 x10^3uL (1.8-7.7) Lymphocytes # (Auto) 2.0 x10^3/uL (1.0-4.8) Monocytes # (Auto) 0.8 x10^3/uL (0.0-1.1) Eosinophils # (Auto) 0.1 x10^3/uL (0.0-0.7) Basophils # (Auto) 0.1 x10^3/uL (0.0-0.2) Sodium Level 143 mmol/L (136-145) Potassium Level 3.9 mmol/L (3.5-5.1) Chloride Level 107 mmol/L (98-107) Carbon Dioxide Level 29 mmol/L (21-32) Anion Gap 7 (6-14) Blood Urea Nitrogen 25 mg/dL (8-26) Creatinine 1.6 mg/dL (0.7-1.3) Estimated GFR (Cockcroft-Gault) 41.7 BUN/Creatinine Ratio 16 (6-20) Glucose Level 203 mg/dL (70-99) Calcium Level 8.9 mg/dL (8.5-10.1) Total Bilirubin 0.6 mg/dL (0.2-1.0) Aspartate Amino Transf (AST/SGOT) 26 U/L (15-37) Alanine Aminotransferase (ALT/SGPT) 12 U/L (16-63) Alkaline Phosphatase 79 U/L (46-116) Total Protein 6.6 g/dL (6.4-8.2) Albumin 2.5 g/dL (3.4-5.0) Albumin/Globulin Ratio 0.6 (1.0-1.7) Triglycerides Level 156 mg/dL (0-150) Cholesterol Level 170 mg/dL (0-200) LDL Cholesterol, Calculated 104 mg/dL (0-100) VLDL Cholesterol, Calculated 31 mg/dL (0-40) Non-HDL Cholesterol Calculated 135 mg/dL (0-129) HDL Cholesterol 35 mg/dL (40-60) Cholesterol/HDL Ratio 4.9 Test 03/31/18 12:01 03/31/18 17:26 03/31/18 20:12 04/01/18 07:30 Glucose (Fingerstick) 333 mg/dL (70-99) 353 mg/dL (70-99) 135 mg/dL (70-99) 189 mg/dL (70-99) Test 04/01/18 11:19 Glucose (Fingerstick) 238 mg/dL (70-99) Laboratory Tests Test 03/31/18 17:26 03/31/18 20:12 04/01/18 07:30 04/01/18 11:19 Glucose (Fingerstick) 353 mg/dL (70-99) 135 mg/dL (70-99) 189 mg/dL (70-99) 238 mg/dL (70-99) Microbiology 03/29/18 Blood Culture - Preliminary, Resulted NO GROWTH AFTER 2 DAYS Medications Current Medications Sodium Chloride 1,000 ml @ 1,000 mls/hr 1X ONCE IV Last administered on at 22:05; Start 03/29/18 at 22:00; Stop 03/29/18 at 22:59; Status DC Sodium Chloride 1,000 ml @ 1,000 mls/hr 1X ONCE IV Last administered on at 22:43; Start 03/29/18 at 22:15; Stop 03/29/18 at 23:14; Status DC Insulin Human Regular 150 unit/ Sodium Chloride 151.5 ml @ 0 mls/hr CONT PRN IV SEE I/O RECORD; Start 03/29/18 at 22:30; Stop 03/29/18 at 22:58; Status DC Insulin Human Regular (HumuLIN R VIAL) 10 unit 1X ONCE IV Last administered on 03/29/18at 22:42; Start 03/29/18 at 22:15; Stop 03/29/18 at 22:16; Status DC Ceftriaxone Sodium 50 ml @ 100 mls/hr 1X ONCE IV Last administered on at 23:15; Start 03/29/18 at 23:15; Stop 03/29/18 at 23:44; Status DC Azithromycin 500 mg/Sodium Chloride 250 ml @ 250 mls/hr 1X ONCE IV Last administered on 03/29/18at 23:42; Start 03/29/18 at 23:00; Stop 03/29/18 at 23:59; Status DC Ondansetron HCl (Zofran) 4 mg PRN Q8HRS PRN IV NAUSEA/VOMITING; Start 03/29/18 at 23:55; Stop 03/30/18 at 23:54; Status DC Fentanyl Citrate (Fentanyl 2ml Vial) 50 mcg PRN Q1HR PRN IV PAIN; Start at 23:45; Stop 03/30/18 at 23:44; Status DC Acetaminophen (Tylenol) 650 mg PRN Q4HRS PRN PO FEVER; Start 03/29/18 at 23:45; Stop 03/30/18 at 23:44; Status DC Acetaminophen (Tylenol) 1,000 mg 1X ONCE PO Last administered on 03/29/18at 23: 58; Start 03/29/18 at 23:45; Stop 03/30/18 at 00:01; Status DC Sodium Chloride 1,000 ml @ 100 mls/hr 1X ONCE IV Last administered on at 01:45; Start 03/30/18 at 01:45; Stop 03/30/18 at 11:44; Status DC Insulin Human Lispro (HumaLOG) 0-9 UNITS TIDWMEALS SQ Last administered on 04/01at 13:07; Start 03/30/18 at 08:00 Dextrose (Dextrose 50%-Water Syringe) 12.5 gm PRN Q15MIN PRN IV SEE COMMENTS; Start 03/30/18 at 07:45 Insulin Glargine (Lantus) 14 units DAILY SQ Last administered on 03/30/18at 08:25 ; Start 03/30/18 at 08:00; Stop 03/30/18 at 10:12; Status DC Insulin Human Lispro (HumaLOG) 10 units TIDWMEALS SQ Last administered on at 08:25; Start 03/30/18 at 08:00; Stop 03/30/18 at 12:04; Status DC Aspirin (Dorothy Aspirin) 325 mg DAILY PO Last administered on 03/30/18at 10:27; Start 03/30/18 at 11:00; Stop 03/31/18 at 12:42; Status DC Atenolol (Tenormin) 75 mg DAILY PO Last administered on 04/01/18 08:45; Start 03/30/18 at 11:00 Furosemide (Lasix) 40 mg DAILY PO Last administered on 04/01/18 08:45; Start 03/30/18 at 11:00 Glipizide (Glucotrol) 5 mg DAILY PO Last administered on 04/01/18 08:45; Start 03/30/18 at 11:00 Rivaroxaban (Xarelto) 15 mg DAILY PO Last administered on 04/01/18 08:44; Start 03/30/18 at 11:00 Tamsulosin HCl (Flomax) 0.4 mg DAILY PO Last administered on 04/01/18 08:45; Start 03/30/18 at 11:00 Tramadol HCl (Ultram) 50 mg TID PRN PRN PO MILD PAIN; Start 03/30/18 at 10:15 Triamcinolone Acetonide (Kenalog) 1 maria isabel DAILY TP Last administered on 08:53; Start 03/30/18 at 11:00 Insulin Glargine (Lantus) 20 units QHS SQ ; Start 03/30/18 at 21:00; Stop at 16:15; Status DC Levothyroxine Sodium (Synthroid) 25 mcg DAILY07 PO Last administered on 06:22; Start 03/30/18 at 11:00 Miconazole Nitrate (Desenex) 1 maria isabel PRN BID PRN TP YEAST; Start 03/30/18 at 21:00 Pantoprazole Sodium (Protonix) 40 mg DAILYAC PO Last administered on 04/01/18 08:44; Start 03/30/18 at 12:00 Multi-Ingredient Mouthwash/Gargle (Gi Cocktail) 20 ml PRN QID PRN PO abd pain Last administered on 03/30/18 14:24; Start 03/30/18 at 12:00 Insulin Human Lispro (HumaLOG) 14 units TIDWMEALS SQ Last administered on 12:24; Start 03/30/18 at 17:00; Stop 03/31/18 at 16:15; Status DC Insulin Human Lispro (HumaLOG) 26 units 1X ONCE SQ Last administered on 12:26; Start 03/30/18 at 12:15; Stop 03/30/18 at 12:16; Status DC Micafungin Sodium 100 mg/Dextrose 100 ml @ 100 mls/hr Q24H IV Last administered on 04/01/18at 14:05; Start 03/30/18 at 13:00 Piperacillin Sod/ Tazobactam Sod 3.375 gm/Sodium Chloride 50 ml @ 100 mls/hr Q6HRS IV Last administered on 04/01/18 12:59; Start 03/30/18 at 13:00 Gabapentin (Neurontin) 100 mg TID PO Last administered on 04/01/18 14:06; Start 03/30/18 at 14:00 Insulin Human Lispro (HumaLOG) 26 units 1X ONCE SQ Last administered on 14:27; Start 03/30/18 at 14:30; Stop 03/30/18 at 14:31; Status DC Lactobacillus Rhamnosus (Culturelle) 1 cap BID PO Last administered on at 08:44; Start 03/30/18 at 21:00 Atorvastatin Calcium (Lipitor) 20 mg QHS PO Last administered on 03/31/18at 21: 21; Start 03/31/18 at 21:00 Aspirin (Ecotrin) 81 mg DAILYWBKFT PO Last administered on 04/01/18 08:44; Start 04/01/18 at 08:00 Info (Anti-Coagulation Monitoring By Pharmacy) 1 each PRN DAILY PRN MC SEE COMMENTS Last administered on 04/01/18at 13:38; Start 03/31/18 at 13:00 Insulin Glargine (Lantus) 25 units QHS SQ Last administered on 03/31/18at 21:33 ; Start 03/31/18 at 21:00 Insulin Human Lispro (HumaLOG) 18 units TIDWMEALS SQ Last administered on at 12:00; Start 03/31/18 at 17:00 Active Scripts Active Reported Aspirin 325 Mg Tablet 1 Tab PO DAILY Triamcinolone Acetonide 0.1% Oint (Triamcinolone Acetonide) 15 Gm Oint...g. 1 Maria Isabel TP PRN MIX WITH EUCERIN DIRECTED BY PHYSICIAN Tramadol Hcl 50 Mg Tablet 50 Mg PO TID PRN Flomax (Tamsulosin Hcl) 0.4 Mg Cap.er.24h 1 Cap PO DAILY Xarelto (Rivaroxaban) 15 Mg Tablet 15 Mg PO DAILY Nystatin 15 Gm Oint...g. 1 Maria Isabel TP PRN Mupirocin Ointment (Mupirocin) 22 Gm Oint...g. 1 Maria Isabel TP PRN Miconazole Nitrate 130 Gm Aero.powd 130 Gm TP PRN Levothyroxine Sodium 25 Mcg Tablet 1 Tab PO DAILY Levemir (Insulin Detemir) 100 Unit/1 Ml Vial 20 Unit SQ HS Glipizide 5 Mg Tablet 1 Tab PO DAILY Lasix (Furosemide) 40 Mg Tablet 40 Mg PO DAILY Atenolol 50 Mg Tablet 75 Mg PO DAILY Vitals/I & O Vital Sign - Last 24 Hours 03/31/18 03/31/18 03/31/18 04/01/18 19:35 20:00 23:20 02:57 Temp 97.4 97.8 97.5 97.4 97.8 97.5 Pulse 81 80 80 Resp 16 16 16 B/P (MAP) 141/74 (96) 140/62 (88) 143/51 (81) Pulse Ox 97 95 96 O2 Delivery Room Air Room Air Room Air Room Air 04/01/18 04/01/18 04/01/18 04/01/18 07:00 08:00 08:00 08:45 Temp 97.7 97.7 Pulse 78 78 Resp 20 B/P (MAP) 135/64 (87) 135/64 Pulse Ox 95 O2 Delivery Room Air Room Air Room Air 04/01/18 11:00 Temp 98.3 98.3 Pulse 80 Resp 20 B/P (MAP) 145/69 (94) Pulse Ox 94 O2 Delivery Room Air Intake and Output 03/31/18 03/31/18 04/01/18 15:00 23:00 07:00 Intake Total 1200 ml 600 ml Output Total 400 ml 500 ml Balance 800 ml 100 ml ELLEN BENSON MD Apr 01, 2018 14:48
[2018-04-01 15:00] VITALS: BP 145/49
--- NOTE | 2018-04-01 16:48 | PDOC ---
PROGRESS NOTES Chief Complaint Chief Complaint nausea and vomiting, abd pain, better, eating well cellulitis of LLE Left foot weakenss and numbness, sensation intact, consutl physiatry, may need MRI spine Dm2, poor control, noncompliance past 3 months "I dont know how to use it" Morbid obesity, BMI 40 chronic sacral ulcer, stage 2, try to unload weakness and debility History of Present Illness History of Present Illness GES neg he looks and feels better he looks imrprovd str imrproved, may be able to DC soon Vitals Vitals Vital Signs Date Time Temp Pulse Resp B/P (MAP) Pulse Ox O2 Delivery O2 Flow Rate FiO2 04/01/18 15:00 98.2 80 20 145/49 (81) 97 Room Air 98.2 Physical Exam Physical Exam CONSTITUTIONAL: He is alert, cooperative. He is in no acute distress. He is obese. in chair HEENT: Pupils equal and reactive. Normal conjunctivae. Oral cavity, pharynx is clear. He has some chronic lip changes. dentures NECK: Supple. No JVD. LUNGS: Clear to auscultation. HEART: S1, S2. 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 ABDOMEN: Obese, soft and nontender. No guarding. No rebound. EXTREMITIES: Without clubbing or cyanosis. He has bilateral lower extremity non-pitting edema, still 2 plus. He also has severe tenia, both feet. Both lower legs have some chronic venous stasis changes, but his left lower extremity has improved erythema, Still some warmth but better and some tracking up the medial thigh that has improved. Rooke boots NEUROLOGIC: He is nonfocal, moves all extremities. PSYCHIATRIC: Affect is pleasant. SKIN: no Rash. Buttock wound stage 1 General: mild distress Heart: Regular rate Abdomen: Normal bowel sounds Extremities: No cyanosis, Other (2-3+ bilateral LE pitting edema; LLE cellulitis) Skin: No breakdown Labs LABS Laboratory Tests Test 03/31/18 17:26 03/31/18 20:12 04/01/18 07:30 04/01/18 11:19 Glucose (Fingerstick) 353 mg/dL (70-99) 135 mg/dL (70-99) 189 mg/dL (70-99) 238 mg/dL (70-99) Assessment and Plan Assessmemt and Plan Problems Medical Problems: (1) BRAD (acute kidney injury) Status: Acute (2) Hyperglycemia Status: Acute (3) Leukocytosis Status: Acute (4) Pneumonia Status: Acute Comment Review of Relevant I have reviewed the following items do (where applicable) has been applied. Labs Laboratory Tests Test 03/30/18 16:59 03/30/18 21:20 03/31/18 06:40 03/31/18 07:26 Glucose (Fingerstick) 89 mg/dL (70-99) 76 mg/dL (70-99) 210 mg/dL (70-99) White Blood Count 8.2 x10^3/uL (4.0-11.0) Red Blood Count 5.24 x10^6/uL (4.30-5.70) Hemoglobin 15.8 g/dL (13.0-17.5) Hematocrit 47.3 % (39.0-53.0) Mean Corpuscular Volume 90 fL (79-100) Mean Corpuscular Hemoglobin 30 pg (25-35) Mean Corpuscular Hemoglobin Concent 33 g/dL (31-37) Red Cell Distribution Width 14.0 % (11.5-14.5) Platelet Count 134 x10^3/uL (140-400) Neutrophils (%) (Auto) 63 % (31-73) Lymphocytes (%) (Auto) 25 % (24-48) Monocytes (%) (Auto) 10 % (0-9) Eosinophils (%) (Auto) 1 % (0-3) Basophils (%) (Auto) 1 % (0-3) Neutrophils # (Auto) 5.2 x10^3uL (1.8-7.7) Lymphocytes # (Auto) 2.0 x10^3/uL (1.0-4.8) Monocytes # (Auto) 0.8 x10^3/uL (0.0-1.1) Eosinophils # (Auto) 0.1 x10^3/uL (0.0-0.7) Basophils # (Auto) 0.1 x10^3/uL (0.0-0.2) Sodium Level 143 mmol/L (136-145) Potassium Level 3.9 mmol/L (3.5-5.1) Chloride Level 107 mmol/L (98-107) Carbon Dioxide Level 29 mmol/L (21-32) Anion Gap 7 (6-14) Blood Urea Nitrogen 25 mg/dL (8-26) Creatinine 1.6 mg/dL (0.7-1.3) Estimated GFR (Cockcroft-Gault) 41.7 BUN/Creatinine Ratio 16 (6-20) Glucose Level 203 mg/dL (70-99) Calcium Level 8.9 mg/dL (8.5-10.1) Total Bilirubin 0.6 mg/dL (0.2-1.0) Aspartate Amino Transf (AST/SGOT) 26 U/L (15-37) Alanine Aminotransferase (ALT/SGPT) 12 U/L (16-63) Alkaline Phosphatase 79 U/L (46-116) Total Protein 6.6 g/dL (6.4-8.2) Albumin 2.5 g/dL (3.4-5.0) Albumin/Globulin Ratio 0.6 (1.0-1.7) Triglycerides Level 156 mg/dL (0-150) Cholesterol Level 170 mg/dL (0-200) LDL Cholesterol, Calculated 104 mg/dL (0-100) VLDL Cholesterol, Calculated 31 mg/dL (0-40) Non-HDL Cholesterol Calculated 135 mg/dL (0-129) HDL Cholesterol 35 mg/dL (40-60) Cholesterol/HDL Ratio 4.9 Test 03/31/18 12:01 03/31/18 17:26 03/31/18 20:12 04/01/18 07:30 Glucose (Fingerstick) 333 mg/dL (70-99) 353 mg/dL (70-99) 135 mg/dL (70-99) 189 mg/dL (70-99) Test 04/01/18 11:19 Glucose (Fingerstick) 238 mg/dL (70-99) Laboratory Tests Test 03/31/18 17:26 03/31/18 20:12 04/01/18 07:30 04/01/18 11:19 Glucose (Fingerstick) 353 mg/dL (70-99) 135 mg/dL (70-99) 189 mg/dL (70-99) 238 mg/dL (70-99) Microbiology 03/29/18 Blood Culture - Preliminary, Resulted NO GROWTH AFTER 2 DAYS Medications Current Medications Sodium Chloride 1,000 ml @ 1,000 mls/hr 1X ONCE IV Last administered on at 22:05; Start 03/29/18 at 22:00; Stop 03/29/18 at 22:59; Status DC Sodium Chloride 1,000 ml @ 1,000 mls/hr 1X ONCE IV Last administered on at 22:43; Start 03/29/18 at 22:15; Stop 03/29/18 at 23:14; Status DC Insulin Human Regular 150 unit/ Sodium Chloride 151.5 ml @ 0 mls/hr CONT PRN IV SEE I/O RECORD; Start 03/29/18 at 22:30; Stop 03/29/18 at 22:58; Status DC Insulin Human Regular (HumuLIN R VIAL) 10 unit 1X ONCE IV Last administered on 03/29/18at 22:42; Start 03/29/18 at 22:15; Stop 03/29/18 at 22:16; Status DC Ceftriaxone Sodium 50 ml @ 100 mls/hr 1X ONCE IV Last administered on at 23:15; Start 03/29/18 at 23:15; Stop 03/29/18 at 23:44; Status DC Azithromycin 500 mg/Sodium Chloride 250 ml @ 250 mls/hr 1X ONCE IV Last administered on 03/29/18at 23:42; Start 03/29/18 at 23:00; Stop 03/29/18 at 23:59; Status DC Ondansetron HCl (Zofran) 4 mg PRN Q8HRS PRN IV NAUSEA/VOMITING; Start 03/29/18 at 23:55; Stop 03/30/18 at 23:54; Status DC Fentanyl Citrate (Fentanyl 2ml Vial) 50 mcg PRN Q1HR PRN IV PAIN; Start at 23:45; Stop 03/30/18 at 23:44; Status DC Acetaminophen (Tylenol) 650 mg PRN Q4HRS PRN PO FEVER; Start 03/29/18 at 23:45; Stop 03/30/18 at 23:44; Status DC Acetaminophen (Tylenol) 1,000 mg 1X ONCE PO Last administered on 03/29/18at 23: 58; Start 03/29/18 at 23:45; Stop 03/30/18 at 00:01; Status DC Sodium Chloride 1,000 ml @ 100 mls/hr 1X ONCE IV Last administered on at 01:45; Start 03/30/18 at 01:45; Stop 03/30/18 at 11:44; Status DC Insulin Human Lispro (HumaLOG) 0-9 UNITS TIDWMEALS SQ Last administered on 04/01at 13:07; Start 03/30/18 at 08:00 Dextrose (Dextrose 50%-Water Syringe) 12.5 gm PRN Q15MIN PRN IV SEE COMMENTS; Start 03/30/18 at 07:45 Insulin Glargine (Lantus) 14 units DAILY SQ Last administered on 03/30/18at 08:25 ; Start 03/30/18 at 08:00; Stop 03/30/18 at 10:12; Status DC Insulin Human Lispro (HumaLOG) 10 units TIDWMEALS SQ Last administered on at 08:25; Start 03/30/18 at 08:00; Stop 03/30/18 at 12:04; Status DC Aspirin (Dorothy Aspirin) 325 mg DAILY PO Last administered on 03/30/18at 10:27; Start 03/30/18 at 11:00; Stop 03/31/18 at 12:42; Status DC Atenolol (Tenormin) 75 mg DAILY PO Last administered on 04/01/18at 08:45; Start 03/30/18 at 11:00 Furosemide (Lasix) 40 mg DAILY PO Last administered on 04/01/18at 08:45; Start 03/30/18 at 11:00 Glipizide (Glucotrol) 5 mg DAILY PO Last administered on 04/01/18 08:45; Start 03/30/18 at 11:00 Rivaroxaban (Xarelto) 15 mg DAILY PO Last administered on 04/01/18 08:44; Start 03/30/18 at 11:00 Tamsulosin HCl (Flomax) 0.4 mg DAILY PO Last administered on 04/01/18 08:45; Start 03/30/18 at 11:00 Tramadol HCl (Ultram) 50 mg TID PRN PRN PO MILD PAIN; Start 03/30/18 at 10:15 Triamcinolone Acetonide (Kenalog) 1 maria isabel DAILY TP Last administered on at 08:53; Start 03/30/18 at 11:00 Insulin Glargine (Lantus) 20 units QHS SQ ; Start 03/30/18 at 21:00; Stop at 16:15; Status DC Levothyroxine Sodium (Synthroid) 25 mcg DAILY07 PO Last administered on at 06:22; Start 03/30/18 at 11:00 Miconazole Nitrate (Desenex) 1 maria isabel PRN BID PRN TP YEAST; Start 03/30/18 at 21:00 Pantoprazole Sodium (Protonix) 40 mg DAILYAC PO Last administered on 04/01/18at 08:44; Start 03/30/18 at 12:00 Multi-Ingredient Mouthwash/Gargle (Gi Cocktail) 20 ml PRN QID PRN PO abd pain Last administered on 03/30/18 14:24; Start 03/30/18 at 12:00 Insulin Human Lispro (HumaLOG) 14 units TIDWMEALS SQ Last administered on 12:24; Start 03/30/18 at 17:00; Stop 03/31/18 at 16:15; Status DC Insulin Human Lispro (HumaLOG) 26 units 1X ONCE SQ Last administered on at 12:26; Start 03/30/18 at 12:15; Stop 03/30/18 at 12:16; Status DC Micafungin Sodium 100 mg/Dextrose 100 ml @ 100 mls/hr Q24H IV Last administered on 04/01/18at 14:05; Start 03/30/18 at 13:00 Piperacillin Sod/ Tazobactam Sod 3.375 gm/Sodium Chloride 50 ml @ 100 mls/hr Q6HRS IV Last administered on 04/01/18at 12:59; Start 03/30/18 at 13:00 Gabapentin (Neurontin) 100 mg TID PO Last administered on 04/01/18 14:06; Start 03/30/18 at 14:00 Insulin Human Lispro (HumaLOG) 26 units 1X ONCE SQ Last administered on at 14:27; Start 03/30/18 at 14:30; Stop 03/30/18 at 14:31; Status DC Lactobacillus Rhamnosus (Culturelle) 1 cap BID PO Last administered on at 08:44; Start 03/30/18 at 21:00 Atorvastatin Calcium (Lipitor) 20 mg QHS PO Last administered on 03/31/18at 21: 21; Start 03/31/18 at 21:00 Aspirin (Ecotrin) 81 mg DAILYWBKFT PO Last administered on 04/01/18at 08:44; Start 04/01/18 at 08:00 Info (Anti-Coagulation Monitoring By Pharmacy) 1 each PRN DAILY PRN MC SEE COMMENTS Last administered on 04/01/18at 13:38; Start 03/31/18 at 13:00 Insulin Glargine (Lantus) 25 units QHS SQ Last administered on 03/31/18at 21:33 ; Start 03/31/18 at 21:00; Stop 04/01/18 at 15:03; Status DC Insulin Human Lispro (HumaLOG) 18 units TIDWMEALS SQ Last administered on at 12:00; Start 03/31/18 at 17:00 Insulin Glargine (Lantus) 30 units QHS SQ ; Start 04/01/18 at 21:00 Active Scripts Active Reported Aspirin 325 Mg Tablet 1 Tab PO DAILY Triamcinolone Acetonide 0.1% Oint (Triamcinolone Acetonide) 15 Gm Oint...g. 1 Maria Isabel TP PRN MIX WITH EUCERIN DIRECTED BY PHYSICIAN Tramadol Hcl 50 Mg Tablet 50 Mg PO TID PRN Flomax (Tamsulosin Hcl) 0.4 Mg Cap.er.24h 1 Cap PO DAILY Xarelto (Rivaroxaban) 15 Mg Tablet 15 Mg PO DAILY Nystatin 15 Gm Oint...g. 1 Maria Isabel TP PRN Mupirocin Ointment (Mupirocin) 22 Gm Oint...g. 1 Maria Isabel TP PRN Miconazole Nitrate 130 Gm Aero.powd 130 Gm TP PRN Levothyroxine Sodium 25 Mcg Tablet 1 Tab PO DAILY Levemir (Insulin Detemir) 100 Unit/1 Ml Vial 20 Unit SQ HS Glipizide 5 Mg Tablet 1 Tab PO DAILY Lasix (Furosemide) 40 Mg Tablet 40 Mg PO DAILY Atenolol 50 Mg Tablet 75 Mg PO DAILY Vitals/I & O Vital Sign - Last 24 Hours 03/31/18 03/31/18 03/31/18 04/01/18 19:35 20:00 23:20 02:57 Temp 97.4 97.8 97.5 97.4 97.8 97.5 Pulse 81 80 80 Resp 16 16 16 B/P (MAP) 141/74 (96) 140/62 (88) 143/51 (81) Pulse Ox 97 95 96 O2 Delivery Room Air Room Air Room Air Room Air 04/01/18 04/01/18 04/01/18 04/01/18 07:00 08:00 08:00 08:45 Temp 97.7 97.7 Pulse 78 78 Resp 20 B/P (MAP) 135/64 (87) 135/64 Pulse Ox 95 O2 Delivery Room Air Room Air Room Air 04/01/18 04/01/18 11:00 15:00 Temp 98.3 98.2 98.3 98.2 Pulse 80 80 Resp 20 20 B/P (MAP) 145/69 (94) 145/49 (81) Pulse Ox 94 97 O2 Delivery Room Air Room Air Intake and Output 03/31/18 03/31/18 04/01/18 15:00 23:00 07:00 Intake Total 1200 ml 600 ml Output Total 400 ml 500 ml Balance 800 ml 100 ml FRAN HERNANDEZ MD Apr 01, 2018 16:47
[2018-04-01 19:43] VITALS: BP 133/63
[2018-04-01] MEDS: ATORVASTATIN CALCIUM 20 MG TABLET PO SCH (20:37)
[2018-04-01] MEDS: INSULIN GLARGINE 300 UNITS/3 ML INSULN.PEN. SQ SCH (20:40)
[2018-04-01 23:13] VITALS: BP 143/64
[2018-04-02] VITALS (7 sets, daily range): BP systolic 133–166; BP diastolic 64–80
[2018-04-02] MEDS: PIPERACILLIN/TAZOBACTAM 3.375 GM in IV NORMAL SALINE 50ML 50 ML IV SCH ×2 (00:01→06:12)
[2018-04-02 06:24] LABS: BASO # 0.1 x10^3/uL (0.0-0.2); BASO % 1 % (0-3); EOS # 0.2 x10^3/uL (0.0-0.7); EOS % 4 % (0-3); HEMATOCRIT 44.3 % (39.0-53.0); HEMOGLOBIN 14.8 g/dL (13.0-17.5); LYMPH # 1.9 x10^3/uL (1.0-4.8); LYMPH % 31 % (24-48); MEAN CORPUSCULAR HEMOGLOBIN 30 pg (25-35); MEAN CORPUSCULAR HGB CONC 33 g/dL (31-37); MEAN CORPUSCULAR VOLUME 90 fL (79-100); MONO # 0.7 x10^3/uL (0.0-1.1); MONO % 11 % (0-9); NEUT # 3.3 x10^3uL (1.8-7.7); NEUT % 53 % (31-73); PLATELET COUNT 156 x10^3/uL (140-400); RED BLOOD COUNT 4.91 x10^6/uL (4.30-5.70); RED CELL DISTRIBUTION WIDTH 13.8 % (11.5-14.5); WHITE BLOOD COUNT 6.2 x10^3/uL (4.0-11.0)
[2018-04-02 06:41] LABS: ALBUMIN 2.4 g/dL (3.4-5.0); ALBUMIN/GLOBULIN RATIO 0.6 (1.0-1.7); CALCIUM 8.1 mg/dL (8.5-10.1); CREATININE 1.6 mg/dL (0.7-1.3); GFR 41.7; POTASSIUM 4.4 mmol/L (3.5-5.1); TOTAL BILIRUBIN 0.4 mg/dL (0.2-1.0); TOTAL PROTEIN 6.1 g/dL (6.4-8.2)
[2018-04-02] MEDS: LEVOTHYROXINE 25 MCG TABLET. PO SCH (07:33)
--- NOTE | 2018-04-02 09:04 | PDOC ---
Infectious Disease Note Subjective Subjective Doing ok but not sleeping. Has pain with buttock wound. occ loose stool but no bloating or cramps No F/C/S/weakness/SOA/N/V/D/Rash Legs ok. Like the rooke boots ROS ROS o/w neg Vital Sign Vital Signs Vital Signs Date Time Temp Pulse Resp B/P (MAP) Pulse Ox O2 Delivery O2 Flow Rate FiO2 04/02/18 08:02 97.7 82 20 166/80 (108) 97 Room Air 97.7 Physical Exam PHYSICAL EXAM CONSTITUTIONAL: He is alert, cooperative. He is in no acute distress. He is obese. in chair HEENT: Pupils equal and reactive. Normal conjunctivae. Oral cavity, pharynx is clear. He has some chronic lip changes. dentures NECK: Supple. No JVD. LUNGS: Clear to auscultation. HEART: S1, S2. 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 ABDOMEN: Obese, soft and nontender. No guarding. No rebound. EXTREMITIES: Without clubbing or cyanosis. He has bilateral lower extremity non-pitting edema, still 2 plus. He also has severe tenia, both feet. Both lower legs have some chronic venous stasis changes, but his left lower extremity has improved erythema, Still some warmth but better and some tracking up the medial thigh that has improved. Rooke boots NEUROLOGIC: He is nonfocal, moves all extremities. PSYCHIATRIC: Affect is pleasant. SKIN: no Rash. Buttock wound stage 1 Labs Lab Laboratory Tests Test 04/01/18 11:19 04/01/18 17:09 04/01/18 18:56 04/01/18 20:37 Glucose (Fingerstick) 238 mg/dL (70-99) 74 mg/dL (70-99) 148 mg/dL (70-99) 142 mg/dL (70-99) Test 04/02/18 05:50 04/02/18 05:55 04/02/18 08:13 White Blood Count 6.2 x10^3/uL (4.0-11.0) Red Blood Count 4.91 x10^6/uL (4.30-5.70) Hemoglobin 14.8 g/dL (13.0-17.5) Hematocrit 44.3 % (39.0-53.0) Mean Corpuscular Volume 90 fL (79-100) Mean Corpuscular Hemoglobin 30 pg (25-35) Mean Corpuscular Hemoglobin Concent 33 g/dL (31-37) Red Cell Distribution Width 13.8 % (11.5-14.5) Platelet Count 156 x10^3/uL (140-400) Neutrophils (%) (Auto) 53 % (31-73) Lymphocytes (%) (Auto) 31 % (24-48) Monocytes (%) (Auto) 11 % (0-9) Eosinophils (%) (Auto) 4 % (0-3) Basophils (%) (Auto) 1 % (0-3) Neutrophils # (Auto) 3.3 x10^3uL (1.8-7.7) Lymphocytes # (Auto) 1.9 x10^3/uL (1.0-4.8) Monocytes # (Auto) 0.7 x10^3/uL (0.0-1.1) Eosinophils # (Auto) 0.2 x10^3/uL (0.0-0.7) Basophils # (Auto) 0.1 x10^3/uL (0.0-0.2) Sodium Level 141 mmol/L (136-145) Potassium Level 4.4 mmol/L (3.5-5.1) Chloride Level 107 mmol/L (98-107) Carbon Dioxide Level 29 mmol/L (21-32) Anion Gap 5 (6-14) Blood Urea Nitrogen 26 mg/dL (8-26) Creatinine 1.6 mg/dL (0.7-1.3) Estimated GFR (Cockcroft-Gault) 41.7 BUN/Creatinine Ratio 16 (6-20) Glucose Level 336 mg/dL (70-99) Calcium Level 8.1 mg/dL (8.5-10.1) Total Bilirubin 0.4 mg/dL (0.2-1.0) Aspartate Amino Transf (AST/SGOT) 25 U/L (15-37) Alanine Aminotransferase (ALT/SGPT) 28 U/L (16-63) Alkaline Phosphatase 78 U/L (46-116) Total Protein 6.1 g/dL (6.4-8.2) Albumin 2.4 g/dL (3.4-5.0) Albumin/Globulin Ratio 0.6 (1.0-1.7) Glucose (Fingerstick) 287 mg/dL (70-99) Micro Microbiology 03/29/18 Blood Culture - Preliminary, Resulted NO GROWTH AFTER 1 DAY Objective Assessment Fever - better Bandemia LLE cellulitis - mild redness today - has been in bed he says for almost 4 hours Tinea lactic acidosis - resolved BRAD - stable DM N/V - better Stage 1 CHF - EF 35 - 40 % Plan Plan of Care Discont Zosyn - beign Augmentin. Add Zyvox with mild increased LLE redness Cont micafungin - has pacemaker -to po soon F/u labs and cults Encouraged off loading Needs compression but marcia check U/S first KVNG MERRILL MD Apr 02, 2018 09:04
[2018-04-02] MEDS: FUROSEMIDE 40 MG TABLET. PO SCH (09:39)
[2018-04-02] MEDS: LACTOBACILLUS RHAMNOSUS GG 1 CAPSULE. PO SCH ×2 (09:39→20:51)
[2018-04-02] MEDS: glipiZIDE 5 MG TABLET PO SCH (09:39)
[2018-04-02] MEDS: TAMSULOSIN 0.4 MG CAP.ER.24H. PO SCH (09:39)
[2018-04-02] MEDS: RIVAROXABAN 15 MG TABLET. PO SCH (09:40)
[2018-04-02] MEDS: GABAPENTIN 100 MG CAPSULE. PO SCH ×3 (09:40→20:51)
[2018-04-02] MEDS: ATENOLOL 50 MG TABLET. PO SCH (09:40)
[2018-04-02] MEDS: PANTOPRAZOLE 40 MG TABLET.DR. PO SCH (09:40)
[2018-04-02] MEDS: AMOXICILLIN/K CLAV 875/125MG TABLET. PO SCH ×2 (09:41→20:51)
[2018-04-02] MEDS: LINEZOLID 600 MG TABLET PO SCH ×2 (09:41→20:51)
[2018-04-02] MEDS: TRIAMCINOLONE ACETONIDE 0.1% TOPICAL OINTMENT 15GM TUBE. TP SCH (09:41)
[2018-04-02] MEDS: ASPIRIN ENTERIC COATED 81 MG TABLET.DR. PO SCH (09:41)
[2018-04-02] MEDS: INSULIN LISPRO 300 UNITS/3 ML INSULN.PEN. SQ SCH ×6 (09:46→17:00)
--- NOTE | 2018-04-02 13:03 | RAD ---
Bilateral lower extremity venous ultrasound, 04/02/2018: History: Lower extremity edema Duplex evaluation of the deep veins in the lower extremities was performed including grayscale, color-flow and spectral Doppler analysis. The femoral and popliteal veins demonstrate normal compressibility and normal responses to distal augmentation maneuvers. Color imaging of those vessels shows no evidence of intraluminal clot. The visualized deep veins in both calves are patent. IMPRESSION: There is no sonographic evidence of deep vein thrombosis in either lower extremity. Electronically signed by: Manoj Davis MD (04/02/2018 12:59 PM) [facility]
[2018-04-02] MEDS: ANTI-COAG MONITOR BY PHARMACY. MC PRN (14:20)
--- NOTE | 2018-04-02 14:49 | PDOC ---
PROGRESS NOTES Subjective Subjective Patient seen and examined Objective Objective Vital Signs Date Time Temp Pulse Resp B/P (MAP) Pulse Ox O2 Delivery O2 Flow Rate FiO2 04/02/18 11:05 97.5 80 20 138/78 (98) 97 Room Air 97.5 Intake and Output 04/02/18 07:00 Intake Total 1960 ml Output Total 600 ml Balance 1360 ml Intake Oral 1960 ml Output Urine Total 600 ml # Voids 3 Physical Exam Abdomen: Normal bowel sounds Heart: Regular rate General: mild distress Lungs: Clear to auscultation Assessment Assessment Problems Medical Problems: (1) BRAD (acute kidney injury) Status: Acute (2) Hyperglycemia Status: Acute (3) Leukocytosis Status: Acute (4) Pneumonia Status: Acute History of previous bypass surgery. No chest pain. Last heart catheter approximately 5 years ago. Continuing present treatment. Compensated diastolic heart failure. 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 SOLE one year. Underlying atrial flutter. Paced 95% on interrogation. Continuing anticoagulation and rate control. Hypothyroidism. Continue present treatments. Controlled hypertension. Diabetes mellitus. Noncompliance. As per the primary service. Cellulitis. Antibiotics as per ID. Chronic renal disease. Followed by the renal service. Comment Review of Relevant I have reviewed the following items do (where applicable) has been applied. Labs Laboratory Tests Test 03/31/18 17:26 03/31/18 20:12 04/01/18 07:30 04/01/18 11:19 Glucose (Fingerstick) 353 mg/dL (70-99) 135 mg/dL (70-99) 189 mg/dL (70-99) 238 mg/dL (70-99) Test 04/01/18 17:09 04/01/18 18:56 04/01/18 20:37 04/02/18 05:50 Glucose (Fingerstick) 74 mg/dL (70-99) 148 mg/dL (70-99) 142 mg/dL (70-99) White Blood Count 6.2 x10^3/uL (4.0-11.0) Red Blood Count 4.91 x10^6/uL (4.30-5.70) Hemoglobin 14.8 g/dL (13.0-17.5) Hematocrit 44.3 % (39.0-53.0) Mean Corpuscular Volume 90 fL (79-100) Mean Corpuscular Hemoglobin 30 pg (25-35) Mean Corpuscular Hemoglobin Concent 33 g/dL (31-37) Red Cell Distribution Width 13.8 % (11.5-14.5) Platelet Count 156 x10^3/uL (140-400) Neutrophils (%) (Auto) 53 % (31-73) Lymphocytes (%) (Auto) 31 % (24-48) Monocytes (%) (Auto) 11 % (0-9) Eosinophils (%) (Auto) 4 % (0-3) Basophils (%) (Auto) 1 % (0-3) Neutrophils # (Auto) 3.3 x10^3uL (1.8-7.7) Lymphocytes # (Auto) 1.9 x10^3/uL (1.0-4.8) Monocytes # (Auto) 0.7 x10^3/uL (0.0-1.1) Eosinophils # (Auto) 0.2 x10^3/uL (0.0-0.7) Basophils # (Auto) 0.1 x10^3/uL (0.0-0.2) Test 04/02/18 05:55 04/02/18 08:13 04/02/18 12:19 Sodium Level 141 mmol/L (136-145) Potassium Level 4.4 mmol/L (3.5-5.1) Chloride Level 107 mmol/L (98-107) Carbon Dioxide Level 29 mmol/L (21-32) Anion Gap 5 (6-14) Blood Urea Nitrogen 26 mg/dL (8-26) Creatinine 1.6 mg/dL (0.7-1.3) Estimated GFR (Cockcroft-Gault) 41.7 BUN/Creatinine Ratio 16 (6-20) Glucose Level 336 mg/dL (70-99) Calcium Level 8.1 mg/dL (8.5-10.1) Total Bilirubin 0.4 mg/dL (0.2-1.0) Aspartate Amino Transf (AST/SGOT) 25 U/L (15-37) Alanine Aminotransferase (ALT/SGPT) 28 U/L (16-63) Alkaline Phosphatase 78 U/L (46-116) Total Protein 6.1 g/dL (6.4-8.2) Albumin 2.4 g/dL (3.4-5.0) Albumin/Globulin Ratio 0.6 (1.0-1.7) Glucose (Fingerstick) 287 mg/dL (70-99) 292 mg/dL (70-99) Laboratory Tests Test 04/01/18 17:09 04/01/18 18:56 04/01/18 20:37 04/02/18 05:50 Glucose (Fingerstick) 74 mg/dL (70-99) 148 mg/dL (70-99) 142 mg/dL (70-99) White Blood Count 6.2 x10^3/uL (4.0-11.0) Red Blood Count 4.91 x10^6/uL (4.30-5.70) Hemoglobin 14.8 g/dL (13.0-17.5) Hematocrit 44.3 % (39.0-53.0) Mean Corpuscular Volume 90 fL (79-100) Mean Corpuscular Hemoglobin 30 pg (25-35) Mean Corpuscular Hemoglobin Concent 33 g/dL (31-37) Red Cell Distribution Width 13.8 % (11.5-14.5) Platelet Count 156 x10^3/uL (140-400) Neutrophils (%) (Auto) 53 % (31-73) Lymphocytes (%) (Auto) 31 % (24-48) Monocytes (%) (Auto) 11 % (0-9) Eosinophils (%) (Auto) 4 % (0-3) Basophils (%) (Auto) 1 % (0-3) Neutrophils # (Auto) 3.3 x10^3uL (1.8-7.7) Lymphocytes # (Auto) 1.9 x10^3/uL (1.0-4.8) Monocytes # (Auto) 0.7 x10^3/uL (0.0-1.1) Eosinophils # (Auto) 0.2 x10^3/uL (0.0-0.7) Basophils # (Auto) 0.1 x10^3/uL (0.0-0.2) Test 04/02/18 05:55 04/02/18 08:13 04/02/18 12:19 Sodium Level 141 mmol/L (136-145) Potassium Level 4.4 mmol/L (3.5-5.1) Chloride Level 107 mmol/L (98-107) Carbon Dioxide Level 29 mmol/L (21-32) Anion Gap 5 (6-14) Blood Urea Nitrogen 26 mg/dL (8-26) Creatinine 1.6 mg/dL (0.7-1.3) Estimated GFR (Cockcroft-Gault) 41.7 BUN/Creatinine Ratio 16 (6-20) Glucose Level 336 mg/dL (70-99) Calcium Level 8.1 mg/dL (8.5-10.1) Total Bilirubin 0.4 mg/dL (0.2-1.0) Aspartate Amino Transf (AST/SGOT) 25 U/L (15-37) Alanine Aminotransferase (ALT/SGPT) 28 U/L (16-63) Alkaline Phosphatase 78 U/L (46-116) Total Protein 6.1 g/dL (6.4-8.2) Albumin 2.4 g/dL (3.4-5.0) Albumin/Globulin Ratio 0.6 (1.0-1.7) Glucose (Fingerstick) 287 mg/dL (70-99) 292 mg/dL (70-99) Microbiology 03/29/18 Blood Culture - Preliminary, Resulted NO GROWTH AFTER 3 DAYS Medications Current Medications Sodium Chloride 1,000 ml @ 1,000 mls/hr 1X ONCE IV Last administered on at 22:05; Start 03/29/18 at 22:00; Stop 03/29/18 at 22:59; Status DC Sodium Chloride 1,000 ml @ 1,000 mls/hr 1X ONCE IV Last administered on at 22:43; Start 03/29/18 at 22:15; Stop 03/29/18 at 23:14; Status DC Insulin Human Regular 150 unit/ Sodium Chloride 151.5 ml @ 0 mls/hr CONT PRN IV SEE I/O RECORD; Start 03/29/18 at 22:30; Stop 03/29/18 at 22:58; Status DC Insulin Human Regular (HumuLIN R VIAL) 10 unit 1X ONCE IV Last administered on 03/29/18at 22:42; Start 03/29/18 at 22:15; Stop 03/29/18 at 22:16; Status DC Ceftriaxone Sodium 50 ml @ 100 mls/hr 1X ONCE IV Last administered on at 23:15; Start 03/29/18 at 23:15; Stop 03/29/18 at 23:44; Status DC Azithromycin 500 mg/Sodium Chloride 250 ml @ 250 mls/hr 1X ONCE IV Last administered on 03/29/18at 23:42; Start 03/29/18 at 23:00; Stop 03/29/18 at 23:59; Status DC Ondansetron HCl (Zofran) 4 mg PRN Q8HRS PRN IV NAUSEA/VOMITING; Start 03/29/18 at 23:55; Stop 03/30/18 at 23:54; Status DC Fentanyl Citrate (Fentanyl 2ml Vial) 50 mcg PRN Q1HR PRN IV PAIN; Start at 23:45; Stop 03/30/18 at 23:44; Status DC Acetaminophen (Tylenol) 650 mg PRN Q4HRS PRN PO FEVER; Start 03/29/18 at 23:45; Stop 03/30/18 at 23:44; Status DC Acetaminophen (Tylenol) 1,000 mg 1X ONCE PO Last administered on 03/29/18at 23: 58; Start 03/29/18 at 23:45; Stop 03/30/18 at 00:01; Status DC Sodium Chloride 1,000 ml @ 100 mls/hr 1X ONCE IV Last administered on at 01:45; Start 03/30/18 at 01:45; Stop 03/30/18 at 11:44; Status DC Insulin Human Lispro (HumaLOG) 0-9 UNITS TIDWMEALS SQ Last administered on 04/02at 12:59; Start 03/30/18 at 08:00 Dextrose (Dextrose 50%-Water Syringe) 12.5 gm PRN Q15MIN PRN IV SEE COMMENTS; Start 03/30/18 at 07:45 Insulin Glargine (Lantus) 14 units DAILY SQ Last administered on 03/30/18at 08:25 ; Start 03/30/18 at 08:00; Stop 03/30/18 at 10:12; Status DC Insulin Human Lispro (HumaLOG) 10 units TIDWMEALS SQ Last administered on at 08:25; Start 03/30/18 at 08:00; Stop 03/30/18 at 12:04; Status DC Aspirin (Dorothy Aspirin) 325 mg DAILY PO Last administered on 03/30/18 10:27; Start 03/30/18 at 11:00; Stop 03/31/18 at 12:42; Status DC Atenolol (Tenormin) 75 mg DAILY PO Last administered on 04/02/18 09:40; Start 03/30/18 at 11:00 Furosemide (Lasix) 40 mg DAILY PO Last administered on 04/02/18 09:39; Start 03/30/18 at 11:00 Glipizide (Glucotrol) 5 mg DAILY PO Last administered on 04/02/18 09:39; Start 03/30/18 at 11:00 Rivaroxaban (Xarelto) 15 mg DAILY PO Last administered on 04/02/18 09:40; Start 03/30/18 at 11:00 Tamsulosin HCl (Flomax) 0.4 mg DAILY PO Last administered on 04/02/18 09:39; Start 03/30/18 at 11:00 Tramadol HCl (Ultram) 50 mg TID PRN PRN PO MILD PAIN; Start 03/30/18 at 10:15 Triamcinolone Acetonide (Kenalog) 1 maria isabel DAILY TP Last administered on 09:41; Start 03/30/18 at 11:00 Insulin Glargine (Lantus) 20 units QHS SQ ; Start 03/30/18 at 21:00; Stop at 16:15; Status DC Levothyroxine Sodium (Synthroid) 25 mcg DAILY07 PO Last administered on 07:33; Start 03/30/18 at 11:00 Miconazole Nitrate (Desenex) 1 maria isabel PRN BID PRN TP YEAST; Start 03/30/18 at 21:00 Pantoprazole Sodium (Protonix) 40 mg DAILYAC PO Last administered on 04/02/18 09:40; Start 03/30/18 at 12:00 Multi-Ingredient Mouthwash/Gargle (Gi Cocktail) 20 ml PRN QID PRN PO abd pain Last administered on 03/30/18 14:24; Start 03/30/18 at 12:00 Insulin Human Lispro (HumaLOG) 14 units TIDWMEALS SQ Last administered on 12:24; Start 03/30/18 at 17:00; Stop 03/31/18 at 16:15; Status DC Insulin Human Lispro (HumaLOG) 26 units 1X ONCE SQ Last administered on at 12:26; Start 03/30/18 at 12:15; Stop 03/30/18 at 12:16; Status DC Micafungin Sodium 100 mg/Dextrose 100 ml @ 100 mls/hr Q24H IV Last administered on 04/01/18at 14:05; Start 03/30/18 at 13:00 Piperacillin Sod/ Tazobactam Sod 3.375 gm/Sodium Chloride 50 ml @ 100 mls/hr Q6HRS IV Last administered on 04/02/18at 06:12; Start 03/30/18 at 13:00; Stop 08/08 at 09:03; Status DC Gabapentin (Neurontin) 100 mg TID PO Last administered on 04/02/18at 09:40; Start 03/30/18 at 14:00 Insulin Human Lispro (HumaLOG) 26 units 1X ONCE SQ Last administered on at 14:27; Start 03/30/18 at 14:30; Stop 03/30/18 at 14:31; Status DC Lactobacillus Rhamnosus (Culturelle) 1 cap BID PO Last administered on at 09:39; Start 03/30/18 at 21:00 Atorvastatin Calcium (Lipitor) 20 mg QHS PO Last administered on 04/01/18at 20: 37; Start 03/31/18 at 21:00 Aspirin (Ecotrin) 81 mg DAILYWBKFT PO Last administered on 04/02/18at 09:41; Start 04/01/18 at 08:00 Info (Anti-Coagulation Monitoring By Pharmacy) 1 each PRN DAILY PRN MC SEE COMMENTS Last administered on 04/02/18at 14:20; Start 03/31/18 at 13:00 Insulin Glargine (Lantus) 25 units QHS SQ Last administered on 03/31/18at 21:33 ; Start 03/31/18 at 21:00; Stop 04/01/18 at 15:03; Status DC Insulin Human Lispro (HumaLOG) 18 units TIDWMEALS SQ Last administered on at 12:58; Start 03/31/18 at 17:00 Insulin Glargine (Lantus) 30 units QHS SQ Last administered on 04/01/18at 20:40 ; Start 04/01/18 at 21:00 Linezolid (Zyvox) 600 mg BID PO Last administered on 04/02/18at 09:41; Start 08/08 at 09:15 Amoxicillin/ Clavulanate Potassium (Augmentin 875/ 125mg) 1 tab BID PO Last administered on 04/02/18at 09:41; Start 04/02/18 at 09:30 Active Scripts Active Reported Aspirin 325 Mg Tablet 1 Tab PO DAILY Triamcinolone Acetonide 0.1% Oint (Triamcinolone Acetonide) 15 Gm Oint...g. 1 Maria Isabel TP PRN MIX WITH EUCERIN DIRECTED BY PHYSICIAN Tramadol Hcl 50 Mg Tablet 50 Mg PO TID PRN Flomax (Tamsulosin Hcl) 0.4 Mg Cap.er.24h 1 Cap PO DAILY Xarelto (Rivaroxaban) 15 Mg Tablet 15 Mg PO DAILY Nystatin 15 Gm Oint...g. 1 Maria Isabel TP PRN Mupirocin Ointment (Mupirocin) 22 Gm Oint...g. 1 Maria Isabel TP PRN Miconazole Nitrate 130 Gm Aero.powd 130 Gm TP PRN Levothyroxine Sodium 25 Mcg Tablet 1 Tab PO DAILY Levemir (Insulin Detemir) 100 Unit/1 Ml Vial 20 Unit SQ HS Glipizide 5 Mg Tablet 1 Tab PO DAILY Lasix (Furosemide) 40 Mg Tablet 40 Mg PO DAILY Atenolol 50 Mg Tablet 75 Mg PO DAILY Vitals/I & O Vital Sign - Last 24 Hours 04/01/18 04/01/18 04/01/18 04/01/18 15:00 19:43 20:00 23:13 Temp 98.2 96.4 97.9 98.2 96.4 97.9 Pulse 80 80 79 Resp 20 18 18 B/P (MAP) 145/49 (81) 133/63 (86) 143/64 (90) Pulse Ox 97 97 96 O2 Delivery Room Air Room Air Room Air Room Air 04/02/18 04/02/18 04/02/18 04/02/18 03:54 07:00 08:00 08:02 Temp 96.3 97.7 97.7 96.3 97.7 97.7 Pulse 78 82 82 Resp 20 20 20 B/P (MAP) 134/77 (96) 166/80 (108) 166/80 (108) Pulse Ox 98 97 97 O2 Delivery Room Air Room Air Room Air Room Air 04/02/18 04/02/18 09:40 11:05 Temp 97.5 97.5 Pulse 82 80 Resp 20 B/P (MAP) 166/80 138/78 (98) Pulse Ox 97 O2 Delivery Room Air Intake and Output 04/01/18 04/01/18 04/02/18 15:00 23:00 07:00 Intake Total 720 ml 480 ml 760 ml Output Total 600 ml Balance 720 ml 480 ml 160 ml LELEN BENSON MD Apr 02, 2018 14:49
--- NOTE | 2018-04-02 14:57 | PDOC ---
PROGRESS NOTES Chief Complaint Chief Complaint nausea and vomiting, abd pain, better, eating well cellulitis of LLE Left foot weakenss and numbness, sensation intact, Dm2, poor control, noncompliance past 3 months Morbid obesity, BMI 40 chronic sacral ulcer, stage 2, try to unload weakness and debility History of Present Illness History of Present Illness GES neg he looks and feels better str imrproved, but will need SNU he told me we wanted to go today right after he was seated on side of the bed and urinated all over the floor. Vitals Vitals Vital Signs Date Time Temp Pulse Resp B/P (MAP) Pulse Ox O2 Delivery O2 Flow Rate FiO2 04/02/18 11:05 97.5 80 20 138/78 (98) 97 Room Air 97.5 Physical Exam Physical Exam CONSTITUTIONAL: He is alert, cooperative. He is in no acute distress. He is obese. in chair HEENT: Pupils equal and reactive. Normal conjunctivae. Oral cavity, pharynx is clear. He has some chronic lip changes. dentures NECK: Supple. No JVD. LUNGS: Clear to auscultation. HEART: S1, S2. 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 ABDOMEN: Obese, soft and nontender. No guarding. No rebound. EXTREMITIES: Without clubbing or cyanosis. He has bilateral lower extremity non-pitting edema, still 2 plus. He also has severe tenia, both feet. Both lower legs have some chronic venous stasis changes, but his left lower extremity has improved erythema, Still some warmth but better and some tracking up the medial thigh that has improved. Rooke boots NEUROLOGIC: He is nonfocal, moves all extremities. PSYCHIATRIC: Affect is pleasant. SKIN: no Rash. Buttock wound stage 1 General: mild distress Heart: Regular rate Abdomen: Normal bowel sounds Extremities: No cyanosis, Other (2-3+ bilateral LE pitting edema; LLE cellulitis) Skin: No breakdown Labs LABS Laboratory Tests Test 04/01/18 17:09 04/01/18 18:56 04/01/18 20:37 04/02/18 05:50 Glucose (Fingerstick) 74 mg/dL (70-99) 148 mg/dL (70-99) 142 mg/dL (70-99) White Blood Count 6.2 x10^3/uL (4.0-11.0) Red Blood Count 4.91 x10^6/uL (4.30-5.70) Hemoglobin 14.8 g/dL (13.0-17.5) Hematocrit 44.3 % (39.0-53.0) Mean Corpuscular Volume 90 fL (79-100) Mean Corpuscular Hemoglobin 30 pg (25-35) Mean Corpuscular Hemoglobin Concent 33 g/dL (31-37) Red Cell Distribution Width 13.8 % (11.5-14.5) Platelet Count 156 x10^3/uL (140-400) Neutrophils (%) (Auto) 53 % (31-73) Lymphocytes (%) (Auto) 31 % (24-48) Monocytes (%) (Auto) 11 % (0-9) Eosinophils (%) (Auto) 4 % (0-3) Basophils (%) (Auto) 1 % (0-3) Neutrophils # (Auto) 3.3 x10^3uL (1.8-7.7) Lymphocytes # (Auto) 1.9 x10^3/uL (1.0-4.8) Monocytes # (Auto) 0.7 x10^3/uL (0.0-1.1) Eosinophils # (Auto) 0.2 x10^3/uL (0.0-0.7) Basophils # (Auto) 0.1 x10^3/uL (0.0-0.2) Test 04/02/18 05:55 04/02/18 08:13 04/02/18 12:19 Sodium Level 141 mmol/L (136-145) Potassium Level 4.4 mmol/L (3.5-5.1) Chloride Level 107 mmol/L (98-107) Carbon Dioxide Level 29 mmol/L (21-32) Anion Gap 5 (6-14) Blood Urea Nitrogen 26 mg/dL (8-26) Creatinine 1.6 mg/dL (0.7-1.3) Estimated GFR (Cockcroft-Gault) 41.7 BUN/Creatinine Ratio 16 (6-20) Glucose Level 336 mg/dL (70-99) Calcium Level 8.1 mg/dL (8.5-10.1) Total Bilirubin 0.4 mg/dL (0.2-1.0) Aspartate Amino Transf (AST/SGOT) 25 U/L (15-37) Alanine Aminotransferase (ALT/SGPT) 28 U/L (16-63) Alkaline Phosphatase 78 U/L (46-116) Total Protein 6.1 g/dL (6.4-8.2) Albumin 2.4 g/dL (3.4-5.0) Albumin/Globulin Ratio 0.6 (1.0-1.7) Glucose (Fingerstick) 287 mg/dL (70-99) 292 mg/dL (70-99) Assessment and Plan Assessmemt and Plan Problems Medical Problems: (1) BRAD (acute kidney injury) Status: Acute (2) Hyperglycemia Status: Acute (3) Leukocytosis Status: Acute (4) Pneumonia Status: Acute Comment Review of Relevant I have reviewed the following items do (where applicable) has been applied. Labs Laboratory Tests Test 03/31/18 17:26 03/31/18 20:12 04/01/18 07:30 04/01/18 11:19 Glucose (Fingerstick) 353 mg/dL (70-99) 135 mg/dL (70-99) 189 mg/dL (70-99) 238 mg/dL (70-99) Test 04/01/18 17:09 04/01/18 18:56 04/01/18 20:37 04/02/18 05:50 Glucose (Fingerstick) 74 mg/dL (70-99) 148 mg/dL (70-99) 142 mg/dL (70-99) White Blood Count 6.2 x10^3/uL (4.0-11.0) Red Blood Count 4.91 x10^6/uL (4.30-5.70) Hemoglobin 14.8 g/dL (13.0-17.5) Hematocrit 44.3 % (39.0-53.0) Mean Corpuscular Volume 90 fL (79-100) Mean Corpuscular Hemoglobin 30 pg (25-35) Mean Corpuscular Hemoglobin Concent 33 g/dL (31-37) Red Cell Distribution Width 13.8 % (11.5-14.5) Platelet Count 156 x10^3/uL (140-400) Neutrophils (%) (Auto) 53 % (31-73) Lymphocytes (%) (Auto) 31 % (24-48) Monocytes (%) (Auto) 11 % (0-9) Eosinophils (%) (Auto) 4 % (0-3) Basophils (%) (Auto) 1 % (0-3) Neutrophils # (Auto) 3.3 x10^3uL (1.8-7.7) Lymphocytes # (Auto) 1.9 x10^3/uL (1.0-4.8) Monocytes # (Auto) 0.7 x10^3/uL (0.0-1.1) Eosinophils # (Auto) 0.2 x10^3/uL (0.0-0.7) Basophils # (Auto) 0.1 x10^3/uL (0.0-0.2) Test 04/02/18 05:55 04/02/18 08:13 04/02/18 12:19 Sodium Level 141 mmol/L (136-145) Potassium Level 4.4 mmol/L (3.5-5.1) Chloride Level 107 mmol/L (98-107) Carbon Dioxide Level 29 mmol/L (21-32) Anion Gap 5 (6-14) Blood Urea Nitrogen 26 mg/dL (8-26) Creatinine 1.6 mg/dL (0.7-1.3) Estimated GFR (Cockcroft-Gault) 41.7 BUN/Creatinine Ratio 16 (6-20) Glucose Level 336 mg/dL (70-99) Calcium Level 8.1 mg/dL (8.5-10.1) Total Bilirubin 0.4 mg/dL (0.2-1.0) Aspartate Amino Transf (AST/SGOT) 25 U/L (15-37) Alanine Aminotransferase (ALT/SGPT) 28 U/L (16-63) Alkaline Phosphatase 78 U/L (46-116) Total Protein 6.1 g/dL (6.4-8.2) Albumin 2.4 g/dL (3.4-5.0) Albumin/Globulin Ratio 0.6 (1.0-1.7) Glucose (Fingerstick) 287 mg/dL (70-99) 292 mg/dL (70-99) Laboratory Tests Test 04/01/18 17:09 04/01/18 18:56 04/01/18 20:37 04/02/18 05:50 Glucose (Fingerstick) 74 mg/dL (70-99) 148 mg/dL (70-99) 142 mg/dL (70-99) White Blood Count 6.2 x10^3/uL (4.0-11.0) Red Blood Count 4.91 x10^6/uL (4.30-5.70) Hemoglobin 14.8 g/dL (13.0-17.5) Hematocrit 44.3 % (39.0-53.0) Mean Corpuscular Volume 90 fL (79-100) Mean Corpuscular Hemoglobin 30 pg (25-35) Mean Corpuscular Hemoglobin Concent 33 g/dL (31-37) Red Cell Distribution Width 13.8 % (11.5-14.5) Platelet Count 156 x10^3/uL (140-400) Neutrophils (%) (Auto) 53 % (31-73) Lymphocytes (%) (Auto) 31 % (24-48) Monocytes (%) (Auto) 11 % (0-9) Eosinophils (%) (Auto) 4 % (0-3) Basophils (%) (Auto) 1 % (0-3) Neutrophils # (Auto) 3.3 x10^3uL (1.8-7.7) Lymphocytes # (Auto) 1.9 x10^3/uL (1.0-4.8) Monocytes # (Auto) 0.7 x10^3/uL (0.0-1.1) Eosinophils # (Auto) 0.2 x10^3/uL (0.0-0.7) Basophils # (Auto) 0.1 x10^3/uL (0.0-0.2) Test 04/02/18 05:55 04/02/18 08:13 04/02/18 12:19 Sodium Level 141 mmol/L (136-145) Potassium Level 4.4 mmol/L (3.5-5.1) Chloride Level 107 mmol/L (98-107) Carbon Dioxide Level 29 mmol/L (21-32) Anion Gap 5 (6-14) Blood Urea Nitrogen 26 mg/dL (8-26) Creatinine 1.6 mg/dL (0.7-1.3) Estimated GFR (Cockcroft-Gault) 41.7 BUN/Creatinine Ratio 16 (6-20) Glucose Level 336 mg/dL (70-99) Calcium Level 8.1 mg/dL (8.5-10.1) Total Bilirubin 0.4 mg/dL (0.2-1.0) Aspartate Amino Transf (AST/SGOT) 25 U/L (15-37) Alanine Aminotransferase (ALT/SGPT) 28 U/L (16-63) Alkaline Phosphatase 78 U/L (46-116) Total Protein 6.1 g/dL (6.4-8.2) Albumin 2.4 g/dL (3.4-5.0) Albumin/Globulin Ratio 0.6 (1.0-1.7) Glucose (Fingerstick) 287 mg/dL (70-99) 292 mg/dL (70-99) Microbiology 03/29/18 Blood Culture - Preliminary, Resulted NO GROWTH AFTER 3 DAYS Medications Current Medications Sodium Chloride 1,000 ml @ 1,000 mls/hr 1X ONCE IV Last administered on at 22:05; Start 03/29/18 at 22:00; Stop 03/29/18 at 22:59; Status DC Sodium Chloride 1,000 ml @ 1,000 mls/hr 1X ONCE IV Last administered on at 22:43; Start 03/29/18 at 22:15; Stop 03/29/18 at 23:14; Status DC Insulin Human Regular 150 unit/ Sodium Chloride 151.5 ml @ 0 mls/hr CONT PRN IV SEE I/O RECORD; Start 03/29/18 at 22:30; Stop 03/29/18 at 22:58; Status DC Insulin Human Regular (HumuLIN R VIAL) 10 unit 1X ONCE IV Last administered on 03/29/18at 22:42; Start 03/29/18 at 22:15; Stop 03/29/18 at 22:16; Status DC Ceftriaxone Sodium 50 ml @ 100 mls/hr 1X ONCE IV Last administered on at 23:15; Start 03/29/18 at 23:15; Stop 03/29/18 at 23:44; Status DC Azithromycin 500 mg/Sodium Chloride 250 ml @ 250 mls/hr 1X ONCE IV Last administered on 03/29/18at 23:42; Start 03/29/18 at 23:00; Stop 03/29/18 at 23:59; Status DC Ondansetron HCl (Zofran) 4 mg PRN Q8HRS PRN IV NAUSEA/VOMITING; Start 03/29/18 at 23:55; Stop 03/30/18 at 23:54; Status DC Fentanyl Citrate (Fentanyl 2ml Vial) 50 mcg PRN Q1HR PRN IV PAIN; Start at 23:45; Stop 03/30/18 at 23:44; Status DC Acetaminophen (Tylenol) 650 mg PRN Q4HRS PRN PO FEVER; Start 03/29/18 at 23:45; Stop 03/30/18 at 23:44; Status DC Acetaminophen (Tylenol) 1,000 mg 1X ONCE PO Last administered on 03/29/18at 23: 58; Start 03/29/18 at 23:45; Stop 03/30/18 at 00:01; Status DC Sodium Chloride 1,000 ml @ 100 mls/hr 1X ONCE IV Last administered on at 01:45; Start 03/30/18 at 01:45; Stop 03/30/18 at 11:44; Status DC Insulin Human Lispro (HumaLOG) 0-9 UNITS TIDWMEALS SQ Last administered on 04/02at 12:59; Start 03/30/18 at 08:00 Dextrose (Dextrose 50%-Water Syringe) 12.5 gm PRN Q15MIN PRN IV SEE COMMENTS; Start 03/30/18 at 07:45 Insulin Glargine (Lantus) 14 units DAILY SQ Last administered on 03/30/18at 08:25 ; Start 03/30/18 at 08:00; Stop 03/30/18 at 10:12; Status DC Insulin Human Lispro (HumaLOG) 10 units TIDWMEALS SQ Last administered on at 08:25; Start 03/30/18 at 08:00; Stop 03/30/18 at 12:04; Status DC Aspirin (Dorothy Aspirin) 325 mg DAILY PO Last administered on 03/30/18at 10:27; Start 03/30/18 at 11:00; Stop 03/31/18 at 12:42; Status DC Atenolol (Tenormin) 75 mg DAILY PO Last administered on 04/02/18at 09:40; Start 03/30/18 at 11:00 Furosemide (Lasix) 40 mg DAILY PO Last administered on 04/02/18at 09:39; Start 03/30/18 at 11:00 Glipizide (Glucotrol) 5 mg DAILY PO Last administered on 04/02/18 09:39; Start 03/30/18 at 11:00 Rivaroxaban (Xarelto) 15 mg DAILY PO Last administered on 04/02/18 09:40; Start 03/30/18 at 11:00 Tamsulosin HCl (Flomax) 0.4 mg DAILY PO Last administered on 04/02/18 09:39; Start 03/30/18 at 11:00 Tramadol HCl (Ultram) 50 mg TID PRN PRN PO MILD PAIN; Start 03/30/18 at 10:15 Triamcinolone Acetonide (Kenalog) 1 maria isabel DAILY TP Last administered on at 09:41; Start 03/30/18 at 11:00 Insulin Glargine (Lantus) 20 units QHS SQ ; Start 03/30/18 at 21:00; Stop at 16:15; Status DC Levothyroxine Sodium (Synthroid) 25 mcg DAILY07 PO Last administered on at 07:33; Start 03/30/18 at 11:00 Miconazole Nitrate (Desenex) 1 maria isabel PRN BID PRN TP YEAST; Start 03/30/18 at 21:00 Pantoprazole Sodium (Protonix) 40 mg DAILYAC PO Last administered on 04/02/18 09:40; Start 03/30/18 at 12:00 Multi-Ingredient Mouthwash/Gargle (Gi Cocktail) 20 ml PRN QID PRN PO abd pain Last administered on 03/30/18 14:24; Start 03/30/18 at 12:00 Insulin Human Lispro (HumaLOG) 14 units TIDWMEALS SQ Last administered on 12:24; Start 03/30/18 at 17:00; Stop 03/31/18 at 16:15; Status DC Insulin Human Lispro (HumaLOG) 26 units 1X ONCE SQ Last administered on 12:26; Start 03/30/18 at 12:15; Stop 03/30/18 at 12:16; Status DC Micafungin Sodium 100 mg/Dextrose 100 ml @ 100 mls/hr Q24H IV Last administered on 04/01/18 14:05; Start 03/30/18 at 13:00 Piperacillin Sod/ Tazobactam Sod 3.375 gm/Sodium Chloride 50 ml @ 100 mls/hr Q6HRS IV Last administered on 04/02/18 06:12; Start 03/30/18 at 13:00; Stop 08/08 at 09:03; Status DC Gabapentin (Neurontin) 100 mg TID PO Last administered on 04/02/18 09:40; Start 03/30/18 at 14:00 Insulin Human Lispro (HumaLOG) 26 units 1X ONCE SQ Last administered on 14:27; Start 03/30/18 at 14:30; Stop 03/30/18 at 14:31; Status DC Lactobacillus Rhamnosus (Culturelle) 1 cap BID PO Last administered on 09:39; Start 03/30/18 at 21:00 Atorvastatin Calcium (Lipitor) 20 mg QHS PO Last administered on 04/01/18 20: 37; Start 03/31/18 at 21:00 Aspirin (Ecotrin) 81 mg DAILYWBKFT PO Last administered on 04/02/18 09:41; Start 04/01/18 at 08:00 Info (Anti-Coagulation Monitoring By Pharmacy) 1 each PRN DAILY PRN MC SEE COMMENTS Last administered on 04/02/18 14:20; Start 03/31/18 at 13:00 Insulin Glargine (Lantus) 25 units QHS SQ Last administered on 03/31/18 21:33 ; Start 03/31/18 at 21:00; Stop 04/01/18 at 15:03; Status DC Insulin Human Lispro (HumaLOG) 18 units TIDWMEALS SQ Last administered on 12:58; Start 03/31/18 at 17:00 Insulin Glargine (Lantus) 30 units QHS SQ Last administered on 04/01/18 20:40 ; Start 04/01/18 at 21:00 Linezolid (Zyvox) 600 mg BID PO Last administered on 04/02/18at 09:41; Start 08/08 at 09:15 Amoxicillin/ Clavulanate Potassium (Augmentin 875/ 125mg) 1 tab BID PO Last administered on 04/02/18at 09:41; Start 04/02/18 at 09:30 Active Scripts Active Reported Aspirin 325 Mg Tablet 1 Tab PO DAILY Triamcinolone Acetonide 0.1% Oint (Triamcinolone Acetonide) 15 Gm Oint...g. 1 Maria Isabel TP PRN MIX WITH EUCERIN DIRECTED BY PHYSICIAN Tramadol Hcl 50 Mg Tablet 50 Mg PO TID PRN Flomax (Tamsulosin Hcl) 0.4 Mg Cap.er.24h 1 Cap PO DAILY Xarelto (Rivaroxaban) 15 Mg Tablet 15 Mg PO DAILY Nystatin 15 Gm Oint...g. 1 Maria Isabel TP PRN Mupirocin Ointment (Mupirocin) 22 Gm Oint...g. 1 Maria Isabel TP PRN Miconazole Nitrate 130 Gm Aero.powd 130 Gm TP PRN Levothyroxine Sodium 25 Mcg Tablet 1 Tab PO DAILY Levemir (Insulin Detemir) 100 Unit/1 Ml Vial 20 Unit SQ HS Glipizide 5 Mg Tablet 1 Tab PO DAILY Lasix (Furosemide) 40 Mg Tablet 40 Mg PO DAILY Atenolol 50 Mg Tablet 75 Mg PO DAILY Vitals/I & O Vital Sign - Last 24 Hours 04/01/18 04/01/18 04/01/18 04/01/18 15:00 19:43 20:00 23:13 Temp 98.2 96.4 97.9 98.2 96.4 97.9 Pulse 80 80 79 Resp 20 18 B/P (MAP) 145/49 (81) 133/63 (86) 143/64 (90) Pulse Ox 97 97 96 O2 Delivery Room Air Room Air Room Air Room Air 04/02/18 04/02/18 04/02/18 04/02/18 03:54 07:00 08:00 08:02 Temp 96.3 97.7 97.7 96.3 97.7 97.7 Pulse 78 82 82 Resp 20 20 20 B/P (MAP) 134/77 (96) 166/80 (108) 166/80 (108) Pulse Ox 98 97 97 O2 Delivery Room Air Room Air Room Air Room Air 04/02/18 04/02/18 09:40 11:05 Temp 97.5 97.5 Pulse 82 80 Resp 20 B/P (MAP) 166/80 138/78 (98) Pulse Ox 97 O2 Delivery Room Air Intake and Output 04/01/18 04/01/18 04/02/18 15:00 23:00 07:00 Intake Total 720 ml 480 ml 760 ml Output Total 600 ml Balance 720 ml 480 ml 160 ml FRAN HERNANDEZ MD Apr 02, 2018 14:57
[2018-04-02] MEDS: MICAFUNGIN 100 MG in IV DEXTROSE 5% 100ML 100 ML IV SCH (15:33)
[2018-04-02] MEDS: INSULIN GLARGINE 300 UNITS/3 ML INSULN.PEN. SQ SCH (20:51)
[2018-04-02] MEDS: ATORVASTATIN CALCIUM 20 MG TABLET PO SCH (20:51)
[2018-04-03 03:28] VITALS: BP 138/71
[2018-04-03] MEDS: LEVOTHYROXINE 25 MCG TABLET. PO SCH (06:09)
[2018-04-03 07:00] VITALS: BP 175/77
[2018-04-03] MEDS: RIVAROXABAN 15 MG TABLET. PO SCH (08:19)
[2018-04-03] MEDS: ASPIRIN ENTERIC COATED 81 MG TABLET.DR. PO SCH (08:19)
[2018-04-03] MEDS: FUROSEMIDE 40 MG TABLET. PO SCH (08:19)
[2018-04-03] MEDS: LINEZOLID 600 MG TABLET PO SCH (08:21)
[2018-04-03] MEDS: ATENOLOL 50 MG TABLET. PO SCH (08:21)
[2018-04-03] MEDS: PANTOPRAZOLE 40 MG TABLET.DR. PO SCH (08:22)
[2018-04-03] MEDS: LACTOBACILLUS RHAMNOSUS GG 1 CAPSULE. PO SCH ×2 (08:22→22:10)
[2018-04-03] MEDS: GABAPENTIN 100 MG CAPSULE. PO SCH ×3 (08:22→22:10)
[2018-04-03] MEDS: glipiZIDE 5 MG TABLET PO SCH (08:22)
[2018-04-03] MEDS: AMOXICILLIN/K CLAV 875/125MG TABLET. PO SCH ×2 (08:22→22:10)
[2018-04-03] MEDS: TAMSULOSIN 0.4 MG CAP.ER.24H. PO SCH (08:23)
[2018-04-03] MEDS: INSULIN LISPRO 300 UNITS/3 ML INSULN.PEN. SQ SCH ×6 (08:26→17:49)
--- NOTE | 2018-04-03 09:00 | PDOC ---
PROGRESS NOTES Subjective Subjective No new complaints. Objective Objective Vital Signs Date Time Temp Pulse Resp B/P (MAP) Pulse Ox O2 Delivery O2 Flow Rate FiO2 04/03/18 08:21 82 175/77 04/03/18 07:00 97.5 20 97 Room Air 97.5 Intake and Output 04/03/18 07:00 Intake Total 1100 ml Output Total 300 ml Balance 800 ml Intake Oral 1100 ml Output Urine Total 300 ml # Voids 7 Physical Exam Physical Exam He is alert and comfortable and sitting in bedside chair and eating breakfast and he remains independent with hs mobility at roller walker level. Assessment Assessment Problems Medical Problems: (1) BRAD (acute kidney injury) Status: Acute (2) Hyperglycemia Status: Acute (3) Leukocytosis Status: Acute (4) Pneumonia Status: Acute Plan Plan of Intermediate when medically stable. Comment Review of Relevant I have reviewed the following items do (where applicable) has been applied. Labs Laboratory Tests Test 04/01/18 11:19 04/01/18 17:09 04/01/18 18:56 04/01/18 20:37 Glucose (Fingerstick) 238 mg/dL (70-99) 74 mg/dL (70-99) 148 mg/dL (70-99) 142 mg/dL (70-99) Test 04/02/18 05:50 04/02/18 05:55 04/02/18 08:13 04/02/18 12:19 White Blood Count 6.2 x10^3/uL (4.0-11.0) Red Blood Count 4.91 x10^6/uL (4.30-5.70) Hemoglobin 14.8 g/dL (13.0-17.5) Hematocrit 44.3 % (39.0-53.0) Mean Corpuscular Volume 90 fL (79-100) Mean Corpuscular Hemoglobin 30 pg (25-35) Mean Corpuscular Hemoglobin Concent 33 g/dL (31-37) Red Cell Distribution Width 13.8 % (11.5-14.5) Platelet Count 156 x10^3/uL (140-400) Neutrophils (%) (Auto) 53 % (31-73) Lymphocytes (%) (Auto) 31 % (24-48) Monocytes (%) (Auto) 11 % (0-9) Eosinophils (%) (Auto) 4 % (0-3) Basophils (%) (Auto) 1 % (0-3) Neutrophils # (Auto) 3.3 x10^3uL (1.8-7.7) Lymphocytes # (Auto) 1.9 x10^3/uL (1.0-4.8) Monocytes # (Auto) 0.7 x10^3/uL (0.0-1.1) Eosinophils # (Auto) 0.2 x10^3/uL (0.0-0.7) Basophils # (Auto) 0.1 x10^3/uL (0.0-0.2) Sodium Level 141 mmol/L (136-145) Potassium Level 4.4 mmol/L (3.5-5.1) Chloride Level 107 mmol/L (98-107) Carbon Dioxide Level 29 mmol/L (21-32) Anion Gap 5 (6-14) Blood Urea Nitrogen 26 mg/dL (8-26) Creatinine 1.6 mg/dL (0.7-1.3) Estimated GFR (Cockcroft-Gault) 41.7 BUN/Creatinine Ratio 16 (6-20) Glucose Level 336 mg/dL (70-99) Calcium Level 8.1 mg/dL (8.5-10.1) Total Bilirubin 0.4 mg/dL (0.2-1.0) Aspartate Amino Transf (AST/SGOT) 25 U/L (15-37) Alanine Aminotransferase (ALT/SGPT) 28 U/L (16-63) Alkaline Phosphatase 78 U/L (46-116) Total Protein 6.1 g/dL (6.4-8.2) Albumin 2.4 g/dL (3.4-5.0) Albumin/Globulin Ratio 0.6 (1.0-1.7) Glucose (Fingerstick) 287 mg/dL (70-99) 292 mg/dL (70-99) Test 04/02/18 17:11 04/02/18 17:12 04/02/18 17:32 04/02/18 20:48 Glucose (Fingerstick) 41 mg/dL (70-99) 41 mg/dL (70-99) 121 mg/dL (70-99) 173 mg/dL (70-99) Test 04/03/18 08:11 Glucose (Fingerstick) 328 mg/dL (70-99) Laboratory Tests Test 04/02/18 12:19 04/02/18 17:11 04/02/18 17:12 04/02/18 17:32 Glucose (Fingerstick) 292 mg/dL (70-99) 41 mg/dL (70-99) 41 mg/dL (70-99) 121 mg/dL (70-99) Test 04/02/18 20:48 04/03/18 08:11 Glucose (Fingerstick) 173 mg/dL (70-99) 328 mg/dL (70-99) Microbiology 03/29/18 Blood Culture - Preliminary, Resulted NO GROWTH AFTER 4 DAYS Medications Current Medications Sodium Chloride 1,000 ml @ 1,000 mls/hr 1X ONCE IV Last administered on at 22:05; Start 03/29/18 at 22:00; Stop 03/29/18 at 22:59; Status DC Sodium Chloride 1,000 ml @ 1,000 mls/hr 1X ONCE IV Last administered on at 22:43; Start 03/29/18 at 22:15; Stop 03/29/18 at 23:14; Status DC Insulin Human Regular 150 unit/ Sodium Chloride 151.5 ml @ 0 mls/hr CONT PRN IV SEE I/O RECORD; Start 03/29/18 at 22:30; Stop 03/29/18 at 22:58; Status DC Insulin Human Regular (HumuLIN R VIAL) 10 unit 1X ONCE IV Last administered on 03/29/18at 22:42; Start 03/29/18 at 22:15; Stop 03/29/18 at 22:16; Status DC Ceftriaxone Sodium 50 ml @ 100 mls/hr 1X ONCE IV Last administered on at 23:15; Start 03/29/18 at 23:15; Stop 03/29/18 at 23:44; Status DC Azithromycin 500 mg/Sodium Chloride 250 ml @ 250 mls/hr 1X ONCE IV Last administered on 03/29/18at 23:42; Start 03/29/18 at 23:00; Stop 03/29/18 at 23:59; Status DC Ondansetron HCl (Zofran) 4 mg PRN Q8HRS PRN IV NAUSEA/VOMITING; Start 03/29/18 at 23:55; Stop 03/30/18 at 23:54; Status DC Fentanyl Citrate (Fentanyl 2ml Vial) 50 mcg PRN Q1HR PRN IV PAIN; Start at 23:45; Stop 03/30/18 at 23:44; Status DC Acetaminophen (Tylenol) 650 mg PRN Q4HRS PRN PO FEVER; Start 03/29/18 at 23:45; Stop 03/30/18 at 23:44; Status DC Acetaminophen (Tylenol) 1,000 mg 1X ONCE PO Last administered on 03/29/18at 23: 58; Start 03/29/18 at 23:45; Stop 03/30/18 at 00:01; Status DC Sodium Chloride 1,000 ml @ 100 mls/hr 1X ONCE IV Last administered on at 01:45; Start 03/30/18 at 01:45; Stop 03/30/18 at 11:44; Status DC Insulin Human Lispro (HumaLOG) 0-9 UNITS TIDWMEALS SQ Last administered on 04/03at 08:26; Start 03/30/18 at 08:00 Dextrose (Dextrose 50%-Water Syringe) 12.5 gm PRN Q15MIN PRN IV SEE COMMENTS; Start 03/30/18 at 07:45 Insulin Glargine (Lantus) 14 units DAILY SQ Last administered on 03/30/18at 08:25 ; Start 03/30/18 at 08:00; Stop 03/30/18 at 10:12; Status DC Insulin Human Lispro (HumaLOG) 10 units TIDWMEALS SQ Last administered on at 08:25; Start 03/30/18 at 08:00; Stop 03/30/18 at 12:04; Status DC Aspirin (Dorothy Aspirin) 325 mg DAILY PO Last administered on 03/30/18at 10:27; Start 03/30/18 at 11:00; Stop 03/31/18 at 12:42; Status DC Atenolol (Tenormin) 75 mg DAILY PO Last administered on 04/03/18at 08:21; Start 03/30/18 at 11:00 Furosemide (Lasix) 40 mg DAILY PO Last administered on 04/03/18at 08:19; Start 03/30/18 at 11:00 Glipizide (Glucotrol) 5 mg DAILY PO Last administered on 04/03/18 08:22; Start 03/30/18 at 11:00 Rivaroxaban (Xarelto) 15 mg DAILY PO Last administered on 04/03/18 08:19; Start 03/30/18 at 11:00 Tamsulosin HCl (Flomax) 0.4 mg DAILY PO Last administered on 04/03/18 08:23; Start 03/30/18 at 11:00 Tramadol HCl (Ultram) 50 mg TID PRN PRN PO MILD PAIN; Start 03/30/18 at 10:15 Triamcinolone Acetonide (Kenalog) 1 maria isabel DAILY TP Last administered on at 09:41; Start 03/30/18 at 11:00 Insulin Glargine (Lantus) 20 units QHS SQ ; Start 03/30/18 at 21:00; Stop at 16:15; Status DC Levothyroxine Sodium (Synthroid) 25 mcg DAILY07 PO Last administered on at 06:09; Start 03/30/18 at 11:00 Miconazole Nitrate (Desenex) 1 maria isabel PRN BID PRN TP YEAST; Start 03/30/18 at 21:00 Pantoprazole Sodium (Protonix) 40 mg DAILYAC PO Last administered on 04/03/18 08:22; Start 03/30/18 at 12:00 Multi-Ingredient Mouthwash/Gargle (Gi Cocktail) 20 ml PRN QID PRN PO abd pain Last administered on 03/30/18 14:24; Start 03/30/18 at 12:00 Insulin Human Lispro (HumaLOG) 14 units TIDWMEALS SQ Last administered on at 12:24; Start 03/30/18 at 17:00; Stop 03/31/18 at 16:15; Status DC Insulin Human Lispro (HumaLOG) 26 units 1X ONCE SQ Last administered on at 12:26; Start 03/30/18 at 12:15; Stop 03/30/18 at 12:16; Status DC Micafungin Sodium 100 mg/Dextrose 100 ml @ 100 mls/hr Q24H IV Last administered on 04/02/18at 15:33; Start 03/30/18 at 13:00 Piperacillin Sod/ Tazobactam Sod 3.375 gm/Sodium Chloride 50 ml @ 100 mls/hr Q6HRS IV Last administered on 04/02/18 06:12; Start 03/30/18 at 13:00; Stop 08/08 at 09:03; Status DC Gabapentin (Neurontin) 100 mg TID PO Last administered on 04/03/18 08:22; Start 03/30/18 at 14:00 Insulin Human Lispro (HumaLOG) 26 units 1X ONCE SQ Last administered on 14:27; Start 03/30/18 at 14:30; Stop 03/30/18 at 14:31; Status DC Lactobacillus Rhamnosus (Culturelle) 1 cap BID PO Last administered on 08:22; Start 03/30/18 at 21:00 Atorvastatin Calcium (Lipitor) 20 mg QHS PO Last administered on 04/02/18 20: 51; Start 03/31/18 at 21:00 Aspirin (Ecotrin) 81 mg DAILYWBKFT PO Last administered on 04/03/18 08:19; Start 04/01/18 at 08:00 Info (Anti-Coagulation Monitoring By Pharmacy) 1 each PRN DAILY PRN MC SEE COMMENTS Last administered on 04/02/18 14:20; Start 03/31/18 at 13:00 Insulin Glargine (Lantus) 25 units QHS SQ Last administered on 03/31/18 21:33 ; Start 03/31/18 at 21:00; Stop 04/01/18 at 15:03; Status DC Insulin Human Lispro (HumaLOG) 18 units TIDWMEALS SQ Last administered on 08:27; Start 03/31/18 at 17:00 Insulin Glargine (Lantus) 30 units QHS SQ Last administered on 04/02/18 20:51 ; Start 04/01/18 at 21:00 Linezolid (Zyvox) 600 mg BID PO Last administered on 04/03/18 08:21; Start 08/08 at 09:15 Amoxicillin/ Clavulanate Potassium (Augmentin 875/ 125mg) 1 tab BID PO Last administered on 04/03/18at 08:22; Start 8/12/18 at 09:30 Active Scripts Active Reported Aspirin 325 Mg Tablet 1 Tab PO DAILY Triamcinolone Acetonide 0.1% Oint (Triamcinolone Acetonide) 15 Gm Oint...g. 1 Maria Isabel TP PRN MIX WITH EUCERIN DIRECTED BY PHYSICIAN Tramadol Hcl 50 Mg Tablet 50 Mg PO TID PRN Flomax (Tamsulosin Hcl) 0.4 Mg Cap.er.24h 1 Cap PO DAILY Xarelto (Rivaroxaban) 15 Mg Tablet 15 Mg PO DAILY Nystatin 15 Gm Oint...g. 1 Maria Isabel TP PRN Mupirocin Ointment (Mupirocin) 22 Gm Oint...g. 1 Maria Isabel TP PRN Miconazole Nitrate 130 Gm Aero.powd 130 Gm TP PRN Levothyroxine Sodium 25 Mcg Tablet 1 Tab PO DAILY Levemir (Insulin Detemir) 100 Unit/1 Ml Vial 20 Unit SQ HS Glipizide 5 Mg Tablet 1 Tab PO DAILY Lasix (Furosemide) 40 Mg Tablet 40 Mg PO DAILY Atenolol 50 Mg Tablet 75 Mg PO DAILY Vitals/I & O Vital Sign - Last 24 Hours 04/02/18 04/02/18 04/02/18 04/02/18 09:40 11:05 15:56 19:46 Temp 97.5 97.5 96.1 97.5 97.5 96.1 Pulse 82 80 81 80 Resp 20 22 20 B/P (MAP) 166/80 138/78 (98) 135/80 (98) 149/65 (93) Pulse Ox 97 100 98 O2 Delivery Room Air Room Air Room Air 04/02/18 04/02/18 04/03/18 04/03/18 20:00 23:02 03:28 07:00 Temp 97.7 97.4 97.5 97.7 97.4 97.5 Pulse 79 79 82 Resp 20 20 20 B/P (MAP) 133/64 (87) 138/71 (93) 175/77 (109) Pulse Ox 98 99 97 O2 Delivery Room Air Room Air Room Air Room Air 04/03/18 08:21 Pulse 82 B/P (MAP) 175/77 Intake and Output 04/02/18 04/02/18 04/03/18 15:00 23:00 07:00 Intake Total 500 ml 600 ml Output Total 300 ml Balance 500 ml 300 ml YONAS BONDS MD Apr 03, 2018 09:00
--- NOTE | 2018-04-03 09:37 | PDOC ---
PROGRESS NOTES Chief Complaint Chief Complaint nausea and vomiting, abd pain, better, eating well cellulitis of LLE Left foot weakNEss and numbness, sensation intact, Dm2, poor control, noncompliance past 3 months Morbid obesity, BMI 40 chronic sacral ulcer, stage 2, try to unload weakness and debility, IMPROVING UNCONTROLLED DIABETES A1C > 12, NEEDS DIABETIC TEACHING History of Present Illness History of Present Illness GES neg he looks and feels better str imrproved, but will need SNU he told me we wanted to go today right after he was seated on side of the bed and urinated all over the floor. Vitals Vitals Vital Signs Date Time Temp Pulse Resp B/P (MAP) Pulse Ox O2 Delivery O2 Flow Rate FiO2 04/03/18 08:21 82 175/77 04/03/18 08:00 Room Air 04/03/18 07:00 97.5 20 97 97.5 Physical Exam Physical Exam CONSTITUTIONAL: He is alert, cooperative. He is in no acute distress. He is obese. in chair HEENT: Pupils equal and reactive. Normal conjunctivae. Oral cavity, pharynx is clear. He has some chronic lip changes. dentures NECK: Supple. No JVD. LUNGS: Clear to auscultation. HEART: S1, S2. 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 ABDOMEN: Obese, soft and nontender. No guarding. No rebound. EXTREMITIES: Without clubbing or cyanosis. He has bilateral lower extremity non-pitting edema, still 2 plus. He also has severe tenia, both feet. Both lower legs have some chronic venous stasis changes, but his left lower extremity has improved erythema, Still some warmth but better and some tracking up the medial thigh that has improved. Rooke boots NEUROLOGIC: He is nonfocal, moves all extremities. PSYCHIATRIC: Affect is pleasant. SKIN: no Rash. Buttock wound stage 1 General: Alert, Oriented X3, Cooperative, No acute distress, mild distress Heart: Regular rate, Normal S1 Lungs: Clear Abdomen: Normal bowel sounds Extremities: No cyanosis, Other (2-3+ bilateral LE pitting edema; LLE cellulitis) Skin: No breakdown Labs LABS Radionuclide gastric emptying study, 03/31/2018: HISTORY: Nausea The study was performed utilizing a solid test meal radiolabeled with 2.1 mCi of technetium 99m sulfur colloid. The following gastric retention values were obtained: 1 hour-51 percent 2 hours-46 percent 3 hours-32 percent 4 hours-6 percent. These values are considered to be within normal limits. A T1/2 of 67 minutes was also calculated which is within normal limits. IMPRESSION: Normal radionuclide gastric emptying study. Electronically signed by: Manoj Davis MD (03/31/2018 1:17 PM) [facility] Laboratory Tests Test 04/02/18 12:19 04/02/18 17:11 04/02/18 17:12 04/02/18 17:32 Glucose (Fingerstick) 292 mg/dL (70-99) 41 mg/dL (70-99) 41 mg/dL (70-99) 121 mg/dL (70-99) Test 04/02/18 20:48 04/03/18 08:11 Glucose (Fingerstick) 173 mg/dL (70-99) 328 mg/dL (70-99) Assessment and Plan Assessmemt and Plan Problems Medical Problems: (1) BRAD (acute kidney injury) Status: Acute (2) Hyperglycemia Status: Acute (3) Leukocytosis Status: Acute (4) Pneumonia Status: Acute Comment Review of Relevant I have reviewed the following items do (where applicable) has been applied. Labs Laboratory Tests Test 04/01/18 11:19 04/01/18 17:09 04/01/18 18:56 04/01/18 20:37 Glucose (Fingerstick) 238 mg/dL (70-99) 74 mg/dL (70-99) 148 mg/dL (70-99) 142 mg/dL (70-99) Test 04/02/18 05:50 04/02/18 05:55 04/02/18 08:13 04/02/18 12:19 White Blood Count 6.2 x10^3/uL (4.0-11.0) Red Blood Count 4.91 x10^6/uL (4.30-5.70) Hemoglobin 14.8 g/dL (13.0-17.5) Hematocrit 44.3 % (39.0-53.0) Mean Corpuscular Volume 90 fL (79-100) Mean Corpuscular Hemoglobin 30 pg (25-35) Mean Corpuscular Hemoglobin Concent 33 g/dL (31-37) Red Cell Distribution Width 13.8 % (11.5-14.5) Platelet Count 156 x10^3/uL (140-400) Neutrophils (%) (Auto) 53 % (31-73) Lymphocytes (%) (Auto) 31 % (24-48) Monocytes (%) (Auto) 11 % (0-9) Eosinophils (%) (Auto) 4 % (0-3) Basophils (%) (Auto) 1 % (0-3) Neutrophils # (Auto) 3.3 x10^3uL (1.8-7.7) Lymphocytes # (Auto) 1.9 x10^3/uL (1.0-4.8) Monocytes # (Auto) 0.7 x10^3/uL (0.0-1.1) Eosinophils # (Auto) 0.2 x10^3/uL (0.0-0.7) Basophils # (Auto) 0.1 x10^3/uL (0.0-0.2) Sodium Level 141 mmol/L (136-145) Potassium Level 4.4 mmol/L (3.5-5.1) Chloride Level 107 mmol/L (98-107) Carbon Dioxide Level 29 mmol/L (21-32) Anion Gap 5 (6-14) Blood Urea Nitrogen 26 mg/dL (8-26) Creatinine 1.6 mg/dL (0.7-1.3) Estimated GFR (Cockcroft-Gault) 41.7 BUN/Creatinine Ratio 16 (6-20) Glucose Level 336 mg/dL (70-99) Calcium Level 8.1 mg/dL (8.5-10.1) Total Bilirubin 0.4 mg/dL (0.2-1.0) Aspartate Amino Transf (AST/SGOT) 25 U/L (15-37) Alanine Aminotransferase (ALT/SGPT) 28 U/L (16-63) Alkaline Phosphatase 78 U/L (46-116) Total Protein 6.1 g/dL (6.4-8.2) Albumin 2.4 g/dL (3.4-5.0) Albumin/Globulin Ratio 0.6 (1.0-1.7) Glucose (Fingerstick) 287 mg/dL (70-99) 292 mg/dL (70-99) Test 04/02/18 17:11 04/02/18 17:12 04/02/18 17:32 04/02/18 20:48 Glucose (Fingerstick) 41 mg/dL (70-99) 41 mg/dL (70-99) 121 mg/dL (70-99) 173 mg/dL (70-99) Test 04/03/18 08:11 Glucose (Fingerstick) 328 mg/dL (70-99) Laboratory Tests Test 04/02/18 12:19 04/02/18 17:11 04/02/18 17:12 04/02/18 17:32 Glucose (Fingerstick) 292 mg/dL (70-99) 41 mg/dL (70-99) 41 mg/dL (70-99) 121 mg/dL (70-99) Test 04/02/18 20:48 04/03/18 08:11 Glucose (Fingerstick) 173 mg/dL (70-99) 328 mg/dL (70-99) Microbiology 03/29/18 Blood Culture - Preliminary, Resulted NO GROWTH AFTER 4 DAYS Medications Current Medications Sodium Chloride 1,000 ml @ 1,000 mls/hr 1X ONCE IV Last administered on at 22:05; Start 03/29/18 at 22:00; Stop 03/29/18 at 22:59; Status DC Sodium Chloride 1,000 ml @ 1,000 mls/hr 1X ONCE IV Last administered on at 22:43; Start 03/29/18 at 22:15; Stop 03/29/18 at 23:14; Status DC Insulin Human Regular 150 unit/ Sodium Chloride 151.5 ml @ 0 mls/hr CONT PRN IV SEE I/O RECORD; Start 03/29/18 at 22:30; Stop 03/29/18 at 22:58; Status DC Insulin Human Regular (HumuLIN R VIAL) 10 unit 1X ONCE IV Last administered on 03/29/18at 22:42; Start 03/29/18 at 22:15; Stop 03/29/18 at 22:16; Status DC Ceftriaxone Sodium 50 ml @ 100 mls/hr 1X ONCE IV Last administered on at 23:15; Start 03/29/18 at 23:15; Stop 03/29/18 at 23:44; Status DC Azithromycin 500 mg/Sodium Chloride 250 ml @ 250 mls/hr 1X ONCE IV Last administered on 03/29/18at 23:42; Start 03/29/18 at 23:00; Stop 03/29/18 at 23:59; Status DC Ondansetron HCl (Zofran) 4 mg PRN Q8HRS PRN IV NAUSEA/VOMITING; Start 03/29/18 at 23:55; Stop 03/30/18 at 23:54; Status DC Fentanyl Citrate (Fentanyl 2ml Vial) 50 mcg PRN Q1HR PRN IV PAIN; Start at 23:45; Stop 03/30/18 at 23:44; Status DC Acetaminophen (Tylenol) 650 mg PRN Q4HRS PRN PO FEVER; Start 03/29/18 at 23:45; Stop 03/30/18 at 23:44; Status DC Acetaminophen (Tylenol) 1,000 mg 1X ONCE PO Last administered on 03/29/18at 23: 58; Start 03/29/18 at 23:45; Stop 03/30/18 at 00:01; Status DC Sodium Chloride 1,000 ml @ 100 mls/hr 1X ONCE IV Last administered on at 01:45; Start 03/30/18 at 01:45; Stop 03/30/18 at 11:44; Status DC Insulin Human Lispro (HumaLOG) 0-9 UNITS TIDWMEALS SQ Last administered on 04/03at 08:26; Start 03/30/18 at 08:00 Dextrose (Dextrose 50%-Water Syringe) 12.5 gm PRN Q15MIN PRN IV SEE COMMENTS; Start 03/30/18 at 07:45 Insulin Glargine (Lantus) 14 units DAILY SQ Last administered on 03/30/18at 08:25 ; Start 03/30/18 at 08:00; Stop 03/30/18 at 10:12; Status DC Insulin Human Lispro (HumaLOG) 10 units TIDWMEALS SQ Last administered on at 08:25; Start 03/30/18 at 08:00; Stop 03/30/18 at 12:04; Status DC Aspirin (Dorothy Aspirin) 325 mg DAILY PO Last administered on 03/30/18at 10:27; Start 03/30/18 at 11:00; Stop 03/31/18 at 12:42; Status DC Atenolol (Tenormin) 75 mg DAILY PO Last administered on 04/03/18 08:21; Start 03/30/18 at 11:00 Furosemide (Lasix) 40 mg DAILY PO Last administered on 04/03/18 08:19; Start 03/30/18 at 11:00 Glipizide (Glucotrol) 5 mg DAILY PO Last administered on 04/03/18 08:22; Start 03/30/18 at 11:00 Rivaroxaban (Xarelto) 15 mg DAILY PO Last administered on 04/03/18 08:19; Start 03/30/18 at 11:00 Tamsulosin HCl (Flomax) 0.4 mg DAILY PO Last administered on 04/03/18 08:23; Start 03/30/18 at 11:00 Tramadol HCl (Ultram) 50 mg TID PRN PRN PO MILD PAIN; Start 03/30/18 at 10:15 Triamcinolone Acetonide (Kenalog) 1 maria isabel DAILY TP Last administered on at 09:41; Start 03/30/18 at 11:00 Insulin Glargine (Lantus) 20 units QHS SQ ; Start 03/30/18 at 21:00; Stop at 16:15; Status DC Levothyroxine Sodium (Synthroid) 25 mcg DAILY07 PO Last administered on 06:09; Start 03/30/18 at 11:00 Miconazole Nitrate (Desenex) 1 maria isabel PRN BID PRN TP YEAST; Start 03/30/18 at 21:00 Pantoprazole Sodium (Protonix) 40 mg DAILYAC PO Last administered on 04/03/18at 08:22; Start 03/30/18 at 12:00 Multi-Ingredient Mouthwash/Gargle (Gi Cocktail) 20 ml PRN QID PRN PO abd pain Last administered on 03/30/18 14:24; Start 03/30/18 at 12:00 Insulin Human Lispro (HumaLOG) 14 units TIDWMEALS SQ Last administered on at 12:24; Start 03/30/18 at 17:00; Stop 03/31/18 at 16:15; Status DC Insulin Human Lispro (HumaLOG) 26 units 1X ONCE SQ Last administered on at 12:26; Start 03/30/18 at 12:15; Stop 03/30/18 at 12:16; Status DC Micafungin Sodium 100 mg/Dextrose 100 ml @ 100 mls/hr Q24H IV Last administered on 04/02/18 15:33; Start 03/30/18 at 13:00 Piperacillin Sod/ Tazobactam Sod 3.375 gm/Sodium Chloride 50 ml @ 100 mls/hr Q6HRS IV Last administered on 04/02/18 06:12; Start 03/30/18 at 13:00; Stop 08/08 at 09:03; Status DC Gabapentin (Neurontin) 100 mg TID PO Last administered on 04/03/18 08:22; Start 03/30/18 at 14:00 Insulin Human Lispro (HumaLOG) 26 units 1X ONCE SQ Last administered on 14:27; Start 03/30/18 at 14:30; Stop 03/30/18 at 14:31; Status DC Lactobacillus Rhamnosus (Culturelle) 1 cap BID PO Last administered on 08:22; Start 03/30/18 at 21:00 Atorvastatin Calcium (Lipitor) 20 mg QHS PO Last administered on 04/02/18 20: 51; Start 03/31/18 at 21:00 Aspirin (Ecotrin) 81 mg DAILYWBKFT PO Last administered on 04/03/18 08:19; Start 04/01/18 at 08:00 Info (Anti-Coagulation Monitoring By Pharmacy) 1 each PRN DAILY PRN MC SEE COMMENTS Last administered on 04/02/18 14:20; Start 03/31/18 at 13:00 Insulin Glargine (Lantus) 25 units QHS SQ Last administered on 03/31/18 21:33 ; Start 03/31/18 at 21:00; Stop 04/01/18 at 15:03; Status DC Insulin Human Lispro (HumaLOG) 18 units TIDWMEALS SQ Last administered on 08:27; Start 03/31/18 at 17:00 Insulin Glargine (Lantus) 30 units QHS SQ Last administered on 04/02/18 20:51 ; Start 04/01/18 at 21:00 Linezolid (Zyvox) 600 mg BID PO Last administered on 04/03/18at 08:21; Start 08/08 at 09:15 Amoxicillin/ Clavulanate Potassium (Augmentin 875/ 125mg) 1 tab BID PO Last administered on 04/03/18at 08:22; Start 04/02/18 at 09:30 Active Scripts Active Reported Aspirin 325 Mg Tablet 1 Tab PO DAILY Triamcinolone Acetonide 0.1% Oint (Triamcinolone Acetonide) 15 Gm Oint...g. 1 Maria Isabel TP PRN MIX WITH EUCERIN DIRECTED BY PHYSICIAN Tramadol Hcl 50 Mg Tablet 50 Mg PO TID PRN Flomax (Tamsulosin Hcl) 0.4 Mg Cap.er.24h 1 Cap PO DAILY Xarelto (Rivaroxaban) 15 Mg Tablet 15 Mg PO DAILY Nystatin 15 Gm Oint...g. 1 Maria Isabel TP PRN Mupirocin Ointment (Mupirocin) 22 Gm Oint...g. 1 Maria Isabel TP PRN Miconazole Nitrate 130 Gm Aero.powd 130 Gm TP PRN Levothyroxine Sodium 25 Mcg Tablet 1 Tab PO DAILY Levemir (Insulin Detemir) 100 Unit/1 Ml Vial 20 Unit SQ HS Glipizide 5 Mg Tablet 1 Tab PO DAILY Lasix (Furosemide) 40 Mg Tablet 40 Mg PO DAILY Atenolol 50 Mg Tablet 75 Mg PO DAILY Vitals/I & O Vital Sign - Last 24 Hours 04/02/18 04/02/18 04/02/18 04/02/18 09:40 11:05 15:56 19:46 Temp 97.5 97.5 96.1 97.5 97.5 96.1 Pulse 82 80 81 80 Resp 20 22 20 B/P (MAP) 166/80 138/78 (98) 135/80 (98) 149/65 (93) Pulse Ox 97 100 98 O2 Delivery Room Air Room Air Room Air 04/02/18 04/02/18 04/03/18 04/03/18 20:00 23:02 03:28 07:00 Temp 97.7 97.4 97.5 97.7 97.4 97.5 Pulse 79 79 82 Resp 20 20 20 B/P (MAP) 133/64 (87) 138/71 (93) 175/77 (109) Pulse Ox 98 99 97 O2 Delivery Room Air Room Air Room Air Room Air 04/03/18 04/03/18 08:00 08:21 Pulse 82 B/P (MAP) 175/77 O2 Delivery Room Air Intake and Output 04/02/18 04/02/18 04/03/18 15:00 23:00 07:00 Intake Total 500 ml 600 ml Output Total 300 ml Balance 500 ml 300 ml FRANCISCO JARAMILLO MD Apr 03, 2018 09:37
[2018-04-03] MEDS: TRIAMCINOLONE ACETONIDE 0.1% TOPICAL OINTMENT 15GM TUBE. TP SCH (10:23)
[2018-04-03 11:00] VITALS: BP 149/95
--- NOTE | 2018-04-03 11:26 | PDOC ---
Subjective: Subjective: No GI complaints. Denies n/v and abd pain. Mushy stools - better. Watching a replay of the [employer] game - he is a lifelong [employer] fan and tells me he used to wait outside the stadium for autographs. Objective: Objective: No GI concerns per RN. Reviewed notes - [facility]? Vital Signs: Vital Signs Date Time Temp Pulse Resp B/P (MAP) Pulse Ox O2 Delivery O2 Flow Rate FiO2 04/03/18 08:21 82 175/77 04/03/18 08:00 Room Air 04/03/18 07:00 97.5 20 97 97.5 Labs: Laboratory Tests Test 04/02/18 12:19 04/02/18 17:11 04/02/18 17:12 04/02/18 17:32 Glucose (Fingerstick) 292 mg/dL 41 mg/dL 41 mg/dL 121 mg/dL Test 04/02/18 20:48 04/03/18 08:11 Glucose (Fingerstick) 173 mg/dL 328 mg/dL Imaging: GES 03/31 1 hour-51 percent 2 hours-46 percent 3 hours-32 percent 4 hours-6 percent. These values are considered to be within normal limits. A T1/2 of 67 minutes was also calculated which is within normal limits. IMPRESSION: Normal radionuclide gastric emptying study. LE Duplex 04/02/18 IMPRESSION: There is no sonographic evidence of deep vein thrombosis in either lower extremity. PE: GEN: NAD, up to chair LUNGS: CTAB HEART: RRR ABD: round, non-tender, BS+ NEURO/PSYCH: A & O 3 A/P: N/v, upper abd discomfort - resolved, GES WNL LLE cellulitis (atbx per ID) HTN, DM, CKD -- GI issues resolved. Okay to continue PPI. DC per primary. MICHAEL BERKOWITZ Apr 03, 2018 11:26
--- NOTE | 2018-04-03 11:46 | PDOC ---
Infectious Disease Note Subjective Subjective feeling better, does have gluteal pain ROS ROS no n/v/d/sob Vital Sign Vital Signs Vital Signs Date Time Temp Pulse Resp B/P (MAP) Pulse Ox O2 Delivery O2 Flow Rate FiO2 04/03/18 08:21 82 175/77 04/03/18 08:00 Room Air 04/03/18 07:00 97.5 20 97 97.5 Physical Exam PHYSICAL EXAM CONSTITUTIONAL: He is alert, cooperative. He is in no acute distress. He is obese. in chair HEENT: Pupils equal and reactive. Normal conjunctivae. Oral cavity, pharynx is clear. He has some chronic lip changes. dentures NECK: Supple. No JVD. LUNGS: Clear to auscultation. HEART: S1, S2. 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 ABDOMEN: Obese, soft and nontender. No guarding. No rebound. EXTREMITIES: Without clubbing or cyanosis. He has bilateral lower extremity non-pitting edema, still 2 plus. He also has severe tenia, both feet. Both lower legs have some chronic venous stasis changes, but his left lower extremity has improved erythema, Still some warmth but better and some tracking up the medial thigh that has improved. Rooke boots NEUROLOGIC: He is nonfocal, moves all extremities. PSYCHIATRIC: Affect is pleasant. SKIN: no Rash. Buttock wound stage 1 Labs Lab Laboratory Tests Test 04/02/18 12:19 04/02/18 17:11 04/02/18 17:12 04/02/18 17:32 Glucose (Fingerstick) 292 mg/dL (70-99) 41 mg/dL (70-99) 41 mg/dL (70-99) 121 mg/dL (70-99) Test 04/02/18 20:48 04/03/18 08:11 Glucose (Fingerstick) 173 mg/dL (70-99) 328 mg/dL (70-99) Micro Microbiology 03/29/18 Blood Culture - Preliminary, Resulted NO GROWTH AFTER 4 DAYS Objective Assessment Fever - better Bandemia LLE cellulitis - mild redness today - has been in bed he says for almost 4 hours Tinea lactic acidosis - resolved BRAD - stable DM N/V - better Stage 1 CHF - EF 35 - 40 % Plan Plan of Care Augmentin. d/c micafungin - F/u labs and cults Encouraged off loading Needs compression but marcia check U/S first ok to d/c off load d/w pt MEJIA MARTINEZ MD Apr 03, 2018 11:46
[2018-04-03] MEDS: ANTI-COAG MONITOR BY PHARMACY. MC PRN (14:47)
[2018-04-03 15:00] VITALS: BP 149/74
--- NOTE | 2018-04-03 16:29 | PDOC ---
PROGRESS NOTES Subjective Subjective Patient seen and examined He looks and feels better today. Objective Objective Vital Signs Date Time Temp Pulse Resp B/P (MAP) Pulse Ox O2 Delivery O2 Flow Rate FiO2 04/03/18 15:00 97.7 80 16 149/74 (99) 96 Room Air 97.7 Intake and Output 04/03/18 07:00 Intake Total 1100 ml Output Total 300 ml Balance 800 ml Intake Oral 1100 ml Output Urine Total 300 ml # Voids 7 Physical Exam Abdomen: Normal bowel sounds Heart: Regular rate General: mild distress Lungs: Other (mildly decreased breath sounds) Assessment Assessment Problems Medical Problems: (1) BRAD (acute kidney injury) Status: Acute (2) Hyperglycemia Status: Acute (3) Leukocytosis Status: Acute (4) Pneumonia Status: Acute History of previous bypass surgery. No chest pain. Last heart catheter approximately 5 years ago. The patient looks and feels better. Continuing present treatment. Compensated diastolic heart failure. 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 SOLE one year. Underlying atrial flutter. Paced 95% on interrogation. Continuing anticoagulation and rate control. Hypothyroidism. Continue present treatments. Controlled hypertension. Diabetes mellitus. Noncompliance. As per the primary service. Cellulitis. Antibiotics as per ID. Chronic renal disease. Followed by the renal service. Comment Review of Relevant I have reviewed the following items do (where applicable) has been applied. Labs Laboratory Tests Test 04/01/18 17:09 04/01/18 18:56 04/01/18 20:37 04/02/18 05:50 Glucose (Fingerstick) 74 mg/dL (70-99) 148 mg/dL (70-99) 142 mg/dL (70-99) White Blood Count 6.2 x10^3/uL (4.0-11.0) Red Blood Count 4.91 x10^6/uL (4.30-5.70) Hemoglobin 14.8 g/dL (13.0-17.5) Hematocrit 44.3 % (39.0-53.0) Mean Corpuscular Volume 90 fL (79-100) Mean Corpuscular Hemoglobin 30 pg (25-35) Mean Corpuscular Hemoglobin Concent 33 g/dL (31-37) Red Cell Distribution Width 13.8 % (11.5-14.5) Platelet Count 156 x10^3/uL (140-400) Neutrophils (%) (Auto) 53 % (31-73) Lymphocytes (%) (Auto) 31 % (24-48) Monocytes (%) (Auto) 11 % (0-9) Eosinophils (%) (Auto) 4 % (0-3) Basophils (%) (Auto) 1 % (0-3) Neutrophils # (Auto) 3.3 x10^3uL (1.8-7.7) Lymphocytes # (Auto) 1.9 x10^3/uL (1.0-4.8) Monocytes # (Auto) 0.7 x10^3/uL (0.0-1.1) Eosinophils # (Auto) 0.2 x10^3/uL (0.0-0.7) Basophils # (Auto) 0.1 x10^3/uL (0.0-0.2) Test 04/02/18 05:55 04/02/18 08:13 04/02/18 12:19 04/02/18 17:11 Sodium Level 141 mmol/L (136-145) Potassium Level 4.4 mmol/L (3.5-5.1) Chloride Level 107 mmol/L (98-107) Carbon Dioxide Level 29 mmol/L (21-32) Anion Gap 5 (6-14) Blood Urea Nitrogen 26 mg/dL (8-26) Creatinine 1.6 mg/dL (0.7-1.3) Estimated GFR (Cockcroft-Gault) 41.7 BUN/Creatinine Ratio 16 (6-20) Glucose Level 336 mg/dL (70-99) Calcium Level 8.1 mg/dL (8.5-10.1) Total Bilirubin 0.4 mg/dL (0.2-1.0) Aspartate Amino Transf (AST/SGOT) 25 U/L (15-37) Alanine Aminotransferase (ALT/SGPT) 28 U/L (16-63) Alkaline Phosphatase 78 U/L (46-116) Total Protein 6.1 g/dL (6.4-8.2) Albumin 2.4 g/dL (3.4-5.0) Albumin/Globulin Ratio 0.6 (1.0-1.7) Glucose (Fingerstick) 287 mg/dL (70-99) 292 mg/dL (70-99) 41 mg/dL (70-99) Test 04/02/18 17:12 04/02/18 17:32 04/02/18 20:48 04/03/18 08:11 Glucose (Fingerstick) 41 mg/dL (70-99) 121 mg/dL (70-99) 173 mg/dL (70-99) 328 mg/dL (70-99) Test 04/03/18 12:07 04/03/18 15:40 Glucose (Fingerstick) 140 mg/dL (70-99) 66 mg/dL (70-99) Laboratory Tests Test 04/02/18 17:11 04/02/18 17:12 04/02/18 17:32 04/02/18 20:48 Glucose (Fingerstick) 41 mg/dL (70-99) 41 mg/dL (70-99) 121 mg/dL (70-99) 173 mg/dL (70-99) Test 04/03/18 08:11 04/03/18 12:07 04/03/18 15:40 Glucose (Fingerstick) 328 mg/dL (70-99) 140 mg/dL (70-99) 66 mg/dL (70-99) Microbiology 03/29/18 Blood Culture - Preliminary, Resulted NO GROWTH AFTER 4 DAYS Medications Current Medications Sodium Chloride 1,000 ml @ 1,000 mls/hr 1X ONCE IV Last administered on at 22:05; Start 03/29/18 at 22:00; Stop 03/29/18 at 22:59; Status DC Sodium Chloride 1,000 ml @ 1,000 mls/hr 1X ONCE IV Last administered on at 22:43; Start 03/29/18 at 22:15; Stop 03/29/18 at 23:14; Status DC Insulin Human Regular 150 unit/ Sodium Chloride 151.5 ml @ 0 mls/hr CONT PRN IV SEE I/O RECORD; Start 03/29/18 at 22:30; Stop 03/29/18 at 22:58; Status DC Insulin Human Regular (HumuLIN R VIAL) 10 unit 1X ONCE IV Last administered on 03/29/18at 22:42; Start 03/29/18 at 22:15; Stop 03/29/18 at 22:16; Status DC Ceftriaxone Sodium 50 ml @ 100 mls/hr 1X ONCE IV Last administered on at 23:15; Start 03/29/18 at 23:15; Stop 03/29/18 at 23:44; Status DC Azithromycin 500 mg/Sodium Chloride 250 ml @ 250 mls/hr 1X ONCE IV Last administered on 03/29/18at 23:42; Start 03/29/18 at 23:00; Stop 03/29/18 at 23:59; Status DC Ondansetron HCl (Zofran) 4 mg PRN Q8HRS PRN IV NAUSEA/VOMITING; Start 03/29/18 at 23:55; Stop 03/30/18 at 23:54; Status DC Fentanyl Citrate (Fentanyl 2ml Vial) 50 mcg PRN Q1HR PRN IV PAIN; Start at 23:45; Stop 03/30/18 at 23:44; Status DC Acetaminophen (Tylenol) 650 mg PRN Q4HRS PRN PO FEVER; Start 03/29/18 at 23:45; Stop 03/30/18 at 23:44; Status DC Acetaminophen (Tylenol) 1,000 mg 1X ONCE PO Last administered on 03/29/18at 23: 58; Start 03/29/18 at 23:45; Stop 03/30/18 at 00:01; Status DC Sodium Chloride 1,000 ml @ 100 mls/hr 1X ONCE IV Last administered on at 01:45; Start 03/30/18 at 01:45; Stop 03/30/18 at 11:44; Status DC Insulin Human Lispro (HumaLOG) 0-9 UNITS TIDWMEALS SQ Last administered on 04/03at 08:26; Start 03/30/18 at 08:00 Dextrose (Dextrose 50%-Water Syringe) 12.5 gm PRN Q15MIN PRN IV SEE COMMENTS; Start 03/30/18 at 07:45 Insulin Glargine (Lantus) 14 units DAILY SQ Last administered on 03/30/18at 08:25 ; Start 03/30/18 at 08:00; Stop 03/30/18 at 10:12; Status DC Insulin Human Lispro (HumaLOG) 10 units TIDWMEALS SQ Last administered on at 08:25; Start 03/30/18 at 08:00; Stop 03/30/18 at 12:04; Status DC Aspirin (Dorothy Aspirin) 325 mg DAILY PO Last administered on 03/30/18 10:27; Start 03/30/18 at 11:00; Stop 03/31/18 at 12:42; Status DC Atenolol (Tenormin) 75 mg DAILY PO Last administered on 04/03/18 08:21; Start 03/30/18 at 11:00 Furosemide (Lasix) 40 mg DAILY PO Last administered on 04/03/18 08:19; Start 03/30/18 at 11:00 Glipizide (Glucotrol) 5 mg DAILY PO Last administered on 04/03/18 08:22; Start 03/30/18 at 11:00 Rivaroxaban (Xarelto) 15 mg DAILY PO Last administered on 04/03/18 08:19; Start 03/30/18 at 11:00 Tamsulosin HCl (Flomax) 0.4 mg DAILY PO Last administered on 04/03/18 08:23; Start 03/30/18 at 11:00 Tramadol HCl (Ultram) 50 mg TID PRN PRN PO MILD PAIN; Start 03/30/18 at 10:15 Triamcinolone Acetonide (Kenalog) 1 maria isabel DAILY TP Last administered on 10:23; Start 03/30/18 at 11:00 Insulin Glargine (Lantus) 20 units QHS SQ ; Start 03/30/18 at 21:00; Stop at 16:15; Status DC Levothyroxine Sodium (Synthroid) 25 mcg DAILY07 PO Last administered on at 06:09; Start 03/30/18 at 11:00 Miconazole Nitrate (Desenex) 1 maria isabel PRN BID PRN TP YEAST; Start 03/30/18 at 21:00 Pantoprazole Sodium (Protonix) 40 mg DAILYAC PO Last administered on 04/03/18 08:22; Start 03/30/18 at 12:00 Multi-Ingredient Mouthwash/Gargle (Gi Cocktail) 20 ml PRN QID PRN PO abd pain Last administered on 03/30/18 14:24; Start 03/30/18 at 12:00 Insulin Human Lispro (HumaLOG) 14 units TIDWMEALS SQ Last administered on 8/10/ 18at 12:24; Start 03/30/18 at 17:00; Stop 03/31/18 at 16:15; Status DC Insulin Human Lispro (HumaLOG) 26 units 1X ONCE SQ Last administered on at 12:26; Start 03/30/18 at 12:15; Stop 03/30/18 at 12:16; Status DC Micafungin Sodium 100 mg/Dextrose 100 ml @ 100 mls/hr Q24H IV Last administered on 04/02/18at 15:33; Start 03/30/18 at 13:00; Stop 04/03/18 at 11:47 ; Status DC Piperacillin Sod/ Tazobactam Sod 3.375 gm/Sodium Chloride 50 ml @ 100 mls/hr Q6HRS IV Last administered on 04/02/18 06:12; Start 03/30/18 at 13:00; Stop 08/08 at 09:03; Status DC Gabapentin (Neurontin) 100 mg TID PO Last administered on 04/03/18at 13:45; Start 03/30/18 at 14:00 Insulin Human Lispro (HumaLOG) 26 units 1X ONCE SQ Last administered on 14:27; Start 03/30/18 at 14:30; Stop 03/30/18 at 14:31; Status DC Lactobacillus Rhamnosus (Culturelle) 1 cap BID PO Last administered on at 08:22; Start 03/30/18 at 21:00 Atorvastatin Calcium (Lipitor) 20 mg QHS PO Last administered on 04/02/18at 20: 51; Start 03/31/18 at 21:00 Aspirin (Ecotrin) 81 mg DAILYWBKFT PO Last administered on 04/03/18at 08:19; Start 04/01/18 at 08:00 Info (Anti-Coagulation Monitoring By Pharmacy) 1 each PRN DAILY PRN MC SEE COMMENTS Last administered on 04/03/18at 14:47; Start 03/31/18 at 13:00 Insulin Glargine (Lantus) 25 units QHS SQ Last administered on 03/31/18at 21:33 ; Start 03/31/18 at 21:00; Stop 04/01/18 at 15:03; Status DC Insulin Human Lispro (HumaLOG) 18 units TIDWMEALS SQ Last administered on at 12:13; Start 03/31/18 at 17:00 Insulin Glargine (Lantus) 30 units QHS SQ Last administered on 04/02/18at 20:51 ; Start 04/01/18 at 21:00 Linezolid (Zyvox) 600 mg BID PO Last administered on 04/03/18at 08:21; Start 08/08 at 09:15; Stop 04/03/18 at 11:47; Status DC Amoxicillin/ Clavulanate Potassium (Augmentin 875/ 125mg) 1 tab BID PO Last administered on 04/03/18at 08:22; Start 04/02/18 at 09:30 Active Scripts Active Reported Aspirin 325 Mg Tablet 1 Tab PO DAILY Triamcinolone Acetonide 0.1% Oint (Triamcinolone Acetonide) 15 Gm Oint...g. 1 Maria Isabel TP PRN MIX WITH EUCERIN DIRECTED BY PHYSICIAN Tramadol Hcl 50 Mg Tablet 50 Mg PO TID PRN Flomax (Tamsulosin Hcl) 0.4 Mg Cap.er.24h 1 Cap PO DAILY Xarelto (Rivaroxaban) 15 Mg Tablet 15 Mg PO DAILY Nystatin 15 Gm Oint...g. 1 Maria Isabel TP PRN Mupirocin Ointment (Mupirocin) 22 Gm Oint...g. 1 Maria Isabel TP PRN Miconazole Nitrate 130 Gm Aero.powd 130 Gm TP PRN Levothyroxine Sodium 25 Mcg Tablet 1 Tab PO DAILY Levemir (Insulin Detemir) 100 Unit/1 Ml Vial 20 Unit SQ HS Glipizide 5 Mg Tablet 1 Tab PO DAILY Lasix (Furosemide) 40 Mg Tablet 40 Mg PO DAILY Atenolol 50 Mg Tablet 75 Mg PO DAILY Vitals/I & O Vital Sign - Last 24 Hours 04/02/18 04/02/18 04/02/18 04/03/18 19:46 20:00 23:02 03:28 Temp 96.1 97.7 97.4 96.1 97.7 97.4 Pulse 80 79 79 Resp 20 20 20 B/P (MAP) 149/65 (93) 133/64 (87) 138/71 (93) Pulse Ox 98 98 99 O2 Delivery Room Air Room Air Room Air Room Air 8/1304/03/18 04/03/18 04/03/18 07:00 08:00 08:21 11:00 Temp 97.5 97.5 97.5 97.5 Pulse 82 82 78 Resp 20 16 B/P (MAP) 175/77 (109) 175/77 149/95 (113) Pulse Ox 97 99 O2 Delivery Room Air Room Air Room Air 04/03/18 15:00 Temp 97.7 97.7 Pulse 80 Resp 16 B/P (MAP) 149/74 (99) Pulse Ox 96 O2 Delivery Room Air Intake and Output 04/02/18 04/02/18 04/03/18 15:00 23:00 07:00 Intake Total 500 ml 600 ml Output Total 300 ml Balance 500 ml 300 ml ELLEN BENSON MD Apr 03, 2018 16:29
[2018-04-03 19:55] VITALS: BP 121/63
[2018-04-03] MEDS: ATORVASTATIN CALCIUM 20 MG TABLET PO SCH (22:10)
[2018-04-03] MEDS: INSULIN GLARGINE 300 UNITS/3 ML INSULN.PEN. SQ SCH (22:15)
[2018-04-03 23:16] VITALS: BP 151/54
[2018-04-04 03:40] VITALS: BP 133/76
[2018-04-04 06:13] LABS: CALCIUM 8.7 mg/dL (8.5-10.1); CREATININE 1.5 mg/dL (0.7-1.3); GFR 44.9
[2018-04-04 07:00] VITALS: BP 150/75
[2018-04-04] MEDS: PANTOPRAZOLE 40 MG TABLET.DR. PO SCH (07:30)
[2018-04-04] MEDS: TRIAMCINOLONE ACETONIDE 0.1% TOPICAL OINTMENT 15GM TUBE. TP SCH (09:00)
--- NOTE | 2018-04-04 09:34 | PDOC ---
PROGRESS NOTES Subjective Subjective No new complaints. Objective Objective Vital Signs Date Time Temp Pulse Resp B/P (MAP) Pulse Ox O2 Delivery O2 Flow Rate FiO2 04/04/18 07:00 97.7 79 18 150/75 (100) 96 Room Air 97.7 Intake and Output 04/04/18 07:00 Intake Total 1860 ml Balance 1860 ml Intake Oral 1860 ml # Voids 7 Physical Exam Physical Exam He is alert and comfortable and supine in bed and he is getting up with roller walker. Low physical endurance. Assessment Assessment Problems Medical Problems: (1) BRAD (acute kidney injury) Status: Acute (2) Hyperglycemia Status: Acute (3) Leukocytosis Status: Acute (4) Pneumonia Status: Acute Plan Plan of Long-Term with home health or SNF transfer if he qualifies. Comment Review of Relevant I have reviewed the following items do (where applicable) has been applied. Labs Laboratory Tests Test 04/02/18 12:19 04/02/18 17:11 04/02/18 17:12 04/02/18 17:32 Glucose (Fingerstick) 292 mg/dL (70-99) 41 mg/dL (70-99) 41 mg/dL (70-99) 121 mg/dL (70-99) Test 04/02/18 20:48 04/03/18 08:11 04/03/18 12:07 04/03/18 15:40 Glucose (Fingerstick) 173 mg/dL (70-99) 328 mg/dL (70-99) 140 mg/dL (70-99) 66 mg/dL (70-99) Test 04/03/18 16:36 04/03/18 20:38 04/04/18 05:53 04/04/18 07:46 Glucose (Fingerstick) 119 mg/dL (70-99) 176 mg/dL (70-99) 195 mg/dL (70-99) Sodium Level 141 mmol/L (136-145) Potassium Level 4.0 mmol/L (3.5-5.1) Chloride Level 106 mmol/L (98-107) Carbon Dioxide Level 31 mmol/L (21-32) Anion Gap 4 (6-14) Blood Urea Nitrogen 24 mg/dL (8-26) Creatinine 1.5 mg/dL (0.7-1.3) Estimated GFR (Cockcroft-Gault) 44.9 Glucose Level 225 mg/dL (70-99) Calcium Level 8.7 mg/dL (8.5-10.1) Laboratory Tests Test 04/03/18 12:07 04/03/18 15:40 04/03/18 16:36 04/03/18 20:38 Glucose (Fingerstick) 140 mg/dL (70-99) 66 mg/dL (70-99) 119 mg/dL (70-99) 176 mg/dL (70-99) Test 04/04/18 05:53 04/04/18 07:46 Sodium Level 141 mmol/L (136-145) Potassium Level 4.0 mmol/L (3.5-5.1) Chloride Level 106 mmol/L (98-107) Carbon Dioxide Level 31 mmol/L (21-32) Anion Gap 4 (6-14) Blood Urea Nitrogen 24 mg/dL (8-26) Creatinine 1.5 mg/dL (0.7-1.3) Estimated GFR (Cockcroft-Gault) 44.9 Glucose Level 225 mg/dL (70-99) Calcium Level 8.7 mg/dL (8.5-10.1) Glucose (Fingerstick) 195 mg/dL (70-99) Microbiology 03/29/18 Blood Culture - Final, Complete NO GROWTH AFTER 5 DAYS Medications Current Medications Sodium Chloride 1,000 ml @ 1,000 mls/hr 1X ONCE IV Last administered on at 22:05; Start 03/29/18 at 22:00; Stop 03/29/18 at 22:59; Status DC Sodium Chloride 1,000 ml @ 1,000 mls/hr 1X ONCE IV Last administered on at 22:43; Start 03/29/18 at 22:15; Stop 03/29/18 at 23:14; Status DC Insulin Human Regular 150 unit/ Sodium Chloride 151.5 ml @ 0 mls/hr CONT PRN IV SEE I/O RECORD; Start 03/29/18 at 22:30; Stop 03/29/18 at 22:58; Status DC Insulin Human Regular (HumuLIN R VIAL) 10 unit 1X ONCE IV Last administered on 03/29/18at 22:42; Start 03/29/18 at 22:15; Stop 03/29/18 at 22:16; Status DC Ceftriaxone Sodium 50 ml @ 100 mls/hr 1X ONCE IV Last administered on at 23:15; Start 03/29/18 at 23:15; Stop 03/29/18 at 23:44; Status DC Azithromycin 500 mg/Sodium Chloride 250 ml @ 250 mls/hr 1X ONCE IV Last administered on 03/29/18at 23:42; Start 03/29/18 at 23:00; Stop 03/29/18 at 23:59; Status DC Ondansetron HCl (Zofran) 4 mg PRN Q8HRS PRN IV NAUSEA/VOMITING; Start 03/29/18 at 23:55; Stop 03/30/18 at 23:54; Status DC Fentanyl Citrate (Fentanyl 2ml Vial) 50 mcg PRN Q1HR PRN IV PAIN; Start at 23:45; Stop 03/30/18 at 23:44; Status DC Acetaminophen (Tylenol) 650 mg PRN Q4HRS PRN PO FEVER; Start 03/29/18 at 23:45; Stop 03/30/18 at 23:44; Status DC Acetaminophen (Tylenol) 1,000 mg 1X ONCE PO Last administered on 03/29/18at 23: 58; Start 03/29/18 at 23:45; Stop 03/30/18 at 00:01; Status DC Sodium Chloride 1,000 ml @ 100 mls/hr 1X ONCE IV Last administered on at 01:45; Start 03/30/18 at 01:45; Stop 03/30/18 at 11:44; Status DC Insulin Human Lispro (HumaLOG) 0-9 UNITS TIDWMEALS SQ Last administered on 04/03at 08:26; Start 03/30/18 at 08:00 Dextrose (Dextrose 50%-Water Syringe) 12.5 gm PRN Q15MIN PRN IV SEE COMMENTS; Start 03/30/18 at 07:45 Insulin Glargine (Lantus) 14 units DAILY SQ Last administered on 03/30/18at 08:25 ; Start 03/30/18 at 08:00; Stop 03/30/18 at 10:12; Status DC Insulin Human Lispro (HumaLOG) 10 units TIDWMEALS SQ Last administered on at 08:25; Start 03/30/18 at 08:00; Stop 03/30/18 at 12:04; Status DC Aspirin (Dorothy Aspirin) 325 mg DAILY PO Last administered on 03/30/18 10:27; Start 03/30/18 at 11:00; Stop 03/31/18 at 12:42; Status DC Atenolol (Tenormin) 75 mg DAILY PO Last administered on 04/03/18 08:21; Start 03/30/18 at 11:00 Furosemide (Lasix) 40 mg DAILY PO Last administered on 04/03/18 08:19; Start 03/30/18 at 11:00 Glipizide (Glucotrol) 5 mg DAILY PO Last administered on 04/03/18 08:22; Start 03/30/18 at 11:00 Rivaroxaban (Xarelto) 15 mg DAILY PO Last administered on 04/03/18 08:19; Start 03/30/18 at 11:00 Tamsulosin HCl (Flomax) 0.4 mg DAILY PO Last administered on 04/03/18 08:23; Start 03/30/18 at 11:00 Tramadol HCl (Ultram) 50 mg TID PRN PRN PO MILD PAIN; Start 03/30/18 at 10:15 Triamcinolone Acetonide (Kenalog) 1 maria isabel DAILY TP Last administered on at 10:23; Start 03/30/18 at 11:00 Insulin Glargine (Lantus) 20 units QHS SQ ; Start 03/30/18 at 21:00; Stop at 16:15; Status DC Levothyroxine Sodium (Synthroid) 25 mcg DAILY07 PO Last administered on at 06:09; Start 03/30/18 at 11:00 Miconazole Nitrate (Desenex) 1 maria isabel PRN BID PRN TP YEAST; Start 03/30/18 at 21:00 Pantoprazole Sodium (Protonix) 40 mg DAILYAC PO Last administered on 04/03/18 08:22; Start 03/30/18 at 12:00 Multi-Ingredient Mouthwash/Gargle (Gi Cocktail) 20 ml PRN QID PRN PO abd pain Last administered on 03/30/18 14:24; Start 03/30/18 at 12:00 Insulin Human Lispro (HumaLOG) 14 units TIDWMEALS SQ Last administered on 12:24; Start 03/30/18 at 17:00; Stop 03/31/18 at 16:15; Status DC Insulin Human Lispro (HumaLOG) 26 units 1X ONCE SQ Last administered on at 12:26; Start 03/30/18 at 12:15; Stop 03/30/18 at 12:16; Status DC Micafungin Sodium 100 mg/Dextrose 100 ml @ 100 mls/hr Q24H IV Last administered on 04/02/18at 15:33; Start 03/30/18 at 13:00; Stop 04/03/18 at 11:47 ; Status DC Piperacillin Sod/ Tazobactam Sod 3.375 gm/Sodium Chloride 50 ml @ 100 mls/hr Q6HRS IV Last administered on 04/02/18 06:12; Start 03/30/18 at 13:00; Stop 08/08 at 09:03; Status DC Gabapentin (Neurontin) 100 mg TID PO Last administered on 04/03/18at 22:10; Start 03/30/18 at 14:00 Insulin Human Lispro (HumaLOG) 26 units 1X ONCE SQ Last administered on at 14:27; Start 03/30/18 at 14:30; Stop 03/30/18 at 14:31; Status DC Lactobacillus Rhamnosus (Culturelle) 1 cap BID PO Last administered on at 22:10; Start 03/30/18 at 21:00 Atorvastatin Calcium (Lipitor) 20 mg QHS PO Last administered on 04/03/18at 22: 10; Start 03/31/18 at 21:00 Aspirin (Ecotrin) 81 mg DAILYWBKFT PO Last administered on 04/03/18at 08:19; Start 04/01/18 at 08:00 Info (Anti-Coagulation Monitoring By Pharmacy) 1 each PRN DAILY PRN MC SEE COMMENTS Last administered on 04/03/18at 14:47; Start 03/31/18 at 13:00 Insulin Glargine (Lantus) 25 units QHS SQ Last administered on 03/31/18at 21:33 ; Start 03/31/18 at 21:00; Stop 04/01/18 at 15:03; Status DC Insulin Human Lispro (HumaLOG) 18 units TIDWMEALS SQ Last administered on at 12:13; Start 03/31/18 at 17:00; Stop 04/03/18 at 17:00; Status DC Insulin Glargine (Lantus) 30 units QHS SQ Last administered on 04/03/18at 22:15 ; Start 04/01/18 at 21:00 Linezolid (Zyvox) 600 mg BID PO Last administered on 04/03/18at 08:21; Start 08/08 at 09:15; Stop 04/03/18 at 11:47; Status DC Amoxicillin/ Clavulanate Potassium (Augmentin 875/ 125mg) 1 tab BID PO Last administered on 04/03/18at 22:10; Start 04/02/18 at 09:30 Insulin Human Lispro (HumaLOG) 14 units TIDWMEALS SQ Last administered on at 17:49; Start 04/03/18 at 17:00 Active Scripts Active Reported Aspirin 325 Mg Tablet 1 Tab PO DAILY Triamcinolone Acetonide 0.1% Oint (Triamcinolone Acetonide) 15 Gm Oint...g. 1 Maria Isabel TP PRN MIX WITH EUCERIN DIRECTED BY PHYSICIAN Tramadol Hcl 50 Mg Tablet 50 Mg PO TID PRN Flomax (Tamsulosin Hcl) 0.4 Mg Cap.er.24h 1 Cap PO DAILY Xarelto (Rivaroxaban) 15 Mg Tablet 15 Mg PO DAILY Nystatin 15 Gm Oint...g. 1 Maria Isabel TP PRN Mupirocin Ointment (Mupirocin) 22 Gm Oint...g. 1 Maria Isabel TP PRN Miconazole Nitrate 130 Gm Aero.powd 130 Gm TP PRN Levothyroxine Sodium 25 Mcg Tablet 1 Tab PO DAILY Levemir (Insulin Detemir) 100 Unit/1 Ml Vial 20 Unit SQ HS Glipizide 5 Mg Tablet 1 Tab PO DAILY Lasix (Furosemide) 40 Mg Tablet 40 Mg PO DAILY Atenolol 50 Mg Tablet 75 Mg PO DAILY Vitals/I & O Vital Sign - Last 24 Hours 04/03/18 04/03/18 04/03/18 04/03/18 11:00 15:00 19:55 20:09 Temp 97.5 97.7 97.8 97.5 97.7 97.8 Pulse 78 80 80 Resp 16 16 18 B/P (MAP) 149/95 (113) 149/74 (99) 121/63 (82) Pulse Ox 99 96 97 O2 Delivery Room Air Room Air Room Air Room Air 04/03/18 04/04/18 04/04/18 23:16 03:40 07:00 Temp 98.0 98.1 97.7 98.0 98.1 97.7 Pulse 79 79 79 Resp 18 20 18 B/P (MAP) 151/54 (86) 133/76 (95) 150/75 (100) Pulse Ox 97 97 96 O2 Delivery Room Air Room Air Room Air Intake and Output 04/03/18 04/03/18 04/04/18 15:00 23:00 07:00 Intake Total 270 ml 890 ml 700 ml Balance 270 ml 890 ml 700 ml YONAS BONDS MD Apr 04, 2018 09:34
[2018-04-04] MEDS: LACTOBACILLUS RHAMNOSUS GG 1 CAPSULE. PO SCH ×2 (09:53→20:23)
[2018-04-04] MEDS: FUROSEMIDE 40 MG TABLET. PO SCH (09:54)
[2018-04-04] MEDS: AMOXICILLIN/K CLAV 875/125MG TABLET. PO SCH ×2 (09:54→20:23)
[2018-04-04] MEDS: LEVOTHYROXINE 25 MCG TABLET. PO SCH (09:55)
[2018-04-04] MEDS: RIVAROXABAN 15 MG TABLET. PO SCH (09:55)
[2018-04-04] MEDS: ATENOLOL 50 MG TABLET. PO SCH (09:55)
[2018-04-04] MEDS: glipiZIDE 5 MG TABLET PO SCH (09:55)
[2018-04-04] MEDS: ASPIRIN ENTERIC COATED 81 MG TABLET.DR. PO SCH (09:56)
[2018-04-04] MEDS: GABAPENTIN 100 MG CAPSULE. PO SCH ×3 (09:56→20:23)
[2018-04-04] MEDS: TAMSULOSIN 0.4 MG CAP.ER.24H. PO SCH (09:56)
[2018-04-04] MEDS: INSULIN LISPRO 300 UNITS/3 ML INSULN.PEN. SQ SCH ×6 (10:00→16:47)
--- NOTE | 2018-04-04 10:27 | PDOC ---
CARDIO Progress Notes Date and Time Date of Service 04/04/2018 Time of Evaluation 1020 Subjective Subjective: No Chest Pain, No shortness of breath, No Palpitations Vitals Vitals Vital Signs Date Time Temp Pulse Resp B/P (MAP) Pulse Ox O2 Delivery O2 Flow Rate FiO2 04/04/18 09:55 79 150/75 04/04/18 07:00 97.7 18 96 Room Air 97.7 Weight Weight [ ] Input and Output Intake and Output Intake and Output 04/04/18 07:00 Intake Total 1860 ml Balance 1860 ml Intake Oral 1860 ml # Voids 7 Laboratory Labs Laboratory Tests Test 04/03/18 12:07 04/03/18 15:40 04/03/18 16:36 04/03/18 20:38 Glucose (Fingerstick) 140 mg/dL (70-99) 66 mg/dL (70-99) 119 mg/dL (70-99) 176 mg/dL (70-99) Test 04/04/18 05:53 04/04/18 07:46 Sodium Level 141 mmol/L (136-145) Potassium Level 4.0 mmol/L (3.5-5.1) Chloride Level 106 mmol/L (98-107) Carbon Dioxide Level 31 mmol/L (21-32) Anion Gap 4 (6-14) Blood Urea Nitrogen 24 mg/dL (8-26) Creatinine 1.5 mg/dL (0.7-1.3) Estimated GFR (Cockcroft-Gault) 44.9 Glucose Level 225 mg/dL (70-99) Calcium Level 8.7 mg/dL (8.5-10.1) Glucose (Fingerstick) 195 mg/dL (70-99) Microbiology Micro Microbiology 03/29/18 Blood Culture - Final, Complete NO GROWTH AFTER 5 DAYS Physical Exam HEENT: Neck Supple W Full Motion Chest: Symmetric LUNGS: Clear to Auscultation Heart: S1S2, RRR (no tele in place; HR 70s) Abdomen: Soft N/T (obese) Extremities: No Calf Tenderness, Other (2+ bilateral LE pitting edema) Neurology: alert, oriented, follow commands Assessment Assessment 1. CAD: past remote CABG. last LHC about 5 yrs ago. No cardiac symptoms, stable. 2. Chronic systolic/diastolic CHF: compensated 3. 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 SOLE 1 yr. Atrial flutter since 10/2017, V paced 95% per interrogation 4. Chronic Aflutter: rate controlled 5. Valvular insufficiency: Moderate , mild AI/TR/MR 6. Cardiomyopathy: EF 35-40%, unknown baseline. Compensated 7. HTN: controlled 8. Uncontrolled DM2: A1C at 12. Has not been taking his insulin 9. Fever/LLE cellulitis: ID following 10. Metabolic encephalopathy: resolved 11. BRAD: appears to be back to his baseline Recommendations 1. Continue xarelto and ASA. 2. Continue with secondary prevention and home lasix. Start on low dose lisinopril 3. Discussed with pt in regards to cardiac regimen, future outpt ischemic workup and pt is to follow up with [facility] in 1-2 weeks upon discharge. Discussed with staff. 4. Sonia TRAN per cardiac standpoint AISHA GAMBLE LICENSED AND CERTIFIED MIDWIFE Apr 04, 2018 10:27
--- NOTE | 2018-04-04 10:40 | PDOC ---
PROGRESS NOTES Chief Complaint Chief Complaint nausea and vomiting, RESOLVED abd pain, better, eating well cellulitis of LLE Left foot weakNEss and numbness, sensation intact, Dm2, poor control, noncompliance past 3 months Morbid obesity, BMI 40 chronic sacral ulcer, stage 2, try to unload weakness and debility, IMPROVING SELF NEGLECT UNCONTROLLED DIABETES A1C > 12, NEEDS DIABETIC TEACHING begin lisinopril 5 mg po daily INSULIN INSTRUCTION History of Present Illness History of Present Illness GES neg he looks and feels better str imrproved, but will need SNU he told me we wanted to go today right after he was seated on side of the bed and urinated all over the floor. Vitals Vitals Vital Signs Date Time Temp Pulse Resp B/P (MAP) Pulse Ox O2 Delivery O2 Flow Rate FiO2 04/04/18 09:55 79 150/75 04/04/18 07:00 97.7 18 96 Room Air 97.7 Physical Exam Physical Exam CONSTITUTIONAL: He is alert, cooperative. He is in no acute distress. He is obese. in chair HEENT: Pupils equal and reactive. Normal conjunctivae. Oral cavity, pharynx is clear. He has some chronic lip changes. dentures NECK: Supple. No JVD. LUNGS: Clear to auscultation. HEART: S1, S2. 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 ABDOMEN: Obese, soft and nontender. No guarding. No rebound. EXTREMITIES: Without clubbing or cyanosis. He has bilateral lower extremity non-pitting edema, still 2 plus. He also has severe tenia, both feet. Both lower legs have some chronic venous stasis changes, but his left lower extremity has improved erythema, Still some warmth but better and some tracking up the medial thigh that has improved. Rooke boots NEUROLOGIC: He is nonfocal, moves all extremities. PSYCHIATRIC: Affect is pleasant. SKIN: no Rash. Buttock wound stage 1 General: Alert, Oriented X3, Cooperative, No acute distress, mild distress Heart: Regular rate, Normal S1 Lungs: Clear Abdomen: Normal bowel sounds Extremities: No cyanosis, Other (2-3+ bilateral LE pitting edema; LLE cellulitis) Skin: No breakdown Labs LABS Laboratory Tests Test 04/03/18 12:07 04/03/18 15:40 04/03/18 16:36 04/03/18 20:38 Glucose (Fingerstick) 140 mg/dL (70-99) 66 mg/dL (70-99) 119 mg/dL (70-99) 176 mg/dL (70-99) Test 04/04/18 05:53 04/04/18 07:46 Sodium Level 141 mmol/L (136-145) Potassium Level 4.0 mmol/L (3.5-5.1) Chloride Level 106 mmol/L (98-107) Carbon Dioxide Level 31 mmol/L (21-32) Anion Gap 4 (6-14) Blood Urea Nitrogen 24 mg/dL (8-26) Creatinine 1.5 mg/dL (0.7-1.3) Estimated GFR (Cockcroft-Gault) 44.9 Glucose Level 225 mg/dL (70-99) Calcium Level 8.7 mg/dL (8.5-10.1) Glucose (Fingerstick) 195 mg/dL (70-99) Assessment and Plan Assessmemt and Plan Problems Medical Problems: (1) BRAD (acute kidney injury) Status: Acute (2) Hyperglycemia Status: Acute (3) Leukocytosis Status: Acute (4) Pneumonia Status: Acute Comment Review of Relevant I have reviewed the following items do (where applicable) has been applied. Labs Laboratory Tests Test 04/02/18 12:19 04/02/18 17:11 04/02/18 17:12 04/02/18 17:32 Glucose (Fingerstick) 292 mg/dL (70-99) 41 mg/dL (70-99) 41 mg/dL (70-99) 121 mg/dL (70-99) Test 04/02/18 20:48 04/03/18 08:11 04/03/18 12:07 04/03/18 15:40 Glucose (Fingerstick) 173 mg/dL (70-99) 328 mg/dL (70-99) 140 mg/dL (70-99) 66 mg/dL (70-99) Test 04/03/18 16:36 04/03/18 20:38 04/04/18 05:53 04/04/18 07:46 Glucose (Fingerstick) 119 mg/dL (70-99) 176 mg/dL (70-99) 195 mg/dL (70-99) Sodium Level 141 mmol/L (136-145) Potassium Level 4.0 mmol/L (3.5-5.1) Chloride Level 106 mmol/L (98-107) Carbon Dioxide Level 31 mmol/L (21-32) Anion Gap 4 (6-14) Blood Urea Nitrogen 24 mg/dL (8-26) Creatinine 1.5 mg/dL (0.7-1.3) Estimated GFR (Cockcroft-Gault) 44.9 Glucose Level 225 mg/dL (70-99) Calcium Level 8.7 mg/dL (8.5-10.1) Laboratory Tests Test 04/03/18 12:07 04/03/18 15:40 04/03/18 16:36 04/03/18 20:38 Glucose (Fingerstick) 140 mg/dL (70-99) 66 mg/dL (70-99) 119 mg/dL (70-99) 176 mg/dL (70-99) Test 04/04/18 05:53 04/04/18 07:46 Sodium Level 141 mmol/L (136-145) Potassium Level 4.0 mmol/L (3.5-5.1) Chloride Level 106 mmol/L (98-107) Carbon Dioxide Level 31 mmol/L (21-32) Anion Gap 4 (6-14) Blood Urea Nitrogen 24 mg/dL (8-26) Creatinine 1.5 mg/dL (0.7-1.3) Estimated GFR (Cockcroft-Gault) 44.9 Glucose Level 225 mg/dL (70-99) Calcium Level 8.7 mg/dL (8.5-10.1) Glucose (Fingerstick) 195 mg/dL (70-99) Microbiology 03/29/18 Blood Culture - Final, Complete NO GROWTH AFTER 5 DAYS Medications Current Medications Sodium Chloride 1,000 ml @ 1,000 mls/hr 1X ONCE IV Last administered on at 22:05; Start 03/29/18 at 22:00; Stop 03/29/18 at 22:59; Status DC Sodium Chloride 1,000 ml @ 1,000 mls/hr 1X ONCE IV Last administered on at 22:43; Start 03/29/18 at 22:15; Stop 03/29/18 at 23:14; Status DC Insulin Human Regular 150 unit/ Sodium Chloride 151.5 ml @ 0 mls/hr CONT PRN IV SEE I/O RECORD; Start 03/29/18 at 22:30; Stop 03/29/18 at 22:58; Status DC Insulin Human Regular (HumuLIN R VIAL) 10 unit 1X ONCE IV Last administered on 03/29/18at 22:42; Start 03/29/18 at 22:15; Stop 03/29/18 at 22:16; Status DC Ceftriaxone Sodium 50 ml @ 100 mls/hr 1X ONCE IV Last administered on at 23:15; Start 03/29/18 at 23:15; Stop 03/29/18 at 23:44; Status DC Azithromycin 500 mg/Sodium Chloride 250 ml @ 250 mls/hr 1X ONCE IV Last administered on 03/29/18at 23:42; Start 03/29/18 at 23:00; Stop 03/29/18 at 23:59; Status DC Ondansetron HCl (Zofran) 4 mg PRN Q8HRS PRN IV NAUSEA/VOMITING; Start 03/29/18 at 23:55; Stop 03/30/18 at 23:54; Status DC Fentanyl Citrate (Fentanyl 2ml Vial) 50 mcg PRN Q1HR PRN IV PAIN; Start at 23:45; Stop 03/30/18 at 23:44; Status DC Acetaminophen (Tylenol) 650 mg PRN Q4HRS PRN PO FEVER; Start 03/29/18 at 23:45; Stop 03/30/18 at 23:44; Status DC Acetaminophen (Tylenol) 1,000 mg 1X ONCE PO Last administered on 03/29/18at 23: 58; Start 03/29/18 at 23:45; Stop 03/30/18 at 00:01; Status DC Sodium Chloride 1,000 ml @ 100 mls/hr 1X ONCE IV Last administered on at 01:45; Start 03/30/18 at 01:45; Stop 03/30/18 at 11:44; Status DC Insulin Human Lispro (HumaLOG) 0-9 UNITS TIDWMEALS SQ Last administered on 04/03at 08:26; Start 03/30/18 at 08:00 Dextrose (Dextrose 50%-Water Syringe) 12.5 gm PRN Q15MIN PRN IV SEE COMMENTS; Start 03/30/18 at 07:45 Insulin Glargine (Lantus) 14 units DAILY SQ Last administered on 03/30/18at 08:25 ; Start 03/30/18 at 08:00; Stop 03/30/18 at 10:12; Status DC Insulin Human Lispro (HumaLOG) 10 units TIDWMEALS SQ Last administered on at 08:25; Start 03/30/18 at 08:00; Stop 03/30/18 at 12:04; Status DC Aspirin (Dorothy Aspirin) 325 mg DAILY PO Last administered on 03/30/18at 10:27; Start 03/30/18 at 11:00; Stop 03/31/18 at 12:42; Status DC Atenolol (Tenormin) 75 mg DAILY PO Last administered on 04/04/18 09:55; Start 03/30/18 at 11:00 Furosemide (Lasix) 40 mg DAILY PO Last administered on 04/04/18at 09:54; Start 03/30/18 at 11:00 Glipizide (Glucotrol) 5 mg DAILY PO Last administered on 04/04/18 09:55; Start 03/30/18 at 11:00 Rivaroxaban (Xarelto) 15 mg DAILY PO Last administered on 04/04/18 09:55; Start 03/30/18 at 11:00 Tamsulosin HCl (Flomax) 0.4 mg DAILY PO Last administered on 04/04/18 09:56; Start 03/30/18 at 11:00 Tramadol HCl (Ultram) 50 mg TID PRN PRN PO MILD PAIN; Start 03/30/18 at 10:15 Triamcinolone Acetonide (Kenalog) 1 maria isabel DAILY TP Last administered on at 10:23; Start 03/30/18 at 11:00 Insulin Glargine (Lantus) 20 units QHS SQ ; Start 03/30/18 at 21:00; Stop at 16:15; Status DC Levothyroxine Sodium (Synthroid) 25 mcg DAILY07 PO Last administered on at 09:55; Start 03/30/18 at 11:00 Miconazole Nitrate (Desenex) 1 maria isabel PRN BID PRN TP YEAST; Start 03/30/18 at 21:00 Pantoprazole Sodium (Protonix) 40 mg DAILYAC PO Last administered on 04/03/18 08:22; Start 03/30/18 at 12:00 Multi-Ingredient Mouthwash/Gargle (Gi Cocktail) 20 ml PRN QID PRN PO abd pain Last administered on 03/30/18 14:24; Start 03/30/18 at 12:00 Insulin Human Lispro (HumaLOG) 14 units TIDWMEALS SQ Last administered on at 12:24; Start 03/30/18 at 17:00; Stop 03/31/18 at 16:15; Status DC Insulin Human Lispro (HumaLOG) 26 units 1X ONCE SQ Last administered on at 12:26; Start 03/30/18 at 12:15; Stop 03/30/18 at 12:16; Status DC Micafungin Sodium 100 mg/Dextrose 100 ml @ 100 mls/hr Q24H IV Last administered on 04/02/18at 15:33; Start 03/30/18 at 13:00; Stop 04/03/18 at 11:47 ; Status DC Piperacillin Sod/ Tazobactam Sod 3.375 gm/Sodium Chloride 50 ml @ 100 mls/hr Q6HRS IV Last administered on 04/02/18at 06:12; Start 03/30/18 at 13:00; Stop 08/08 at 09:03; Status DC Gabapentin (Neurontin) 100 mg TID PO Last administered on 04/04/18at 09:56; Start 03/30/18 at 14:00 Insulin Human Lispro (HumaLOG) 26 units 1X ONCE SQ Last administered on at 14:27; Start 03/30/18 at 14:30; Stop 03/30/18 at 14:31; Status DC Lactobacillus Rhamnosus (Culturelle) 1 cap BID PO Last administered on at 09:53; Start 03/30/18 at 21:00 Atorvastatin Calcium (Lipitor) 20 mg QHS PO Last administered on 04/03/18at 22: 10; Start 03/31/18 at 21:00 Aspirin (Ecotrin) 81 mg DAILYWBKFT PO Last administered on 04/04/18at 09:56; Start 04/01/18 at 08:00 Info (Anti-Coagulation Monitoring By Pharmacy) 1 each PRN DAILY PRN MC SEE COMMENTS Last administered on 04/03/18at 14:47; Start 03/31/18 at 13:00 Insulin Glargine (Lantus) 25 units QHS SQ Last administered on 03/31/18at 21:33 ; Start 03/31/18 at 21:00; Stop 04/01/18 at 15:03; Status DC Insulin Human Lispro (HumaLOG) 18 units TIDWMEALS SQ Last administered on at 12:13; Start 03/31/18 at 17:00; Stop 04/03/18 at 17:00; Status DC Insulin Glargine (Lantus) 30 units QHS SQ Last administered on 04/03/18at 22:15 ; Start 04/01/18 at 21:00 Linezolid (Zyvox) 600 mg BID PO Last administered on 04/03/18at 08:21; Start 08/08 at 09:15; Stop 04/03/18 at 11:47; Status DC Amoxicillin/ Clavulanate Potassium (Augmentin 875/ 125mg) 1 tab BID PO Last administered on 04/04/18at 09:54; Start 04/02/18 at 09:30 Insulin Human Lispro (HumaLOG) 14 units TIDWMEALS SQ Last administered on at 17:49; Start 04/03/18 at 17:00 Lisinopril (Prinivil) 5 mg DAILY PO ; Start 04/04/18 at 11:00 Active Scripts Active Reported Aspirin 325 Mg Tablet 1 Tab PO DAILY Triamcinolone Acetonide 0.1% Oint (Triamcinolone Acetonide) 15 Gm Oint...g. 1 Maria Isabel TP PRN MIX WITH EUCERIN DIRECTED BY PHYSICIAN Tramadol Hcl 50 Mg Tablet 50 Mg PO TID PRN Flomax (Tamsulosin Hcl) 0.4 Mg Cap.er.24h 1 Cap PO DAILY Xarelto (Rivaroxaban) 15 Mg Tablet 15 Mg PO DAILY Nystatin 15 Gm Oint...g. 1 Maria Isabel TP PRN Mupirocin Ointment (Mupirocin) 22 Gm Oint...g. 1 Maria Isabel TP PRN Miconazole Nitrate 130 Gm Aero.powd 130 Gm TP PRN Levothyroxine Sodium 25 Mcg Tablet 1 Tab PO DAILY Levemir (Insulin Detemir) 100 Unit/1 Ml Vial 20 Unit SQ HS Glipizide 5 Mg Tablet 1 Tab PO DAILY Lasix (Furosemide) 40 Mg Tablet 40 Mg PO DAILY Atenolol 50 Mg Tablet 75 Mg PO DAILY Vitals/I & O Vital Sign - Last 24 Hours 04/03/18 04/03/18 04/03/18 04/03/18 11:00 15:00 19:55 20:09 Temp 97.5 97.7 97.8 97.5 97.7 97.8 Pulse 78 80 80 Resp 16 16 18 B/P (MAP) 149/95 (113) 149/74 (99) 121/63 (82) Pulse Ox 99 96 97 O2 Delivery Room Air Room Air Room Air Room Air 04/03/18 04/04/18 04/04/18 04/04/18 23:16 03:40 07:00 09:55 Temp 98.0 98.1 97.7 98.0 98.1 97.7 Pulse 79 79 79 79 Resp 18 20 18 B/P (MAP) 151/54 (86) 133/76 (95) 150/75 (100) 150/75 Pulse Ox 97 97 96 O2 Delivery Room Air Room Air Room Air Intake and Output 04/03/18 04/03/18 04/04/18 15:00 23:00 07:00 Intake Total 270 ml 890 ml 700 ml Balance 270 ml 890 ml 700 ml FRANCISCO JARAMILLO MD Apr 04, 2018 10:40
[2018-04-04 11:00] VITALS: BP 146/79
--- NOTE | 2018-04-04 11:24 | PDOC ---
Subjective: Subjective: No complaints. Says he's going home at 1:00. Objective: Vital Signs: Vital Signs Date Time Temp Pulse Resp B/P (MAP) Pulse Ox O2 Delivery O2 Flow Rate FiO2 04/04/18 11:00 97.7 80 18 146/79 (101) 98 Room Air 97.7 Labs: Laboratory Tests Test 04/03/18 12:07 04/03/18 15:40 04/03/18 16:36 04/03/18 20:38 Glucose (Fingerstick) 140 mg/dL 66 mg/dL 119 mg/dL 176 mg/dL Test 04/04/18 05:53 04/04/18 07:46 Sodium Level 141 mmol/L Potassium Level 4.0 mmol/L Chloride Level 106 mmol/L Carbon Dioxide Level 31 mmol/L Anion Gap 4 Blood Urea Nitrogen 24 mg/dL Creatinine 1.5 mg/dL Estimated GFR (Cockcroft-Gault) 44.9 Glucose Level 225 mg/dL Calcium Level 8.7 mg/dL Glucose (Fingerstick) 195 mg/dL PE: GEN: NAD, up to chair LUNGS: CTAB HEART: RR ABD: round, non-tender NEURO/PSYCH: A & O 3 A/P: N/v, upper abd discomfort - resolved -- Currently asymptomatic GI-decker. Encouraged compliance. DC per primary. MICHAEL BERKOWITZ Apr 04, 2018 11:24
--- NOTE | 2018-04-04 11:25 | PDOC ---
Infectious Disease Note Subjective Subjective feeling better, does have gluteal pain ROS ROS no n/v/d/ Vital Sign Vital Signs Vital Signs Date Time Temp Pulse Resp B/P (MAP) Pulse Ox O2 Delivery O2 Flow Rate FiO2 04/04/18 11:00 97.7 80 18 146/79 (101) 98 Room Air 97.7 Physical Exam PHYSICAL EXAM CONSTITUTIONAL: He is alert, cooperative. He is in no acute distress. He is obese. in chair HEENT: Pupils equal and reactive. Normal conjunctivae. Oral cavity, pharynx is clear. He has some chronic lip changes. dentures NECK: Supple. No JVD. LUNGS: Clear to auscultation. HEART: S1, S2. 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 ABDOMEN: Obese, soft and nontender. No guarding. No rebound. EXTREMITIES: Without clubbing or cyanosis. He has bilateral lower extremity non-pitting edema, still 2 plus. He also has severe tenia, both feet. Both lower legs have some chronic venous stasis changes, but his left lower extremity has improved erythema, Still some warmth but better and some tracking up the medial thigh that has improved. Rooke boots NEUROLOGIC: He is nonfocal, moves all extremities. PSYCHIATRIC: Affect is pleasant. SKIN: no Rash. Buttock wound stage 1 Labs Lab Laboratory Tests Test 04/03/18 12:07 04/03/18 15:40 04/03/18 16:36 04/03/18 20:38 Glucose (Fingerstick) 140 mg/dL (70-99) 66 mg/dL (70-99) 119 mg/dL (70-99) 176 mg/dL (70-99) Test 04/04/18 05:53 04/04/18 07:46 Sodium Level 141 mmol/L (136-145) Potassium Level 4.0 mmol/L (3.5-5.1) Chloride Level 106 mmol/L (98-107) Carbon Dioxide Level 31 mmol/L (21-32) Anion Gap 4 (6-14) Blood Urea Nitrogen 24 mg/dL (8-26) Creatinine 1.5 mg/dL (0.7-1.3) Estimated GFR (Cockcroft-Gault) 44.9 Glucose Level 225 mg/dL (70-99) Calcium Level 8.7 mg/dL (8.5-10.1) Glucose (Fingerstick) 195 mg/dL (70-99) Micro Microbiology 03/29/18 Blood Culture - Preliminary, Resulted NO GROWTH AFTER 4 DAYS Objective Assessment Fever - better Bandemia LLE cellulitis - mild redness today - has been in bed he says for almost 4 hours Tinea lactic acidosis - resolved BRAD - stable DM N/V - better Stage 1 CHF - EF 35 - 40 % Plan Plan of Care Augmentin. F/u labs and cults Encouraged off loading Needs compression but marcia check U/S first ok to d/c off load d/w pt f/u with us if needed in 2 wks MEJIA MARTINEZ MD Apr 04, 2018 11:25
[2018-04-04] MEDS: ANTI-COAG MONITOR BY PHARMACY. MC PRN (12:29)
[2018-04-04] MEDS: LISINOPRIL 5 MG TABLET. PO SCH (12:56)
[2018-04-04 15:00] VITALS: BP 111/61
--- NOTE | 2018-04-04 15:59 | PDOC3 ---
Discharge Summary Date of Admission: Mar 29, 2018 Date of Discharge: Apr 04, 2018 Follow-Up: 3-5 days Admitting Diagnosis comment: discharge diagnosis Chief Complaint nausea and vomiting, RESOLVED abd pain, better, eating well cellulitis of LLE Left foot weakNEss and numbness, sensation intact, Dm2, poor control, noncompliance past 3 months Morbid obesity, BMI 40 chronic sacral ulcer, stage 2, try to unload weakness and debility, IMPROVING SELF NEGLECT UNCONTROLLED DIABETES A1C > 12, NEEDS DIABETIC TEACHING begin lisinopril 5 mg po daily INSULIN INSTRUCTION done today with son History of Present Illness History of Present Illness GES neg he looks and feels better str imrproved, refused SNU Vitals Vitals Vital Signs Date Time Temp Pulse Resp B/P (MAP) Pulse Ox O2 Delivery O2 Flow Rate FiO2 04/04/18 09:55 79 150/75 04/04/18 07:00 97.7 18 96 Room Air 97.7 Physical Exam Physical Exam CONSTITUTIONAL: He is alert, cooperative. He is in no acute distress. He is obese. in chair HEENT: Pupils equal and reactive. Normal conjunctivae. Oral cavity, pharynx is clear. He has some chronic lip changes. dentures NECK: Supple. No JVD. LUNGS: Clear to auscultation. HEART: S1, S2. 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 ABDOMEN: Obese, soft and nontender. No guarding. No rebound. EXTREMITIES: Without clubbing or cyanosis. He has bilateral lower extremity non-pitting edema, still 2 plus. He also has severe tenia, both feet. Both lower legs have some chronic venous stasis changes, but his left lower extremity has improved erythema, Still some warmth but better and some tracking up the medial thigh that has improved. Rooke boots NEUROLOGIC: He is nonfocal, moves all extremities. PSYCHIATRIC: Affect is pleasant. SKIN: no Rash. Buttock wound stage 1 General: Alert, Oriented X3, Cooperative, No acute distress, mild distress Heart: Regular rate, Normal S1 Lungs: Clear Abdomen: Normal bowel sounds Extremities: No cyanosis, Other (2-3+ bilateral LE pitting edema; LLE cellulitis) Skin: No breakdown FINAL DIAGNOSIS Problems Medical Problems: (1) BRAD (acute kidney injury) Status: Acute (2) Hyperglycemia Status: Acute (3) Leukocytosis Status: Acute (4) Pneumonia Status: Acute Brief Hospital Course Mr. Mathew is a 82 old [sex] who presented with [ intractable vomitinf, cellulitis of leg] CONDITION AT DISCHARGE: Improved Discharge Medications Current Medications Sodium Chloride 1,000 ml @ 1,000 mls/hr 1X ONCE IV Last administered on at 22:05; Start 03/29/18 at 22:00; Stop 03/29/18 at 22:59; Status DC Sodium Chloride 1,000 ml @ 1,000 mls/hr 1X ONCE IV Last administered on at 22:43; Start 03/29/18 at 22:15; Stop 03/29/18 at 23:14; Status DC Insulin Human Regular 150 unit/ Sodium Chloride 151.5 ml @ 0 mls/hr CONT PRN IV SEE I/O RECORD; Start 03/29/18 at 22:30; Stop 03/29/18 at 22:58; Status DC Insulin Human Regular (HumuLIN R VIAL) 10 unit 1X ONCE IV Last administered on 03/29/18at 22:42; Start 03/29/18 at 22:15; Stop 03/29/18 at 22:16; Status DC Ceftriaxone Sodium 50 ml @ 100 mls/hr 1X ONCE IV Last administered on at 23:15; Start 03/29/18 at 23:15; Stop 03/29/18 at 23:44; Status DC Azithromycin 500 mg/Sodium Chloride 250 ml @ 250 mls/hr 1X ONCE IV Last administered on 03/29/18at 23:42; Start 03/29/18 at 23:00; Stop 03/29/18 at 23:59; Status DC Ondansetron HCl (Zofran) 4 mg PRN Q8HRS PRN IV NAUSEA/VOMITING; Start 03/29/18 at 23:55; Stop 03/30/18 at 23:54; Status DC Fentanyl Citrate (Fentanyl 2ml Vial) 50 mcg PRN Q1HR PRN IV PAIN; Start at 23:45; Stop 03/30/18 at 23:44; Status DC Acetaminophen (Tylenol) 650 mg PRN Q4HRS PRN PO FEVER; Start 03/29/18 at 23:45; Stop 03/30/18 at 23:44; Status DC Acetaminophen (Tylenol) 1,000 mg 1X ONCE PO Last administered on 03/29/18 23: 58; Start 03/29/18 at 23:45; Stop 03/30/18 at 00:01; Status DC Sodium Chloride 1,000 ml @ 100 mls/hr 1X ONCE IV Last administered on at 01:45; Start 03/30/18 at 01:45; Stop 03/30/18 at 11:44; Status DC Insulin Human Lispro (HumaLOG) 0-9 UNITS TIDWMEALS SQ Last administered on 04/04at 12:58; Start 03/30/18 at 08:00 Dextrose (Dextrose 50%-Water Syringe) 12.5 gm PRN Q15MIN PRN IV SEE COMMENTS; Start 03/30/18 at 07:45 Insulin Glargine (Lantus) 14 units DAILY SQ Last administered on 03/30/18 08:25 ; Start 03/30/18 at 08:00; Stop 03/30/18 at 10:12; Status DC Insulin Human Lispro (HumaLOG) 10 units TIDWMEALS SQ Last administered on at 08:25; Start 03/30/18 at 08:00; Stop 03/30/18 at 12:04; Status DC Aspirin (Dorothy Aspirin) 325 mg DAILY PO Last administered on 03/30/18 10:27; Start 03/30/18 at 11:00; Stop 03/31/18 at 12:42; Status DC Atenolol (Tenormin) 75 mg DAILY PO Last administered on 04/04/18 09:55; Start 03/30/18 at 11:00 Furosemide (Lasix) 40 mg DAILY PO Last administered on 04/04/18 09:54; Start 03/30/18 at 11:00 Glipizide (Glucotrol) 5 mg DAILY PO Last administered on 04/04/18 09:55; Start 03/30/18 at 11:00 Rivaroxaban (Xarelto) 15 mg DAILY PO Last administered on 04/04/18 09:55; Start 03/30/18 at 11:00 Tamsulosin HCl (Flomax) 0.4 mg DAILY PO Last administered on 04/04/18 09:56; Start 03/30/18 at 11:00 Tramadol HCl (Ultram) 50 mg TID PRN PRN PO MILD PAIN; Start 03/30/18 at 10:15 Triamcinolone Acetonide (Kenalog) 1 maria isabel DAILY TP Last administered on at 10:23; Start 03/30/18 at 11:00 Insulin Glargine (Lantus) 20 units QHS SQ ; Start 03/30/18 at 21:00; Stop at 16:15; Status DC Levothyroxine Sodium (Synthroid) 25 mcg DAILY07 PO Last administered on at 09:55; Start 03/30/18 at 11:00 Miconazole Nitrate (Desenex) 1 maria isabel PRN BID PRN TP YEAST; Start 03/30/18 at 21:00 Pantoprazole Sodium (Protonix) 40 mg DAILYAC PO Last administered on 04/03/18at 08:22; Start 03/30/18 at 12:00 Multi-Ingredient Mouthwash/Gargle (Gi Cocktail) 20 ml PRN QID PRN PO abd pain Last administered on 03/30/18at 14:24; Start 03/30/18 at 12:00 Insulin Human Lispro (HumaLOG) 14 units TIDWMEALS SQ Last administered on at 12:24; Start 03/30/18 at 17:00; Stop 03/31/18 at 16:15; Status DC Insulin Human Lispro (HumaLOG) 26 units 1X ONCE SQ Last administered on at 12:26; Start 03/30/18 at 12:15; Stop 03/30/18 at 12:16; Status DC Micafungin Sodium 100 mg/Dextrose 100 ml @ 100 mls/hr Q24H IV Last administered on 04/02/18at 15:33; Start 03/30/18 at 13:00; Stop 04/03/18 at 11:47 ; Status DC Piperacillin Sod/ Tazobactam Sod 3.375 gm/Sodium Chloride 50 ml @ 100 mls/hr Q6HRS IV Last administered on 04/02/18at 06:12; Start 03/30/18 at 13:00; Stop 08/08 at 09:03; Status DC Gabapentin (Neurontin) 100 mg TID PO Last administered on 04/04/18 14:34; Start 03/30/18 at 14:00 Insulin Human Lispro (HumaLOG) 26 units 1X ONCE SQ Last administered on 14:27; Start 03/30/18 at 14:30; Stop 03/30/18 at 14:31; Status DC Lactobacillus Rhamnosus (Culturelle) 1 cap BID PO Last administered on 09:53; Start 03/30/18 at 21:00 Atorvastatin Calcium (Lipitor) 20 mg QHS PO Last administered on 04/03/18 22: 10; Start 03/31/18 at 21:00 Aspirin (Ecotrin) 81 mg DAILYWBKFT PO Last administered on 04/04/18 09:56; Start 04/01/18 at 08:00 Info (Anti-Coagulation Monitoring By Pharmacy) 1 each PRN DAILY PRN MC SEE COMMENTS Last administered on 04/04/18 12:29; Start 03/31/18 at 13:00 Insulin Glargine (Lantus) 25 units QHS SQ Last administered on 03/31/18at 21:33 ; Start 03/31/18 at 21:00; Stop 04/01/18 at 15:03; Status DC Insulin Human Lispro (HumaLOG) 18 units TIDWMEALS SQ Last administered on 12:13; Start 03/31/18 at 17:00; Stop 04/03/18 at 17:00; Status DC Insulin Glargine (Lantus) 30 units QHS SQ Last administered on 04/03/18at 22:15 ; Start 04/01/18 at 21:00 Linezolid (Zyvox) 600 mg BID PO Last administered on 04/03/18 08:21; Start 08/08 at 09:15; Stop 04/03/18 at 11:47; Status DC Amoxicillin/ Clavulanate Potassium (Augmentin 875/ 125mg) 1 tab BID PO Last administered on 04/04/18 09:54; Start 04/02/18 at 09:30 Insulin Human Lispro (HumaLOG) 14 units TIDWMEALS SQ Last administered on at 13:00; Start 04/03/18 at 17:00 Lisinopril (Prinivil) 5 mg DAILY PO Last administered on 04/04/18at 12:56; Start 04/04/18 at 11:00 Active Scripts Active Reported Aspirin 325 Mg Tablet 1 Tab PO DAILY Triamcinolone Acetonide 0.1% Oint (Triamcinolone Acetonide) 15 Gm Oint...g. 1 Maria Isabel TP PRN MIX WITH EUCERIN DIRECTED BY PHYSICIAN Tramadol Hcl 50 Mg Tablet 50 Mg PO TID PRN Flomax (Tamsulosin Hcl) 0.4 Mg Cap.er.24h 1 Cap PO DAILY Xarelto (Rivaroxaban) 15 Mg Tablet 15 Mg PO DAILY Nystatin 15 Gm Oint...g. 1 Maria Isabel TP PRN Mupirocin Ointment (Mupirocin) 22 Gm Oint...g. 1 Maria Isabel TP PRN Miconazole Nitrate 130 Gm Aero.powd 130 Gm TP PRN Levothyroxine Sodium 25 Mcg Tablet 1 Tab PO DAILY Levemir (Insulin Detemir) 100 Unit/1 Ml Vial 20 Unit SQ HS Glipizide 5 Mg Tablet 1 Tab PO DAILY Lasix (Furosemide) 40 Mg Tablet 40 Mg PO DAILY Atenolol 50 Mg Tablet 75 Mg PO DAILY Vital Signs Vital Signs Date Time Temp Pulse Resp B/P (MAP) Pulse Ox O2 Delivery O2 Flow Rate FiO2 04/04/18 15:00 97.8 85 18 111/61 (78) 97 Room Air 97.8 Labs Laboratory Tests Test 04/02/18 17:11 04/02/18 17:12 04/02/18 17:32 04/02/18 20:48 Glucose (Fingerstick) 41 mg/dL (70-99) 41 mg/dL (70-99) 121 mg/dL (70-99) 173 mg/dL (70-99) Test 04/03/18 08:11 04/03/18 12:07 04/03/18 15:40 04/03/18 16:36 Glucose (Fingerstick) 328 mg/dL (70-99) 140 mg/dL (70-99) 66 mg/dL (70-99) 119 mg/dL (70-99) Test 04/03/18 20:38 04/04/18 05:53 04/04/18 07:46 04/04/18 12:01 Glucose (Fingerstick) 176 mg/dL (70-99) 195 mg/dL (70-99) 232 mg/dL (70-99) Sodium Level 141 mmol/L (136-145) Potassium Level 4.0 mmol/L (3.5-5.1) Chloride Level 106 mmol/L (98-107) Carbon Dioxide Level 31 mmol/L (21-32) Anion Gap 4 (6-14) Blood Urea Nitrogen 24 mg/dL (8-26) Creatinine 1.5 mg/dL (0.7-1.3) Estimated GFR (Cockcroft-Gault) 44.9 Glucose Level 225 mg/dL (70-99) Calcium Level 8.7 mg/dL (8.5-10.1) Laboratory Tests Test 04/03/18 16:36 04/03/18 20:38 04/04/18 05:53 04/04/18 07:46 Glucose (Fingerstick) 119 mg/dL (70-99) 176 mg/dL (70-99) 195 mg/dL (70-99) Sodium Level 141 mmol/L (136-145) Potassium Level 4.0 mmol/L (3.5-5.1) Chloride Level 106 mmol/L (98-107) Carbon Dioxide Level 31 mmol/L (21-32) Anion Gap 4 (6-14) Blood Urea Nitrogen 24 mg/dL (8-26) Creatinine 1.5 mg/dL (0.7-1.3) Estimated GFR (Cockcroft-Gault) 44.9 Glucose Level 225 mg/dL (70-99) Calcium Level 8.7 mg/dL (8.5-10.1) Test 04/04/18 12:01 Glucose (Fingerstick) 232 mg/dL (70-99) Allergies Allergies Coded Allergies Type Severity Reaction Last Updated Verified No Known Drug Allergies 03/29/18 No Disposition/Orders: D/C to Home Patient Instructions d/c planning 34 min FRANCISCO JARAMILLO MD Apr 04, 2018 15:58
--- NOTE | 2018-04-04 16:00 | DISCH ---
DISCHARGE INSTRUCTIONS Condition on Discharge Condition on Discharge: Guarded Activity After Discharge Activity Instructions for Disc: Activity as tolerated Bathing Instructions: Shower-keep dressing dry Lifting Instructions after Dis: No heavy lifting, No pulling or pushing Exercise Instruction after Dis: Walk 10 min, 3 x per day Driving Instructions after Dis: Do not drive Weight Bearing Status after Di: As tolerated Diet after Discharge Diet after Discharge: Cardiac, Diabetic No Calorie Level Checks after Discharge Checks after discharge: Check blood press - daily Contacting the DR. after DC Call your doctor for: If your condition worsens Treatment/Equipment after DC Adaptive Equipment Issued: FRANCISCO Spaulding MD Apr 04, 2018 16:00
[2018-04-04] MEDS ORDERED: INSU100I11 SQ (16:04)
[2018-04-04] MEDS ORDERED: INSU100I13 SQ (16:04)
[2018-04-04] MEDS ORDERED: Pantoprazole PO (16:04)
[2018-04-04] MEDS ORDERED: AMOX1TAB11 PO (16:04)
[2018-04-04 19:25] VITALS: BP 154/63
[2018-04-04] MEDS: ATORVASTATIN CALCIUM 20 MG TABLET PO SCH (20:24)
[2018-04-04] MEDS: INSULIN GLARGINE 300 UNITS/3 ML INSULN.PEN. SQ SCH (20:32)
[2018-04-04 23:20] VITALS: BP 136/72
[2018-04-05 03:18] VITALS: BP 149/73
[2018-04-05] MEDS: LEVOTHYROXINE 25 MCG TABLET. PO SCH (06:20)
[2018-04-05 07:00] VITALS: BP 103/45
[2018-04-05] MEDS: AMOXICILLIN/K CLAV 875/125MG TABLET. PO SCH (08:50)
[2018-04-05] MEDS: PANTOPRAZOLE 40 MG TABLET.DR. PO SCH (08:51)
[2018-04-05] MEDS: FUROSEMIDE 40 MG TABLET. PO SCH (08:51)
[2018-04-05] MEDS: LACTOBACILLUS RHAMNOSUS GG 1 CAPSULE. PO SCH (08:51)
[2018-04-05] MEDS: TAMSULOSIN 0.4 MG CAP.ER.24H. PO SCH (08:51)
[2018-04-05] MEDS: GABAPENTIN 100 MG CAPSULE. PO SCH ×2 (08:51→12:18)
[2018-04-05] MEDS: glipiZIDE 5 MG TABLET PO SCH (08:51)
[2018-04-05] MEDS: RIVAROXABAN 15 MG TABLET. PO SCH (08:52)
[2018-04-05] MEDS: ASPIRIN ENTERIC COATED 81 MG TABLET.DR. PO SCH (08:52)
[2018-04-05] MEDS: LISINOPRIL 5 MG TABLET. PO SCH (08:53)
[2018-04-05] MEDS: ATENOLOL 50 MG TABLET. PO SCH (08:53)
[2018-04-05] MEDS: TRIAMCINOLONE ACETONIDE 0.1% TOPICAL OINTMENT 15GM TUBE. TP SCH (08:53)
[2018-04-05] MEDS: INSULIN LISPRO 300 UNITS/3 ML INSULN.PEN. SQ SCH ×6 (08:59→17:00)
--- NOTE | 2018-04-05 09:12 | PDOC ---
PROGRESS NOTES Subjective Subjective No new complaints. Objective Objective Vital Signs Date Time Temp Pulse Resp B/P (MAP) Pulse Ox O2 Delivery O2 Flow Rate FiO2 04/05/18 07:00 98.0 69 20 103/45 (64) 96 Room Air 98.0 Intake and Output 04/05/18 07:00 Intake Total 1520 ml Output Total 125 ml Balance 1395 ml Intake Oral 1520 ml Output Urine Total 125 ml # Voids 5 Physical Exam Physical Exam He is sitting up in bedside chair and does not seem to be in any distress and he is independent with his mobility at roller walker level. Assessment Assessment Problems Medical Problems: (1) BRAD (acute kidney injury) Status: Acute (2) Hyperglycemia Status: Acute (3) Leukocytosis Status: Acute (4) Pneumonia Status: Acute Plan Plan of Care Agree with plans for home with home health follow up when medically stable and I have advised him to use roller walker than cane while up. Comment Review of Relevant I have reviewed the following items do (where applicable) has been applied. Labs Laboratory Tests Test 04/03/18 12:07 04/03/18 15:40 04/03/18 16:36 04/03/18 20:38 Glucose (Fingerstick) 140 mg/dL (70-99) 66 mg/dL (70-99) 119 mg/dL (70-99) 176 mg/dL (70-99) Test 04/04/18 05:53 04/04/18 07:46 04/04/18 12:01 04/04/18 16:08 Sodium Level 141 mmol/L (136-145) Potassium Level 4.0 mmol/L (3.5-5.1) Chloride Level 106 mmol/L (98-107) Carbon Dioxide Level 31 mmol/L (21-32) Anion Gap 4 (6-14) Blood Urea Nitrogen 24 mg/dL (8-26) Creatinine 1.5 mg/dL (0.7-1.3) Estimated GFR (Cockcroft-Gault) 44.9 Glucose Level 225 mg/dL (70-99) Calcium Level 8.7 mg/dL (8.5-10.1) Glucose (Fingerstick) 195 mg/dL (70-99) 232 mg/dL (70-99) 43 mg/dL (70-99) Test 04/04/18 16:22 04/04/18 17:08 04/04/18 20:58 04/05/18 07:10 Glucose (Fingerstick) 73 mg/dL (70-99) 79 mg/dL (70-99) 155 mg/dL (70-99) 220 mg/dL (70-99) Laboratory Tests Test 04/04/18 12:01 04/04/18 16:08 04/04/18 16:22 04/04/18 17:08 Glucose (Fingerstick) 232 mg/dL (70-99) 43 mg/dL (70-99) 73 mg/dL (70-99) 79 mg/dL (70-99) Test 04/04/18 20:58 04/05/18 07:10 Glucose (Fingerstick) 155 mg/dL (70-99) 220 mg/dL (70-99) Microbiology 03/29/18 Blood Culture - Final, Complete NO GROWTH AFTER 5 DAYS Medications Current Medications Sodium Chloride 1,000 ml @ 1,000 mls/hr 1X ONCE IV Last administered on at 22:05; Start 03/29/18 at 22:00; Stop 03/29/18 at 22:59; Status DC Sodium Chloride 1,000 ml @ 1,000 mls/hr 1X ONCE IV Last administered on at 22:43; Start 03/29/18 at 22:15; Stop 03/29/18 at 23:14; Status DC Insulin Human Regular 150 unit/ Sodium Chloride 151.5 ml @ 0 mls/hr CONT PRN IV SEE I/O RECORD; Start 03/29/18 at 22:30; Stop 03/29/18 at 22:58; Status DC Insulin Human Regular (HumuLIN R VIAL) 10 unit 1X ONCE IV Last administered on 03/29/18at 22:42; Start 03/29/18 at 22:15; Stop 03/29/18 at 22:16; Status DC Ceftriaxone Sodium 50 ml @ 100 mls/hr 1X ONCE IV Last administered on at 23:15; Start 03/29/18 at 23:15; Stop 03/29/18 at 23:44; Status DC Azithromycin 500 mg/Sodium Chloride 250 ml @ 250 mls/hr 1X ONCE IV Last administered on 03/29/18at 23:42; Start 03/29/18 at 23:00; Stop 03/29/18 at 23:59; Status DC Ondansetron HCl (Zofran) 4 mg PRN Q8HRS PRN IV NAUSEA/VOMITING; Start 03/29/18 at 23:55; Stop 03/30/18 at 23:54; Status DC Fentanyl Citrate (Fentanyl 2ml Vial) 50 mcg PRN Q1HR PRN IV PAIN; Start at 23:45; Stop 03/30/18 at 23:44; Status DC Acetaminophen (Tylenol) 650 mg PRN Q4HRS PRN PO FEVER; Start 03/29/18 at 23:45; Stop 03/30/18 at 23:44; Status DC Acetaminophen (Tylenol) 1,000 mg 1X ONCE PO Last administered on 03/29/18at 23: 58; Start 03/29/18 at 23:45; Stop 03/30/18 at 00:01; Status DC Sodium Chloride 1,000 ml @ 100 mls/hr 1X ONCE IV Last administered on at 01:45; Start 03/30/18 at 01:45; Stop 03/30/18 at 11:44; Status DC Insulin Human Lispro (HumaLOG) 0-9 UNITS TIDWMEALS SQ Last administered on 04/05at 08:59; Start 03/30/18 at 08:00 Dextrose (Dextrose 50%-Water Syringe) 12.5 gm PRN Q15MIN PRN IV SEE COMMENTS; Start 03/30/18 at 07:45 Insulin Glargine (Lantus) 14 units DAILY SQ Last administered on 03/30/18at 08:25 ; Start 03/30/18 at 08:00; Stop 03/30/18 at 10:12; Status DC Insulin Human Lispro (HumaLOG) 10 units TIDWMEALS SQ Last administered on at 08:25; Start 03/30/18 at 08:00; Stop 03/30/18 at 12:04; Status DC Aspirin (Dorothy Aspirin) 325 mg DAILY PO Last administered on 03/30/18at 10:27; Start 03/30/18 at 11:00; Stop 03/31/18 at 12:42; Status DC Atenolol (Tenormin) 75 mg DAILY PO Last administered on 04/04/18at 09:55; Start 03/30/18 at 11:00 Furosemide (Lasix) 40 mg DAILY PO Last administered on 04/05/18 08:51; Start 03/30/18 at 11:00 Glipizide (Glucotrol) 5 mg DAILY PO Last administered on 04/05/18 08:51; Start 03/30/18 at 11:00 Rivaroxaban (Xarelto) 15 mg DAILY PO Last administered on 04/05/18 08:52; Start 03/30/18 at 11:00 Tamsulosin HCl (Flomax) 0.4 mg DAILY PO Last administered on 04/05/18 08:51; Start 03/30/18 at 11:00 Tramadol HCl (Ultram) 50 mg TID PRN PRN PO MILD PAIN Last administered on 02:40; Start 03/30/18 at 10:15 Triamcinolone Acetonide (Kenalog) 1 maria isabel DAILY TP Last administered on 08:53; Start 03/30/18 at 11:00 Insulin Glargine (Lantus) 20 units QHS SQ ; Start 03/30/18 at 21:00; Stop at 16:15; Status DC Levothyroxine Sodium (Synthroid) 25 mcg DAILY07 PO Last administered on 06:20; Start 03/30/18 at 11:00 Miconazole Nitrate (Desenex) 1 maria isabel PRN BID PRN TP YEAST; Start 03/30/18 at 21:00 Pantoprazole Sodium (Protonix) 40 mg DAILYAC PO Last administered on 04/05/18 08:51; Start 03/30/18 at 12:00 Multi-Ingredient Mouthwash/Gargle (Gi Cocktail) 20 ml PRN QID PRN PO abd pain Last administered on 03/30/18 14:24; Start 03/30/18 at 12:00 Insulin Human Lispro (HumaLOG) 14 units TIDWMEALS SQ Last administered on 12:24; Start 03/30/18 at 17:00; Stop 03/31/18 at 16:15; Status DC Insulin Human Lispro (HumaLOG) 26 units 1X ONCE SQ Last administered on 12:26; Start 03/30/18 at 12:15; Stop 03/30/18 at 12:16; Status DC Micafungin Sodium 100 mg/Dextrose 100 ml @ 100 mls/hr Q24H IV Last administered on 04/02/18 15:33; Start 03/30/18 at 13:00; Stop 04/03/18 at 11:47 ; Status DC Piperacillin Sod/ Tazobactam Sod 3.375 gm/Sodium Chloride 50 ml @ 100 mls/hr Q6HRS IV Last administered on 04/02/18 06:12; Start 03/30/18 at 13:00; Stop 08/08 at 09:03; Status DC Gabapentin (Neurontin) 100 mg TID PO Last administered on 04/05/18 08:51; Start 03/30/18 at 14:00 Insulin Human Lispro (HumaLOG) 26 units 1X ONCE SQ Last administered on 14:27; Start 03/30/18 at 14:30; Stop 03/30/18 at 14:31; Status DC Lactobacillus Rhamnosus (Culturelle) 1 cap BID PO Last administered on 08:51; Start 03/30/18 at 21:00 Atorvastatin Calcium (Lipitor) 20 mg QHS PO Last administered on 04/04/18 20: 24; Start 03/31/18 at 21:00 Aspirin (Ecotrin) 81 mg DAILYWBKFT PO Last administered on 04/05/18 08:52; Start 04/01/18 at 08:00 Info (Anti-Coagulation Monitoring By Pharmacy) 1 each PRN DAILY PRN MC SEE COMMENTS Last administered on 04/04/18 12:29; Start 03/31/18 at 13:00 Insulin Glargine (Lantus) 25 units QHS SQ Last administered on 03/31/18 21:33 ; Start 03/31/18 at 21:00; Stop 04/01/18 at 15:03; Status DC Insulin Human Lispro (HumaLOG) 18 units TIDWMEALS SQ Last administered on 12:13; Start 03/31/18 at 17:00; Stop 04/03/18 at 17:00; Status DC Insulin Glargine (Lantus) 30 units QHS SQ Last administered on 8/14/18at 20:32 ; Start 04/01/18 at 21:00 Linezolid (Zyvox) 600 mg BID PO Last administered on 04/03/18at 08:21; Start 08/08 at 09:15; Stop 04/03/18 at 11:47; Status DC Amoxicillin/ Clavulanate Potassium (Augmentin 875/ 125mg) 1 tab BID PO Last administered on 04/05/18at 08:50; Start 04/02/18 at 09:30 Insulin Human Lispro (HumaLOG) 14 units TIDWMEALS SQ Last administered on at 08:59; Start 04/03/18 at 17:00 Lisinopril (Prinivil) 5 mg DAILY PO Last administered on 04/04/18at 12:56; Start 04/04/18 at 11:00 Active Scripts Active Reported Aspirin 325 Mg Tablet 1 Tab PO DAILY Triamcinolone Acetonide 0.1% Oint (Triamcinolone Acetonide) 15 Gm Oint...g. 1 Maria Isabel TP PRN MIX WITH EUCERIN DIRECTED BY PHYSICIAN Tramadol Hcl 50 Mg Tablet 50 Mg PO TID PRN Flomax (Tamsulosin Hcl) 0.4 Mg Cap.er.24h 1 Cap PO DAILY Xarelto (Rivaroxaban) 15 Mg Tablet 15 Mg PO DAILY Nystatin 15 Gm Oint...g. 1 Maira Isabel TP PRN Mupirocin Ointment (Mupirocin) 22 Gm Oint...g. 1 Maria Isabel TP PRN Miconazole Nitrate 130 Gm Aero.powd 130 Gm TP PRN Levothyroxine Sodium 25 Mcg Tablet 1 Tab PO DAILY Levemir (Insulin Detemir) 100 Unit/1 Ml Vial 20 Unit SQ HS Glipizide 5 Mg Tablet 1 Tab PO DAILY Lasix (Furosemide) 40 Mg Tablet 40 Mg PO DAILY Atenolol 50 Mg Tablet 75 Mg PO DAILY Vitals/I & O Vital Sign - Last 24 Hours 04/04/18 04/04/18 04/04/18 04/04/18 09:55 11:00 12:56 15:00 Temp 97.7 97.8 97.7 97.8 Pulse 79 80 80 85 Resp 18 18 B/P (MAP) 150/75 146/79 (101) 146/79 111/61 (78) Pulse Ox 98 97 O2 Delivery Room Air Room Air 04/04/18 04/04/18 04/04/18 04/05/18 19:25 20:00 23:20 02:40 Temp 97.7 97.4 97.7 97.4 Pulse 79 80 Resp 18 18 16 B/P (MAP) 154/63 (93) 136/72 (93) Pulse Ox 97 97 97 O2 Delivery Room Air Room Air Room Air Room Air 04/05/18 04/05/18 04/05/18 03:18 03:40 07:00 Temp 97.6 98.0 97.6 98.0 Pulse 80 69 Resp 18 16 20 B/P (MAP) 149/73 (98) 103/45 (64) Pulse Ox 95 95 96 O2 Delivery Room Air Room Air Room Air Intake and Output 04/04/18 04/04/18 04/05/18 15:00 23:00 07:00 Intake Total 800 ml 720 ml Output Total 125 ml Balance 800 ml 595 ml YONAS BONDS MD Apr 05, 2018 09:11
--- NOTE | 2018-04-05 10:41 | PDOC ---
PROGRESS NOTES Chief Complaint Chief Complaint nausea and vomiting, RESOLVED abd pain, better, eating well cellulitis of LLE Left foot weakNEss and numbness, sensation intact, Dm2, poor control, noncompliance past 3 months Morbid obesity, BMI 40 chronic sacral ulcer, stage 2, try to unload weakness and debility, IMPROVING SELF NEGLECT UNCONTROLLED DIABETES A1C > 12, NEEDS DIABETIC TEACHING begin lisinopril 5 mg po daily INSULIN INSTRUCTION D/C YESTERDAY HELD DUE TO HYPOGLYCEMIC EVENT D/C TODAY TO HOME, LIVES WITH SON History of Present Illness History of Present Illness GES neg he looks and feels better str imrproved, but will need SNU he told me we wanted to go today right after he was seated on side of the bed and urinated all over the floor. Vitals Vitals Vital Signs Date Time Temp Pulse Resp B/P (MAP) Pulse Ox O2 Delivery O2 Flow Rate FiO2 04/05/18 08:00 Room Air 04/05/18 07:00 98.0 69 20 103/45 (64) 96 98.0 Physical Exam Physical Exam CONSTITUTIONAL: He is alert, cooperative. He is in no acute distress. He is obese. in chair HEENT: Pupils equal and reactive. Normal conjunctivae. Oral cavity, pharynx is clear. He has some chronic lip changes. dentures NECK: Supple. No JVD. LUNGS: Clear to auscultation. HEART: S1, S2. 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 ABDOMEN: Obese, soft and nontender. No guarding. No rebound. EXTREMITIES: Without clubbing or cyanosis. He has bilateral lower extremity non-pitting edema, still 2 plus. He also has severe tenia, both feet. Both lower legs have some chronic venous stasis changes, but his left lower extremity has improved erythema, Still some warmth but better and some tracking up the medial thigh that has improved. Rooke boots NEUROLOGIC: He is nonfocal, moves all extremities. PSYCHIATRIC: Affect is pleasant. SKIN: no Rash. Buttock wound stage 1 General: Alert, Oriented X3, Cooperative, No acute distress, mild distress Heart: Regular rate, Normal S1 Lungs: Clear Abdomen: Normal bowel sounds, No tenderness Extremities: No cyanosis, Other (2-3+ bilateral LE pitting edema; LLE cellulitis) Skin: No breakdown Labs LABS Laboratory Tests Test 04/04/18 12:01 04/04/18 16:08 04/04/18 16:22 04/04/18 17:08 Glucose (Fingerstick) 232 mg/dL (70-99) 43 mg/dL (70-99) 73 mg/dL (70-99) 79 mg/dL (70-99) Test 04/04/18 20:58 04/05/18 07:10 Glucose (Fingerstick) 155 mg/dL (70-99) 220 mg/dL (70-99) Assessment and Plan Assessmemt and Plan Problems Medical Problems: (1) BRAD (acute kidney injury) Status: Acute (2) Hyperglycemia Status: Acute (3) Leukocytosis Status: Acute (4) Pneumonia Status: Acute Comment Review of Relevant I have reviewed the following items do (where applicable) has been applied. Labs Laboratory Tests Test 04/03/18 12:07 04/03/18 15:40 04/03/18 16:36 04/03/18 20:38 Glucose (Fingerstick) 140 mg/dL (70-99) 66 mg/dL (70-99) 119 mg/dL (70-99) 176 mg/dL (70-99) Test 04/04/18 05:53 04/04/18 07:46 04/04/18 12:01 04/04/18 16:08 Sodium Level 141 mmol/L (136-145) Potassium Level 4.0 mmol/L (3.5-5.1) Chloride Level 106 mmol/L (98-107) Carbon Dioxide Level 31 mmol/L (21-32) Anion Gap 4 (6-14) Blood Urea Nitrogen 24 mg/dL (8-26) Creatinine 1.5 mg/dL (0.7-1.3) Estimated GFR (Cockcroft-Gault) 44.9 Glucose Level 225 mg/dL (70-99) Calcium Level 8.7 mg/dL (8.5-10.1) Glucose (Fingerstick) 195 mg/dL (70-99) 232 mg/dL (70-99) 43 mg/dL (70-99) Test 04/04/18 16:22 04/04/18 17:08 04/04/18 20:58 04/05/18 07:10 Glucose (Fingerstick) 73 mg/dL (70-99) 79 mg/dL (70-99) 155 mg/dL (70-99) 220 mg/dL (70-99) Laboratory Tests Test 04/04/18 12:01 04/04/18 16:08 04/04/18 16:22 04/04/18 17:08 Glucose (Fingerstick) 232 mg/dL (70-99) 43 mg/dL (70-99) 73 mg/dL (70-99) 79 mg/dL (70-99) Test 04/04/18 20:58 04/05/18 07:10 Glucose (Fingerstick) 155 mg/dL (70-99) 220 mg/dL (70-99) Microbiology 03/29/18 Blood Culture - Final, Complete NO GROWTH AFTER 5 DAYS Medications Current Medications Sodium Chloride 1,000 ml @ 1,000 mls/hr 1X ONCE IV Last administered on at 22:05; Start 03/29/18 at 22:00; Stop 03/29/18 at 22:59; Status DC Sodium Chloride 1,000 ml @ 1,000 mls/hr 1X ONCE IV Last administered on at 22:43; Start 03/29/18 at 22:15; Stop 03/29/18 at 23:14; Status DC Insulin Human Regular 150 unit/ Sodium Chloride 151.5 ml @ 0 mls/hr CONT PRN IV SEE I/O RECORD; Start 03/29/18 at 22:30; Stop 03/29/18 at 22:58; Status DC Insulin Human Regular (HumuLIN R VIAL) 10 unit 1X ONCE IV Last administered on 03/29/18at 22:42; Start 03/29/18 at 22:15; Stop 03/29/18 at 22:16; Status DC Ceftriaxone Sodium 50 ml @ 100 mls/hr 1X ONCE IV Last administered on at 23:15; Start 03/29/18 at 23:15; Stop 03/29/18 at 23:44; Status DC Azithromycin 500 mg/Sodium Chloride 250 ml @ 250 mls/hr 1X ONCE IV Last administered on 03/29/18at 23:42; Start 03/29/18 at 23:00; Stop 03/29/18 at 23:59; Status DC Ondansetron HCl (Zofran) 4 mg PRN Q8HRS PRN IV NAUSEA/VOMITING; Start 03/29/18 at 23:55; Stop 03/30/18 at 23:54; Status DC Fentanyl Citrate (Fentanyl 2ml Vial) 50 mcg PRN Q1HR PRN IV PAIN; Start at 23:45; Stop 03/30/18 at 23:44; Status DC Acetaminophen (Tylenol) 650 mg PRN Q4HRS PRN PO FEVER; Start 03/29/18 at 23:45; Stop 03/30/18 at 23:44; Status DC Acetaminophen (Tylenol) 1,000 mg 1X ONCE PO Last administered on 03/29/18at 23: 58; Start 03/29/18 at 23:45; Stop 03/30/18 at 00:01; Status DC Sodium Chloride 1,000 ml @ 100 mls/hr 1X ONCE IV Last administered on at 01:45; Start 03/30/18 at 01:45; Stop 03/30/18 at 11:44; Status DC Insulin Human Lispro (HumaLOG) 0-9 UNITS TIDWMEALS SQ Last administered on 04/05at 08:59; Start 03/30/18 at 08:00 Dextrose (Dextrose 50%-Water Syringe) 12.5 gm PRN Q15MIN PRN IV SEE COMMENTS; Start 03/30/18 at 07:45 Insulin Glargine (Lantus) 14 units DAILY SQ Last administered on 03/30/18at 08:25 ; Start 03/30/18 at 08:00; Stop 03/30/18 at 10:12; Status DC Insulin Human Lispro (HumaLOG) 10 units TIDWMEALS SQ Last administered on at 08:25; Start 03/30/18 at 08:00; Stop 03/30/18 at 12:04; Status DC Aspirin (Dorothy Aspirin) 325 mg DAILY PO Last administered on 03/30/18at 10:27; Start 03/30/18 at 11:00; Stop 03/31/18 at 12:42; Status DC Atenolol (Tenormin) 75 mg DAILY PO Last administered on 04/04/18at 09:55; Start 03/30/18 at 11:00 Furosemide (Lasix) 40 mg DAILY PO Last administered on 04/05/18at 08:51; Start 03/30/18 at 11:00 Glipizide (Glucotrol) 5 mg DAILY PO Last administered on 04/05/18 08:51; Start 03/30/18 at 11:00 Rivaroxaban (Xarelto) 15 mg DAILY PO Last administered on 04/05/18 08:52; Start 03/30/18 at 11:00 Tamsulosin HCl (Flomax) 0.4 mg DAILY PO Last administered on 04/05/18 08:51; Start 03/30/18 at 11:00 Tramadol HCl (Ultram) 50 mg TID PRN PRN PO MILD PAIN Last administered on at 02:40; Start 03/30/18 at 10:15 Triamcinolone Acetonide (Kenalog) 1 maria isabel DAILY TP Last administered on 08:53; Start 03/30/18 at 11:00 Insulin Glargine (Lantus) 20 units QHS SQ ; Start 03/30/18 at 21:00; Stop at 16:15; Status DC Levothyroxine Sodium (Synthroid) 25 mcg DAILY07 PO Last administered on at 06:20; Start 03/30/18 at 11:00 Miconazole Nitrate (Desenex) 1 maria isabel PRN BID PRN TP YEAST; Start 03/30/18 at 21:00 Pantoprazole Sodium (Protonix) 40 mg DAILYAC PO Last administered on 04/05/18at 08:51; Start 03/30/18 at 12:00 Multi-Ingredient Mouthwash/Gargle (Gi Cocktail) 20 ml PRN QID PRN PO abd pain Last administered on 03/30/18at 14:24; Start 03/30/18 at 12:00 Insulin Human Lispro (HumaLOG) 14 units TIDWMEALS SQ Last administered on at 12:24; Start 03/30/18 at 17:00; Stop 03/31/18 at 16:15; Status DC Insulin Human Lispro (HumaLOG) 26 units 1X ONCE SQ Last administered on at 12:26; Start 03/30/18 at 12:15; Stop 03/30/18 at 12:16; Status DC Micafungin Sodium 100 mg/Dextrose 100 ml @ 100 mls/hr Q24H IV Last administered on 04/02/18 15:33; Start 03/30/18 at 13:00; Stop 04/03/18 at 11:47 ; Status DC Piperacillin Sod/ Tazobactam Sod 3.375 gm/Sodium Chloride 50 ml @ 100 mls/hr Q6HRS IV Last administered on 04/02/18 06:12; Start 03/30/18 at 13:00; Stop 08/08 at 09:03; Status DC Gabapentin (Neurontin) 100 mg TID PO Last administered on 04/05/18 08:51; Start 03/30/18 at 14:00 Insulin Human Lispro (HumaLOG) 26 units 1X ONCE SQ Last administered on 14:27; Start 03/30/18 at 14:30; Stop 03/30/18 at 14:31; Status DC Lactobacillus Rhamnosus (Culturelle) 1 cap BID PO Last administered on 08:51; Start 03/30/18 at 21:00 Atorvastatin Calcium (Lipitor) 20 mg QHS PO Last administered on 04/04/18at 20: 24; Start 03/31/18 at 21:00 Aspirin (Ecotrin) 81 mg DAILYWBKFT PO Last administered on 04/05/18 08:52; Start 04/01/18 at 08:00 Info (Anti-Coagulation Monitoring By Pharmacy) 1 each PRN DAILY PRN MC SEE COMMENTS Last administered on 04/04/18at 12:29; Start 03/31/18 at 13:00 Insulin Glargine (Lantus) 25 units QHS SQ Last administered on 03/31/18at 21:33 ; Start 03/31/18 at 21:00; Stop 04/01/18 at 15:03; Status DC Insulin Human Lispro (HumaLOG) 18 units TIDWMEALS SQ Last administered on 12:13; Start 03/31/18 at 17:00; Stop 04/03/18 at 17:00; Status DC Insulin Glargine (Lantus) 30 units QHS SQ Last administered on 04/04/18at 20:32 ; Start 04/01/18 at 21:00 Linezolid (Zyvox) 600 mg BID PO Last administered on 04/03/18at 08:21; Start 08/08 at 09:15; Stop 04/03/18 at 11:47; Status DC Amoxicillin/ Clavulanate Potassium (Augmentin 875/ 125mg) 1 tab BID PO Last administered on 04/05/18at 08:50; Start 04/02/18 at 09:30 Insulin Human Lispro (HumaLOG) 14 units TIDWMEALS SQ Last administered on at 08:59; Start 04/03/18 at 17:00 Lisinopril (Prinivil) 5 mg DAILY PO Last administered on 04/04/18at 12:56; Start 04/04/18 at 11:00 Active Scripts Active Reported Aspirin 325 Mg Tablet 1 Tab PO DAILY Triamcinolone Acetonide 0.1% Oint (Triamcinolone Acetonide) 15 Gm Oint...g. 1 Maria Isabel TP PRN MIX WITH EUCERIN DIRECTED BY PHYSICIAN Tramadol Hcl 50 Mg Tablet 50 Mg PO TID PRN Flomax (Tamsulosin Hcl) 0.4 Mg Cap.er.24h 1 Cap PO DAILY Xarelto (Rivaroxaban) 15 Mg Tablet 15 Mg PO DAILY Nystatin 15 Gm Oint...g. 1 Maria Isabel TP PRN Mupirocin Ointment (Mupirocin) 22 Gm Oint...g. 1 Maria Isabel TP PRN Miconazole Nitrate 130 Gm Aero.powd 130 Gm TP PRN Levothyroxine Sodium 25 Mcg Tablet 1 Tab PO DAILY Levemir (Insulin Detemir) 100 Unit/1 Ml Vial 20 Unit SQ HS Glipizide 5 Mg Tablet 1 Tab PO DAILY Lasix (Furosemide) 40 Mg Tablet 40 Mg PO DAILY Atenolol 50 Mg Tablet 75 Mg PO DAILY Vitals/I & O Vital Sign - Last 24 Hours 04/04/18 04/04/18 04/04/18 04/04/18 11:00 12:56 15:00 19:25 Temp 97.7 97.8 97.7 97.7 97.8 97.7 Pulse 80 80 85 79 Resp 18 18 18 B/P (MAP) 146/79 (101) 146/79 111/61 (78) 154/63 (93) Pulse Ox 98 97 97 O2 Delivery Room Air Room Air Room Air 04/04/18 04/04/18 04/05/18 04/05/18 20:00 23:20 02:40 03:18 Temp 97.4 97.6 97.4 97.6 Pulse 80 80 Resp 18 16 18 B/P (MAP) 136/72 (93) 149/73 (98) Pulse Ox 97 97 95 O2 Delivery Room Air Room Air Room Air Room Air 04/05/18 04/05/18 04/05/18 03:40 07:00 08:00 Temp 98.0 98.0 Pulse 69 Resp 16 20 B/P (MAP) 103/45 (64) Pulse Ox 95 96 O2 Delivery Room Air Room Air Room Air Intake and Output 04/04/18 04/04/18 04/05/18 15:00 23:00 07:00 Intake Total 800 ml 720 ml Output Total 125 ml Balance 800 ml 595 ml FRANCISCO JARAMILLO MD Apr 05, 2018 10:40
[2018-04-05 11:00] VITALS: BP 109/67
[2018-04-05 11:17] LABS: BILIRUBIN,URINE NEGATIVE (NEG); CLARITY,URINE CLEAR; COLOR,URINE YELLOW; NITRITE,URINE NEGATIVE (NEG); PROTEIN,URINE NEGATIVE (NEG-TRACE); UROBILINOGEN,URINE 0.2 mg/dL (0.2 mg/dL)
--- NOTE | 2018-04-05 11:36 | PDOC ---
Infectious Disease Note Subjective Subjective feeling better, ROS ROS no n/v/d/sob Vital Sign Vital Signs Vital Signs Date Time Temp Pulse Resp B/P (MAP) Pulse Ox O2 Delivery O2 Flow Rate FiO2 04/05/18 11:00 98.3 80 20 109/67 (81) 99 Room Air 98.3 Physical Exam PHYSICAL EXAM CONSTITUTIONAL: He is alert, cooperative. He is in no acute distress. He is obese. in chair HEENT: Pupils equal and reactive. Normal conjunctivae. Oral cavity, pharynx is clear. He has some chronic lip changes. dentures NECK: Supple. No JVD. LUNGS: Clear to auscultation. HEART: S1, S2. 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 ABDOMEN: Obese, soft and nontender. No guarding. No rebound. EXTREMITIES: Without clubbing or cyanosis. He has bilateral lower extremity non-pitting edema, still 2 plus. He also has severe tenia, both feet. Both lower legs have some chronic venous stasis changes, but his left lower extremity has improved erythema, Still some warmth but better and some tracking up the medial thigh that has improved. Rooke boots NEUROLOGIC: He is nonfocal, moves all extremities. PSYCHIATRIC: Affect is pleasant. SKIN: no Rash. 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 x 5 days F/u labs and cults Encouraged off loading Needs compression but marcia check U/S first ok to d/c off load d/w pt f/u with us if needed in 2 wks MEJIA MARTINEZ MD Apr 05, 2018 11:36
[2018-04-05 11:59] LABS: BACTERIA,URINE 0 /HPF (0-FEW); HYALINE CASTS, URINE OCCASIONAL /HPF; SQUAMOUS EPITHELIAL CELL,UR FEW /LPF; WBC,URINE 0 /HPF (0-4)
--- NOTE | 2018-04-05 13:02 | PDOC ---
Subjective: Subjective: Offers no complaints, wants to go home. Objective: Objective: No GI concerns per RN, possible DC today after insulin teaching. Vital Signs: Vital Signs Date Time Temp Pulse Resp B/P (MAP) Pulse Ox O2 Delivery O2 Flow Rate FiO2 04/05/18 11:00 98.3 80 20 109/67 (81) 99 Room Air 98.3 Labs: Laboratory Tests Test 04/04/18 16:08 04/04/18 16:22 04/04/18 17:08 04/04/18 20:58 Glucose (Fingerstick) 43 mg/dL (70-99) 73 mg/dL (70-99) 79 mg/dL (70-99) 155 mg/dL (70-99) Test 04/05/18 07:10 04/05/18 11:50 Glucose (Fingerstick) 220 mg/dL (70-99) 249 mg/dL (70-99) PE: GEN: NAD, eating lunch LUNGS: CTAB HEART: RRR ABD: round, non-tender NEURO/PSYCH: A & O 3 A/P: N/v, upper abd discomfort - resolved -- No GI issues, DC per primary. MICHAEL BERKOWITZ Apr 05, 2018 13:02 TOBIN ORTEGA MD Apr 05, 2018 13:48
[2018-04-05] MEDS: ANTI-COAG MONITOR BY PHARMACY. MC PRN (14:35)
== END 2018-04-05 18:24 | disposition home or self-care (01) | DRG 871 ==
LOC: ER 21:03 → 6 SOUTH 23:15
PROVIDERS: ADMIT Internal Medicine; ATTEND Internal Medicine
DX: A41.9 Sepsis, unspecified organism (principal); N17.0 Acute kidney failure with tubular necrosis; G93.41 Metabolic encephalopathy; J18.9 Pneumonia, unspecified organism; L03.116 Cellulitis of left lower limb; E87.2 Acidosis; I13.0 Hypertensive heart and chronic kidney disease with heart failure and stage 1 through stage 4 chronic kidney disease, or unspecified chronic kidney disease; I42.9 Cardiomyopathy, unspecified; I48.92 Unspecified atrial flutter; I50.42 Chronic combined systolic (congestive) and diastolic (congestive) heart failure; J44.0 Chronic obstructive pulmonary disease with (acute) lower respiratory infection; Z68.41 Body mass index [BMI] 40.0-44.9, adult; M19.90 Unspecified osteoarthritis, unspecified site; F41.9 Anxiety disorder, unspecified; B35.1 Tinea unguium; E03.9 Hypothyroidism, unspecified; E11.22 Type 2 diabetes mellitus with diabetic chronic kidney disease; E11.42 Type 2 diabetes mellitus with diabetic polyneuropathy; E11.51 Type 2 diabetes mellitus with diabetic peripheral angiopathy without gangrene; E11.649 Type 2 diabetes mellitus with hypoglycemia without coma; E66.01 Morbid (severe) obesity due to excess calories; E78.5 Hyperlipidemia, unspecified; I25.10 Atherosclerotic heart disease of native coronary artery without angina pectoris; I48.91 Unspecified atrial fibrillation; I87.8 Other specified disorders of veins; I89.0 Lymphedema, not elsewhere classified; K21.9 Gastro-esophageal reflux disease without esophagitis; L60.2 Onychogryphosis; N18.9 Chronic kidney disease, unspecified; N40.0 Benign prostatic hyperplasia without lower urinary tract symptoms; Z96.652 Presence of left artificial knee joint; W06.XXXA Fall from bed, initial encounter; Y93.89 Activity, other specified; Y92.098 Other place in other non-institutional residence as the place of occurrence of the external cause; Y99.8 Other external cause status; Z79.01 Long term (current) use of anticoagulants; Z79.4 Long term (current) use of insulin; Z95.1 Presence of aortocoronary bypass graft; Z95.0 Presence of cardiac pacemaker; Z91.19 Patient's noncompliance with other medical treatment and regimen; Z91.14 Patient's other noncompliance with medication regimen; Z87.891 Personal history of nicotine dependence; Z86.73 Personal history of transient ischemic attack (TIA), and cerebral infarction without residual deficits; Z83.3 Family history of diabetes mellitus; Z82.49 Family history of ischemic heart disease and other diseases of the circulatory system
CPT/HCPCS: 36415; 71045; 78264; 80048; 80053; 80061; 81001; 82550; 82962; 83036; 83605; 83690; 83735; 83880; 84443; 84484; 85007; 85025; 85610; 87040; 93005; 93306; 93970; 96361; 96365; 96368; 96375; A9541; J0456; J0690; J1815; J2248; J2543; J7030; J7050; P9612; 97116; 97530; 99285-25